=== PATIENT | female | born 1945 | race Asian ===

== ENCOUNTER 2016-02-19 12:40 | Inpatient (IN) | payer MEDICARE, MEDICAID ==
--- NOTE | 2016-02-19 13:10 | ED Physician Chart ---
Chief Complaint/HPI - Patient Information Date Seen:: 02/19/16 Time Seen:: 12:50 Chief Complaint:: 5150 status; threatening History of Present Illness:: per military police officer threatened to kill with whom she lives in a motel. Also told military police officer she was hearing voices which she denied to me. Allergies:: Allergies Allergy/AdvReac Type Severity Reaction Status Date / Time No Known Allergies Allergy Verified 12/29/15 00:26 Historian:: Patient, Other (military police officer) Review:: Nurse's Note Reviewed Review of Systems - Review of Systems General/Constitutional: No fever, No chills Skin: Skin lesions Head: No headache Eyes: No loss of vision ENT: No earache Neck: No neck pain Cardio Vascular: No chest pain Pulmonary: No SOB GI: No nausea, No vomiting G/U: No dysuria, No hematuria Musculoskeletal: No bone or joint pain (`) Psychiatric: Homicidal ideation Hematopoietic: No bruising Allergic/Immuno: No urticaria Neurological: No syncope Past Medical History - Past Medical History Past Medical History: HTN, DM Family History: Other (brother: cardiomegaly) Social History: Non Smoker, , Other Surgical History: Appendectomy Psychiatricy History: Other (uncertain) Medication: None Family Medical History - Family Member Mother History Unknown: Yes Physical Exam - Physical Examination General/Constitutional: Well-developed, well-nourished, Alert, No distress Head: Atraumatic Eyes: Lids, conjuctiva normal, PERRL Other Skin comments:: nodules and redness left lower leg; redness lower abdominal wall ENMT: External ears, nose nl Other ENMT comments:: 4/4 poor dental hygiene Neck: No nuchal rigidity Respiratory: Nl effort/Exclusion Cardio Vascular: RRR, No murmur, gallop, rubs Other GI comments:: lower abdominal tenderness; protuberant; umbilical hernia : No CVA tenderness Other Extremities comments:: 2.5/4 pre-tibial pitting edema Neuro/Psych: Alert/oriented, No focal deficits Labs/Radiology/EKG Results - Lab Results Results: Laboratory Results - last 24 hr 02/19/16 02/19/16 02/19/16 13:20 13:20 13:20 WBC 5.8 RBC 4.34 Hgb 12.2 Hct 35.7 MCV 82.4 MCH 28.1 MCHC Differential 34.1 RDW 16.3 Plt Count 127 L MPV 9.1 Neutrophils % 68.4 Lymphocytes % 18.0 L Monocytes % 8.9 Eosinophils % 3.4 Basophils % 1.3 Sodium 130 L Potassium 4.0 Chloride 97 L Carbon Dioxide 26.1 Anion Gap 10.9 BUN 13 Creatinine 0.9 Est GFR ( Amer) > 60.0 Est GFR (Non-Af Amer) > 60.0 BUN/Creatinine Ratio 14.4 Glucose 324 H Calcium 9.5 Total Bilirubin 4.5 H AST 42 H ALT 22 Alkaline Phosphatase 130 H B-Natriuretic Peptide 61.1 Total Protein 7.5 Albumin 3.3 L Globulin 4.2 Albumin/Globulin Ratio 0.8 L - Radiology Results Results: CXR negative - EKG Interpretations Rhythm: NSR [place]: normal Rate: 70 ED Septic Shock - . Is Septic Shock (SBP<90, OR Lactate>4 mmol\L) present?: No Reassessment (Disposition) - Reassessment Reassessment Condition:: Unchanged - Diagnosis Diagnosis:: cellulitis left lower leg and lower abdominal wall; homicidal threat; 5150 status - Patient Disposition Admitted to:: [facility] Spoke to:: Luisito Pires Admitting Medical Physician:: Luisito Pires Admitting Psych Physician:: Marii Mina Condition at Disposition:: Stable, Unchanged
[2016-02-19 13:34] LABS: % BASOPHILS 1.3 % (0.0-2.0); % EOSINOPHILS 3.4 % (0.0-5.0); % MONOCYTES 8.9 % (2.0-10.0); % NEUTROPHILS 68.4 % (40.0-80.0); HEMATOCRIT 35.7 % (35.0-45.0); HEMOGLOBIN 12.2 gm/dL (11.7-16.1); MEAN CELL VOLUME 82.4 fl (81-100); MEAN CORPUSCULAR HEMOGLOBIN 28.1 pg (27.0-31.0); MEAN CORPUSCULAR HGB CONC 34.1 pg (28.0-36.0); MEAN PLATELET VOLUME 9.1 fl; PLATELET COUNT 127 Th/cmm (150-400); RED BLOOD COUNT 4.34 Mil/cmm (3.80-5.20); RED CELL DISTRIBUTION WIDTH 16.3 % (11.5-20.0); WHITE BLOOD COUNT 5.8 Th/cmm (4.8-10.8)
[2016-02-19 13:46] LABS: ALB/GLOB RATIO 0.8 (1.0-1.8); ALKALINE PHOSPHATASE 130 U/L (34-104); ANION GAP 10.9 (7.0-16.0); BILIRUBIN,TOTAL 4.5 mg/dL (0.3-1.0); BUN - UREA NITROGEN 13 mg/dL (7-25); BUN/CREATININE RATIO 14.4; CALCIUM SERUM 9.5 mg/dL (8.6-10.3); CARBON DIOXIDE 26.1 mEq/L (21.0-31.0); CHLORIDE 97 mEq/L (98-107); CREATININE - SERUM 0.9 mg/dL (0.6-1.2); GLUCOSE 324 mg/dL (70-105); SGOT 42 U/L (13-39); SGPT/ALT 22 U/L (7-52); SODIUM SERUM 130 mEq/L (136-145)
[2016-02-19 15:05] LABS: URINE BILIRUBIN NEGATIVE (NEGATIVE); URINE BLOOD NEGATIVE (NEGATIVE); URINE COLOR YELLOW; URINE GLUCOSE (UA) 500 mg/dL (NEGATIVE); URINE KETONE NEGATIVE (NEGATIVE); URINE PROTEIN 30 mg/dL (NEGATIVE)
[2016-02-19 15:07] LABS: URINE BACTERIA NONE SEEN /hpf (NONE SEEN); URINE EPITHELIAL CELLS NONE SEEN /lpf (FEW); URINE RBC NONE SEEN /hpf (0-5); URINE WBC NONE SEEN /hpf (0-5)
--- NOTE | 2016-02-19 15:38 | Diagnostic Imaging Report ---
Portable chest x-ray HISTORY: Shortness of breath, smoking inhalation The heart appears somewhat enlarged. Atherosclerotic calcination seen in the aorta. No acute focal pulmonary processes. No other hilar or mediastinal abnormalities. IMPRESSION: 1. Cardiomegaly with atherosclerotic vascular changes 2. No acute focal pulmonary processes
[2016-02-19 18:01] VITALS: BP 139/67
[2016-02-19] MEDS ORDERED: Magnesium Hydroxide (MOM) 30 mL UDC PO PRN (18:05)
[2016-02-19] MEDS ORDERED: Maalox 30 mL Cup PO PRN (18:05)
[2016-02-19] MEDS ORDERED: Gentamicin 0.3% Ophth Soln 5mL Bottle EACH EYE PRN (19:42)
[2016-02-19] MEDS: INSULIN ASPART SLIDING SCALE 100 UNITS/ML UNIT SUBQ SCH (20:49)
[2016-02-19] MEDS ORDERED: INSULIN LISPRO 5 UNIT SUBQ SCH (21:00)
[2016-02-20] MEDS: INSULIN ASPART SLIDING SCALE 100 UNITS/ML UNIT SUBQ SCH ×3 (06:34→20:25)
[2016-02-20] MEDS ORDERED: Haloperidol Lactate 5 mg/mL 1mL Vial ONE (07:11)
[2016-02-20] MEDS ORDERED: Haloperidol Lactate 5 mg/mL 1mL Vial IM ONE (07:12)
[2016-02-20] MEDS ORDERED: MULTIVITAMIN PO SCH (09:00)
[2016-02-20] MEDS ORDERED: CALCIUM CARBONATE 750 MG PO SCH (09:00)
[2016-02-20] MEDS: Aspirin 81mg Chewable Tab PO SCH (10:25)
[2016-02-20] MEDS: Vitamin D3 2,000 IU SGL PO SCH (10:25)
[2016-02-20] MEDS: Insulin Detemir 100 units/mL 10mL Vial SUBQ SCH (10:25)
[2016-02-20] MEDS: Multivitamin Tab PO SCH (10:30)
[2016-02-20] MEDS: Pantoprazole 40 mg EC Tab PO SCH (10:30)
--- NOTE | 2016-02-20 13:02 | History & Physical ---
PATIENT IDENTIFICATION: A 70-year-old female. CHIEF COMPLAINT: "I am fine." HISTORY OF PRESENT ILLNESS: A 70-year-old female admitted by Dr. Mina at [facility] Unit on hold after the patient's stated that she was crying and upset because of her political issues and the patient's was also afraid that she would hurt him because of her psychiatric illness. The patient was evaluated at [facility] Emergency Room and from there, the patient has been admitted. PAST MEDICAL HISTORY: Remarkable for: 1. Diabetes mellitus. 2. Obesity. 3. Hypertension. 4. DJD. 5. Hyperlipidemia. 6. Urinary incontinence. 7. Gastritis. 8. Coronary artery disease. 9. History of abdominal wall cellulitis. MEDICATIONS AT HOME: The patient is taking multiple medications, which include Lantus and sliding scale regular insulin, aspirin, calcium with vitamin D, Lasix, gentamicin eyedrops, lisinopril, magnesium oxide, multivitamin, oxybutynin, pantoprazole, potassium, propranolol, vitamin D, and Benadryl. ALLERGIES: The patient is not allergic to any medications. SOCIAL HISTORY: She currently resides in a local motel. The patient has no history of any smoking cigarette, alcohol or drug use. FAMILY MEDICAL HISTORY: Remarkable for diabetes and hypertension. REVIEW OF SYSTEMS: The patient currently denies any headache, blurred vision, double vision, dysphagia, odynophagia, runny nose, stuffy nose, fever, chills, cough, chest pain, shortness of breath, palpitation, dizziness, nausea, vomiting, diarrhea, dysuria, hematuria, hematochezia, melena. No history of any seizure or syncopal episode. PHYSICAL EXAMINATION: GENERAL: A 70-year-old morbidly obese, lying in the bed without any acute distress. VITAL SIGNS: Temperature 97.9, pulse is 84, respiratory rate is 20, blood pressure 140/67. SKIN: Warm to touch. HEENT: Normocephalic, atraumatic. Extraocular muscles are intact. Tongue was pink and coated. Poor dentition noted. No oral lesion/ No exudate. No sinus tenderness. External auditory canals and tympanic membranes are well visualized. NECK: Supple, no JVD, no hepatojugular reflux. No lymphadenopathy, thyromegaly or carotid bruit. HEART: Both heart sounds are regular. No S3, no S4, no murmur. CHEST: Lung equal in expansion, no wheezing, no crackles. ABDOMEN: Soft. There was significant erythema ____ anterior abdominal wall noted. No palpable mass. No guarding. No rigidity. EXTREMITIES: No edema, no cyanosis, no clubbing. Peripheral pulses +1. No calf tenderness noted. NEUROLOGIC: Alert, awake, follows commands. Decreased power throughout the upper and lower extremities noted. AVAILABLE DIAGNOSTIC DATA: Performed remarkable for urinalysis, significant amount of protein and glucose noted. Glycohemoglobin A1c of 7.2 with total bilirubin of 4.5 with AST and ALT of 42 and 22, alkaline phosphatase of 130. Albumin of 3.3, glucose of 324, sodium 130, potassium 4, chloride 97. Platelet of 127, white count of ____, hemoglobin 12.2. EKG has no ST-T changes significant for acute ischemia. CLINICAL IMPRESSION: 1. Abdominal wall cellulitis. 2. Diabetes mellitus, poorly controlled. 3. Hypertension. 4. Hyperlipidemia. 5. Coronary artery disease. 6. Degenerative joint disease. 7. Obesity. 8. Psychotic disorder. 9. Urinary incontinence 10. Gastritis. 11. Hyperbilirubinemia. PLAN: The patient is currently on Keflex, which will be continued at this time. Appropriate home medicine will be reconciliated. I will get the abdominal ultrasound and hepatitis panel to be checked as well. The patient is to have fall precautions along with monitoring the blood sugar with sliding scale insulin and covering the blood sugar with regular insulin. The patient will be also placed on ____ inhibitor for diabetes control as well. The patient will be followed by us during the stay at the [facility]. Psychiatric evaluation and management deferred to psychiatrist. Care plan has been reviewed and discussed. JOB# [id number]
[2016-02-20] MEDS: Sodium Phos / Potassium Phos 1.25 GM PACK PO SCH (16:58)
--- NOTE | 2016-02-20 22:53 | Psychosocial Evaluation ---
IDENTIFYING DATA: The patient is a 70-year-old living with her in a motel. Information obtained by directly interviewing the patient as well as reviewing the admission paper. JUSTIFICATION FOR HOSPITALIZATION: The patient is admitted here on a 5150 for being a danger to others. CHIEF COMPLAINT: "I do not know why they have to bring me in here. They are not listening to me." HISTORY OF PRESENT ILLNESS: This is a first psychiatric hospitalization to [facility] for this patient who is reported to have been agitated and her has called the police stating that he is fearing for his life because the patient might kill him. On that basis, the patient has been placed on 5150 and admitted over here for stabilization. PAST PSYCHIATRIC HISTORY: The patient denies any prior psychiatric hospitalization. MEDICAL HISTORY: Physical examination is requested to be done by Dr. Pires. SUBSTANCE ABUSE HISTORY: None. PHYSICAL OR SEXUAL ABUSE HISTORY: None. LEGAL PROBLEMS: None at this time. SOCIAL HISTORY: The patient is living with her in a motel. MENTAL STATUS EXAMINATION: The patient is a 70-year-old woman, moderately obese, superficially cooperative, screaming and yelling. The patient has to be given a dose of Haldol and Ativan to calm her down. The patient is stating that she cannot walk. She needs to be in followups, and the patient could not out why they have to bring her here. The patient is stating that she was in a motel. She was on the way to see her children. The patient's has mentioned that the patient has been getting agitated, crying, and upset because of the political issues. The patient is denying any of the paranoid delusions and denies any auditory hallucinations, but she is getting easily irritable, yelling, and screaming. Coping skills at this time are noted to be poor. The patient is alert and oriented. The patient knows that she is in the hospital. Attention span and concentration, however, are noted to be poor. The patient's long-term memory seems to be fair. Short-term memory seems to be having problems. The patient, however, has been getting easily upset when I am asking these questions. I cannot get a full mental status examination, particularly with the cognitive testing at this time. DIAGNOSES AT THE TIME OF THE EVALUATION: AXIS I: 1A: Mood disorder, not otherwise specified. 1B: Psychotic disorder, not otherwise specified. AXIS II: None. AXIS III: As per Dr. Pires. IMMEDIATE TREATMENT PLAN: The patient is going to be observed on inpatient unit, provided with supportive psychotherapy. The patient is continued to be placed on Haldol on a p.r.n. basis. ESTIMATED LENGTH OF STAY: 3-5 days. DISCHARGE CRITERIA: When she is no longer a threat to self or others and be able to cope up with the stress. [facility]# [id number]
[2016-02-21] MEDS: INSULIN ASPART SLIDING SCALE 100 UNITS/ML UNIT SUBQ SCH ×4 (06:57→21:21)
[2016-02-21 07:27] LABS: ALB/GLOB RATIO 0.8 (1.0-1.8); ALKALINE PHOSPHATASE 105 U/L (34-104); BILIRUBIN,TOTAL 3.7 mg/dL (0.3-1.0); BUN - UREA NITROGEN 21 mg/dL (7-25); BUN/CREATININE RATIO 23.3; CALCIUM SERUM 9.5 mg/dL (8.6-10.3); CARBON DIOXIDE 26.2 mEq/L (21.0-31.0); CHLORIDE 101 mEq/L (98-107); CREATININE - SERUM 0.9 mg/dL (0.6-1.2); GLUCOSE 179 mg/dL (70-105); POTASSIUM SERUM 4.2 mEq/L (3.5-5.1); SGOT 47 U/L (13-39); SGPT/ALT 19 U/L (7-52); SODIUM SERUM 133 mEq/L (136-145)
--- NOTE | 2016-02-21 10:32 | Diagnostic Imaging Report ---
Abdominal ultrasound HISTORY: Abnormal liver function test The liver exhibits an increase in parenchymal echogenicity. The findings may be associated with fatty infiltration and should be correlated with liver function tests. Overall normal hepatic size. No focal lesions. The exam the gallbladder demonstrates multiple intraluminal echogenic densities with acoustic shadowing. Findings consistent with cholelithiasis. No biliary dilatation. The pancreas cannot be well seen due to bowel gas. The kidneys appear normal bilaterally. The spleen is enlarged. No other retroperitoneal or intra-abdominal abnormalities. IMPRESSION: 1. Findings consistent with cholelithiasis 2. Increased hepatic parenchymal echogenicity. The findings may be associated with fatty infiltration and should be correlated with liver function tests. 3. Splenomegaly
[2016-02-21] MEDS: Insulin Detemir 100 units/mL 10mL Vial SUBQ SCH (10:53)
[2016-02-21] MEDS: Vitamin D3 2,000 IU SGL PO SCH (11:02)
[2016-02-21] MEDS: Pantoprazole 40 mg EC Tab PO SCH (11:03)
[2016-02-21] MEDS: Multivitamin Tab PO SCH (11:03)
[2016-02-21] MEDS: Aspirin 81mg Chewable Tab PO SCH (11:03)
[2016-02-21] MEDS: Sodium Phos / Potassium Phos 1.25 GM PACK PO SCH ×2 (11:05→17:43)
[2016-02-21 15:16] LABS: HEP B CORE IGM Negative (Negative); HEP C ANTIBODY 0.1 s/co ratio (0.0-0.9)
--- NOTE | 2016-02-22 01:06 | Progress Notes ---
PSYCHIATRIC PROGRESS NOTE TIME PATIENT SEEN: 7:30 a.m. SUBJECTIVE: Staff was spoken to. The patient is interviewed. Mood is noted to be less irritable. Affect is appropriate. The patient is drowsy after the Haldol was given yesterday. No side effects to the medications are noted. The patient's screaming and yelling have subsided. Coping skills are noted to be improving. No side effects to the medications are noted. ASSESSMENT: The patient is stabilizing. PLAN: To continue the patient with the supportive therapy and closely monitor the patient for any aggressive behavior. JOB# [id number]
[2016-02-22] MEDS: INSULIN ASPART SLIDING SCALE 100 UNITS/ML UNIT SUBQ SCH (06:46)
[2016-02-22 09:51] LABS: % BASOPHILS 0.7 % (0.0-2.0); % EOSINOPHILS 1.1 % (0.0-5.0); % LYMPHOCYTES 12.8 % (20.0-50.0); % NEUTROPHILS 78.4 % (40.0-80.0); HEMATOCRIT 38.9 % (35.0-45.0); HEMOGLOBIN 13.1 gm/dL (11.7-16.1); MEAN CELL VOLUME 81.1 fl (81-100); MEAN CORPUSCULAR HEMOGLOBIN 27.4 pg (27.0-31.0); MEAN CORPUSCULAR HGB CONC 33.7 pg (28.0-36.0); MEAN PLATELET VOLUME 9.6 fl; NEUTROPHILE ABSOLUTE 5.7 Th/cmm (1.8-8.0); PLATELET COUNT 135 Th/cmm (150-400); RED BLOOD COUNT 4.79 Mil/cmm (3.80-5.20); RED CELL DISTRIBUTION WIDTH 16.5 % (11.5-20.0)
[2016-02-22 09:52] LABS: WHITE BLOOD COUNT 7.3 Th/cmm (4.8-10.8)
[2016-02-22 10:14] LABS: ALB/GLOB RATIO 0.7 (1.0-1.8); ALKALINE PHOSPHATASE 133 U/L (34-104); ANION GAP 14.2 (7.0-16.0); BILIRUBIN,TOTAL 4.2 mg/dL (0.3-1.0); BUN - UREA NITROGEN 21 mg/dL (7-25); CALCIUM SERUM 10.4 mg/dL (8.6-10.3); CARBON DIOXIDE 21.9 mEq/L (21.0-31.0); CHLORIDE 98 mEq/L (98-107); GLUCOSE 273 mg/dL (70-105); POTASSIUM SERUM 4.1 mEq/L (3.5-5.1); SGOT 60 U/L (13-39); SGPT/ALT 25 U/L (7-52); SODIUM SERUM 130 mEq/L (136-145)
[2016-02-22 11:49] LABS: URINE BILIRUBIN NEGATIVE (NEGATIVE); URINE BLOOD MODERATE (NEGATIVE); URINE COLOR YELLOW; URINE GLUCOSE (UA) 100 mg/dL (NEGATIVE); URINE KETONE TRACE mg/dL (NEGATIVE); URINE PROTEIN 30 mg/dL (NEGATIVE)
[2016-02-22 11:50] LABS: URINE BACTERIA NONE SEEN /hpf (NONE SEEN); URINE EPITHELIAL CELLS RARE /lpf (FEW)
[2016-02-22] MEDS ORDERED: Haloperidol Lactate 5 mg/mL 1mL Vial ONE (14:02)
--- NOTE | 2016-02-23 11:42 | Diagnostic Imaging Report ---
Portable chest x-ray HISTORY: Shortness of breath The heart is enlarged. Atherosclerotic calcification seen in the aorta. No focal pulmonary processes. Suggestion of a small right pleural effusion. IMPRESSION: 1. Cardiomegaly with atherosclerotic vascular changes and evidence for small right pleural effusion. The findings suggest changes of a degree of congestive heart failure. Clinical correlation is needed.
--- NOTE | 2016-03-06 20:39 | Discharge Summary ---
IDENTIFYING DATA: The patient is a 70-year-old woman living with her in a motel. JUSTIFICATION OF HOSPITALIZATION: The patient is brought in [id number] as being danger to others. CHIEF COMPLAINT: I do not know why they have to bring me in here. They are not listening to me. DIAGNOSES AT THE TIME OF ADMISSION: AXIS I: 1a. Mood disorder, not otherwise specified. 1b. Psychotic disorder, not otherwise specified. AXIS II: None. AXIS III: As per Dr. Pires. HISTORY OF PRESENT ILLNESS: Please refer to the 02/20/2016, dictation done by me. Physical examination was done by Dr. Pires and is noted to be significant for diabetes mellitus, obesity, hypertension, DJD, hyperlipidemia, gastritis and coronary artery disease. HOSPITAL COURSE AND RESPONSE TO TREATMENT: The patient has been closely monitored on the inpatient unit, provided with supportive psychotherapy. The patient happened to have altered level of consciousness and the patient has to be transferred to the medical unit on 02/22/2016, to be followed up and cleared. MENTAL STATUS EXAMINATION: At the time of discharge, the patient's mood is noted to be anxious and irritable. Affect is constricted. Insight and judgment at this time are noted to be impaired. Impulse control seems to be poor, but the patient has altered level of consciousness and the patient has to be transferred to the medical unit for further care. PROGNOSIS: At the time of discharge noted to be guarded. DIAGNOSES AT THE TIME OF DISCHARGE: AXIS I: 1a. Mood disorder, not otherwise specified. 1b. Psychotic disorder, not otherwise specified. AXIS II: None. AXIS III: Diabetes mellitus, obesity, hypertension, hyperlipidemia and coronary artery disease. AFTER CARE PLAN: The patient is discharged to the medical floor for further followup. JOB# [id number]
== END 2016-02-22 09:15 | disposition short-term general hospital (02) | DRG 885 ==
LOC: ER 12:40 → UNDOADMIN 14:38 → GERO 14:38 → ICU 02-22 09:23 → GERO 02-22 09:23
PROVIDERS: ADMIT Psychiatry & Neurology Psychiatry; ATTEND Psychiatry & Neurology Psychiatry
DX: F29 Unspecified psychosis not due to a substance or known physiological condition (principal); L03.116 Cellulitis of left lower limb; E11.9 Type 2 diabetes mellitus without complications; Z68.42 Body mass index [BMI] 45.0-49.9, adult; F39 Unspecified mood [affective] disorder; L03.311 Cellulitis of abdominal wall; I10 Essential (primary) hypertension; E66.9 Obesity, unspecified; M19.90 Unspecified osteoarthritis, unspecified site; E78.5 Hyperlipidemia, unspecified; I25.10 Atherosclerotic heart disease of native coronary artery without angina pectoris; R32 Unspecified urinary incontinence; E80.6 Other disorders of bilirubin metabolism; K29.70 Gastritis, unspecified, without bleeding; Z90.49 Acquired absence of other specified parts of digestive tract; Z79.4 Long term (current) use of insulin; Z79.82 Long term (current) use of aspirin; Z79.899 Other long term (current) drug therapy; Z82.49 Family history of ischemic heart disease and other diseases of the circulatory system; Z83.3 Family history of diabetes mellitus
CPT/HCPCS: 36415-UA; 71010-TC; 76700-TC; 80053-TC; 80074-90; 81001-TC; 82140-TC; 82948-90; 83036-90; 83880-TC; 84443-TC; 85025-TC; 86592-TC; 90899; 93005; G0410; J1200; J1630; J1815; J2060; Z7610

== ENCOUNTER 2016-02-22 12:02 | Inpatient (IN) | payer MEDICARE, MEDICAID ==
[2016-02-22] MEDS ORDERED: Haloperidol Lactate 5 mg/mL 1mL Vial IVP ONE (13:53)
[2016-02-22] MEDS ORDERED: Haloperidol Lactate 5 mg/mL 1mL Vial IM ONE (15:10)
[2016-02-22] MEDS ORDERED: Lactulose 10 Gm/15 mL 30mL UDC ONE (15:28)
[2016-02-22] MEDS: Lactulose 10 Gm/15 mL 30mL UDC PO SCH ×2 (15:50→21:45)
--- NOTE | 2016-02-22 17:41 | Internal Medicine Prog Note ---
Internal Medicine Subjective - Subjective Service Date: 02/22/16 ([id number] [facility] DICTATED') Internal Medicine Objective - Physical Exam Vitals and I&O: Vital Signs Temp 97.2 F 02/22/16 16:00 Pulse 107 02/22/16 16:00 Resp 19 02/22/16 16:00 BP 144/77 02/22/16 16:00 Pulse Ox 95 02/22/16 16:00 Active Medications: Current Medications Albuterol Sulfate (Albuterol 2.5mg/3ml Neb Ud) 2.5 mg IH QID PONCHO Stop: 04/22/16 20:59 Aspirin (Aspirin Chewable) 81 mg PO DAILY PONCHO Stop: 04/23/16 08:59 Diphenhydramine HCl (Benadryl) 25 mg PO TID PONCHO Stop: 04/22/16 20:59 Gentamicin Sulfate ([place]entak 0.3% Oph Soln) 1 drop EACH EYE QID PRN PRN Reason: MUCUS IN EYES Stop: 04/22/16 17:24 Ipratropium [place] (Atrovent Neb 0.5mg/2.5ml) 0.5 mg IH QID PONCHO Stop: 04/22/16 20:59 Lactulose (Cephulac) 30 gm PO TID PONCHO Stop: 04/22/16 15:14 Last Admin: 02/22/16 15:50 Dose: 30 gm Lisinopril (Zestril) 5 mg PO DAILY PONCHO Stop: 04/23/16 08:59 Magnesium Oxide (Mag-Oxide) 400 mg PO BID PONCHO Stop: 04/23/16 08:59 Miscellaneous (Calcium Carbonate [Calcium Carbonate]) 750 mg PO DAILY PONCHO Stop: 04/23/16 08:59 Miscellaneous (Insulin Glargine, Recombinan [Lantus]) 40 units SUBQ DAILY PONCHO Stop: 04/23/16 08:59 Miscellaneous (Insulin Lispro [Humalog]) 5 unit SUBQ TID PONCHO Stop: 04/22/16 20:59 Miscellaneous (Multivitamin [Multivitamins]) 1 each PO DAILY PONCHO Stop: 04/23/16 08:59 Miscellaneous (Naphazo Hcl/Hpm/Ps 80/Zn Sulf [Clear Eyes Complete Eye Drops]) 15 ml OP QID PONCHO Stop: 04/22/16 20:59 Oxybutynin Chloride (Ditropan) 5 mg PO BID [facility] Stop: 04/23/16 08:59 Potassium Phosphate (K Phos) 250 mg PO BID [facility] Stop: 04/23/16 08:59 Propranolol HCl (Inderal) 20 mg PO DAILY [facility] Stop: 04/23/16 08:59 Vitamin D (Vitamin D) iu PO DAILY [facility] Stop: 04/23/16 08:59 - Procedures Procedures: Procedures Procedure Code Date INJECT/INFUSE NEC 99.29 01/12/10 Internal Medicine Assmt/Plan - Assessment Assessment: ALOC ELEVATED AMMONIA COPD MORBID OBESITY HTN MANN GERD ANXIETY
[2016-02-22] MEDS ORDERED: D5-0.9%NS 1,000 ML IV SCH (17:45)
[2016-02-22 18:56] LABS: ABG SOURCE art; BE(B) 3.3 mmol/L (-3.0-3.0); HCO3 26.8 mmol/L (20.0-26.0); pH 7.48 (7.35-7.45)
[2016-02-22 18:57] LABS: ALLEN TEST P; FIO2 28
[2016-02-22] MEDS ORDERED: Insulin Detemir 100 units/mL 10mL Vial SUBQ SCH (21:00)
[2016-02-22] MEDS ORDERED: INSULIN LISPRO 5 UNIT SUBQ SCH (21:00)
--- NOTE | 2016-02-22 21:16 | History & Physical ---
CHIEF COMPLAINT: ALOC. HISTORY OF PRESENT ILLNESS: This is a 70-year-old [place] female who was transferred from [facility] Unit. According to nursing staff, in the [facility], the patient was found to be in ALOC. The patient's ammonia level was at 135. For this reason, the patient is now here at that the telemetry unit. Upon exam, the patient is noted to be lethargic. The patient was given lactulose this morning for the elevated ammonia level. PAST MEDICAL HISTORY: COPD, hypertension, psychosis, GERD and anxiety. ALLERGIES: No drug allergies. FAMILY HISTORY: Noncontributory. REVIEW OF SYSTEMS: Unable to obtain. The patient is lethargic. PHYSICAL EXAMINATION: GENERAL: The patient is lethargic, appears chronically ill. VITAL SIGNS: Temperature 97.2, heart rate 107, blood pressure 144/77, respirations 19, O2 95%. HEENT: Head; normocephalic, atraumatic. NECK: Supple. No mass. LUNGS: Rhonchi bilaterally upon auscultation. CARDIOVASCULAR: Regular rate and rhythm. No murmurs or gallops. ABDOMEN: Nondistended. Nontender. LABORATORY DATA: WBC 7.3, H and H 13.1 and 38.9 and platelet 135. Sodium 130, potassium 4.1. Ammonia level of 135. ASSESSMENT: 1.Altered level of consciousness. 2.Elevated ammonia level, chronic obstructive pulmonary disease, hypertension, psychosis, gastroesophageal reflux disease and anxiety. PLAN: The patient will have a consultation with farm general manager and also Dr. Mina for Psych. The patient to have a stat chest x-ray and ABG. We will do repeat ammonia level. CBC, BMP for tomorrow morning. We will monitor the patient's glucose level. We will continue to monitor the patient. JOB# [id number]
[2016-02-22] MEDS: Levofloxacin 500mg/100mL 500 MG/100 ML BAG IV SCH (22:50)
--- NOTE | 2016-02-23 00:11 | Progress Notes ---
TIME PATIENT SEEN: 8:00 a.m. SUBJECTIVE: Staff was spoken to. The patient is interviewed. The patient is reported to have been displaying altered level of mental status. The patient is ready to have been urinating on herself. The patient's blood sugar is noted to be 290. The patient is not making much sense and has been moaning and groaning and hence it is decided to transfer to the medical unit for further workup and plan. Dr. Meyers has been informed and then the patient has been transferred to the Emergency Room. ASSESSMENT: For possible transfer to the ICU. The patient has not been given any psychotropic medications at this time. JOB# [id number]
[2016-02-23] MEDS: Ipratropium Neb 0.5 mg/2.5 mL UD HHN SCH ×5 (03:07→19:25)
[2016-02-23] MEDS: Albuterol Nebulizer 2.5mg/3mL HHN SCH ×5 (03:07→19:25)
[2016-02-23 07:29] LABS: ALB/GLOB RATIO 0.8 (1.0-1.8); ALKALINE PHOSPHATASE 98 U/L (34-104); ANION GAP 8.7 (7.0-16.0); BILIRUBIN,TOTAL 4.3 mg/dL (0.3-1.0); BUN - UREA NITROGEN 20 mg/dL (7-25); BUN/CREATININE RATIO 18.2; CALCIUM SERUM 9.5 mg/dL (8.6-10.3); CHLORIDE 103 mEq/L (98-107); CREATININE - SERUM 1.1 mg/dL (0.6-1.2); GLUCOSE 304 mg/dL (70-105); POTASSIUM SERUM 3.7 mEq/L (3.5-5.1); SGOT 63 U/L (13-39); SGPT/ALT 21 U/L (7-52); SODIUM SERUM 132 mEq/L (136-145)
[2016-02-23 07:31] LABS: % BASOPHILS 0.8 % (0.0-2.0); % EOSINOPHILS 2.1 % (0.0-5.0); % LYMPHOCYTES 17.2 % (20.0-50.0); % MONOCYTES 9.4 % (2.0-10.0); % NEUTROPHILS 70.5 % (40.0-80.0); HEMOGLOBIN 11.6 gm/dL (11.7-16.1); MEAN CELL VOLUME 82.2 fl (81-100); MEAN CORPUSCULAR HEMOGLOBIN 27.8 pg (27.0-31.0); MEAN CORPUSCULAR HGB CONC 33.8 pg (28.0-36.0); NEUTROPHILE ABSOLUTE 4.9 Th/cmm (1.8-8.0); PLATELET COUNT 119 Th/cmm (150-400); RED BLOOD COUNT 4.18 Mil/cmm (3.80-5.20); RED CELL DISTRIBUTION WIDTH 16.8 % (11.5-20.0); WHITE BLOOD COUNT 6.9 Th/cmm (4.8-10.8)
[2016-02-23 07:42] LABS: HEMATOCRIT 34.3 % (35.0-45.0)
--- NOTE | 2016-02-23 08:48 | Consultation ---
Thank you very much, Dr. Meyers, for this consultation. HISTORY OF PRESENT ILLNESS: This is a 70-year-old female who was transferred from [facility] Unit. Apparently, the patient was admitted there for homicidal ideation and depressed and severely agitated to see if some sedatives and-anxiety medications apparently was altered. The patient was altered and transferred here for further evaluation. Her ammonia level; on present day, she was at 135, the patient was started on lactulose and the patient is unable to give any history, responsive, but obtunded. PAST MEDICAL HISTORY: As above. SOCIAL HISTORY: Not available except the patient is living with her in a motel. REVIEW OF SYSTEMS: Unable to obtain because of the patient's condition. PAST MEDICAL HISTORY: Hypertension, diabetes, obesity, hyperglobulinemia, the patient has liver disease in the past and liver cirrhosis. PHYSICAL EXAMINATION: VITAL SIGNS: Temperature is 97.2, pulse 107, respirations 19, blood pressure 144/77, saturating 95-99%. HEENT: Atraumatic, normocephalic. Pupils react to light and accommodation. Ears, nose and throat normal. NECK: Supple. CHEST: There are a few rhonchi in bases, fair air entry, no wheezing. HEART: Regular rate and rhythm. ABDOMEN: Soft. EXTREMITIES: No edema. LABORATORY DATA: Ammonia 135 on admission. Other labs, ultrasound shows cholelithiasis. Hepatitis profile was negative. Sodium 130, potassium 4.2, BUN 21, creatinine 0.9. IMPRESSION: This is a 70-year-old female with the: 1. Altered level of consciousness, possibly combination of medications and hyperammonemia, possibly underlying liver disease as well. 2. Obesity. 3. Possible obstructive sleep apnea syndrome. 4. Rule out CO2 retention. PLAN: 1. ABGs. 2. Oxygen supplementation. 3. Close observation. 4. Follow up chest x-ray and I will follow the patient with you. JOB# [id number] SHANAE
[2016-02-23] MEDS: Lactulose 10 Gm/15 mL 30mL UDC PO SCH ×3 (09:16→20:21)
[2016-02-23] MEDS: Aspirin 81mg Chewable Tab PO SCH (09:18)
[2016-02-23] MEDS: Multivitamin Tab PO SCH (09:19)
[2016-02-23] MEDS: Vitamin D3 2,000 IU SGL PO SCH (09:25)
[2016-02-23] MEDS: Polyvinyl Alcohol Ophth Soln 15 mL Bottle EACH EYE SCH ×4 (10:14→20:20)
[2016-02-23] MEDS: Gentamicin 0.3% Ophth Soln 5mL Bottle EACH EYE PRN ×3 (10:15→16:57)
--- NOTE | 2016-02-23 11:49 | Diagnostic Imaging Report ---
Portable chest x-ray HISTORY: Shortness of breath Compared with prior exam of 02/22/2016, the heart remains enlarged. Decrease in a small right pleural effusion. IMPRESSION: 1. Decreased small right pleural effusion with persistent cardiomegaly.
--- NOTE | 2016-02-23 11:57 | Diagnostic Imaging Report ---
Radionuclide biliary scan (HIDA scan) HISTORY: Pain 5.5 mCi technetium labeled biliary age and was used in the exam. The exam demonstrates normal hepatic uptake and clearance. There is excretion into the gallbladder at 1 hour. Slight delay in excretion of nuclide into the small bowel. This finding is of questionable significance. In the absence of sonographically demonstrated biliary dilatation, the finding is of questionable significance. Partial common bile duct obstruction cannot be excluded. Clinical correlation is needed. IMPRESSION: 1. Normal visualization of the gallbladder with slight delay in excretion of nuclide into the small bowel. As no biliary dilatation was identified sonographically, the finding is of questionable significance. Clinical correlation and correlation with laboratory data is needed.
--- NOTE | 2016-02-23 12:27 | Internal Medicine Prog Note ---
Internal Medicine Subjective - Subjective Service Date: 02/23/16 (patient is more awake, alert, no apparent distress) Patient seen and examined:: with staff Internal Medicine Objective - Results Result Diagrams: 02/23/16 06:15 02/23/16 06:15 Recent Labs: Laboratory Last Values WBC 6.9 Th/cmm (4.8-10.8) 02/23/16 06:15 RBC 4.18 Mil/cmm (3.80-5.20) 02/23/16 06:15 Hgb 11.6 gm/dL (11.7-16.1) L 02/23/16 06:15 Hct 34.3 % (35.0-45.0) L D 02/23/16 06:15 MCV 82.2 fl (81-100) 02/23/16 06:15 MCH 27.8 pg (27.0-31.0) 02/23/16 06:15 MCHC Differential 33.8 pg (28.0-36.0) 02/23/16 06:15 RDW 16.8 % (11.5-20.0) 02/23/16 06:15 Plt Count 119 Th/cmm (150-400) L 02/23/16 06:15 MPV 10.0 fl 02/23/16 06:15 Neutrophils % 70.5 % (40.0-80.0) 02/23/16 06:15 Lymphocytes % 17.2 % (20.0-50.0) L 02/23/16 06:15 Monocytes % 9.4 % (2.0-10.0) 02/23/16 06:15 Eosinophils % 2.1 % (0.0-5.0) 02/23/16 06:15 Basophils % 0.8 % (0.0-2.0) 02/23/16 06:15 Specimen Source art 02/22/16 17:33 Sample Site R-R 02/22/16 17:33 pH 7.48 (7.35-7.45) H 02/22/16 17:33 pCO2 36.0 mmHg (35.0-45.0) 02/22/16 17:33 pO2 130.0 mmHg (80.0-100.0) H 02/22/16 17:33 HCO3 26.8 mmol/L (20.0-26.0) H 02/22/16 17:33 Base Excess 3.3 mmol/L (-3.0-3.0) H 02/22/16 17:33 O2 Saturation 99.0 % (92.0-100.0) 02/22/16 17:33 Jean Claude Test P 02/22/16 17:33 Vent Rate NA 02/22/16 17:33 Inspired O2 28 02/22/16 17:33 Tidal Volume NA 02/22/16 17:33 PEEP NA 02/22/16 17:33 Pressure (ins/psv/peep) NA 02/22/16 17:33 Critical Value RPINEIRA 02/22/16 17:33 Sodium 132 mEq/L (136-145) L 02/23/16 06:15 Potassium 3.7 mEq/L (3.5-5.1) 02/23/16 06:15 Chloride 103 mEq/L (98-107) 02/23/16 06:15 Carbon Dioxide 24.0 mEq/L (21.0-31.0) 02/23/16 06:15 Anion Gap 8.7 (7.0-16.0) 02/23/16 06:15 BUN 20 mg/dL (7-25) 02/23/16 06:15 Creatinine 1.1 mg/dL (0.6-1.2) 02/23/16 06:15 Est GFR ( Amer) > 60.0 ml/min 02/23/16 06:15 Est GFR (Non-Af Amer) 52.2 ml/min 02/23/16 06:15 BUN/Creatinine Ratio 18.2 02/23/16 06:15 Glucose 304 mg/dL (70-105) H 02/23/16 06:15 POC Glucose 277 MG/DL (70 - 105) H 02/22/16 20:31 Calcium 9.5 mg/dL (8.6-10.3) 02/23/16 06:15 Total Bilirubin 4.3 mg/dL (0.3-1.0) H 02/23/16 06:15 AST 63 U/L (13-39) H 02/23/16 06:15 ALT 21 U/L (7-52) 02/23/16 06:15 Alkaline Phosphatase 98 U/L (34-104) 02/23/16 06:15 Ammonia 52 umol/L (16-53) 02/23/16 06:15 Total Protein 7.2 gm/dL (6.0-8.3) 02/23/16 06:15 Albumin 3.1 gm/dL (3.7-5.3) L 02/23/16 06:15 Globulin 4.1 gm/dL 02/23/16 06:15 Albumin/Globulin Ratio 0.8 (1.0-1.8) L 02/23/16 06:15 - Physical Exam Vitals and I&O: Vital Signs Temp 97.2 F 02/23/16 00:00 Pulse 96 02/23/16 11:41 Resp 20 02/23/16 11:41 BP 133/67 02/23/16 09:21 Pulse Ox 98 02/23/16 11:41 Intake & Output 02/22/16 02/23/16 02/23/16 18:59 06:59 18:59 Intake Total 160 0 Output Total 0 Balance 160 0 Intake: Intake, IV Amount 100 Levofloxacin 500mg/100mL 100 500 mg In 100 ml @ 100 mls/hr IV Q24HR [facility] Rx#: [id number] Oral 60 0 Output: Urine 0 Other: # Voids 3 # Bowel Movements 2 Stool Characteristics Soft Soft Liquid Liquid Brown Brown Active Medications: Current Medications Acetaminophen (Tylenol) 650 mg PO Q4HR PRN PRN Reason: Pain or Fever >101 Stop: 04/22/16 17:42 Albuterol Sulfate (Albuterol 2.5mg/3ml Neb Ud) 2.5 mg HHN QIDRT [facility] Stop: 04/22/16 20:59 Last Admin: 02/23/16 11:40 Dose: 2.5 mg Artificial Tears (Artificial Tears Ophth Soln) 1 drop EACH EYE QID [facility] Stop: 04/23/16 08:59 Last Admin: 02/23/16 10:14 Dose: 1 drop Aspirin (Aspirin Chewable) 81 mg PO DAILY [facility] Stop: 04/23/16 08:59 Last Admin: 02/23/16 09:18 Dose: 81 mg Calcium Carbonate (Os-Noah) 750 mg PO DAILY [facility] Stop: 04/23/16 08:59 Last Admin: 02/23/16 09:18 Dose: 750 mg Furosemide (Lasix) 20 mg IVP DAILY [facility] Stop: 04/23/16 08:59 Last Admin: 02/23/16 09:21 Dose: 20 mg Gentamicin Sulfate (Gentak 0.3% Ophth Soln) 1 drop EACH EYE QID PRN PRN Reason: MUCUS IN EYES Stop: 04/23/16 08:59 Last Admin: 02/23/16 10:15 Dose: 1 drop Dextrose/Sodium Chloride (D5-0.9%Ns) 1,000 mls @ 50 mls/hr IV .Q20H [facility] Stop: 04/22/16 17:44 Last Admin: 02/22/16 18:00 Dose: 50 mls/hr Levofloxacin (Levaquin Pb) 500 mg in 100 mls @ 100 mls/hr IV Q24HR [facility] Stop: 04/22/16 17:44 Last Infusion: 02/22/16 23:50 Dose: Infused Ipratropium [place] (Atrovent Neb 0.5mg/2.5ml) 0.5 mg HHN QIDRT [facility] Stop: 04/22/16 20:59 Last Admin: 02/23/16 11:40 Dose: 0.5 mg Lactulose (Cephulac) 30 gm PO TID [facility] Stop: 04/22/16 15:14 Last Admin: 02/23/16 09:16 Dose: 30 gm Lisinopril (Zestril) 5 mg PO DAILY [facility] Stop: 04/23/16 08:59 Last Admin: 02/23/16 09:19 Dose: 5 mg Magnesium Oxide (Mag-Oxide) 400 mg PO BID [facility] Stop: 04/23/16 08:59 Last Admin: 02/23/16 09:19 Dose: 400 mg Multivitamins/Vitamin C (Theragran) 1 tab PO DAILY [facility] Stop: 04/23/16 08:59 Last Admin: 02/23/16 09:19 Dose: 1 tab Ondansetron HCl (Zofran) 4 mg IV Q8H PRN PRN Reason: Nausea / Vomiting Stop: 04/22/16 17:42 Oxybutynin Chloride (Ditropan) 5 mg PO BID [facility] Stop: 04/23/16 08:59 Last Admin: 02/23/16 09:25 Dose: 5 mg Pantoprazole Sodium (Protonix) 40 mg IVP DAILY [facility] Stop: 04/23/16 08:59 Last Admin: 02/23/16 09:17 Dose: 40 mg Propranolol HCl (Inderal) 20 mg PO BID [facility] Stop: 04/23/16 08:59 Vitamin D (Vitamin D3) 2,000 iu PO DAILY [facility] Stop: 04/23/16 08:59 Last Admin: 02/23/16 09:25 Dose: 2,000 iu General: alert HEENT: NC/AT, PERRLA Neck: Supple Lungs: ronchi Cardiovascular: RRR, Normal S1, Normal S2, without murmur Abdomen: soft non-tender, non-distended, positive bowel sound - Procedures Procedures: Procedures Procedure Code Date INJECT/INFUSE NEC 99.29 01/12/10 Internal Medicine Assmt/Plan - Assessment Assessment: ALOC ELEVATED AMMONIA COPD MORBID OBESITY HTN MANN GERD ANXIETY - Plan Plan: supplemental o2 bipap prn bronchodilators ivabx cbc/bmp/mag in am ammonia in am
[2016-02-23] MEDS ORDERED: D5-0.9%NS 1,000 ML IV SCH (14:23)
[2016-02-23] MEDS: Levofloxacin 500mg/100mL 500 MG/100 ML BAG IV SCH (17:00)
[2016-02-23] MEDS ORDERED: VTE Chemical Prophylaxis Screen/Admission MC PRN (17:05)
[2016-02-23] MEDS ORDERED: Insulin Detemir 100 units/mL 10mL Vial SUBQ SCH (21:00)
--- NOTE | 2016-02-23 23:30 | Admit Criteria Form ---
Admit Criteria Forms - Admit Criteria Diagnosis: ACUTE LOSS OF CONSCIOUSNESS- ALOC Clinical Indications for Inpatient Care (Place 'X' for any and all applicable criteria): Ongoing inpatient care may be needed for ANY ONE of the following(1)(2)(3)(5)(6) : [ ]I. Suspected serious etiology (eg, medical disorder, [employer] event) of mental status change [ ]II. Danger to self or others not manageable at lower level of care [ ]III. Grave disability (eg, inability to perform self care necessary at lower level of care) [ ]IV. Agitation or inappropriate behavior interfering with care for primary condition (eg, attempting to discontinue lines or drains prematurely, unable to cooperate with respiratory care) [ ]V. Delirium [A] [D][E] as described by ANY ONE of the following(26): [ ]a) Delirium due to alcohol or sedative [F] withdrawal [ ]b) Delirium of uncertain etiology that has not responded to appropriate empiric treatment [ ]c) Delirium that prevents performance of a life-sustaining function (eg, feeding or hydrating oneself) [x ]. General contraindications and/or Inappropriate clinical situations for Observational Care in patients with Acute Loss of Consciousness, when ANY ONE of the following is required: [ x]a) Prediction of prolongation of LOS based on ANY ONE of the following may be considered as a contraindication for observational care 2, 3, 4, 5, 6, 7, 8 , 9, 10, 11 [ x]i) Age > 65 yrs. [ ]ii) Patient arriving by ambulance [ ]iii) Patient with high acuity [ ]iv) Patient requiring vital sign monitoring [ ]v) Patient on IV medication [ ]b) Systolic blood pressures 180mmHg 3,12 [ ]c) Patient with altered mental status including delirium and other alteration of consciousness, (3) [ ]d) Patient whose discharge disposition will be to a assisted home or rehabilitation home should not be managed in Emergency Department Observation Unit. CMS rule requires 3 days hospital stay before such placement.3,13 [ ]e) Patient with failure to thrive due to broad array of etiologies 3,16,17 [ ]f) Inability to ambulate 3,14 Extended stay beyond goal length of stay for the primary condition may be needed until ALL of the following are present(3)(5): [ ]a) Underlying medical etiology of mental status change is absent, or has been established and adequately treated [ ]b) Danger to self or others is absent or manageable at lower level of care. [ ]c) Behavior crisis management, including physical or chemical restraints, is not required or available at lower level of car [ ]d) Substance or alcohol withdrawal is absent or manageable at lower level of care. [ ]e) Behavioral symptoms (eg, agitation, somnolence, inappropriate behavior) are absent, or are manageable at lower level of care. The original [facility] content created by [facility] has been revised. The portions of the content which have been revised are identified through the use of italic text or in bold, and [facility] has neither reviewed nor approved the modified material. All other unmodified content is copyright [facility]. Please see references footnoted in the original [facility] edition 2016 Admit Criteria Met?: Yes
[2016-02-24] MEDS: Ipratropium Neb 0.5 mg/2.5 mL UD HHN SCH ×4 (06:48→20:02)
[2016-02-24] MEDS: Albuterol Nebulizer 2.5mg/3mL HHN SCH ×4 (06:48→20:02)
[2016-02-24 07:30] LABS: % BASOPHILS 0.7 % (0.0-2.0); % EOSINOPHILS 3.6 % (0.0-5.0); % LYMPHOCYTES 19.4 % (20.0-50.0); % MONOCYTES 10.3 % (2.0-10.0); HEMATOCRIT 33.8 % (35.0-45.0); HEMOGLOBIN 11.7 gm/dL (11.7-16.1); MEAN CORPUSCULAR HEMOGLOBIN 28.3 pg (27.0-31.0); MEAN CORPUSCULAR HGB CONC 34.5 pg (28.0-36.0); MEAN PLATELET VOLUME 9.8 fl; NEUTROPHILE ABSOLUTE 4.3 Th/cmm (1.8-8.0); PLATELET COUNT 113 Th/cmm (150-400); RED BLOOD COUNT 4.13 Mil/cmm (3.80-5.20); RED CELL DISTRIBUTION WIDTH 16.6 % (11.5-20.0); WHITE BLOOD COUNT 6.5 Th/cmm (4.8-10.8)
[2016-02-24] MEDS: Vitamin D3 2,000 IU SGL PO SCH (09:14)
[2016-02-24] MEDS: Lactulose 10 Gm/15 mL 30mL UDC PO SCH ×3 (09:14→20:08)
[2016-02-24] MEDS: Aspirin 81mg Chewable Tab PO SCH (09:14)
[2016-02-24] MEDS: Multivitamin Tab PO SCH (09:15)
[2016-02-24] MEDS: Polyvinyl Alcohol Ophth Soln 15 mL Bottle EACH EYE SCH ×4 (09:15→20:08)
[2016-02-24 09:22] LABS: ANION GAP 11.1 (7.0-16.0); BUN - UREA NITROGEN 14 mg/dL (7-25); CALCIUM SERUM 9.6 mg/dL (8.6-10.3); CARBON DIOXIDE 25.1 mEq/L (21.0-31.0); CHLORIDE 104 mEq/L (98-107); CREATININE - SERUM 0.7 mg/dL (0.6-1.2); GLUCOSE 321 mg/dL (70-105); POTASSIUM SERUM 4.2 mEq/L (3.5-5.1); SODIUM SERUM 136 mEq/L (136-145)
[2016-02-24] MEDS ORDERED: Influenza Vaccine 0.5 mL Syr IM ONE (10:16)
--- NOTE | 2016-02-24 16:50 | Internal Medicine Prog Note ---
Internal Medicine Subjective - Subjective Patient seen and examined:: with staff, chart reviewed Patient is:: verbal, interactive Patient Complaints of:: congestion Per staff patient is:: no adverse event, confused Internal Medicine Objective - Results Result Diagrams: 02/24/16 06:25 02/24/16 06:25 Recent Labs: Laboratory Last Values WBC 6.5 Th/cmm (4.8-10.8) 02/24/16 06:25 RBC 4.13 Mil/cmm (3.80-5.20) 02/24/16 06:25 Hgb 11.7 gm/dL (11.7-16.1) 02/24/16 06:25 Hct 33.8 % (35.0-45.0) L 02/24/16 06:25 MCV 82.0 fl (81-100) 02/24/16 06:25 MCH 28.3 pg (27.0-31.0) 02/24/16 06:25 MCHC Differential 34.5 pg (28.0-36.0) 02/24/16 06:25 RDW 16.6 % (11.5-20.0) 02/24/16 06:25 Plt Count 113 Th/cmm (150-400) L 02/24/16 06:25 MPV 9.8 fl 02/24/16 06:25 Neutrophils % 66.0 % (40.0-80.0) 02/24/16 06:25 Lymphocytes % 19.4 % (20.0-50.0) L 02/24/16 06:25 Monocytes % 10.3 % (2.0-10.0) H 02/24/16 06:25 Eosinophils % 3.6 % (0.0-5.0) 02/24/16 06:25 Basophils % 0.7 % (0.0-2.0) 02/24/16 06:25 Specimen Source art 02/22/16 17:33 Sample Site R-R 02/22/16 17:33 pH 7.48 (7.35-7.45) H 02/22/16 17:33 pCO2 36.0 mmHg (35.0-45.0) 02/22/16 17:33 pO2 130.0 mmHg (80.0-100.0) H 02/22/16 17:33 HCO3 26.8 mmol/L (20.0-26.0) H 02/22/16 17:33 Base Excess 3.3 mmol/L (-3.0-3.0) H 02/22/16 17:33 O2 Saturation 99.0 % (92.0-100.0) 02/22/16 17:33 Jean Claude Test P 02/22/16 17:33 Vent Rate NA 02/22/16 17:33 Inspired O2 28 02/22/16 17:33 Tidal Volume NA 02/22/16 17:33 PEEP NA 02/22/16 17:33 Pressure (ins/psv/peep) NA 02/22/16 17:33 Critical Value RPINEIRA 02/22/16 17:33 Sodium 136 mEq/L (136-145) 02/24/16 06:25 Potassium 4.2 mEq/L (3.5-5.1) 02/24/16 06:25 Chloride 104 mEq/L (98-107) 02/24/16 06:25 Carbon Dioxide 25.1 mEq/L (21.0-31.0) 02/24/16 06:25 Anion Gap 11.1 (7.0-16.0) 02/24/16 06:25 BUN 14 mg/dL (7-25) 02/24/16 06:25 Creatinine 0.7 mg/dL (0.6-1.2) 02/24/16 06:25 Est GFR ( Amer) > 60.0 ml/min 02/24/16 06:25 Est GFR (Non-Af Amer) > 60.0 ml/min 02/24/16 06:25 BUN/Creatinine Ratio 20.0 02/24/16 06:25 Glucose 321 mg/dL (70-105) H 02/24/16 06:25 POC Glucose 330 MG/DL (70 - 105) H 02/24/16 12:02 Calcium 9.6 mg/dL (8.6-10.3) 02/24/16 06:25 Magnesium 1.7 mg/dL (1.9-2.7) L 02/24/16 06:25 Total Bilirubin 4.3 mg/dL (0.3-1.0) H 02/23/16 06:15 AST 63 U/L (13-39) H 02/23/16 06:15 ALT 21 U/L (7-52) 02/23/16 06:15 Alkaline Phosphatase 98 U/L (34-104) 02/23/16 06:15 Ammonia 52 umol/L (16-53) 02/23/16 06:15 B-Natriuretic Peptide 223.0 pg/mL (5.0-100.0) H 02/24/16 06:25 Total Protein 7.2 gm/dL (6.0-8.3) 02/23/16 06:15 Albumin 3.1 gm/dL (3.7-5.3) L 02/23/16 06:15 Globulin 4.1 gm/dL 02/23/16 06:15 Albumin/Globulin Ratio 0.8 (1.0-1.8) L 02/23/16 06:15 - Physical Exam Vitals and I&O: Vital Signs Temp 97.3 F 02/24/16 12:30 Pulse 92 02/24/16 15:17 Resp 19 02/24/16 15:17 BP 144/71 02/24/16 12:30 Pulse Ox 94 02/24/16 15:17 Intake & Output 02/23/16 02/24/16 02/24/16 18:59 06:59 18:59 Intake Total 300 300 Output Total 0 Balance 300 300 Intake: Oral 300 300 Output: Urine 0 Other: # Voids 3 3 # Bowel Movements 1 Stool Characteristics Soft Soft Liquid Liquid Brown Brown Active Medications: Current Medications Acetaminophen (Tylenol) 650 mg PO Q4HR PRN PRN Reason: Pain or Fever >101 Stop: 04/22/16 17:42 Albuterol Sulfate (Albuterol 2.5mg/3ml Neb Ud) 2.5 mg HHN QIDRT [facility] Stop: 04/22/16 20:59 Last Admin: 02/24/16 15:15 Dose: 2.5 mg Artificial Tears (Artificial Tears Ophth Soln) 1 drop EACH EYE QID [facility] Stop: 04/23/16 08:59 Last Admin: 02/24/16 09:15 Dose: Not Given Aspirin (Aspirin Chewable) 81 mg PO DAILY [facility] Stop: 04/23/16 08:59 Last Admin: 02/24/16 09:14 Dose: Not Given Calcium Carbonate (Os-Noah) 750 mg PO DAILY [facility] Stop: 04/23/16 08:59 Last Admin: 02/24/16 09:14 Dose: Not Given Furosemide (Lasix) 20 mg IVP DAILY [facility] Stop: 04/23/16 08:59 Last Admin: 02/24/16 09:10 Dose: 20 mg Gentamicin Sulfate (Gentak 0.3% Ophth Soln) 1 drop EACH EYE QID PRN PRN Reason: MUCUS IN EYES Stop: 04/23/16 08:59 Last Admin: 02/23/16 16:57 Dose: 1 drop Levofloxacin (Levaquin Pb) 500 mg in 100 mls @ 100 mls/hr IV Q24HR [facility] Stop: 04/22/16 17:44 Last Admin: 02/23/16 17:00 Dose: 100 mls/hr Insulin Detemir (Levemir Insulin) 40 units SUBQ HS [facility] PRN Reason: Protocol Stop: 04/24/16 16:46 Ipratropium [place] (Atrovent Neb 0.5mg/2.5ml) 0.5 mg HHN QIDRT [facility] Stop: 04/22/16 20:59 Last Admin: 02/24/16 15:15 Dose: 0.5 mg Lactulose (Cephulac) 30 gm PO TID [facility] Stop: 04/22/16 15:14 Last Admin: 02/24/16 09:14 Dose: Not Given Lisinopril (Zestril) 5 mg PO DAILY [facility] Stop: 04/23/16 08:59 Last Admin: 02/24/16 09:15 Dose: Not Given Magnesium Oxide (Mag-Oxide) 400 mg PO BID [facility] Stop: 04/23/16 08:59 Last Admin: 02/24/16 09:15 Dose: Not Given Miscellaneous (Vte Chemical Prophylaxis Screen/ Admission) 1 ea [facility] PRN PRN PRN Reason: PROTOCOL Stop: 04/23/16 17:04 Multivitamins/Vitamin C (Theragran) 1 tab PO DAILY [facility] Stop: 04/23/16 08:59 Last Admin: 02/24/16 09:15 Dose: Not Given Ondansetron HCl (Zofran) 4 mg IV Q8H PRN PRN Reason: Nausea / Vomiting Stop: 04/22/16 17:42 Oxybutynin Chloride (Ditropan) 5 mg PO BID [facility] Stop: 04/23/16 08:59 Last Admin: 02/24/16 09:15 Dose: Not Given Pantoprazole Sodium (Protonix) 40 mg IVP DAILY [facility] Stop: 04/23/16 08:59 Last Admin: 02/24/16 09:10 Dose: 40 mg Propranolol HCl (Inderal) 20 mg PO BID [facility] Stop: 04/23/16 08:59 Last Admin: 02/24/16 09:15 Dose: Not Given Vitamin D (Vitamin D3) 2,000 iu PO DAILY [facility] Stop: 04/23/16 08:59 Last Admin: 02/24/16 09:14 Dose: Not Given General: demented HEENT: NC/AT, PERRLA Neck: Supple, No JVD Lungs: CTAB Cardiovascular: RRR, Normal S1, Normal S2 Abdomen: soft non-tender, globular, positive bowel sound Extremities: excoriation Neurological: no change - Procedures Procedures: Procedures Procedure Code Date INJECT/INFUSE NEC 99.29 01/12/10 Internal Medicine Assmt/Plan - Assessment Assessment: ALOC ELEVATED AMMONIA COPD MORBID OBESITY HTN MANN GERD ANXIETY - Plan Plan: will adjust insulin head ct pt refused adjust psych med dw rn
[2016-02-24] MEDS: Levofloxacin 500mg/100mL 500 MG/100 ML BAG IV SCH (17:41)
[2016-02-24] MEDS: Insulin Detemir 100 units/mL 10mL Vial SUBQ SCH (20:09)
[2016-02-25] MEDS: Ipratropium Neb 0.5 mg/2.5 mL UD HHN SCH ×4 (08:11→19:13)
[2016-02-25] MEDS: Albuterol Nebulizer 2.5mg/3mL HHN SCH ×4 (08:11→19:13)
[2016-02-25] MEDS: Aspirin 81mg Chewable Tab PO SCH (09:49)
[2016-02-25] MEDS: Vitamin D3 2,000 IU SGL PO SCH (09:49)
[2016-02-25] MEDS: Multivitamin Tab PO SCH (09:52)
[2016-02-25] MEDS: Polyvinyl Alcohol Ophth Soln 15 mL Bottle EACH EYE SCH ×4 (09:52→21:15)
[2016-02-25] MEDS: Lactulose 10 Gm/15 mL 30mL UDC PO SCH ×3 (09:53→21:15)
--- NOTE | 2016-02-25 09:55 | Diagnostic Imaging Report ---
CHEST X-RAY: AP view INDICATION: Shortness of breath COMPARISON: Chest x-ray 02/23/2016 FINDINGS: Congestive changes are noted. No pleural effusions. Cardiomegaly is noted with atherosclerosis. IMPRESSION: Developing congestive changes. Pneumonia of the right perihilar region cannot be excluded. Cardiomegaly and atherosclerotic vascular disease.
--- NOTE | 2016-02-25 13:51 | Internal Medicine Prog Note ---
Internal Medicine Subjective - Subjective Service Date: 02/25/16 Patient seen and examined:: with staff Patient is:: awake, other (confused) Per staff patient is:: no adverse event Internal Medicine Objective - Results Result Diagrams: 02/24/16 06:25 02/24/16 06:25 Recent Labs: Laboratory Last Values WBC 6.5 Th/cmm (4.8-10.8) 02/24/16 06:25 RBC 4.13 Mil/cmm (3.80-5.20) 02/24/16 06:25 Hgb 11.7 gm/dL (11.7-16.1) 02/24/16 06:25 Hct 33.8 % (35.0-45.0) L 02/24/16 06:25 MCV 82.0 fl (81-100) 02/24/16 06:25 MCH 28.3 pg (27.0-31.0) 02/24/16 06:25 MCHC Differential 34.5 pg (28.0-36.0) 02/24/16 06:25 RDW 16.6 % (11.5-20.0) 02/24/16 06:25 Plt Count 113 Th/cmm (150-400) L 02/24/16 06:25 MPV 9.8 fl 02/24/16 06:25 Neutrophils % 66.0 % (40.0-80.0) 02/24/16 06:25 Lymphocytes % 19.4 % (20.0-50.0) L 02/24/16 06:25 Monocytes % 10.3 % (2.0-10.0) H 02/24/16 06:25 Eosinophils % 3.6 % (0.0-5.0) 02/24/16 06:25 Basophils % 0.7 % (0.0-2.0) 02/24/16 06:25 Specimen Source art 02/22/16 17:33 Sample Site R-R 02/22/16 17:33 pH 7.48 (7.35-7.45) H 02/22/16 17:33 pCO2 36.0 mmHg (35.0-45.0) 02/22/16 17:33 pO2 130.0 mmHg (80.0-100.0) H 02/22/16 17:33 HCO3 26.8 mmol/L (20.0-26.0) H 02/22/16 17:33 Base Excess 3.3 mmol/L (-3.0-3.0) H 02/22/16 17:33 O2 Saturation 99.0 % (92.0-100.0) 02/22/16 17:33 Jean Claude Test P 02/22/16 17:33 Vent Rate NA 02/22/16 17:33 Inspired O2 28 02/22/16 17:33 Tidal Volume NA 02/22/16 17:33 PEEP NA 02/22/16 17:33 Pressure (ins/psv/peep) NA 02/22/16 17:33 Critical Value RPINEIRA 02/22/16 17:33 Sodium 136 mEq/L (136-145) 02/24/16 06:25 Potassium 4.2 mEq/L (3.5-5.1) 02/24/16 06:25 Chloride 104 mEq/L (98-107) 02/24/16 06:25 Carbon Dioxide 25.1 mEq/L (21.0-31.0) 02/24/16 06:25 Anion Gap 11.1 (7.0-16.0) 02/24/16 06:25 BUN 14 mg/dL (7-25) 02/24/16 06:25 Creatinine 0.7 mg/dL (0.6-1.2) 02/24/16 06:25 Est GFR ( Amer) > 60.0 ml/min 02/24/16 06:25 Est GFR (Non-Af Amer) > 60.0 ml/min 02/24/16 06:25 BUN/Creatinine Ratio 20.0 02/24/16 06:25 Glucose 321 mg/dL (70-105) H 02/24/16 06:25 POC Glucose 438 MG/DL (70 - 105) H 02/24/16 19:44 Calcium 9.6 mg/dL (8.6-10.3) 02/24/16 06:25 Magnesium 1.7 mg/dL (1.9-2.7) L 02/24/16 06:25 Total Bilirubin 4.3 mg/dL (0.3-1.0) H 02/23/16 06:15 AST 63 U/L (13-39) H 02/23/16 06:15 ALT 21 U/L (7-52) 02/23/16 06:15 Alkaline Phosphatase 98 U/L (34-104) 02/23/16 06:15 Ammonia 52 umol/L (16-53) 02/23/16 06:15 B-Natriuretic Peptide 223.0 pg/mL (5.0-100.0) H 02/24/16 06:25 Total Protein 7.2 gm/dL (6.0-8.3) 02/23/16 06:15 Albumin 3.1 gm/dL (3.7-5.3) L 02/23/16 06:15 Globulin 4.1 gm/dL 02/23/16 06:15 Albumin/Globulin Ratio 0.8 (1.0-1.8) L 02/23/16 06:15 - Physical Exam Vitals and I&O: Vital Signs Temp 98.8 F 02/25/16 12:17 Pulse 72 02/25/16 12:17 Resp 21 02/25/16 12:17 BP 165/70 02/25/16 12:17 Pulse Ox 98 02/25/16 12:17 Intake & Output 02/24/16 02/25/16 02/25/16 18:59 06:59 18:59 Intake Total 100 1250 100 Balance 100 1250 100 Intake: Intake, IV Amount 100 Levofloxacin 500mg/100mL 100 500 mg In 100 ml @ 100 mls/hr IV Q24HR [facility] Rx#: [id number] Oral 1250 100 Other: # Voids 3 1 # Bowel Movements 3 Active Medications: Current Medications Acetaminophen (Tylenol) 650 mg PO Q4HR PRN PRN Reason: Pain or Fever >101 Stop: 04/22/16 17:42 Albuterol Sulfate (Albuterol 2.5mg/3ml Neb Ud) 2.5 mg HHN QIDRT [facility] Stop: 04/22/16 20:59 Last Admin: 02/25/16 12:05 Dose: 2.5 mg Artificial Tears (Artificial Tears Ophth Soln) 1 drop EACH EYE QID [facility] Stop: 04/23/16 08:59 Last Admin: 02/25/16 09:52 Dose: 1 drop Aspirin (Aspirin Chewable) 81 mg PO DAILY [facility] Stop: 04/23/16 08:59 Last Admin: 02/25/16 09:49 Dose: 81 mg Calcium Carbonate (Os-Noah) 750 mg PO DAILY [facility] Stop: 04/23/16 08:59 Last Admin: 02/25/16 09:51 Dose: 750 mg Furosemide (Lasix) 20 mg IVP BID [facility] Stop: 04/25/16 16:59 Gentamicin Sulfate (Gentak 0.3% Ophth Soln) 1 drop EACH EYE QID PRN PRN Reason: MUCUS IN EYES Stop: 04/23/16 08:59 Last Admin: 02/23/16 16:57 Dose: 1 drop Levofloxacin (Levaquin Pb) 500 mg in 100 mls @ 100 mls/hr IV Q24HR [facility] Stop: 04/22/16 17:44 Last Infusion: 02/24/16 18:41 Dose: Infused Insulin Detemir (Levemir Insulin) 40 units SUBQ HS [facility] PRN Reason: Protocol Stop: 04/24/16 16:46 Last Admin: 02/24/16 20:09 Dose: 40 units Ipratropium [place] (Atrovent Neb 0.5mg/2.5ml) 0.5 mg HHN QIDRT [facility] Stop: 04/22/16 20:59 Last Admin: 02/25/16 12:05 Dose: 0.5 mg Lactulose (Cephulac) 30 gm PO TID [facility] Stop: 04/22/16 15:14 Last Admin: 02/25/16 09:53 Dose: 30 gm Lisinopril (Zestril) 5 mg PO DAILY [facility] Stop: 04/23/16 08:59 Last Admin: 02/25/16 09:51 Dose: 5 mg Magnesium Oxide (Mag-Oxide) 400 mg PO BID [facility] Stop: 04/23/16 08:59 Last Admin: 02/25/16 09:53 Dose: 400 mg Miscellaneous (Vte Chemical Prophylaxis Screen/ Admission) 1 ea [facility] PRN PRN PRN Reason: PROTOCOL Stop: 04/23/16 17:04 Multivitamins/Vitamin C (Theragran) 1 tab PO DAILY [facility] Stop: 04/23/16 08:59 Last Admin: 02/25/16 09:52 Dose: 1 tab Ondansetron HCl (Zofran) 4 mg IV Q8H PRN PRN Reason: Nausea / Vomiting Stop: 04/22/16 17:42 Oxybutynin Chloride (Ditropan) 5 mg PO BID [facility] Stop: 04/23/16 08:59 Last Admin: 02/25/16 09:52 Dose: 5 mg Pantoprazole Sodium (Protonix) 40 mg IVP DAILY [facility] Stop: 04/23/16 08:59 Last Admin: 02/25/16 09:49 Dose: 40 mg Propranolol HCl (Inderal) 20 mg PO BID [facility] Stop: 04/23/16 08:59 Last Admin: 02/25/16 09:52 Dose: 20 mg Vitamin D (Vitamin D3) 2,000 iu PO DAILY [facility] Stop: 04/23/16 08:59 Last Admin: 02/25/16 09:49 Dose: 2,000 iu General: alert HEENT: NC/AT Neck: Supple Lungs: CTAB Cardiovascular: RRR, Normal S1, Normal S2, without murmur Abdomen: soft non-tender, non-distended, positive bowel sound Neurological: no change - Procedures Procedures: Procedures Procedure Code Date INJECT/INFUSE NEC 99.29 01/12/10 Internal Medicine Assmt/Plan - Assessment Assessment: ALOC ELEVATED AMMONIA COPD MORBID OBESITY HTN MANN GERD ANXIETY - Plan Plan: supplemental o2 bronchodilators ivabx
[2016-02-25 16:47] LABS: % BASOPHILS 0.1 % (0.0-2.0); % EOSINOPHILS 3.7 % (0.0-5.0); % LYMPHOCYTES 19.9 % (20.0-50.0); % MONOCYTES 9.7 % (2.0-10.0); % NEUTROPHILS 66.6 % (40.0-80.0); HEMATOCRIT 36.2 % (35.0-45.0); HEMOGLOBIN 12.4 gm/dL (11.7-16.1); MEAN CELL VOLUME 82.7 fl (81-100); MEAN CORPUSCULAR HEMOGLOBIN 28.3 pg (27.0-31.0); MEAN CORPUSCULAR HGB CONC 34.2 pg (28.0-36.0); NEUTROPHILE ABSOLUTE 4.5 Th/cmm (1.8-8.0); PLATELET COUNT 118 Th/cmm (150-400); RED BLOOD COUNT 4.38 Mil/cmm (3.80-5.20); RED CELL DISTRIBUTION WIDTH 16.4 % (11.5-20.0); WHITE BLOOD COUNT 6.6 Th/cmm (4.8-10.8)
[2016-02-25 16:59] LABS: ANION GAP 4.8 (7.0-16.0); BUN - UREA NITROGEN 11 mg/dL (7-25); BUN/CREATININE RATIO 13.8; CALCIUM SERUM 9.6 mg/dL (8.6-10.3); CARBON DIOXIDE 30.1 mEq/L (21.0-31.0); CHLORIDE 98 mEq/L (98-107); CREATININE - SERUM 0.8 mg/dL (0.6-1.2); GLUCOSE 309 mg/dL (70-105); POTASSIUM SERUM 3.9 mEq/L (3.5-5.1); SODIUM SERUM 129 mEq/L (136-145)
[2016-02-25 17:00] LABS: ALB/GLOB RATIO 0.7 (1.0-1.8); ALKALINE PHOSPHATASE 89 U/L (34-104); BILIRUBIN,TOTAL 4.3 mg/dL (0.3-1.0); MAGNESIUM 1.5 mg/dL (1.9-2.7); SGOT 105 U/L (13-39); SGPT/ALT 33 U/L (7-52)
[2016-02-25] MEDS: Levofloxacin 500mg/100mL 500 MG/100 ML BAG IV SCH (18:00)
[2016-02-25] MEDS: Insulin Detemir 100 units/mL 10mL Vial SUBQ SCH (21:26)
[2016-02-26] MEDS: Vitamin D3 2,000 IU SGL PO SCH (08:26)
[2016-02-26] MEDS: Multivitamin Tab PO SCH (08:27)
[2016-02-26] MEDS: Aspirin 81mg Chewable Tab PO SCH (08:27)
[2016-02-26] MEDS: Lactulose 10 Gm/15 mL 30mL UDC PO SCH ×2 (08:28→13:19)
[2016-02-26] MEDS: Albuterol Nebulizer 2.5mg/3mL HHN SCH ×3 (08:42→16:20)
[2016-02-26] MEDS: Ipratropium Neb 0.5 mg/2.5 mL UD HHN SCH ×3 (08:42→16:20)
[2016-02-26] MEDS: Polyvinyl Alcohol Ophth Soln 15 mL Bottle EACH EYE SCH ×2 (09:13→13:24)
[2016-02-26 13:27] LABS: % BASOPHILS 0.1 % (0.0-2.0); % EOSINOPHILS 3.6 % (0.0-5.0); % LYMPHOCYTES 18.2 % (20.0-50.0); % MONOCYTES 10.6 % (2.0-10.0); % NEUTROPHILS 67.5 % (40.0-80.0); HEMATOCRIT 38.8 % (35.0-45.0); HEMOGLOBIN 13.1 gm/dL (11.7-16.1); MEAN CELL VOLUME 81.5 fl (81-100); MEAN CORPUSCULAR HEMOGLOBIN 27.5 pg (27.0-31.0); MEAN CORPUSCULAR HGB CONC 33.8 pg (28.0-36.0); MEAN PLATELET VOLUME 9.3 fl; NEUTROPHILE ABSOLUTE 5.7 Th/cmm (1.8-8.0); RED BLOOD COUNT 4.76 Mil/cmm (3.80-5.20); RED CELL DISTRIBUTION WIDTH 16.9 % (11.5-20.0)
[2016-02-26 13:29] LABS: PLATELET COUNT 146 Th/cmm (150-400); WHITE BLOOD COUNT 8.4 Th/cmm (4.8-10.8)
[2016-02-26 13:48] LABS: ANION GAP 7.5 (7.0-16.0); BUN - UREA NITROGEN 15 mg/dL (7-25); BUN/CREATININE RATIO 16.7; CALCIUM SERUM 9.7 mg/dL (8.6-10.3); CARBON DIOXIDE 27.5 mEq/L (21.0-31.0); CHLORIDE 97 mEq/L (98-107); CREATININE - SERUM 0.9 mg/dL (0.6-1.2); GLUCOSE 265 mg/dL (70-105); SODIUM SERUM 128 mEq/L (136-145)
--- NOTE | 2016-03-24 03:04 | Discharge Summary ---
Dictated for Dr. Hira Meyers. FINAL DIAGNOSES: Altered level of consciousness, elevated ammonia level, chronic obstructive pulmonary disease, hypertension, psychosis, gastroesophageal disease, and anxiety. HISTORY OF PRESENT ILLNESS: This is a 70-year-old [place] female who was transferred from [facility]. According to nursing staff at [facility], the patient was found to be ALOC. The patient's ammonia level was at 135. For this reason, the patient was in the telemetry unit. PHYSICAL EXAMINATION: GENERAL: The patient is well developed, well nourished, no acute distress. VITAL SIGNS: Stable. HEENT: Head is normocephalic and atraumatic. NECK: Supple. No mass. LUNGS: Clear. CARDIOVASCULAR: Regular rate and rhythm. ABDOMEN: Soft, nontender, and nondistended. HOSPITAL COURSE: During the hospital stay, the patient was admitted to the telemetry unit. The patient had a consultation with Dr. Munoz. Also, the patient had a chest x-ray and ABG done. The patient had a standby BiPAP machine. Also, a chest x-ray was done and the impression is decreased small pleural effusion with persistent cardiomegaly. The patient's ammonia level was corrected, and the patient regained consciousness. The patient had a HIDA scan done and the impression is normal visualization of the gallbladder with slight delay and ____ of nodule into small bowel. The patient later then stabilized and was stable for discharge. CONDITION UPON DISCHARGE: Fair. DISPOSITION: The patient is going home. JOB# [id number]
== END 2016-02-26 16:30 | disposition home or self-care (01) | DRG 441 ==
LOC: ICU 12:02 → TELE 16:13 → MSI 02-26 00:28
PROVIDERS: ADMIT Internal Medicine; ATTEND Internal Medicine
DX: K72.00 Acute and subacute hepatic failure without coma (principal); I50.43 Acute on chronic combined systolic (congestive) and diastolic (congestive) heart failure; E44.0 Moderate protein-calorie malnutrition; J44.9 Chronic obstructive pulmonary disease, unspecified; Z68.42 Body mass index [BMI] 45.0-49.9, adult; F29 Unspecified psychosis not due to a substance or known physiological condition; K21.9 Gastro-esophageal reflux disease without esophagitis; F41.9 Anxiety disorder, unspecified; G47.33 Obstructive sleep apnea (adult) (pediatric); E66.01 Morbid (severe) obesity due to excess calories; I11.0 Hypertensive heart disease with heart failure; E11.9 Type 2 diabetes mellitus without complications
CPT/HCPCS: 36415-UA; 36600-90; 71010-TC; 78226-TC; 80048-TC; 80053-TC; 82140-TC; 82803-TC; 82948-90; 83735-TC; 83880-TC; 85025-TC; 90779; 94760; A9537; C9113; J1815; J1940; J1956; J2060; J7042; J7613; X3401; Z7610

== ENCOUNTER 2016-06-30 20:55 | Emergency (ER) | payer MEDICARE, MEDICAID ==
--- NOTE | 2016-06-30 21:54 | ED Physician Chart ---
Chief Complaint/HPI - Patient Information Date Seen:: 06/30/16 Time Seen:: 21:52 Chief Complaint:: alt loc History of Present Illness:: pt living on toilet in hotel rm by . he gave her her meds earlier. found her a short time time ago w alt loc. ems noted low glucose (fsbs 88) and gave 50g glucola. is concerned says he gave her usual meds and she ate dinner after then was confused after....unclear why her bs was low after. pt is not a very good historian herself...may be why does her meds. is better historian but still has some to be desired...he says in past she has had alt ms from high ammonia but denies etoh hx or knowledge of cirrhosis. she is ? not compliant w ?lactulose. no fever or obv infection. no recent trauma. pt says has hx of cad and was advised to get hrt stent but refused in past. at ems arrival bs was 80. pt given 50g glucose and "improved"..still seems confused but unclear how much is chronic. Allergies:: Allergies Allergy/AdvReac Type Severity Reaction Status Date / Time No Known Allergies Allergy Verified 12/29/15 00:26 Vitals:: Vital Signs - 8 hr 06/30/16 21:00 Temp 98.2 F O2 Sat % 97 Historian:: Patient, Family Member Review of Systems - Review of Systems General/Constitutional: No fever, No chills, No weight loss, No weakness, No diaphoresis, No edema, No loss of appetite Skin: No skin lesions, No rash, No bruising Head: No headache, No light-headedness Eyes: No loss of vision, No pain, No diplopia ENT: No earache, No nasal drainage, No sore throat, No tinnitus Neck: No neck pain, No swelling, No thyromegaly, No stiffness, No mass noted Cardio Vascular: No chest pain, No palpitations, No PND, No orthopnea, No edema Pulmonary: No SOB, No cough, No sputum, No wheezing GI: No nausea, No vomiting, No diarrhea, No pain, No melena, No hematochezia, No constipation, No hematemesis G/U: No dysuria, No frequency, No hematuria Musculoskeletal: No bone or joint pain, No back pain, No muscle pain Endocrine: No polyuria, No polydipsia Psychiatric: No prior psych history, No depression, No anxiety, No suicidal ideation Hematopoietic: No bruising, No lymphadenopathy Allergic/Immuno: No urticaria, No angioedema Neurological: No syncope, No focal symptoms, Weakness (global/nonfocal), No paresthesia, No headache, No seizure, No dizziness, Confusion (chronic ? worse tonight), No vertigo Past Medical History - Past Medical History Past Medical History: DM, Other (liver chirhosis/encephalopathy) Social History: (lives in hotel w spouse) Medication: Reviewed Family Medical History - Family Member Mother History Unknown: Yes Physical Exam - Physical Examination General/Constitutional: Awake, Well-developed, well-nourished, Alert, No distress Other Gen/Cons comments:: drowsy obese woman arrives on stretcher. has trouble staying awake through exam. hubsband gives most useful hx. sev deg teeth globally. Head: Atraumatic Eyes: Lids, conjuctiva normal, PERRL, EOMI Skin: Nl inspection, No rash, No skin lesions, No ecchymosis, Well hydrated, No lymphadenopathy ENMT: External ears, nose nl, Nasal exam nl, Lips, teeth, gums nl Other ENMT comments:: severe global tooth decay w sev teeth ground down to root at gumline and remaining teeth open w carries and exposed pulp/deg root.. Neck: Nontender, Full ROM w/o pain, No JVD, No nuchal rigidity, No bruit, No mass, No stridor Respiratory: Nl effort/Exclusion, Clear to Auscultation, No Wheeze/Rhonchi/Rales Cardio Vascular: RRR, No murmur, gallop, rubs, NL S1 S2 GI: No tenderness/rebounding/guarding, No organomegaly, No hernia, Normal BS's, Nondistended, No mass/bruits, No McBurney tenderness : No CVA tenderness Extremities: No tenderness or effusion, Full ROM, normal strength in all extremities, No edema, Normal digits & nails Neuro/Psych: Alert/oriented, DTR's symmetric, Normal sensory exam, Normal motor strength, Judgement/insight normal, Mood normal, Normal gait, No focal deficits Misc: normal gait, Normal back, No paraspinal tenderness Labs/Radiology/EKG Results - Lab Results Results: Laboratory Tests 06/30/16 06/30/16 06/30/16 23:02 23:02 23:02 WBC 7.8 RBC 4.66 Hgb 13.2 Hct 39.1 MCV 83.8 MCH 28.4 MCHC Differential 33.9 RDW 16.0 Plt Count 118 L MPV 9.8 Neutrophils % 79.8 Lymphocytes % 10.4 L Monocytes % 8.0 Eosinophils % 1.5 Basophils % 0.3 Sodium 129 L Potassium 3.5 Chloride 96 L Carbon Dioxide 26.0 Anion Gap 10.5 BUN 14 Creatinine 0.9 Est GFR ( Amer) > 60.0 Est GFR (Non-Af Amer) > 60.0 BUN/Creatinine Ratio 15.6 Glucose 338 H Hemoglobin A1c % Calcium 9.4 Total Bilirubin 3.6 H AST 58 H ALT 29 Alkaline Phosphatase 112 H Ammonia Troponin I 0.02 Total Protein 7.5 Albumin 3.3 L Globulin 4.2 Albumin/Globulin Ratio 0.8 L 06/30/16 06/30/16 23:02 23:02 WBC RBC Hgb Hct MCV MCH MCHC Differential RDW Plt Count MPV Neutrophils % Lymphocytes % Monocytes % Eosinophils % Basophils % Sodium Potassium Chloride Carbon Dioxide Anion Gap BUN Creatinine Est GFR ( Amer) Est GFR (Non-Af Amer) BUN/Creatinine Ratio Glucose Hemoglobin A1c % 7.5 H Calcium Total Bilirubin AST ALT Alkaline Phosphatase Ammonia 190 H Troponin I Total Protein Albumin Globulin Albumin/Globulin Ratio - Radiology Results Results: cxr- no inf, no ptx, no effusion. ( no sig change from 02/23 except for chest rotation on film and increase in exposure.) ct head no hemorrhage, atrophy, ascvd w heavy l vertebral ca++ - EKG Interpretations EKG Time:: 22:10 Rate & Rhythm: nsr 65 [place]: 14 Intervals: [id number] Comments:: overall ok ED Septic Shock - . Is Septic Shock (SBP<90, OR Lactate>4 mmol\\L) present?: No - <6hrs of presentation: Vital Signs: Vital Signs - 8 hr 06/30/16 21:00 Temp 98.2 F O2 Sat % 97 Reassessment (Disposition) - Reassessment Reassessment:: dw pt and about results and ammonia 190. advise admit for tx. pt wants to go home. I have dw her that I do not consider her a valid decision maker in her present state. she is somewhat conherent but speech slurred and hard to understand and slow mentation notable and some confusion evident. SHe does seem overall would be stable in a hotel rm w care...however she has not been compliant w lactulose for long time and it is of concern she may not in future. Have explained to I will follow their joint wishes but I consider his input into decision to be more valid given her condition. 1;03a has decided to sign her out ama. will give short 4 day rx for lactulose. strongly encouraged to see pmd david. ret if worse. Reassessment Condition:: Unchanged - Diagnosis Diagnosis:: 1 altered mental status 2 ammonia 190 3 hepatic encephalopathy - Aftercare/Follow up Instructions Aftercare/Follow-Up Instructions:: Counseled pt & family regarding lab results/ diagnosis & need follow up - Patient Disposition Discharge/Transfer:: Home Condition at Disposition:: Unchanged
[2016-06-30 23:23] LABS: % BASOPHILS 0.3 % (0.0-2.0); % EOSINOPHILS 1.5 % (0.0-5.0); % LYMPHOCYTES 10.4 % (20.0-50.0); % NEUTROPHILS 79.8 % (40.0-80.0); HEMATOCRIT 39.1 % (35.0-45.0); HEMOGLOBIN 13.2 gm/dL (11.7-16.1); MEAN CELL VOLUME 83.8 fl (81-100); MEAN CORPUSCULAR HEMOGLOBIN 28.4 pg (27.0-31.0); MEAN CORPUSCULAR HGB CONC 33.9 pg (28.0-36.0); MEAN PLATELET VOLUME 9.8 fl; NEUTROPHILE ABSOLUTE 6.3 Th/cmm (1.8-8.0); RED BLOOD COUNT 4.66 Mil/cmm (3.80-5.20); WHITE BLOOD COUNT 7.8 Th/cmm (4.8-10.8)
[2016-06-30 23:28] LABS: PLATELET COUNT 118 Th/cmm (150-400)
[2016-06-30 23:37] LABS: ALB/GLOB RATIO 0.8 (1.0-1.8); ALKALINE PHOSPHATASE 112 U/L (34-104); ANION GAP 10.5 (7.0-16.0); BILIRUBIN,TOTAL 3.6 mg/dL (0.3-1.0); BUN - UREA NITROGEN 14 mg/dL (7-25); BUN/CREATININE RATIO 15.6; CALCIUM SERUM 9.4 mg/dL (8.6-10.3); CHLORIDE 96 mEq/L (98-107); CREATININE - SERUM 0.9 mg/dL (0.6-1.2); GLUCOSE 338 mg/dL (70-105); POTASSIUM SERUM 3.5 mEq/L (3.5-5.1); SGOT 58 U/L (13-39); SGPT/ALT 29 U/L (7-52); SODIUM SERUM 129 mEq/L (136-145)
[2016-07-01] MEDS: Lactulose 10 Gm/15 mL 30mL UDC PO STA (01:00)
--- NOTE | 2016-07-01 11:16 | Diagnostic Imaging Report ---
CT scan of the brain without intravenous contrast HISTORY: Stroke, CVA Total DLP equals 660 CTDI equals 33.5 Axial sections were obtained from the base of the skull to the vertex. There is prominence/enlargement of the ventricular system size. Associated enlargement of cerebral sulci and subarachnoid cisterns. Findings are consistent with changes of generalized cerebral atrophy. No acute parenchymal abnormalities. No acute cerebral hemorrhage. Hypodensity is seen within the supratentorial white matter regions without mass effect. The findings may be associated with chronic small vessel ischemic disease. No extra-axial masses or abnormal fluid collections. IMPRESSION: 1. No acute abnormalities 2. Cerebral atrophy 3. Supratentorial white matter changes that may reflect chronic small vessel ischemic disease
--- NOTE | 2016-07-01 11:43 | Diagnostic Imaging Report ---
Portable chest x-ray HISTORY: Shortness of breath The heart is enlarged. Atherosclerotic calcification seen in the aorta. No acute focal pulmonary processes. IMPRESSION: 1. Cardiomegaly with atherosclerotic vascular changes. A degree of congestive heart failure cannot be excluded. 2. No focal pulmonary processes
== END 2016-07-01 01:35 | disposition left against medical advice (07) ==
LOC: ER 20:55
DX: R41.82 Altered mental status, unspecified (principal); K72.90 Hepatic failure, unspecified without coma; E11.9 Type 2 diabetes mellitus without complications
CPT/HCPCS: 36415-UA; 70450-TC; 71010-TC; 80053-TC; 82140-TC; 83036-90; 84484-TC; 85025-TC; 93005

== ENCOUNTER 2016-10-05 12:25 | Inpatient (IN) | payer MEDICARE, MEDICAID ==
--- NOTE | 2016-10-05 13:17 | ED Physician Chart ---
Chief Complaint/HPI - Patient Information Date Seen:: 10/05/16 Time Seen:: 13:11 Chief Complaint:: gen weakness History of Present Illness:: pt arrives from private home w complaint of general weakness. apparently her called ems...this is assumed as pt is incapable of giving me a hx or explaining why she is here. she is capable of general conversation and is giving me lots of partial and tangential information..but unable to produce a coherent complete informative sentence. her speech is very slow and frequently tangential or wandering. pt seems sleepy. (? if medicated) she denies acute pain. I have asked her 5x to please say what brings her to ED and/or explain what her desires are from us and have still gotten no cohesive answer. she says she is able to walk but appears to be in bed most of her life...asked how many steps she takes in a day she says 3-4 total. hx of DM, htn and cirrhosis...she has been noncompliant w lactulose at past visit. unclear if still is noncompliant. 1;40pm ARRIVES and gives further hx. he called ems today because pt was too weak to walk back from toilet to her easy chair and had slumped against the wall..she was drowsey as usual. confirms that pt is minimally ambulatory just from bed to chair a few x per day but none otherwise. also she is still noncompliant w taking the lactulose ...she can give me no explanation as to why she doesnt take it. Allergies:: Allergies Allergy/AdvReac Type Severity Reaction Status Date / Time No Known Allergies Allergy Verified 12/29/15 00:26 Vitals:: Vital Signs - 8 hr 10/05/16 12:36 Temp 99.4 F HR 92 RR 20 BP 183/66 O2 Sat % 97 Historian:: Patient Review of Systems - Review of Systems General/Constitutional: No fever, No chills, No weight loss, Weakness, No diaphoresis, No edema, No loss of appetite Skin: No skin lesions, No rash, No bruising Head: No headache, No light-headedness Eyes: No loss of vision, No pain, No diplopia ENT: No earache, No nasal drainage, No sore throat, No tinnitus Neck: No neck pain, No swelling, No thyromegaly, No stiffness, No mass noted Cardio Vascular: No chest pain, No palpitations, No PND, No orthopnea, No edema Pulmonary: No SOB, No cough, No sputum, No wheezing GI: No nausea, No vomiting, No diarrhea, No pain, No melena, No hematochezia, No constipation, No hematemesis G/U: No dysuria, No frequency, No hematuria Musculoskeletal: No bone or joint pain, No back pain, No muscle pain Endocrine: No polyuria, No polydipsia Psychiatric: No prior psych history, No depression, No anxiety, No suicidal ideation Hematopoietic: No bruising, No lymphadenopathy Allergic/Immuno: No urticaria, No angioedema Neurological: No syncope, No focal symptoms, Weakness (nonfocal), No paresthesia , No headache, No seizure, No dizziness, No confusion, No vertigo Past Medical History - Past Medical History Past Medical History: HTN, DM, CAD, Other (cirrhosis liver(noncompliant w lactulose in past) ; hx of cad and was advised to get hrt stent but refused in past.) Social History: Medication: Reviewed Family Medical History - Family Member Mother History Unknown: Yes Physical Exam - Physical Examination General/Constitutional: Awake, Well-developed, well-nourished, Alert, No distress, Non-toxic appearing Other Gen/Cons comments:: obese female. seems tired. difficult to get Med Info from pt but she is awake and talking frequently. no edema. no focal neuro defecit. (we are told is coming later) Head: Atraumatic Eyes: Lids, conjuctiva normal, PERRL, EOMI Skin: Nl inspection, No rash, No skin lesions, No ecchymosis, Well hydrated, No lymphadenopathy ENMT: External ears, nose nl, Nasal exam nl, Lips, teeth, gums nl Neck: Nontender, Full ROM w/o pain, No JVD, No nuchal rigidity, No bruit, No mass, No stridor Respiratory: Nl effort/Exclusion, Clear to Auscultation, No Wheeze/Rhonchi/Rales Cardio Vascular: RRR, No murmur, gallop, rubs, NL S1 S2 GI: No tenderness/rebounding/guarding, No organomegaly, No hernia, Normal BS's, Nondistended, No mass/bruits, No McBurney tenderness : No CVA tenderness Extremities: No tenderness or effusion, Full ROM, normal strength in all extremities, No edema, Normal digits & nails Neuro/Psych: Alert/oriented, DTR's symmetric, Normal sensory exam, Normal motor strength, Mood normal, No focal deficits Other Neuro/Psych comments:: confused. trouble completing sentences because gets sleepy Misc: normal gait, Normal back, No paraspinal tenderness Labs/Radiology/EKG Results - Lab Results Results: Laboratory Tests 10/05/16 10/05/16 10/05/16 13:20 13:20 13:20 WBC 17.6 H D RBC 4.66 Hgb 13.7 Hct 40.6 MCV 87.1 MCH 29.5 MCHC Differential 33.9 RDW 14.7 Plt Count 108 L MPV 9.4 Sodium 129 L Potassium 4.5 Chloride 101 Carbon Dioxide 22.0 Anion Gap 10.5 BUN 15 Creatinine 0.9 Est GFR ( Amer) TNP Est GFR (Non-Af Amer) TNP BUN/Creatinine Ratio 16.7 Glucose 265 H POC Glucose Whole Bld Lactic Acid 1.94 Calcium 9.6 Total Bilirubin 4.5 H AST 52 H ALT 24 Alkaline Phosphatase 120 H Ammonia Total Protein 7.2 Albumin 3.3 L Globulin 3.9 Albumin/Globulin Ratio 0.9 L Ethyl Alcohol 10/05/16 10/05/16 10/05/16 13:20 13:20 13:22 WBC RBC Hgb Hct MCV MCH MCHC Differential RDW Plt Count MPV Sodium Potassium Chloride Carbon Dioxide Anion Gap BUN Creatinine Est GFR ( Amer) Est GFR (Non-Af Amer) BUN/Creatinine Ratio Glucose POC Glucose 240 H Whole Bld Lactic Acid Calcium Total Bilirubin AST ALT Alkaline Phosphatase Ammonia 182 H Total Protein Albumin Globulin Albumin/Globulin Ratio Ethyl Alcohol < 10 - Radiology Results Results: cxr chronic changes, no def acute process - EKG Interpretations EKG Time:: 13:25 Rate & Rhythm: nsr 93 [place]: 14 Intervals: st ok nonelevated Comments:: q in v1/2 ED Septic Shock - . Is Septic Shock (SBP<90, OR Lactate>4 mmol\L) present?: No - <6hrs of presentation: Vital Signs: Vital Signs - 8 hr 10/05/16 12:36 Temp 99.4 F HR 92 RR 20 BP 183/66 O2 Sat % 97 Reassessment (Disposition) - Reassessment Reassessment:: case dw Dr Bob..is admitting. 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 Reassessment Condition:: Unchanged - Diagnosis Diagnosis:: 1 hepatic encephalopathy - noncompliant pt 2 DM 3 Morbid Obese w extremely poor mobility 4 severe htn - Patient Disposition Condition at Disposition:: Unchanged
[2016-10-05 13:33] LABS: HEMATOCRIT 40.6 % (35.0-45.0); HEMOGLOBIN 13.7 gm/dL (11.7-16.1); MEAN CELL VOLUME 87.1 fl (81-100); MEAN CORPUSCULAR HEMOGLOBIN 29.5 pg (27.0-31.0); MEAN CORPUSCULAR HGB CONC 33.9 pg (28.0-36.0); MEAN PLATELET VOLUME 9.4 fl; PLATELET COUNT 108 Th/cmm (150-400); RED BLOOD COUNT 4.66 Mil/cmm (3.80-5.20); RED CELL DISTRIBUTION WIDTH 14.7 % (11.5-20.0)
--- NOTE | 2016-10-05 13:34 | Diagnostic Imaging Report ---
CHEST X-RAY: AP view INDICATION: Weakness, altered COMPARISON: Chest x-ray 06/30/2016 FINDINGS: Exam is limited due to body habitus. Increased interstitial lung markings are seen with no focal consolidation or effusions. Cardiomegaly is noted with atherosclerosis. Degenerative changes of the spine are. IMPRESSION: Increased interstitial lung markings probably chronic in etiology, however, a marginal degree of congestion cannot be excluded. Cardiomegaly and atherosclerotic vascular disease.
[2016-10-05 13:39] LABS: WHITE BLOOD COUNT 17.6 Th/cmm (4.8-10.8)
[2016-10-05 13:49] LABS: ALB/GLOB RATIO 0.9 (1.0-1.8); ALKALINE PHOSPHATASE 120 U/L (34-104); ANION GAP 10.5 (7.0-16.0); BILIRUBIN,TOTAL 4.5 mg/dL (0.3-1.0); BUN - UREA NITROGEN 15 mg/dL (7-25); BUN/CREATININE RATIO 16.7; CALCIUM SERUM 9.6 mg/dL (8.6-10.3); CHLORIDE 101 mEq/L (98-107); CREATININE - SERUM 0.9 mg/dL (0.6-1.2); GLUCOSE 265 mg/dL (70-105); POTASSIUM SERUM 4.5 mEq/L (3.5-5.1); SGOT 52 U/L (13-39); SGPT/ALT 24 U/L (7-52); SODIUM SERUM 129 mEq/L (136-145)
[2016-10-05 14:03] LABS: URINE BILIRUBIN NEGATIVE (NEGATIVE); URINE BLOOD MODERATE (NEGATIVE); URINE GLUCOSE (UA) 100 mg/dL (NEGATIVE); URINE KETONE NEGATIVE (NEGATIVE); URINE PROTEIN >=300 mg/dL (NEGATIVE)
[2016-10-05 14:08] LABS: URINE BACTERIA FEW /hpf (NONE SEEN); URINE COLOR YELLOW; URINE EPITHELIAL CELLS FEW /lpf (FEW)
[2016-10-05 14:10] LABS: BAND NEUTROPHILE 8 % (0-10); NEUTROPHILS 87 % (40-80); PLATELET ESTIMATE DECREASED PLATELETS (NORMAL); PLATELET MORPHOLOGY NORMAL (NORMAL); TOTAL CELLS COUNTED 100
[2016-10-05] MEDS ORDERED: Lactulose 10 Gm/15 mL 30mL UDC PO STA (17:10)
[2016-10-05] MEDS ORDERED: Lactulose 10 Gm/15 mL 30mL UDC ONE (17:19)
[2016-10-05 19:27] LABS: AMPHETAMINE URINE NEGATIVE (NEGATIVE); BARBITURATES URINE NEGATIVE (NEGATIVE); METHADONE URINE NEGATIVE (NEGATIVE)
[2016-10-05] MEDS: Insulin Detemir 100 units/mL 10mL Vial SUBQ SCH (20:05)
[2016-10-05] MEDS: Lactulose 10 Gm/15 mL 30mL UDC PO SCH (21:42)
[2016-10-05] MEDS: INSULIN ASPART SLIDING SCALE 100 UNITS/ML UNIT SUBQ SCH (21:46)
[2016-10-06 05:38] LABS: % BASOPHILS 0.4 % (0.0-2.0); % EOSINOPHILS 0.5 % (0.0-5.0); % LYMPHOCYTES 8.6 % (20.0-50.0); % MONOCYTES 7.1 % (2.0-10.0); % NEUTROPHILS 83.4 % (40.0-80.0); HEMOGLOBIN 12.1 gm/dL (11.7-16.1); MEAN CELL VOLUME 87.1 fl (81-100); MEAN CORPUSCULAR HEMOGLOBIN 29.9 pg (27.0-31.0); MEAN CORPUSCULAR HGB CONC 34.3 pg (28.0-36.0); MEAN PLATELET VOLUME 9.8 fl; NEUTROPHILE ABSOLUTE 9.2 Th/cmm (1.8-8.0); PLATELET COUNT 90 Th/cmm (150-400); RED BLOOD COUNT 4.06 Mil/cmm (3.80-5.20); RED CELL DISTRIBUTION WIDTH 14.7 % (11.5-20.0)
[2016-10-06 05:46] LABS: WHITE BLOOD COUNT 11.1 Th/cmm (4.8-10.8)
[2016-10-06 05:47] LABS: HEMATOCRIT 35.4 % (35.0-45.0)
[2016-10-06] MEDS: Multivitamin Tab PO SCH ×2 (05:51→09:01)
[2016-10-06 05:55] LABS: ALB/GLOB RATIO 0.8 (1.0-1.8); ALKALINE PHOSPHATASE 85 U/L (34-104); ANION GAP 8.3 (7.0-16.0); BILIRUBIN,TOTAL 6.5 mg/dL (0.3-1.0); BUN - UREA NITROGEN 17 mg/dL (7-25); BUN/CREATININE RATIO 18.9; CARBON DIOXIDE 24.4 mEq/L (21.0-31.0); CHLORIDE 102 mEq/L (98-107); CREATININE - SERUM 0.9 mg/dL (0.6-1.2); GLUCOSE 250 mg/dL (70-105); POTASSIUM SERUM 3.7 mEq/L (3.5-5.1); SGOT 43 U/L (13-39); SGPT/ALT 22 U/L (7-52); SODIUM SERUM 131 mEq/L (136-145)
[2016-10-06 05:59] LABS: INR 1.11 (0.5-1.4); PROTHROMBIN TIME (TEST) 11.6 SECONDS (9.5-11.5)
[2016-10-06] MEDS: INSULIN ASPART SLIDING SCALE 100 UNITS/ML UNIT SUBQ SCH ×4 (06:57→20:23)
[2016-10-06] MEDS: Lactulose 10 Gm/15 mL 30mL UDC PO SCH ×4 (08:59→20:14)
[2016-10-06] MEDS: Aspirin 81mg Chewable Tab PO SCH (09:02)
[2016-10-06] MEDS: Pantoprazole 40 mg EC Tab PO SCH (09:03)
[2016-10-06] MEDS: Insulin Detemir 100 units/mL 10mL Vial SUBQ SCH (09:04)
[2016-10-06] MEDS ORDERED: Sodium Chloride 0.45% 1,000 ML IV SCH (09:30)
[2016-10-06 09:51] LABS: TROP I 0.3 ng/mL (0.01-0.05)
--- NOTE | 2016-10-06 10:53 | History & Physical ---
ADMIT DATE: 10/06/2016 CHIEF COMPLAINT: Generalized weakness, altered mental status. HISTORY OF PRESENT ILLNESS: This is a 71-year-old [place]yan[place] female with history of hypertension, diabetes, CAD, morbid obesity, liver cirrhosis, who has been admitted to this facility in the past for similar episodes of generalized weakness, altered mental status and hepatic encephalopathy. Apparently, the patient's called the ER saying that his was en route to the facility and he also mentioned he thought there might be some noncompliance with medications. The patient states that she does take the lactulose twice a day, but tries to avoid it at times given loose BMs and diarrhea. As noted above, she is morbidly obese and sometimes she just lays out in bed, and has difficulty going to the bathroom or toilet. PERTINENT FINDINGS ON ADMISSION: Include a white count of 17.6, platelet count of 108, with 87% neutrophils. Sodium of 129. Ammonia level of 182. Slight elevation of troponins at 0.07. She has been admitted to the telemetry red for further management and care. PAST MEDICAL HISTORY: As noted above, hypertension, diabetes, CAD, liver cirrhosis, unknown etiology, but denies any ETOH. Does not think she has had hepatitis C and has not had any full workup per patient's account. The patient also has a history of CAD, and was advised to get cardiac stent in the past. She has refused. PAST SURGERIES: She denies any surgeries. FAMILY HISTORY: Positive for diabetes. SOCIAL HISTORY: As noted above, no tobacco, ETOH, or illicit drug usage. Lives with her . She has 5 grown children. MEDICATIONS: Lactulose 45 mL t.i.d., insulin sliding scale, K-Phos 500 mg b.i.d., aspirin 81 daily, calcium carbonate 750 daily, Benadryl 25 t.i.d., Lasix 20 daily. REVIEW OF SYSTEMS: CONSTITUTIONAL: Denies any fever, chills, and no recent weight loss. CARDIAC: No chest pain, no palpitations. PULMONARY: No cough or sputum production. GASTROINTESTINAL: No bowel habit changes, but does report occasional diarrhea secondary to the lactulose. GENITOURINARY: No dysuria, hematuria or pelvic pain. PHYSICAL EXAMINATION: VITAL SIGNS: Temperature 98.6, pulse 86, respirations 19, blood pressure 155/69, satting 95% on room air. GENERAL: Well-developed, obese female, currently asleep, but arousable. She is awake, alert and oriented x 2. She is able to answer some questions appropriately, although she is still somewhat confused. HEAD AND NECK: Normocephalic, atraumatic. Pupils reactive to light. Extraocular movements are intact. Oropharynx moist and clear. CARDIOVASCULAR: Regular rate and rhythm without any murmurs. LUNGS: Clear to auscultation bilaterally, decreased at the bases. ABDOMEN: Obese, distended, nontender. Normoactive bowel sounds. EXTREMITIES: There is no edema in the lower extremities. NEUROLOGIC: Neuro exam is difficult to assess given the patient's current condition, but her cranial nerves 2-12 are within normal limits. She appears to be nonfocal. LABORATORY DATA: White count 17.6, H and H 13/40, platelet count of 108 with 87% neutrophils. INR is 1.11. Sodium 129, potassium 4.5, chloride 101, CO2 of 22. BUN 15, creatinine 0.9, glucose 265. Hemoglobin A1c is 7.7. Lactic acid 1.94. Total bili 4.5. AST is 52, ALT 24, alkaline phosphatase 120, ammonia level on admission was 182, now it is 79, troponins 0.07. UA shows positive for glucose, moderate blood, 6-10 wbc's, negative for nitrites and negative for leukocyte esterase. Urine toxicology was negative. DIAGNOSTICS: Chest x-ray shows increased interstitial lung markings probably chronic in etiology, cardiomegaly and atherosclerotic vascular disease. EKG, sinus rhythm at [address] elevations or depressions, no Q-waves. IMPRESSION AND PLAN: 1. Altered mental status likely secondary to hepatic encephalopathy. 2. History of chronic encephalopathy due to chronic liver disease and medical noncompliance. 3. Liver cirrhosis of unknown etiology. Differential could include idiopathic liver disease versus hepatitis C versus secondary to fatty infiltration of the liver. 4. History of coronary artery disease with slight elevation of troponins. 5. History of insulin-dependent diabetes. 6. History of essential hypertension. 7. History of gastroesophageal reflux disease. 8. Morbid obesity. PLAN: The patient has been admitted to telemetry for management and care. The patient has been placed on lactulose 30 mg q.i.d., neomycin at 500 mg b.i.d., and rifaximin 500 mg b.i.d. We will continue to monitor ammonia levels on a daily basis. She will be kept on her other medications as scheduled including aspirin and BP meds. Given her cardiac history, I will ask for a lipid panel and we will start her on statin. Cardiology has been consulted. PT tiny will also be asked for. JOB# [id number]
[2016-10-06] MEDS: Sodium Chloride 0.9% 1,000 ML IV SCH (11:26)
[2016-10-06] MEDS: Atorvastatin Calcium 10 MG TAB PO SCH (11:30)
--- NOTE | 2016-10-06 23:50 | Consultation ---
DATE OF CONSULTATION: 10/05/2016 HISTORY AND PHYSICAL: This is a 71-year-old morbidly obese female patient, who was brought to the hospital complaining of weakness, tiredness. No history of PND or orthopnea. No complaint of chest pain or palpitations. The patient does complain of abdominal distention. PAST MEDICAL HISTORY: Cirrhosis of liver, ascites, diabetes mellitus type 2, insulin dependent diabetes mellitus, hypertension, coronary artery disease, morbid obesity, hepatic encephalopathy, GERD. FAMILY HISTORY: Unremarkable. SOCIAL HISTORY: No history of smoking or alcohol abuse at the present time. ALLERGIES: No known allergies. PHYSICAL EXAMINATION: VITAL SIGNS: Blood pressure 130/80, pulse 70, respirations 20. HEAD: Normocephalic. No lumps or bumps. EYES: Pupils equal, reactive to light. Fundi show AV nicking, sclerae white, conjunctivae pink. NECK: Carotid 2+. Normal upstrokes. JVD flat. Thyroid not palpable. Lymph nodes not palpable. CHEST: Shows increased AP diameter. No kyphosis, scoliosis. LUNGS: Bilateral bronchovesicular breath sounds. Occasional wheeze. No rales. HEART: PMI fifth intercostal space lateral to midclavicular line. S1, S2. Soft S3, S4. Systolic murmur grade 2/6 lower left sternal border without radiation. ABDOMEN: Distended with free fluid in abdomen. NEUROLOGICAL: The patient has hepatic encephalopathy. No focal neurological deficit. EXTREMITIES: Peripheral pulses 1+, pedal edema. CLINICAL IMPRESSION: Hepatic encephalopathy, cirrhosis of liver, ascites, diabetes mellitus type 2, insulin dependent diabetes mellitus, hypertension, coronary artery disease, morbid obesity, gastroesophageal reflux disease. PLAN: At the present time, we will get echocardiogram, continue present management. Continue lactulose. JOB# [id number]
[2016-10-07 05:55] LABS: % EOSINOPHILS 3.3 % (0.0-5.0); % MONOCYTES 11.6 % (2.0-10.0); % NEUTROPHILS 68.1 % (40.0-80.0); HEMATOCRIT 36.7 % (35.0-45.0); HEMOGLOBIN 12.5 gm/dL (11.7-16.1); MEAN CELL VOLUME 87.4 fl (81-100); MEAN CORPUSCULAR HEMOGLOBIN 29.8 pg (27.0-31.0); MEAN CORPUSCULAR HGB CONC 34.1 pg (28.0-36.0); MEAN PLATELET VOLUME 9.4 fl; NEUTROPHILE ABSOLUTE 4.4 Th/cmm (1.8-8.0); PLATELET COUNT 83 Th/cmm (150-400); RED CELL DISTRIBUTION WIDTH 14.8 % (11.5-20.0)
[2016-10-07 05:56] LABS: WHITE BLOOD COUNT 6.4 Th/cmm (4.8-10.8)
[2016-10-07 06:10] LABS: ALB/GLOB RATIO 0.8 (1.0-1.8); ALKALINE PHOSPHATASE 87 U/L (34-104); ANION GAP 9.1 (7.0-16.0); BILIRUBIN,TOTAL 3.9 mg/dL (0.3-1.0); BUN - UREA NITROGEN 15 mg/dL (7-25); BUN/CREATININE RATIO 16.7; CALCIUM SERUM 9.2 mg/dL (8.6-10.3); CARBON DIOXIDE 24.8 mEq/L (21.0-31.0); CHLORIDE 102 mEq/L (98-107); CHOLESTEROL 193 mg/dL (<200); CREATININE - SERUM 0.9 mg/dL (0.6-1.2); GLUCOSE 267 mg/dL (70-105); MAGNESIUM 1.4 mg/dL (1.9-2.7); POTASSIUM SERUM 3.9 mEq/L (3.5-5.1); SGOT 45 U/L (13-39); SGPT/ALT 21 U/L (7-52); SODIUM SERUM 132 mEq/L (136-145); TRIGLYCERIDES 107 mg/dL (<150)
[2016-10-07] MEDS: INSULIN ASPART SLIDING SCALE 100 UNITS/ML UNIT SUBQ SCH ×4 (06:51→21:04)
[2016-10-07 07:09] LABS: HEP B CORE IGM Negative (Negative); HEP C ANTIBODY <0.1 s/co ratio (0.0-0.9)
[2016-10-07] MEDS: Pantoprazole 40 mg EC Tab PO SCH (10:30)
[2016-10-07] MEDS: Aspirin 81mg Chewable Tab PO SCH (10:35)
[2016-10-07] MEDS: Atorvastatin Calcium 10 MG TAB PO SCH (10:35)
[2016-10-07] MEDS: Lactulose 10 Gm/15 mL 30mL UDC PO SCH ×4 (10:39→20:58)
[2016-10-07] MEDS: Multivitamin Tab PO SCH (10:39)
[2016-10-07] MEDS: Insulin Detemir 100 units/mL 10mL Vial SUBQ SCH (11:34)
--- NOTE | 2016-10-07 12:48 | Consultation ---
DATE OF CONSULTATION: 10/07/2016 REQUESTING PHYSICIAN: Dr. Bob. REASON FOR CONSULTATION: Depressed more and agitated behavior. HISTORY OF PRESENT ILLNESS: This patient is a 71-year-old woman known to me from the previous treatment at [facility]. The patient has been interviewed and the chart is reviewed. The patient is stating that she has been having a difficult time to cope with the stress on multiple medical problems and the patient is reported to have been getting easily agitated and upset and patient review during the previous hospitalization has mentioned that she is very much worried about his safety and worried about the patient getting easily agitated and hurting him. The patient has at that time been diagnosed to have a mood disorder and psychosis, not otherwise specified and has been placed on Haldol on a p.r.n. basis. The patient at this time has been brought over here for the generalized weakness and altered mental status and the chart is reviewed and the staff was spoken to. The patient at this time is being treated for stabilization of her hypertension and diabetes mellitus and cirrhosis of the liver. The patient is easily irritable and angry and I am not able to get much of information from the patient. The patient is also reported to have been reluctant to comply with the treatment and the patient has been stating that she does not need to take the lactulose at this time and patient is being closely monitored and being treated for possibly sepsis. The white cell count is noted to be high. PAST PSYCHIATRIC HISTORY: Please refer to the above. MEDICAL HISTORY: Significant for hypertension, diabetes mellitus, cirrhosis of the liver and history of alcohol dependence in the past. SOCIAL HISTORY: The patient is living with her . Currently, the patient is not on any psychotropic medications. MENTAL EXAMINATION: The patient is a 71-year-old, looking her stated age, superficially cooperative. Eye contact is poor. Mood is noted to be irritable. Affect is constricted. Insight and judgment at this time are noted to be impaired. Impulse control seems to be limited. The patient tends to scream and yell and demands that she should be discharged back to her . The patient's is scared of this patient. The patient is getting easily frustrated at this time. Paranoid delusions are noted, but denies any command hallucinations in view of the patient's agitation. The patient is going to be placed on haloperidol on a p.r.n. basis and the patient is going to be followed up with supportive therapy. Thank you Dr. Bob for allowing me to participate in the care of this patient. JOB# [id number]
[2016-10-07] MEDS: Sodium Chloride 0.9% 1,000 ML IV SCH (14:08)
--- NOTE | 2016-10-07 15:29 | Cardiology ---
10/05/[address] Bob. M-MODE ECHOCARDIOGRAM: Mitral valve, anterior leaflet of mitral valve shows normal excursion, EF velocity. Posterior leaflet of mitral valve shows normal excursion. Left ventricular posterior wall shows increased thickness, normal excursion. Interventricular septum shows increased thickness, normal excursion, hypertrophy of the left ventricle, ejection fraction 60%. Left atrium normal. Aortic root shows normal dimension, normal excursion of aortic leaflets. CONCLUSION: Hypertrophy of the left ventricle, ejection fraction 60%. 2D ECHO: Long axis view showed normal sized left ventricle with hypertrophy of the left ventricle. Left atrium normal. Aortic root shows normal dimension, normal excursion of aortic leaflets. Short axis view of mitral valve normal. Short axis view of aortic valve normal. Apical four chamber view showed normal sized left ventricle with hypertrophy of the left ventricle. Left atrium normal. Right ventricular cavity, right atrium normal, no pericardial effusion. CONCLUSION: Hypertrophy of the left ventricle, ejection fraction 60%. Doppler study shows prominent A wave consistent with poor compliance of left ventricle, trace mitral regurgitation, trace tricuspid regurgitation. [facility]# [id number]
[2016-10-08] MEDS: Sodium Chloride 0.9% 1,000 ML IV SCH (02:40)
[2016-10-08 05:59] LABS: % BASOPHILS 0.1 % (0.0-2.0); % LYMPHOCYTES 19.3 % (20.0-50.0); % MONOCYTES 10.2 % (2.0-10.0); % NEUTROPHILS 66.4 % (40.0-80.0); HEMATOCRIT 36.1 % (35.0-45.0); HEMOGLOBIN 12.4 gm/dL (11.7-16.1); MEAN CELL VOLUME 86.8 fl (81-100); MEAN CORPUSCULAR HEMOGLOBIN 29.8 pg (27.0-31.0); MEAN CORPUSCULAR HGB CONC 34.3 pg (28.0-36.0); MEAN PLATELET VOLUME 9.3 fl; NEUTROPHILE ABSOLUTE 3.8 Th/cmm (1.8-8.0); PLATELET COUNT 92 Th/cmm (150-400); RED BLOOD COUNT 4.15 Mil/cmm (3.80-5.20); RED CELL DISTRIBUTION WIDTH 14.8 % (11.5-20.0); WHITE BLOOD COUNT 5.7 Th/cmm (4.8-10.8)
[2016-10-08 06:41] LABS: ALB/GLOB RATIO 0.8 (1.0-1.8); ALKALINE PHOSPHATASE 81 U/L (34-104); BILIRUBIN,TOTAL 2.8 mg/dL (0.3-1.0); BUN - UREA NITROGEN 15 mg/dL (7-25); BUN/CREATININE RATIO 18.8; CALCIUM SERUM 8.8 mg/dL (8.6-10.3); CHLORIDE 107 mEq/L (98-107); CREATININE - SERUM 0.8 mg/dL (0.6-1.2); GLUCOSE 229 mg/dL (70-105); MAGNESIUM 1.4 mg/dL (1.9-2.7); SGOT 45 U/L (13-39); SGPT/ALT 20 U/L (7-52); SODIUM SERUM 134 mEq/L (136-145)
[2016-10-08] MEDS: INSULIN ASPART SLIDING SCALE 100 UNITS/ML UNIT SUBQ SCH ×3 (06:41→18:02)
[2016-10-08] MEDS: Aspirin 81mg Chewable Tab PO SCH (08:38)
[2016-10-08] MEDS: Atorvastatin Calcium 10 MG TAB PO SCH (08:39)
[2016-10-08] MEDS: Multivitamin Tab PO SCH (08:40)
[2016-10-08] MEDS: Pantoprazole 40 mg EC Tab PO SCH (08:40)
[2016-10-08] MEDS: Lactulose 10 Gm/15 mL 30mL UDC PO SCH ×3 (08:41→17:48)
[2016-10-08] MEDS: Insulin Detemir 100 units/mL 10mL Vial SUBQ SCH (08:46)
--- NOTE | 2016-10-08 09:59 | Discharge Summary ---
DATE OF DISCHARGE: 10/08/2016 ADMITTING DIAGNOSES: Generalized weakness/altered mental status, acute on chronic hepatic encephalopathy, liver cirrhosis of unknown etiology, elevated troponin levels, leukocytosis, hyponatremia, diabetes out of control. SECONDARY DIAGNOSES: Include history of coronary artery disease, history of insulin-dependent diabetes, essential hypertension, acid reflux disease and morbid obesity. DISCHARGE DIAGNOSES: 1. Altered mental status, generalized weakness, improved. 2. [id number] hepatic encephalopathy. 3. Elevated ammonia level improved. 4. Elevated troponin levels improved. 5. Leukocytosis, resolved. 6. Hyponatremia, improved. CONSULTANTS: Dr. Frantz Johnson for Cardiology and Dr. Mina for Psychiatry. MAJOR PROCEDURES: There was a 2D echo done on 10/05/2016 showing hypertrophy of the left ventricle with an EF of 60%. BRIEF HOSPITAL COURSE: A 71-year-old Stateless [place] female with history of essential hypertension, diabetes, CAD, who in the past has refused cardiac catheterization, morbid obesity, liver cirrhosis of unknown origin, given that the patient is not able to tell me why she has it, and in medical records there is no mention of any alcohol or hepatitis, who presented to the ER with generalized weakness, confusion, and some lethargy. Pertinent findings on admission included a white count of 17.6, sodium of 129, and glucose of 265. Lactic acid 1.94 and an ammonia level of 182. Her troponin levels were noted to be elevated at 0.07. The patient was admitted to the telemetry and was placed on lactulose 30 g q.i.d., and also was started on neomycin and rifaximin, as well as IV fluids. The patient's troponins were monitored, given her initial elevated troponin level, and it did go up to a level 0.30, but eventually went down to 0.23. Her ammonia level also was noted to be 94 by hospital day #2 and the latest value is 79. Clinically, the patient was a little sluggish and lethargic on admission and now appears to be more alert and coherent. She was also evaluated by Cardiology and underwent the above-mentioned echocardiogram. She did not complain of any chest pain, palpitations, or shortness of breath, but was seen by Psychiatry given previous history of psychosis and noncompliance. Of note, the patient also has a history of medical noncompliance, but at this time is agreeable to follow up with treatment. She does have a primary care doctor who also in the past has tried to refer her for her Cardiology testing, which she has refused. Vital sign-fox, she has remained stable, although her sugar levels are still somewhat elevated. I discussed the possibility of going to a [facility] facility for rehab and further management of her diabetes, which she is agreeable. I have discussed the case with case operator and at this time, she will be either discharged to a [facility] facility or home with home health depending on her insurance clauses. DISCHARGE MEDICATIONS: Aspirin 81 daily, atorvastatin 20 daily, calcium carbonate 600 daily, Benadryl 25 t.i.d., Lasix 20 daily, Haldol 1 mg twice a day p.r.n. for agitation, sliding scale per protocol, detemir units daily, lactulose 30 g q.i.d., lisinopril 10 2 times daily, multivitamins daily, neomycin 500 b.i.d. x 7 days, Protonix 40 mg daily, propranolol 20 daily, rifaximin 500 b.i.d. x 7 days, and vitamin D 400 international units daily. DISPOSITION: As mentioned above. 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 JOB# [id number] SHANAE
[2016-10-08] MEDS ORDERED: Albuterol/Ipratropium Neb 3 ML AERS HHN PRN (10:09)
[2016-10-08] MEDS ORDERED: Acetaminophen 500 MG TAB PO PRN (10:11)
--- NOTE | 2016-10-11 23:52 | Admit Criteria Form ---
Admit Criteria Forms - Admit Criteria Diagnosis: LIVER DISEASE COMPLICATIONS Clinical Indications for Admission to Inpatient Care (quinault/check or initial the applicable condition/criteria) Admission is indicated for patient with 1 or more of the following(1)(2)(3)(4)(5 )(6)(7)(8)(9)(10)(11): I. Inpatient admission required rather than observation care because of 1 or more of the following: a) Hemodynamic instability that is severe or persistent b) Tachypnea persistent after emergency department and observation care treatment c) Hypoxemia d) Severe pain requiring acute inpatient management e) Acute renal failure f) Metabolic abnormalities (eg, hypoglycemia, acidosis) that are severe or persistent g) Vomiting that is severe or persistent h) Dehydration that is severe or persistent or hypervolemia that is severe or persistent i) Coagulation abnormality that is severe (eg, at risk for severe bleeding) j) Signs of intestinal obstruction or peritonitis[B] k) Continuous intravenous infusion of vasoactive or antiarrhythmic medication l) Percutaneous or open drainage (e.g., abscess, biliary tract) procedures m) Parenteral nutrition regimen that must be implemented on inpatient basis n) Other condition treatment or monitoring requiring inpatient admission II. Infected hepatic hydrothorax (eg, empyema) III. Hepatorenal syndrome (eg, elevated. creatinine with adequate volume status and negative evaluation for other cause)(14) IV. Spontaneous bacterial peritonitis V. Suspected infected ascites as indicated by 1 or more of the following: a) Temp >100 degrees F (37.8 C ) b) High WBC count c) Abdominal pain or tenderness not relieved by paracentesis [X]. New-onset or worsening hepatic encephalopathy(13) VII. Suspected fulminant hepatic failure (e.g., acute coagulopathy with hepatic encephalopathy or acute elevation of hepatic transaminases to more than 15 times baseline)(5) VIII. Acute hepatitis (e.g., ALT and AST at least 3 times baseline) with coagulopathy or severe jaundice as indicated by 1 or more of the following(15)(16): a) Bilirubin >20 mg/dL (342 moles/L)(17) b) Acute elevation of PT to >50% above normal or INR >1.5 IX. Treatment of injury from hepatotoxin (e.g., acetaminophen) that requires inpatient monitoring X. Acute fatty liver of Extended stay beyond goal length of stay may be needed for(4)(7)(8)(9)(10)(11)( 25): a) Hepatorenal syndrome(14) b) Renal failure due to other causes associated with cirrhosis (e.g., hypovolemia)(14) c) Severe or persistent hepatic encephalopathy(13) d) Refractory ascites, volume, or electrolyte abnormality(4)(26)(27) e) Severe infectious or hepatotoxin-induced hepatitis (eg, acetaminophen) f) Severe or persistent gastroesophageal bleeding (29)(30)(31)(32)(33) g) Severe or persistent coagulation abnormalities(34) h) Hemodynamic instability that is severe or persistent The original [facility] content created by [facility] has been revised. The portions of the content which have been revised are identified through the use of italic text or in bold, and [facility] has neither reviewed nor approved the modified material. All other unmodified content is copyright [facility]. Please see references footnoted in the original [facility] [employer] edition 2017 Admit Criteria Met?: Yes
== END 2016-10-08 18:56 | DRG 442 ==
LOC: ER 12:25 → MSI 18:00
PROVIDERS: ADMIT Internal Medicine; ATTEND Internal Medicine
DX: K72.00 Acute and subacute hepatic failure without coma (principal); R18.8 Other ascites; E11.65 Type 2 diabetes mellitus with hyperglycemia; Z68.42 Body mass index [BMI] 45.0-49.9, adult; E87.1 Hypo-osmolality and hyponatremia; K74.60 Unspecified cirrhosis of liver; E66.01 Morbid (severe) obesity due to excess calories; F29 Unspecified psychosis not due to a substance or known physiological condition; I10 Essential (primary) hypertension; I25.10 Atherosclerotic heart disease of native coronary artery without angina pectoris; F39 Unspecified mood [affective] disorder; K21.9 Gastro-esophageal reflux disease without esophagitis; Z91.14 Patient's other noncompliance with medication regimen; Z83.3 Family history of diabetes mellitus
CPT/HCPCS: 36415-UA; 71010-TC; 80053-TC; 80061-TC; 80074-90; 80307; 80320-TC; 81001-TC; 82140-TC; 82948-90; 83036-90; 83605; 83735-TC; 83880-TC; 84484-TC; 85007-TC; 85025-TC; 85027-TC; 85610-TC; 93005; 94640; 94760; 97530; J1815; J7030; X3904; Z7610

== ENCOUNTER 2017-11-28 05:41 | Inpatient (IN) | payer MEDICARE, MEDICAID ==
--- NOTE | 2017-11-28 06:57 | ED Physician Chart ---
ED Chief Complaint/HPI - Patient Information Date Seen:: 11/28/17 Time Seen:: 06:52 Chief Complaint:: leg swelling and diabetic leg ulcers History of Present Illness:: 72 yr old female comes here for same not very amulatory with lower leg ulcers bilaterally and dependent edema diabetes htn bedridden does not ambulate or elevate her legs here for leg ulcers Allergies:: Allergies Allergy/AdvReac Type Severity Reaction Status Date / Time No Known Allergies Allergy Verified 11/28/17 06:20 Vitals:: Vital Signs - 8 hr 11/28/17 05:45 Temp 97.9 F HR 93 RR 20 BP 158/65 O2 Sat % 97 ED Review of Systems - Review of Systems General/Constitutional: No fever Skin: Skin lesions Head: No headache Eyes: No loss of vision ENT: No earache Neck: No neck pain Cardio Vascular: No chest pain Pulmonary: No SOB GI: No nausea G/U: No dysuria Records Management Analyst: No vaginal discharge Musculoskeletal: Back pain Endocrine: No polyuria Psychiatric: No depression Hematopoietic: No bruising Allergic/Immuno: Urticaria Neurological: No syncope ED Past Medical History - Past Medical History Past Medical History: HTN, DM, CAD, CHF Family History: Heart disease Family Medical History - Family Member Mother History Unknown: Yes ED Physical Exam - Physical Examination General/Constitutional: Well-developed, well-nourished, Alert Head: Atraumatic Eyes: Lids, conjuctiva normal Skin: Nl inspection ENMT: External ears, nose nl Respiratory: Nl effort/Exclusion Cardio Vascular: RRR GI: No tenderness/rebounding/guarding Other Extremities comments:: edema and superficial ulcers lower extremities bilaterally Neuro/Psych: Alert/oriented ED Assessment - Assessment General Assessment: lower leg ulcers diabetes non ambulatory ED Septic Shock - . Is Septic Shock (SBP<90, OR Lactate>4 mmol\L) present?: No - <6hrs of presentation: Vital Signs: Vital Signs - 8 hr 11/28/17 05:45 Temp 97.9 F HR 93 RR 20 BP 158/65 O2 Sat % 97 ED Reassessment (Disposition) - Reassessment Reassessment:: diabetic lower leg ulcers - Patient Disposition Discharge/Transfer:: Acute Care w/in this hosp Admitted to:: Med/Surg Condition at Disposition:: Stable
[2017-11-28 07:14] LABS: % BASOPHILS 0.7 % (0.0-2.0); % LYMPHOCYTES 10.4 % (20.0-50.0); % MONOCYTES 9.6 % (2.0-10.0); % NEUTROPHILS 75.3 % (40.0-80.0); EOSINOPHILE ABSOLUTE 0.2 Th/cmm (0.1-0.4); HEMATOCRIT 31.6 % (41.0-60); HEMOGLOBIN 10.7 gm/dL (12-16); LYMPHOCYTE ABSOLUTE 0.6 Th/cmm (1.5-3.0); MEAN CELL VOLUME 84.9 fl (81-100); MEAN CORPUSCULAR HEMOGLOBIN 28.7 pg (27.0-31.0); MEAN CORPUSCULAR HGB CONC 33.8 pg (28.0-36.0); MEAN PLATELET VOLUME 9.2 fl; MONOCYTE ABSOLUTE 0.6 Th/cmm (0.3-1.0); NEUTROPHILE ABSOLUTE 4.7 Th/cmm (1.8-8.0); PLATELET COUNT 109 Th/cmm (150-400); RED BLOOD COUNT 3.73 Mil/cmm (3.80-5.20); WHITE BLOOD COUNT 6.1 Th/cmm (4.8-10.8)
[2017-11-28 07:21] LABS: ALB/GLOB RATIO 0.7 (1.0-1.8); ALBUMIN 2.7 gm/dL (3.7-5.3); ALKALINE PHOSPHATASE 118 U/L (34-104); ANION GAP 12.8 (7.0-16.0); BILIRUBIN,TOTAL 5.3 mg/dL (0.3-1.0); BUN - UREA NITROGEN 17 mg/dL (7-25); CALCIUM SERUM 8.8 mg/dL (8.6-10.3); CARBON DIOXIDE 23.6 mEq/L (21.0-31.0); CHLORIDE 98 mEq/L (98-107); GLUCOSE 308 mg/dL (70-105); POTASSIUM SERUM 4.4 mEq/L (3.5-5.1); SGOT 31 U/L (13-39); SGPT/ALT 17 U/L (7-52); SODIUM SERUM 130 mEq/L (136-145); TOTAL PROTEIN,SERUM 6.4 gm/dL (6.0-8.3)
[2017-11-28] MEDS ORDERED: Piperacillin Sodium/Tazobact 3.375 gm Vial IV ONE (07:21)
[2017-11-28 07:34] LABS: MAGNESIUM 1.2 mg/dL (1.9-2.7); PHOSPHOROUS 2.7 mg/dL (2.5-5.0)
[2017-11-28] MEDS ORDERED: IOHEXOL 350mgI/mL 150mL IV ONE (08:12)
[2017-11-28 08:24] LABS: URINE BILIRUBIN NEGATIVE (NEGATIVE); URINE BLOOD SMALL (NEGATIVE); URINE GLUCOSE (UA) 250 mg/dL (NEGATIVE); URINE KETONE NEGATIVE (NEGATIVE); URINE LEUKOCYTE ESTERASE TRACE (NEGATIVE); URINE MICROSCOPIC INDICATED? YES; URINE NITRATE POSITIVE (NEGATIVE); URINE PH 6.5 (4.6 - 8.0); URINE PROTEIN 100 mg/dL (NEGATIVE); URINE SOURCE CATH
[2017-11-28 08:26] LABS: URINE CLARITY HAZY (CLEAR); URINE COLOR YELLOW
--- NOTE | 2017-11-28 08:37 | Diagnostic Imaging Report ---
Portable chest x-ray HISTORY: Shortness of breath The heart is enlarged. Atherosclerotic calcification seen in the aorta. A mild degree of congestive heart failure cannot be excluded. No ayaan pulmonary edema. IMPRESSION: 1. Cardiomegaly with atherosclerotic vascular changes. A marginal degree of congestive heart failure cannot be excluded. No ayaan pulmonary edema.
[2017-11-28 08:39] LABS: URINE BACTERIA 4+ /hpf (NONE SEEN); URINE EPITHELIAL CELLS MODERATE /lpf (FEW)
[2017-11-28] MEDS ORDERED: INSULIN ASPART, RECOMBINANT 100 UNITS/ML SUBQ ONE (08:40)
[2017-11-28 09:20] LABS: INR 1.12 (0.5-1.4); PROTHROMBIN TIME (TEST) 11.5 SECONDS (9.5-11.5)
--- NOTE | 2017-11-28 10:46 | Diagnostic Imaging Report ---
Portable chest x-ray HISTORY: Shortness of breath, vascular catheter placement Compared with prior exam performed earlier in the day (0743 hours), right-sided vaster catheter is been inserted. The tip is in the region of the superior vena cava. The heart remains enlarged. No other change in the pulmonary status. IMPRESSION: 1. New vascular catheter placement as noted above 2. No change in cardiopulmonary status
--- NOTE | 2017-11-28 11:32 | Diagnostic Imaging Report ---
Right lower extremity Doppler venous ultrasound exam HISTORY: Pain/swelling Sonographic sector images were obtained through the deep venous systems of the right leg. Associated Doppler data was obtained. The exam demonstrates patency of the common femoral, superficial femoral, popliteal, and posterior tibial veins. Specifically, no thrombus is seen. There are normal compressibility and augmentation responses. IMPRESSION: Negative exam for deep vein thrombophlebitis.
--- NOTE | 2017-11-28 12:15 | Diagnostic Imaging Report ---
CT pulmonary angiogram with intravenous contrast History: Pulmonary embolism Total DLP equals 582 CTDI equals 13.7 Following administration of intravenous contrast, axial sections were obtained from a level above the clavicles down to a level below the diaphragm. The exam demonstrates normal opacification of the main right and left pulmonary arteries. No intraluminal lesions are seen. Specifically, no evidence of pulmonary embolism. There is preservation of normal fat planes throughout the mediastinum. No lymphadenopathy is seen. Old fractures of left rib cage appreciated. No abnormal focal pulmonary parenchymal masses or nodules are seen. No pleural effusions. There is evidence of cholelithiasis. Impression: Negative examination. No evidence of pulmonary emboli.
[2017-11-28] MEDS ORDERED: Magnesium Sulfate 1 gm/2 mL 2mL Vial IV ONE (12:28)
[2017-11-28 15:56] LABS: AMPHETAMINE URINE NEGATIVE (NEGATIVE); BARBITURATES URINE NEGATIVE (NEGATIVE); BENZODIAZEPINES QUAL URINE NEGATIVE (NEGATIVE); CANNABINOID THC NEGATIVE (NEGATIVE); COCAINE METABOLITE QUAL URINE NEGATIVE (NEGATIVE); METHADONE URINE NEGATIVE (NEGATIVE); METHAMPHETAMINES QUAL URINE NEGATIVE (NEGATIVE); OPIATES (MORPHINE) QUAL. URINE NEGATIVE (NEGATIVE); PHENCYCLIDINE (PCP) URINE NEGATIVE (NEGATIVE); TRICYCLICS (TCA) QUAL. URINE NEGATIVE (NEGATIVE)
[2017-11-28] MEDS: INSULIN ASPART SLIDING SCALE 100 UNITS/ML UNIT SUBQ SCH (18:09)
[2017-11-28] MEDS: Hydrocodone/APAP 5mg/325mg Tab PO PRN (18:10)
[2017-11-28] MEDS ORDERED: Acetaminophen 500 MG TAB PO PRN (19:35)
[2017-11-29] MEDS: INSULIN ASPART SLIDING SCALE 100 UNITS/ML UNIT SUBQ SCH ×5 (01:35→23:51)
[2017-11-29 07:00] LABS: ALB/GLOB RATIO 0.7 (1.0-1.8); ALBUMIN 2.4 gm/dL (3.7-5.3); ALKALINE PHOSPHATASE 78 U/L (34-104); ANION GAP 12.6 (7.0-16.0); BILIRUBIN,TOTAL 5.6 mg/dL (0.3-1.0); BUN - UREA NITROGEN 21 mg/dL (7-25); CALCIUM SERUM 8.3 mg/dL (8.6-10.3); CARBON DIOXIDE 26.2 mEq/L (21.0-31.0); CHLORIDE 97 mEq/L (98-107); CREATININE - SERUM 1.2 mg/dL (0.6-1.2); GLUCOSE 289 mg/dL (70-105); POTASSIUM SERUM 3.8 mEq/L (3.5-5.1); SGOT 36 U/L (13-39); SGPT/ALT 14 U/L (7-52); SODIUM SERUM 132 mEq/L (136-145); TOTAL PROTEIN,SERUM 5.8 gm/dL (6.0-8.3)
[2017-11-29 07:08] LABS: % BASOPHILS 0.5 % (0.0-2.0); % EOSINOPHILS 1.8 % (0.0-5.0); % LYMPHOCYTES 11.2 % (20.0-50.0); % NEUTROPHILS 72.5 % (40.0-80.0); EOSINOPHILE ABSOLUTE 0.1 Th/cmm (0.1-0.4); HEMATOCRIT 28.6 % (41.0-60); HEMOGLOBIN 9.9 gm/dL (12-16); LYMPHOCYTE ABSOLUTE 0.9 Th/cmm (1.5-3.0); MEAN CELL VOLUME 83.9 fl (81-100); MEAN CORPUSCULAR HEMOGLOBIN 29.1 pg (27.0-31.0); MEAN CORPUSCULAR HGB CONC 34.7 pg (28.0-36.0); MEAN PLATELET VOLUME 8.9 fl; MONOCYTE ABSOLUTE 1.1 Th/cmm (0.3-1.0); NEUTROPHILE ABSOLUTE 5.8 Th/cmm (1.8-8.0); PLATELET COUNT 97 Th/cmm (150-400); RED BLOOD COUNT 3.41 Mil/cmm (3.80-5.20); RED CELL DISTRIBUTION WIDTH 15.3 % (11.5-20.0)
[2017-11-29 07:11] LABS: WHITE BLOOD COUNT 7.9 Th/cmm (4.8-10.8)
--- NOTE | 2017-11-29 08:47 | History and Physical ---
History of Present Illness - HPI Chief Complaint: Bilateral leg swelling with diabetic lower extremity ulcers. HPI: 72 y/o female who presents to [facility] for bilateral leg swelling along with presence of ulcers. Patient has a previous medical history of hypertension, diabetes mellitus, CAD, and CHF. Patient had a d-dimer which was elevated @ 2990. CTA was negative for PE. Bilateral lower ext US was negative for DVT. BNP was 111. Patient was subsequently admitted for further evaluation and treatment. Vital Signs: Last Vital Signs Temp 98.4 F 11/29/17 04:00 Pulse 93 11/29/17 07:40 Resp 16 11/29/17 07:40 BP 152/62 11/29/17 04:00 Pulse Ox 95 11/29/17 07:40 Past Medical History Cardiovascular: Report: CAD, CHF, HTN Pulmonary: Report: No Pertinent Hx CHEM[employer]CH[employer]IAN: Report: No Pertinent Hx GI: Report: No Pertinent Hx Psych: Report: No Pertinent Hx Musculoskeletal: Report: No Pertinent Hx Rheumatologic: Report: No pertinent Hx Infectious Disease: Report: No Pertinent Hx Renal/: Report: No Pertinent Hx Endocrine: Report: Diabetes Dermatology: Report: Cellulitis (lower extremity ulcers) - Past Surgical History Past Surgical History: No pertinent Hx Family Medical History - Family Member Mother History Unknown: Yes Social History Smoke: No Alcohol: None Drugs: None Lives: With Family - Medications Home Medications: Home Medication Medication Instructions Recorded Type Magnesium Oxide [Mag-Oxide] 400 mg PO BID 08/11/14 History Propranolol HCl [Inderal*] 20 mg PO DAILY 08/11/14 History Pantoprazole [Protonix] 40 mg PO DAILY 08/16/14 History Furosemide 20 mg PO DAILY 02/03/16 History Insulin Aspart, Recombinant 20 unit SQ TID 10/05/16 History [NovoLOG] Acetaminophen [Tylenol Extra 500 mg PO Q4H PRN tab 10/08/16 Rx Strength] Insulin Aspart Sliding Scale See Protocol SUBQ ACHS 11/28/17 History [NovoLOG INSULIN SLIDING SCALE] Insulin Glargine,Hum.rec.anlog 40 unit SQ DAILY 11/28/17 History [Basaglar Kwikpen U-100] Lisinopril [Zestril*] 20 mg PO BID 11/28/17 History Rifaximin [Xifaxan] 550 mg PO BID 11/28/17 History Sitagliptin [Januvia] 50 mg PO DAILY 11/28/17 History Spironolactone 25 mg PO QPM 11/28/17 History metFORMIN [Glucophage] 250 mg PO BID 11/28/17 History - Allergies Allergies/Adverse Reactions: Allergies Allergy/AdvReac Type Severity Reaction Status Date / Time No Known Allergies Allergy Verified 11/28/17 06:20 Review of Systems - Review of Systems Constitutional: Report: No Significant Eyes: Report: No Significant ENT: Report: No Significant Respiratory: Report: No Significant Cardiovascular: Report: No Significant Gastrointestinal: Report: No Significant Genitourinary: Report: No Significant Musculoskeletal: Report: No Significant Skin: Report: Rash (lower ext cellulitis and leg ulcers. ) Neurological: Report: No Significant Physical Exam - Physical Exam HEENT: Report: Ears Nose Throat within normal limits, Pharnyx within normal limits Neck: Report: Within normal limits, Thyromegaly Cardiovascular Systems: Report: +s1/s2 noted, Regular, Rate and Rhythm Respiratory: Report: Breath Sounds are within normal limits Abdomen: Report: Non-tender to palpation Back: Report: Inspection of back is within normal limits. Extremities: Report: Pedal edema was noted on inspection Skin: Report: Other (presence of cellulitis to lower extremities with leg ulcers. ) Neuro/Psych: Report: Mood affect is within normal limits - Lab Results All Lab Results last 24 hours: Laboratory Results - last 24 hr 11/28/17 11/28/17 11/28/17 06:50 06:50 07:54 WBC RBC Hgb Hct MCV MCH MCHC Differential RDW Plt Count MPV Neutrophils % Lymphocytes % Monocytes % Eosinophils % Basophils % PT 11.5 INR 1.12 PTT (Actin FS) 30.4 Sodium Potassium Chloride Carbon Dioxide Anion Gap BUN Creatinine Est GFR ( Amer) Est GFR (Non-Af Amer) BUN/Creatinine Ratio Glucose POC Glucose Calcium Total Bilirubin AST ALT Alkaline Phosphatase Ammonia Troponin I 0.03 Total Protein Albumin Globulin Albumin/Globulin Ratio Urine Opiates Screen NEGATIVE Urine Methadone Screen NEGATIVE Ur Barbiturates Screen NEGATIVE Ur Tricyclics Screen NEGATIVE Ur Phencyclidine Scrn NEGATIVE Amphetamines Screen NEGATIVE U Methamphetamines Scrn NEGATIVE U Benzodiazepines Scrn NEGATIVE U Cocaine Metab Screen NEGATIVE U Cannabinoids Screen NEGATIVE 11/28/17 11/28/17 11/28/17 09:55 10:40 15:41 WBC RBC Hgb Hct MCV MCH MCHC Differential RDW Plt Count MPV Neutrophils % Lymphocytes % Monocytes % Eosinophils % Basophils % PT INR PTT (Actin FS) Sodium Potassium Chloride Carbon Dioxide Anion Gap BUN Creatinine Est GFR ( Amer) Est GFR (Non-Af Amer) BUN/Creatinine Ratio Glucose POC Glucose 327 H 250 H Calcium Total Bilirubin AST ALT Alkaline Phosphatase Ammonia 104 H Troponin I Total Protein Albumin Globulin Albumin/Globulin Ratio Urine Opiates Screen Urine Methadone Screen Ur Barbiturates Screen Ur Tricyclics Screen Ur Phencyclidine Scrn Amphetamines Screen U Methamphetamines Scrn U Benzodiazepines Scrn U Cocaine Metab Screen U Cannabinoids Screen 11/28/17 11/29/17 11/29/17 18:00 00:55 05:16 WBC RBC Hgb Hct MCV MCH MCHC Differential RDW Plt Count MPV Neutrophils % Lymphocytes % Monocytes % Eosinophils % Basophils % PT INR PTT (Actin FS) Sodium Potassium Chloride Carbon Dioxide Anion Gap BUN Creatinine Est GFR ( Amer) Est GFR (Non-Af Amer) BUN/Creatinine Ratio Glucose POC Glucose 261 H 279 H 272 H Calcium Total Bilirubin AST ALT Alkaline Phosphatase Ammonia Troponin I Total Protein Albumin Globulin Albumin/Globulin Ratio Urine Opiates Screen Urine Methadone Screen Ur Barbiturates Screen Ur Tricyclics Screen Ur Phencyclidine Scrn Amphetamines Screen U Methamphetamines Scrn U Benzodiazepines Scrn U Cocaine Metab Screen U Cannabinoids Screen 11/29/17 11/29/17 06:13 06:13 WBC 7.9 D RBC 3.41 L Hgb 9.9 L Hct 28.6 L MCV 83.9 MCH 29.1 MCHC Differential 34.7 RDW 15.3 Plt Count 97 L MPV 8.9 Neutrophils % 72.5 Lymphocytes % 11.2 L Monocytes % 14.0 H Eosinophils % 1.8 Basophils % 0.5 PT INR PTT (Actin FS) Sodium 132 L Potassium 3.8 Chloride 97 L Carbon Dioxide 26.2 Anion Gap 12.6 BUN 21 Creatinine 1.2 Est GFR ( Amer) TNP Est GFR (Non-Af Amer) TNP BUN/Creatinine Ratio 17.5 Glucose 289 H POC Glucose Calcium 8.3 L Total Bilirubin 5.6 H AST 36 ALT 14 Alkaline Phosphatase 78 Ammonia Troponin I Total Protein 5.8 L Albumin 2.4 L Globulin 3.4 Albumin/Globulin Ratio 0.7 L Urine Opiates Screen Urine Methadone Screen Ur Barbiturates Screen Ur Tricyclics Screen Ur Phencyclidine Scrn Amphetamines Screen U Methamphetamines Scrn U Benzodiazepines Scrn U Cocaine Metab Screen U Cannabinoids Screen Microbiology 11/28/17 07:10 - Preliminary Blood NO GROWTH AFTER 24 HOURS 11/28/17 06:50 - Preliminary Blood NO GROWTH AFTER 24 HOURS - Assessment Assessment: LE edema cellilitis HTN DM CAD CHF left side pleural effusion hyponatremia - Plan Plan: Will order ID consult Pulmonary consult Cadiology consult repeat labwork tomorrow continue IV antibiotics.
[2017-11-29] MEDS: Lactulose 10 Gm/15 mL 30mL UDC PO SCH (08:53)
[2017-11-29] MEDS: Pantoprazole 40 mg EC Tab PO SCH (08:54)
[2017-11-29] MEDS ORDERED: Influenza Vaccine (65 yr & older) 0.5 ml Syr IM ONE (09:00)
[2017-11-29] MEDS ORDERED: Pneumococcal Vaccine 0.5 mL Vial IM ONE (09:00)
[2017-11-29] MEDS: Venelex 60gm Tube TP SCH (09:32)
--- NOTE | 2017-11-29 10:34 | Consultation ---
DATE OF CONSULTATION: 11/29/2017 GASTROENTEROLOGY CONSULTATION REQUESTING PHYSICIAN: Didier Stanley M.D. REASON FOR CONSULTATION: Possible cirrhosis. HISTORY OF PRESENT ILLNESS: A 72-year-old female with history of diabetes mellitus, hypertension, possible CHF and cirrhosis. She also has chronic lower extremity cellulitis. We were asked to see her for followup of her possible cirrhosis and abnormal liver enzymes. She is a poor historian. She is on lactulose and rifaximin. She may have encephalopathy. She denies abdominal pain, nausea, vomiting, diarrhea or constipation. She had a CT angiogram of the chest to rule out PE. No abdominal ultrasound was done, but exam is limited by large body habitus. PAST MEDICAL HISTORY: As above. MEDICATIONS: Here are Tylenol p.r.n., [place] p.r.n., Ventralex, Lasix 20 mg daily, insulin sliding scale, lactulose 30 grams daily, lisinopril, mag oxide, Zosyn, Inderal 20 mg daily, Januvia, Aldactone 25 mg daily and vancomycin IV. SOCIAL HISTORY: No recent tobacco, alcohol or drugs. FAMILY HISTORY: Noncontributory. REVIEW OF SYSTEMS: Negative. ALLERGIES: No known drug allergies. PHYSICAL EXAMINATION: VITAL SIGNS: Temperature of 98.4, blood pressure is 152/62, pulse of 94, respirations 19, O2 sat is 99% on room air. GENERAL: The patient is well-developed, obese female who is in no acute distress. She is lying comfortably in bed. HEENT: Sclerae are nonicteric. Oropharynx is clear. CARDIOVASCULAR: Regular rate and rhythm. LUNGS: Clear to auscultation bilaterally. ABDOMEN: Soft, mild to moderate obesity. There is a reducible umbilical hernia. No obvious ecchymoses are noted due to a large body habitus. Cannot rule out a fluid wave. EXTREMITIES: Bandaged in the ankle area bilaterally. RECTAL: Deferred. LABORATORY/IMAGING: WBC 7.9, hemoglobin 9.9, platelet count is 97. Sodium is 132, creatinine 1.2, bilirubin 5.6, AST 36, ALT 14, alkaline phosphatase 78. Ammonia 104. Albumin 2.4. CT angiogram of the chest shows no PE, evidence of cholelithiasis. IMPRESSION: 1. Probable cirrhosis, perhaps from nonalcoholic steatohepatitis. 2. Hyperbilirubinemia, likely from nonalcoholic steatohepatitis and/or cirrhosis. 3. Anemia, likely chronic. 4. Thrombocytopenia likely from chronic liver disease and portal hypertension. 5. Diabetes mellitus. 6. Chest pain and possible congestive heart failure. 7. Lower extremity edema and cellulitis. 8. Hepatic encephalopathy. RECOMMENDATIONS: 1. Check abdominal ultrasound results. 2. Check CT of the abdomen and pelvis. 3. Continue lactulose and add rifaximin. 4. Clear liquid diet and advance as tolerated. 5. Check liver labs including hepatitis profile. 6. Further liver workup and followup likely as an outpatient GI or Hepatology Clinic. 7. Await hepatotoxic agents. 8. Check coagulation profile. Thank you, Dr. Didier Stanley for involving us in the care of your patient. If you have any further questions, please call us. [facility]# [id number] [id number]
--- NOTE | 2017-11-29 10:45 | Diagnostic Imaging Report ---
Abdominal ultrasound HISTORY: Cirrhosis, pain The exam is extremely limited due to patient's size, body habitus, and bowel gas. Limited views of the liver provided. No obvious focal abnormalities. The gallbladder could not be clearly seen. If the gallbladder has not been removed and the patient is fasting, nonvisualization suggests underlying gallbladder disease. If indicated, a radionuclide biliary scan (HIDA scan) would provide for further assessment of gallbladder function. Common bile duct cannot be seen. Limited visualization of the right kidney with no obvious focal lesions or hydronephrosis. The left kidney cannot be clearly seen. The spleen appears somewhat increased in size. No other obvious retroperitoneal or intra-abdominal abnormalities. IMPRESSION: 1. Extremely limited exam due to patient's size, body habitus, bowel gas (see above) 2. Nonvisualization the gallbladder. If the gallbladder has not been removed and the patient is fasting, nonvisualization suggests underlying gallbladder disease. If needed, a radionuclide biliary scan (HIDA scan) would provide for further assessment of gallbladder function.
--- NOTE | 2017-11-29 13:41 | Consultation ---
Consult Note - Consult Note Service Date: 11/29/17 Referring Physician: Didier Stanley Consult Note: PHYSICIAN Consultation Note: Date of Admission: 11/28/17 Purpose of Consultation: Chief Complaint: Patient GURINDER ROBISON was admitted to [facility] Telemetry with CHF, CIRRHOSIS, CELLULITIS. History of Present Illness: 72-year-old female with a past medical history of diabetes mellitus type 2, cirrhosis, obesity, brought to the ER for swelling redness and ulceration on both legs. On initial evaluation, patient's temperature was 97.9F and WBC count was 6100. She was diagnosed with cellulitis. Vancomycin and Zosyn were started. ID consult was called for further antibiotic management. Past Medical History: Diabetes mellitus type II, hypertension, liver cirrhosis, , coronary artery disease, CHF. Allergies Allergy/AdvReac Type Severity Reaction Status Date / Time No Known Allergies Allergy Verified 11/28/17 06:20 Vital Signs Temp 98.3 F 11/29/17 11:29 Pulse 79 11/29/17 11:29 Resp 18 11/29/17 11:29 BP 136/82 11/29/17 11:29 Pulse Ox 98 11/29/17 11:29 Intake & Output 11/28/17 11/29/17 11/29/17 18:59 06:59 18:59 Intake Total 100 220 Output Total 1300 Balance 100 -1080 Weight (lbs) 108.862 kg Intake: Intake, IV Amount 100 100 Piperacillin Sodium/ 100 100 Tazobact 3.375 gm In Sodium Chloride 0.9% 50 ml @ 100 mls/hr IV Q6HR [facility] Rx#:[id number] Oral 120 Output: Urine 1300 Other: # Bowel Movements 0 Weight Source Bedscale Laboratory Results - last 24 hr 11/28/17 11/28/17 11/28/17 07:54 15:41 18:00 WBC RBC Hgb Hct MCV MCH MCHC Differential RDW Plt Count MPV Neutrophils % Lymphocytes % Monocytes % Eosinophils % Basophils % Sodium Potassium Chloride Carbon Dioxide Anion Gap BUN Creatinine Est GFR ( Amer) Est GFR (Non-Af Amer) BUN/Creatinine Ratio Glucose POC Glucose 250 H 261 H Calcium Total Bilirubin AST ALT Alkaline Phosphatase Total Protein Albumin Globulin Albumin/Globulin Ratio Urine Opiates Screen NEGATIVE Urine Methadone Screen NEGATIVE Ur Barbiturates Screen NEGATIVE Ur Tricyclics Screen NEGATIVE Ur Phencyclidine Scrn NEGATIVE Amphetamines Screen NEGATIVE U Methamphetamines Scrn NEGATIVE U Benzodiazepines Scrn NEGATIVE U Cocaine Metab Screen NEGATIVE U Cannabinoids Screen NEGATIVE 11/29/17 11/29/17 11/29/17 00:55 05:16 06:13 WBC 7.9 D RBC 3.41 L Hgb 9.9 L Hct 28.6 L MCV 83.9 MCH 29.1 MCHC Differential 34.7 RDW 15.3 Plt Count 97 L MPV 8.9 Neutrophils % 72.5 Lymphocytes % 11.2 L Monocytes % 14.0 H Eosinophils % 1.8 Basophils % 0.5 Sodium Potassium Chloride Carbon Dioxide Anion Gap BUN Creatinine Est GFR ( Amer) Est GFR (Non-Af Amer) BUN/Creatinine Ratio Glucose POC Glucose 279 H 272 H Calcium Total Bilirubin AST ALT Alkaline Phosphatase Total Protein Albumin Globulin Albumin/Globulin Ratio Urine Opiates Screen Urine Methadone Screen Ur Barbiturates Screen Ur Tricyclics Screen Ur Phencyclidine Scrn Amphetamines Screen U Methamphetamines Scrn U Benzodiazepines Scrn U Cocaine Metab Screen U Cannabinoids Screen 11/29/17 11/29/17 06:13 11:29 WBC RBC Hgb Hct MCV MCH MCHC Differential RDW Plt Count MPV Neutrophils % Lymphocytes % Monocytes % Eosinophils % Basophils % Sodium 132 L Potassium 3.8 Chloride 97 L Carbon Dioxide 26.2 Anion Gap 12.6 BUN 21 Creatinine 1.2 Est GFR ( Amer) TNP Est GFR (Non-Af Amer) TNP BUN/Creatinine Ratio 17.5 Glucose 289 H POC Glucose 288 H Calcium 8.3 L Total Bilirubin 5.6 H AST 36 ALT 14 Alkaline Phosphatase 78 Total Protein 5.8 L Albumin 2.4 L Globulin 3.4 Albumin/Globulin Ratio 0.7 L Urine Opiates Screen Urine Methadone Screen Ur Barbiturates Screen Ur Tricyclics Screen Ur Phencyclidine Scrn Amphetamines Screen U Methamphetamines Scrn U Benzodiazepines Scrn U Cocaine Metab Screen U Cannabinoids Screen Home Medication Medication Instructions Recorded Type Magnesium Oxide [Mag-Oxide] 400 mg PO BID 08/11/14 History Propranolol HCl [Inderal*] 20 mg PO DAILY 08/11/14 History Pantoprazole [Protonix] 40 mg PO DAILY 08/16/14 History Furosemide 20 mg PO DAILY 02/03/16 History Insulin Aspart, Recombinant 20 unit SQ TID 10/05/16 History [NovoLOG] Acetaminophen [Tylenol Extra 500 mg PO Q4H PRN tab 10/08/16 Rx Strength] Insulin Aspart Sliding Scale See Protocol SUBQ ACHS 11/28/17 History [NovoLOG INSULIN SLIDING SCALE] Insulin Glargine,Hum.rec.anlog 40 unit SQ DAILY 11/28/17 History [Basaglar Kwikpen U-100] Lisinopril [Zestril*] 20 mg PO BID 11/28/17 History Rifaximin [Xifaxan] 550 mg PO BID 11/28/17 History Sitagliptin [Januvia] 50 mg PO DAILY 11/28/17 History Spironolactone 25 mg PO QPM 11/28/17 History metFORMIN [Glucophage] 250 mg PO BID 11/28/17 History Current Medications Generic Name Dose Route Start Last Admin Trade Name Freq PRN Reason Stop Dose Admin Acetaminophen 650 mg 11/28/17 17:08 Tylenol PO 01/27/18 17:07 Q4H PRN Moderate Pain or Fever >101 Acetaminophen 500 mg 11/28/17 19:35 Tylenol Extra Strength PO 01/27/18 19:34 Q4H PRN Mild pain Acetaminophen/Hydrocodone Bitart 1 tab 11/28/17 17:10 11/28/17 18:10 [place] 5mg/325mg PO 01/27/18 17:09 1 tab Q8H PRN Administration Pain (Severe) [place] Oil/[place] Balsam/Trypsin 1 appl 11/29/17 09:00 11/29/17 09:32 Venelex TP 01/28/18 08:59 1 appl DAILY [facility] Administration Furosemide 20 mg 11/29/17 09:00 11/29/17 08:53 Lasix PO 01/28/18 08:59 Not Given DAILY [facility] Piperacillin Sod/Tazobactam 50 mls @ 100 mls/hr 11/28/17 13:45 11/29/17 11:13 Sod 3.375 gm/ Sodium Chloride IV 01/27/18 13:44 100 mls/hr Q6HR [facility] Administration Vancomycin HCl 1.25 gm/ Sodium 250 mls @ 165 mls/hr 11/29/17 09:00 11/29/17 09:31 Chloride IV 01/28/18 08:59 165 mls/hr Q24H [facility] Administration Insulin Aspart 0 units 11/28/17 18:00 11/29/17 11:42 Novolog Insulin Sliding Scale SUBQ 01/27/18 17:59 6 units Q6HR [facility] Administration Protocol Lactulose 30 gm 11/29/17 09:00 11/29/17 08:53 Cephulac PO 01/28/18 08:59 Not Given DAILY [facility] Lisinopril 20 mg 11/29/17 09:00 11/29/17 08:53 Zestril PO 01/28/18 08:59 Not Given BID [facility] Magnesium Oxide 400 mg 11/29/17 09:00 11/29/17 08:53 Mag-Oxide PO 01/28/18 08:59 Not Given BID [facility] Miscellaneous 1 ea 11/28/17 13:37 Zosyn Iv Per Pharmacy 01/27/18 13:36 PRN PRN PROTOCOL Miscellaneous 1 ea 11/28/17 14:21 Vancomycin Iv Per Pharmacy 01/27/18 14:20 PRN PRN PROTOCOL Pantoprazole Sodium 40 mg 11/29/17 09:00 11/29/17 08:54 Protonix PO 01/28/18 08:59 Not Given DAILY [facility] Propranolol HCl 20 mg 11/29/17 09:00 11/29/17 08:54 Inderal PO 01/28/18 08:59 Not Given DAILY [facility] Rifaximin 600 mg 11/29/17 09:45 11/29/17 10:56 Xifaxan PO 01/28/18 09:44 600 mg BID [facility] Administration Sitagliptin Phosphate 50 mg 11/29/17 09:00 11/29/17 08:54 Januvia PO 01/28/18 08:59 Not Given DAILY [facility] Spironolactone 25 mg 11/29/17 17:00 Aldactone PO 01/28/18 16:59 QPM [facility] Review of Systems: A 12 point ROS was reviewed with the pertinent positive and negatives noted in the HPI. Social History Smoking Status Unknown if ever smoked Drug Use No Alcohol Use No Physical Exam: General: Comfortable, not in acute distress. Lethargic. Obese female HEENT: Head: Normocephalic atraumatic oral cavity: Moist, pink tongue. Eyes: No pallor. No icterus. Neck: Supple, no JVD. No use of accessory neck muscles. Cardio: S1 and S2 within normal limits regular rhythm no murmur or gallop Respiratory: Vesicular breath sound. Abdominal: Soft, nontender nondistended bowel symptoms present Genital/Urinary: Deferred. Extremities: No cyanosis, no clubbing, mild edema. Superficial ulceration both legs. There is some serous drainage from the left leg ulcers. There is some erythema of the legs. Neurological: Arousable. Assessment: 1. Bilateral leg cellulitis. With the leg ulcerations. 2. Diabetes mellitus type 2. 3. Hyperlipidemia. 4. Hypertension. 2. Liver cirrhosis. 6. Coronary artery disease. 7. CHF Plan: Would culture. Continue Vancomycin and Zosyn. Thank you Dr. Stanley, for involving me in the patient. Signed, Perry Johnson M.D. [id number]
[2017-11-30 06:16] LABS: % EOSINOPHILS 3.5 % (0.0-5.0); % LYMPHOCYTES 10.5 % (20.0-50.0); % MONOCYTES 14.1 % (2.0-10.0); % NEUTROPHILS 71.9 % (40.0-80.0); EOSINOPHILE ABSOLUTE 0.3 Th/cmm (0.1-0.4); HEMATOCRIT 29.4 % (41.0-60); HEMOGLOBIN 9.8 gm/dL (12-16); LYMPHOCYTE ABSOLUTE 0.9 Th/cmm (1.5-3.0); MEAN CELL VOLUME 85.3 fl (81-100); MEAN CORPUSCULAR HEMOGLOBIN 28.5 pg (27.0-31.0); MEAN CORPUSCULAR HGB CONC 33.4 pg (28.0-36.0); MEAN PLATELET VOLUME 9.3 fl; MONOCYTE ABSOLUTE 1.2 Th/cmm (0.3-1.0); NEUTROPHILE ABSOLUTE 6.2 Th/cmm (1.8-8.0); PLATELET COUNT 101 Th/cmm (150-400); RED BLOOD COUNT 3.45 Mil/cmm (3.80-5.20); WHITE BLOOD COUNT 8.6 Th/cmm (4.8-10.8)
[2017-11-30 06:28] LABS: ALB/GLOB RATIO 0.7 (1.0-1.8); ALBUMIN 2.4 gm/dL (3.7-5.3); ALKALINE PHOSPHATASE 70 U/L (34-104); ANION GAP 13.2 (7.0-16.0); BILIRUBIN,TOTAL 4.5 mg/dL (0.3-1.0); BUN - UREA NITROGEN 22 mg/dL (7-25); CALCIUM SERUM 8.1 mg/dL (8.6-10.3); CARBON DIOXIDE 26.6 mEq/L (21.0-31.0); CHLORIDE 97 mEq/L (98-107); CREATININE - SERUM 1.1 mg/dL (0.6-1.2); GLUCOSE 264 mg/dL (70-105); LIPASE 29 U/L (11-82); POTASSIUM SERUM 3.8 mEq/L (3.5-5.1); SGOT 31 U/L (13-39); SGPT/ALT 13 U/L (7-52); SODIUM SERUM 133 mEq/L (136-145); TOTAL PROTEIN,SERUM 5.7 gm/dL (6.0-8.3)
[2017-11-30] MEDS: INSULIN ASPART SLIDING SCALE 100 UNITS/ML UNIT SUBQ SCH ×3 (07:04→19:19)
--- NOTE | 2017-11-30 08:23 | General Progress Note ---
Subjective - Review of Systems Service Date: 11/30/17 Subjective: Patient was seen and evaluated. Awake, alert, no acute distress. wants to eat this AM. Objective - Results Result Diagrams: 11/30/17 05:30 11/30/17 05:30 Recent Labs: Laboratory Last Values WBC 8.6 Th/cmm (4.8-10.8) 11/30/17 05:30 RBC 3.45 Mil/cmm (3.80-5.20) L 11/30/17 05:30 Hgb 9.8 gm/dL (12-16) L 11/30/17 05:30 Hct 29.4 % (41.0-60) L 11/30/17 05:30 MCV 85.3 fl (81-100) 11/30/17 05:30 MCH 28.5 pg (27.0-31.0) 11/30/17 05:30 MCHC Differential 33.4 pg (28.0-36.0) 11/30/17 05:30 RDW 15.0 % (11.5-20.0) 11/30/17 05:30 Plt Count 101 Th/cmm (150-400) L 11/30/17 05:30 MPV 9.3 fl 11/30/17 05:30 Neutrophils % 71.9 % (40.0-80.0) 11/30/17 05:30 Lymphocytes % 10.5 % (20.0-50.0) L 11/30/17 05:30 Monocytes % 14.1 % (2.0-10.0) H 11/30/17 05:30 Eosinophils % 3.5 % (0.0-5.0) 11/30/17 05:30 Basophils % 0.0 % (0.0-2.0) 11/30/17 05:30 PT 11.5 SECONDS (9.5-11.5) 11/28/17 06:50 INR 1.12 (0.5-1.4) 11/28/17 06:50 PTT (Actin FS) 30.4 SECONDS (26.0-38.0) 11/28/17 06:50 D-Dimer 2990 ng/mL (100-400) H 11/28/17 06:50 Sodium 133 mEq/L (136-145) L 11/30/17 05:30 Potassium 3.8 mEq/L (3.5-5.1) 11/30/17 05:30 Chloride 97 mEq/L (98-107) L 11/30/17 05:30 Carbon Dioxide 26.6 mEq/L (21.0-31.0) 11/30/17 05:30 Anion Gap 13.2 (7.0-16.0) 11/30/17 05:30 BUN 22 mg/dL (7-25) 11/30/17 05:30 Creatinine 1.1 mg/dL (0.6-1.2) 11/30/17 05:30 Est GFR ( Amer) TNP 11/30/17 05:30 Est GFR (Non-Af Amer) TNP 11/30/17 05:30 BUN/Creatinine Ratio 20.0 11/30/17 05:30 Glucose 264 mg/dL (70-105) H 11/30/17 05:30 POC Glucose 259 MG/DL (70 - 105) H 11/30/17 05:40 Calcium 8.1 mg/dL (8.6-10.3) L 11/30/17 05:30 Phosphorus 2.7 mg/dL (2.5-5.0) 11/28/17 06:50 Magnesium 1.2 mg/dL (1.9-2.7) L 11/28/17 06:50 Total Bilirubin 4.5 mg/dL (0.3-1.0) H 11/30/17 05:30 AST 31 U/L (13-39) 11/30/17 05:30 ALT 13 U/L (7-52) 11/30/17 05:30 Alkaline Phosphatase 70 U/L (34-104) 11/30/17 05:30 Ammonia 104 umol/L (16-53) H 11/28/17 10:40 Troponin I 0.03 ng/mL (0.01-0.05) 11/28/17 06:50 B-Natriuretic Peptide 111.0 pg/mL (5.0-100.0) H 11/28/17 06:50 Total Protein 5.7 gm/dL (6.0-8.3) L 11/30/17 05:30 Albumin 2.4 gm/dL (3.7-5.3) L 11/30/17 05:30 Globulin 3.3 gm/dL 11/30/17 05:30 Albumin/Globulin Ratio 0.7 (1.0-1.8) L 11/30/17 05:30 Lipase 29 U/L (11-82) 11/30/17 05:30 Urine Source CATH 11/28/17 07:54 Urine Color YELLOW 11/28/17 07:54 Urine Clarity HAZY (CLEAR) 11/28/17 07:54 Urine pH 6.5 (4.6 - 8.0) 11/28/17 07:54 Ur Specific [place] 1.020 (1.005-1.030) 11/28/17 07:54 Urine Protein 100 mg/dL (NEGATIVE) H 11/28/17 07:54 Urine Glucose (UA) 250 mg/dL (NEGATIVE) H 11/28/17 07:54 Urine Ketones NEGATIVE mg/dL (NEGATIVE) 11/28/17 07:54 Urine Blood SMALL (NEGATIVE) H 11/28/17 07:54 Urine Nitrate POSITIVE (NEGATIVE) H 11/28/17 07:54 Urine Bilirubin NEGATIVE (NEGATIVE) 11/28/17 07:54 Urine Urobilinogen 2.0 E.U./dL (0.2 - 1.0) 11/28/17 07:54 Ur Leukocyte Esterase TRACE (NEGATIVE) H 11/28/17 07:54 Urine RBC 5-10 /hpf (0-5) H 11/28/17 07:54 Urine WBC 2-5 /hpf (0-5) 11/28/17 07:54 Ur Epithelial Cells MODERATE /lpf (FEW) 11/28/17 07:54 Urine Bacteria 4+ /hpf (NONE SEEN) H 11/28/17 07:54 Urine Opiates Screen NEGATIVE (NEGATIVE) 11/28/17 07:54 Urine Methadone Screen NEGATIVE (NEGATIVE) 11/28/17 07:54 Ur Barbiturates Screen NEGATIVE (NEGATIVE) 11/28/17 07:54 Ur Tricyclics Screen NEGATIVE (NEGATIVE) 11/28/17 07:54 Ur Phencyclidine Scrn NEGATIVE (NEGATIVE) 11/28/17 07:54 Amphetamines Screen NEGATIVE (NEGATIVE) 11/28/17 07:54 U Methamphetamines Scrn NEGATIVE (NEGATIVE) 11/28/17 07:54 U Benzodiazepines Scrn NEGATIVE (NEGATIVE) 11/28/17 07:54 U Cocaine Metab Screen NEGATIVE (NEGATIVE) 11/28/17 07:54 U Cannabinoids Screen NEGATIVE (NEGATIVE) 11/28/17 07:54 - Physical Exam Vitals and I&O: Vital Signs Temp 97.4 F 11/30/17 07:40 Pulse 94 11/30/17 07:40 Resp 18 11/30/17 07:40 BP 127/63 11/30/17 07:40 Pulse Ox 96 11/30/17 07:40 Intake & Output 11/29/17 11/30/17 11/30/17 18:59 06:59 18:59 Intake Total 400 150 Output Total 475 300 Balance -75 -150 Weight (lbs) 108.862 kg 108.919 kg Intake: Intake, IV Amount 100 50 Piperacillin Sodium/ 100 50 Tazobact 3.375 gm In Sodium Chloride 0.9% 50 ml @ 100 mls/hr IV Q6HR [facility] Rx#:[id number] Oral 300 100 Output: Urine 475 300 Other: # Bowel Movements 0 0 Weight Source Bedscale Bedscale Active Medications: Current Medications Acetaminophen (Tylenol) 650 mg PO Q4H PRN PRN Reason: Moderate Pain or Fever >101 Stop: 01/27/18 17:07 Acetaminophen (Tylenol Extra Strength) 500 mg PO Q4H PRN PRN Reason: Mild pain Stop: 01/27/18 19:34 Acetaminophen/Hydrocodone Bitart ([place] 5mg/325mg) 1 tab PO Q8H PRN PRN Reason: Pain (Severe) Stop: 01/27/18 17:09 Last Admin: 11/28/17 18:10 Dose: 1 tab [place] Oil/[place] Balsam/Trypsin (Venelex) 1 appl TP DAILY [facility] Stop: 01/28/18 08:59 Last Admin: 11/29/17 09:32 Dose: 1 appl Furosemide (Lasix) 20 mg PO DAILY [facility] Stop: 01/28/18 08:59 Last Admin: 11/29/17 08:53 Dose: Not Given Piperacillin Sod/Tazobactam (Sod 3.375 gm/ Sodium Chloride) 50 mls @ 100 mls/ hr IV Q6HR [facility] Stop: 01/27/18 13:44 Last Admin: 11/30/17 05:46 Dose: 100 mls/hr Vancomycin HCl 1.25 gm/ Sodium (Chloride) 250 mls @ 165 mls/hr IV Q24H [facility] Stop: 01/28/18 08:59 Last Admin: 11/29/17 09:31 Dose: 165 mls/hr Insulin Aspart (Novolog Insulin Sliding Scale) 0 units SUBQ Q6HR [facility]; Protocol Stop: 01/27/18 17:59 Last Admin: 11/30/17 07:04 Dose: 6 units Lactulose (Cephulac) 30 gm PO DAILY [facility] Stop: 01/28/18 08:59 Last Admin: 11/29/17 08:53 Dose: Not Given Lisinopril (Zestril) 20 mg PO BID [facility] Stop: 01/28/18 08:59 Last Admin: 11/29/17 16:59 Dose: 20 mg Magnesium Oxide (Mag-Oxide) 400 mg PO BID [facility] Stop: 01/28/18 08:59 Last Admin: 11/29/17 16:58 Dose: 400 mg Miscellaneous (Zosyn Iv Per Pharmacy) 1 [facility] PRN PRN PRN Reason: PROTOCOL Stop: 01/27/18 13:36 Miscellaneous (Vancomycin Iv Per Pharmacy) 1 [facility] PRN PRN PRN Reason: PROTOCOL Stop: 01/27/18 14:20 Mupirocin (Bactroban Oint) 1 appl NS BID [facility] Stop: 12/04/17 09:01 Last Admin: 11/29/17 17:19 Dose: Not Given Pantoprazole Sodium (Protonix) 40 mg PO DAILY [facility] Stop: 01/28/18 08:59 Last Admin: 11/29/17 08:54 Dose: Not Given Propranolol HCl (Inderal) 20 mg PO DAILY [facility] Stop: 01/28/18 08:59 Last Admin: 11/29/17 08:54 Dose: Not Given Rifaximin (Xifaxan) 600 mg PO BID [facility] Stop: 01/28/18 09:44 Last Admin: 11/29/17 16:57 Dose: 600 mg Sitagliptin Phosphate (Januvia) 50 mg PO DAILY [facility] Stop: 01/28/18 08:59 Last Admin: 11/29/17 08:54 Dose: Not Given Spironolactone (Aldactone) 25 mg PO QPM [facility] Stop: 01/28/18 16:59 Last Admin: 11/29/17 16:58 Dose: 25 mg General: Alert, No acute distress HEENT: Atraumatic, PERRLA Neck: Supple Cardiovascular: Regular rate, Normal S1 Lungs: Clear to auscultation Abdomen: Bowel sounds, Soft Extremities: no Clubbing, no Cyanosis, no Edema - Procedures Procedures: Procedures Procedure Code Date INJECT/INFUSE NEC 99.29 01/12/10 Assessment/Plan - Assessment Assessment: LE edema and cellilitis HTN DM CAD CHF left side pleural effusion hyponatremia cholelithiasis possible cirrhosis hyperbilirubinemia anemia thrombocytopenia hepatic encephalopathy - Plan Plan: Will order ID consult Pulmonary consult Cadiology consult repeat labwork tomorrow continue IV antibiotics. Nutritional Asmnt/Malnutr-PDOC - Dietary Evaluation Malnutrition Findings (Please click <Entered> for more info): Nutritional Asmnt/Malnutrition Start: 11/29/17 13: 30 Text: Status: Complete Freq: Protocol: Document 11/29/17 13:31 DAHIANA (Rec: 11/29/17 13:40 [email or web address] [email or web address]) Nutritional Asmnt/Malnutrition Patient General Information Nutritional Screening High Risk Consult Diagnosis CHF, cirrhosis, cellulitis Pertinent Medical Hx/Surgical Hx HTN, DM, CAD, CHF Subjective Information Received diet consult d/t type II DM and wounds. Pt resting in bed w/ at bedside at time of visit. Pt's states pt likes sandwiches, rice, and vegetables. also states pt is requesting a hamburger; RD explained purpose of clear liquid diet and pt's verbalized understanding. Per nurse note, pt was NPO this morning for abdominal ultrasound. Current Diet Order/ Nutrition Support clear liquid Pertinent Medications lasix, novolog, Mag-oxide, zosyn, vancomycin, protonix, piperacillin, januvia, aldactone Pertinent Labs 11/29: glucose 289, Na 132, Alb 2.4, POC 272-279, Ca 8.3 11/28: glucose 308, Na 130, Alb 2.7, POC 250-327, Mg 1.2 Nutritional Hx/Data Height 1.52 m Height (Calculated Centimeters) 152.4 Current Weight (lbs) 108.862 kg Weight (Calculated Kilograms) 108.9 Weight (Calculated Grams) 247036.2 [place] Body Weight 100 lb Body Mass Index (BMI) 46.8 Weight Status Morbidly Obese GI Symptoms Last BM none noted Difficult in: None Food Allergies No Skin Integrity/Comment: Per wound care assessment: cellulitis wounds to rt posterior leg, rt lower leg, and left posterior leg ( superficial), cellulitis wounds to left lower leg anterior and left lower leg ( partial thickness) non-pitting edema to BLE Estimated Nutritional Goals BEE in Kcals: Adj wt of IBW Calories/Kcals/Kg 30-35 (based on adj wt 61.4 kg ) Kcals Calculated 1637-4000 Protein: Adj wt of IBW Protein g/k.2 (based on adj wt 61.4 kg) Protein Calculated 74 g Fluid: ml 5631-5884 (1 ml/kcal) Nutritional Problem 2. Problem Problem Inadequate oral intake Etiology increased kcal and protein needs Signs/Symptoms: cellulitis wounds/ulcers to BLE, pt on clear liquid diet 1. Problem Problem Altered nutrition related lab values Etiology hx of DM Signs/Symptoms: glucose 289, POC 272-279 Malnutrition Alert Is there a minimum of two criteria No selected? Query Text:Check all the applicable criteria. A minimum of two criteria are recommended for diagnosis of either severe or non-severe malnutrition. Malnutrition Related to Morbid Obesity Malnutrition related to morbid obesity No Intervention/Recommendation Comments 1. Once diet is advanced, recommend to start CCHO 60 g, low sodium 2g diet d/t elevated bs and dx of CHF and cirrhosis 2. Consider supplementing Ensure Enlive if protein and kcal needs not met w/ PO intake alone 3. Monitor PO intake, wt, labs and skin integrity 4. F/U as high risk in 2-3 days, 12/01-12/02 Expected Outcomes/Goals Expected Outcomes/Goals 1. PO intake to meet at least 75% of nutritional needs 2. Wt stability, wounds to heal, and nutrition related labs to approach normal limits Reviewed by Pamela Williamson RD
--- NOTE | 2017-11-30 09:12 | Diagnostic Imaging Report ---
CT abdomen and pelvis with intravenous contrast Indication: Elevated liver function tests, possible cirrhosis Comparison: Ultrasound abdomen on 11/29/2017, Technique: Axial images were obtained from the lung bases to the bilateral proximal femurs with IV contrast. Coronal reconstructions were made. total DLP: 909, CTDI18.6 FINDINGS: Hypoventilatory and atelectatic changes of the lung bases are seen. Old left rib fractures are seen with left basal pleural thickening. Exam is limited due to motion. There is slight irregularity of hepatic borders suggestive of cirrhotic changes. There is a 1 cm granuloma which appears to be along the dome of the liver along the right diaphragmatic border. Multiple gallstones are noted. Mild haziness of the regional fat planes are also seen in these region and adjacent to the duodenum. There is splenomegaly. No focal lesions. Assessment of pancreas is limited. Mild haziness of the peripancreatic fat planes are also noted. No focal adrenal lesions. No hydronephrosis or focal renal lesions. There is a narrow base large ventral hernia containing a large recanalized umbilical vein and diffuse fluid. No free air. Diffuse atherosclerosis is noted. Degenerative changes of the spine are noted. IMPRESSION: Large narrow based midline ventral hernia containing fluid and recanalized serpiginous umbilical vein within this hernia. This is likely sequela of patient's hepatocellular disease. No bowel herniation identified. Multiple gallstones. Mild haziness inflammatory changes seen along the right upper quadrant including surrounding the liver, gallbladder, duodenum and pancreas. Etiology is uncertain, however, gallbladder inflammation or mild pancreatitis or duodenitis may be considered. Please correlate with clinical findings Splenomegaly. Atherosclerotic vascular disease.
[2017-11-30 09:19] LABS: INR 1.12 (0.5-1.4); PROTHROMBIN TIME (TEST) 11.5 SECONDS (9.5-11.5)
[2017-11-30] MEDS: Pantoprazole 40 mg EC Tab PO SCH (09:55)
[2017-11-30] MEDS: Lactulose 10 Gm/15 mL 30mL UDC PO SCH ×2 (09:58→10:16)
[2017-11-30] MEDS: Hydrocodone/APAP 5mg/325mg Tab PO PRN (17:20)
--- NOTE | 2017-11-30 17:34 | Consultation ---
DATE OF CONSULTATION: 11/29/2017 HISTORY OF PRESENT ILLNESS: This is a 72-year-old female patient who was brought to the hospital complaining of swelling of both lower extremities. 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 FAMILY HISTORY: Diabetes. SOCIAL HISTORY: No history of smoking, alcohol abuse. ALLERGIES: No known allergies. PHYSICAL EXAMINATION: VITAL SIGNS: Blood pressure 130/69 and pulse 87. LUNGS: Clear. HEART: Regular rhythm, S1, S2, soft S3, S4. ABDOMEN: Soft. EXTREMITIES: No pedal edema. The patient has redness in both the legs, more on the left than the right, with cellulitis. DIAGNOSES: Diabetic ulcers in the left leg with cellulitis on both legs, diabetes mellitus type 2, hypertension, stable angina, coronary artery disease, congestive heart failure, diastolic dysfunction, cirrhosis of liver, hyponatremia, left pleural effusion, large ventral hernia, multiple gallstones. PLAN: We will start the patient on diuretics. We will get echocardiogram for left ventricular function. IV antibiotics. The patient has elevated liver enzymes, most likely secondary to cirrhosis of liver. JOB# [id number]
--- NOTE | 2017-11-30 18:01 | GI Progress Note ---
Subjective - Review of Systems Service Date: 11/30/17 Subjective: EVENTS NOTED. NO ABD PAIN. Objective - Results Result Diagrams: 11/30/17 05:30 11/30/17 05:30 Recent Labs: Laboratory Last Values WBC 8.6 Th/cmm (4.8-10.8) 11/30/17 05:30 RBC 3.45 Mil/cmm (3.80-5.20) L 11/30/17 05:30 Hgb 9.8 gm/dL (12-16) L 11/30/17 05:30 Hct 29.4 % (41.0-60) L 11/30/17 05:30 MCV 85.3 fl (81-100) 11/30/17 05:30 MCH 28.5 pg (27.0-31.0) 11/30/17 05:30 MCHC Differential 33.4 pg (28.0-36.0) 11/30/17 05:30 RDW 15.0 % (11.5-20.0) 11/30/17 05:30 Plt Count 101 Th/cmm (150-400) L 11/30/17 05:30 MPV 9.3 fl 11/30/17 05:30 Neutrophils % 71.9 % (40.0-80.0) 11/30/17 05:30 Lymphocytes % 10.5 % (20.0-50.0) L 11/30/17 05:30 Monocytes % 14.1 % (2.0-10.0) H 11/30/17 05:30 Eosinophils % 3.5 % (0.0-5.0) 11/30/17 05:30 Basophils % 0.0 % (0.0-2.0) 11/30/17 05:30 PT 11.5 SECONDS (9.5-11.5) 11/30/17 09:00 INR 1.12 (0.5-1.4) 11/30/17 09:00 PTT (Actin FS) 30.8 SECONDS (26.0-38.0) 11/30/17 09:00 D-Dimer 2990 ng/mL (100-400) H 11/28/17 06:50 Sodium 133 mEq/L (136-145) L 11/30/17 05:30 Potassium 3.8 mEq/L (3.5-5.1) 11/30/17 05:30 Chloride 97 mEq/L (98-107) L 11/30/17 05:30 Carbon Dioxide 26.6 mEq/L (21.0-31.0) 11/30/17 05:30 Anion Gap 13.2 (7.0-16.0) 11/30/17 05:30 BUN 22 mg/dL (7-25) 11/30/17 05:30 Creatinine 1.1 mg/dL (0.6-1.2) 11/30/17 05:30 Est GFR ( Amer) TNP 11/30/17 05:30 Est GFR (Non-Af Amer) TNP 11/30/17 05:30 BUN/Creatinine Ratio 20.0 11/30/17 05:30 Glucose 264 mg/dL (70-105) H 11/30/17 05:30 POC Glucose 282 MG/DL (70 - 105) H 11/30/17 17:06 Calcium 8.1 mg/dL (8.6-10.3) L 11/30/17 05:30 Phosphorus 2.7 mg/dL (2.5-5.0) 11/28/17 06:50 Magnesium 1.2 mg/dL (1.9-2.7) L 11/28/17 06:50 Total Bilirubin 4.5 mg/dL (0.3-1.0) H 11/30/17 05:30 AST 31 U/L (13-39) 11/30/17 05:30 ALT 13 U/L (7-52) 11/30/17 05:30 Alkaline Phosphatase 70 U/L (34-104) 11/30/17 05:30 Ammonia 104 umol/L (16-53) H 11/28/17 10:40 Troponin I 0.03 ng/mL (0.01-0.05) 11/28/17 06:50 B-Natriuretic Peptide 111.0 pg/mL (5.0-100.0) H 11/28/17 06:50 Total Protein 5.7 gm/dL (6.0-8.3) L 11/30/17 05:30 Albumin 2.4 gm/dL (3.7-5.3) L 11/30/17 05:30 Globulin 3.3 gm/dL 11/30/17 05:30 Albumin/Globulin Ratio 0.7 (1.0-1.8) L 11/30/17 05:30 Lipase 29 U/L (11-82) 11/30/17 05:30 Urine Source CATH 11/28/17 07:54 Urine Color YELLOW 11/28/17 07:54 Urine Clarity HAZY (CLEAR) 11/28/17 07:54 Urine pH 6.5 (4.6 - 8.0) 11/28/17 07:54 Ur Specific [place] 1.020 (1.005-1.030) 11/28/17 07:54 Urine Protein 100 mg/dL (NEGATIVE) H 11/28/17 07:54 Urine Glucose (UA) 250 mg/dL (NEGATIVE) H 11/28/17 07:54 Urine Ketones NEGATIVE mg/dL (NEGATIVE) 11/28/17 07:54 Urine Blood SMALL (NEGATIVE) H 11/28/17 07:54 Urine Nitrate POSITIVE (NEGATIVE) H 11/28/17 07:54 Urine Bilirubin NEGATIVE (NEGATIVE) 11/28/17 07:54 Urine Urobilinogen 2.0 E.U./dL (0.2 - 1.0) 11/28/17 07:54 Ur Leukocyte Esterase TRACE (NEGATIVE) H 11/28/17 07:54 Urine RBC 5-10 /hpf (0-5) H 11/28/17 07:54 Urine WBC 2-5 /hpf (0-5) 11/28/17 07:54 Ur Epithelial Cells MODERATE /lpf (FEW) 11/28/17 07:54 Urine Bacteria 4+ /hpf (NONE SEEN) H 11/28/17 07:54 Urine Opiates Screen NEGATIVE (NEGATIVE) 11/28/17 07:54 Urine Methadone Screen NEGATIVE (NEGATIVE) 11/28/17 07:54 Ur Barbiturates Screen NEGATIVE (NEGATIVE) 11/28/17 07:54 Ur Tricyclics Screen NEGATIVE (NEGATIVE) 11/28/17 07:54 Ur Phencyclidine Scrn NEGATIVE (NEGATIVE) 11/28/17 07:54 Amphetamines Screen NEGATIVE (NEGATIVE) 11/28/17 07:54 U Methamphetamines Scrn NEGATIVE (NEGATIVE) 11/28/17 07:54 U Benzodiazepines Scrn NEGATIVE (NEGATIVE) 11/28/17 07:54 U Cocaine Metab Screen NEGATIVE (NEGATIVE) 11/28/17 07:54 U Cannabinoids Screen NEGATIVE (NEGATIVE) 11/28/17 07:54 - Physical Exam Vitals and I&O: Vital Signs Temp 97.9 F 11/30/17 14:29 Pulse 89 11/30/17 14:29 Resp 19 11/30/17 16:00 BP 125/68 11/30/17 14:29 Pulse Ox 95 11/30/17 14:29 Intake & Output 11/29/17 11/30/17 11/30/17 18:59 06:59 18:59 Intake Total 650 200 Output Total 475 300 Balance 175 -100 Weight (lbs) 108.862 kg 108.919 kg Intake: Intake, IV Amount 350 100 Piperacillin Sodium/ 100 100 Tazobact 3.375 gm In Sodium Chloride 0.9% 50 ml @ 100 mls/hr IV Q6HR [facility] Rx#:[id number] Vancomycin HCl 1.25 gm In 250 Sodium Chloride 0.9% 250 ml @ 165 mls/hr IV Q24H [facility] Rx#:[id number] Oral 300 100 Output: Urine 475 300 Other: # Bowel Movements 0 0 Weight Source Bedscale Bedscale Active Medications: Current Medications Acetaminophen (Tylenol) 650 mg PO Q4H PRN PRN Reason: Moderate Pain or Fever >101 Stop: 01/27/18 17:07 Acetaminophen (Tylenol Extra Strength) 500 mg PO Q4H PRN PRN Reason: Mild pain Stop: 01/27/18 19:34 Acetaminophen/Hydrocodone Bitart ([place] 5mg/325mg) 1 tab PO Q8H PRN PRN Reason: Pain (Severe) Stop: 01/27/18 17:09 Last Admin: 11/30/17 17:20 Dose: 1 tab [place] Oil/[place] Balsam/Trypsin (Venelex) 1 appl TP DAILY [facility] Stop: 01/28/18 08:59 Last Admin: 11/29/17 09:32 Dose: 1 appl Furosemide (Lasix) 20 mg PO DAILY [facility] Stop: 01/28/18 08:59 Last Admin: 11/30/17 09:55 Dose: 20 mg Piperacillin Sod/Tazobactam (Sod 3.375 gm/ Sodium Chloride) 50 mls @ 100 mls/ hr IV Q6HR [facility] Stop: 01/27/18 13:44 Last Admin: 11/30/17 13:30 Dose: 100 mls/hr Vancomycin HCl 1.25 gm/ Sodium (Chloride) 250 mls @ 165 mls/hr IV Q24H [facility] Stop: 01/28/18 08:59 Last Admin: 11/30/17 09:47 Dose: 165 mls/hr Insulin Aspart (Novolog Insulin Sliding Scale) 0 units SUBQ Q6HR [facility]; Protocol Stop: 01/27/18 17:59 Last Admin: 11/30/17 13:00 Dose: 6 units Lactulose (Cephulac) 30 gm PO DAILY [facility] Stop: 01/28/18 08:59 Last Admin: 11/30/17 10:16 Dose: Not Given Lisinopril (Zestril) 20 mg PO BID [facility] Stop: 01/28/18 08:59 Magnesium Oxide (Mag-Oxide) 400 mg PO BID [facility] Stop: 01/28/18 08:59 Last Admin: 11/30/17 09:58 Dose: 400 mg Miscellaneous (Zosyn Iv Per Pharmacy) 1 [facility] PRN PRN PRN Reason: PROTOCOL Stop: 01/27/18 13:36 Miscellaneous (Vancomycin Iv Per Pharmacy) 1 [facility] PRN PRN PRN Reason: PROTOCOL Stop: 01/27/18 14:20 Mupirocin (Bactroban Oint) 1 appl NS BID [facility] Stop: 12/04/17 09:01 Last Admin: 11/30/17 13:19 Dose: 1 appl Pantoprazole Sodium (Protonix) 40 mg PO DAILY [facility] Stop: 01/28/18 08:59 Last Admin: 11/30/17 09:55 Dose: 40 mg Propranolol HCl (Inderal) 20 mg PO DAILY [facility] Stop: 01/28/18 08:59 Last Admin: 11/30/17 09:59 Dose: 20 mg Rifaximin (Xifaxan) 600 mg PO BID [facility] Stop: 01/28/18 09:44 Last Admin: 11/30/17 09:57 Dose: 600 mg Sitagliptin Phosphate (Januvia) 50 mg PO DAILY [facility] Stop: 01/28/18 08:59 Last Admin: 11/30/17 09:58 Dose: 50 mg Spironolactone (Aldactone) 25 mg PO QPM [facility] Stop: 01/28/18 16:59 Last Admin: 10/23/18 16:58 Dose: 25 mg General: Alert, No acute distress HEENT: Atraumatic Neck: Supple Cardiovascular: Regular rate, Normal S1 Lungs: Clear to auscultation Abdomen: Bowel sounds, Soft, no Tender Extremities: Clubbing, Cyanosis, no Edema Neurological: Normal speech - Procedures Procedures: Procedures Procedure Code Date INJECT/INFUSE NEC 99.29 01/12/10 Assessment/Plan - Assessment Assessment: IMPRESSION: 1. PROBABLE CIRRHOSIS, R/O [place] VS. OTHER ETIOLOGY. ABD CT SHOWED PROBABLE CIRRHOSIS, CHOLELITHIASIS. 2. HEP ENCEPHALOPATHY. 3. MILD ANEMIA. 4. THROMBOCYTOPENIA. 5. OBESITY 6. DM2. 7. ANASARCA/PERIPH EDEMA WITH LEG ULCERS. RECS: 1. F/U LIVER LABS. 2. ORAL DIET TOLERATED. 3. MONITOR HEPATIC SYNTHETIC FUNCTION. 4. AVOID HEPATOTOXIC AGENTS. 5. LACTULOSE - TITRATE TO EFFECT. 6. RIFAXIMIN. 7. WOUND CARE PER HOSPITALIST. 8. OUTPATIENT HEPATOLOGY CLINIC F/U.
[2017-12-01] MEDS: INSULIN ASPART SLIDING SCALE 100 UNITS/ML UNIT SUBQ SCH ×5 (00:15→21:41)
[2017-12-01 06:28] LABS: ALB/GLOB RATIO 0.7 (1.0-1.8); ALBUMIN 2.4 gm/dL (3.7-5.3); ALKALINE PHOSPHATASE 66 U/L (34-104); ANION GAP 10.7 (7.0-16.0); BILIRUBIN,TOTAL 4.7 mg/dL (0.3-1.0); BUN - UREA NITROGEN 25 mg/dL (7-25); CALCIUM SERUM 8.1 mg/dL (8.6-10.3); CARBON DIOXIDE 28.2 mEq/L (21.0-31.0); CHLORIDE 97 mEq/L (98-107); CREATININE - SERUM 1.2 mg/dL (0.6-1.2); GLUCOSE 284 mg/dL (70-105); POTASSIUM SERUM 3.9 mEq/L (3.5-5.1); SGOT 24 U/L (13-39); SGPT/ALT 11 U/L (7-52); SODIUM SERUM 132 mEq/L (136-145); TOTAL PROTEIN,SERUM 5.9 gm/dL (6.0-8.3)
--- NOTE | 2017-12-01 08:54 | General Progress Note ---
Subjective - Review of Systems Service Date: 12/01/17 Subjective: Patient was seen and evaluated. Awake, alert, no acute distress. wants to eat this AM. Less pain to the lower legs. feeling better. Objective - Results Result Diagrams: 11/30/17 05:30 12/01/17 05:55 Recent Labs: Laboratory Last Values WBC 8.6 Th/cmm (4.8-10.8) 11/30/17 05:30 RBC 3.45 Mil/cmm (3.80-5.20) L 11/30/17 05:30 Hgb 9.8 gm/dL (12-16) L 11/30/17 05:30 Hct 29.4 % (41.0-60) L 11/30/17 05:30 MCV 85.3 fl (81-100) 11/30/17 05:30 MCH 28.5 pg (27.0-31.0) 11/30/17 05:30 MCHC Differential 33.4 pg (28.0-36.0) 11/30/17 05:30 RDW 15.0 % (11.5-20.0) 11/30/17 05:30 Plt Count 101 Th/cmm (150-400) L 11/30/17 05:30 MPV 9.3 fl 11/30/17 05:30 Neutrophils % 71.9 % (40.0-80.0) 11/30/17 05:30 Lymphocytes % 10.5 % (20.0-50.0) L 11/30/17 05:30 Monocytes % 14.1 % (2.0-10.0) H 11/30/17 05:30 Eosinophils % 3.5 % (0.0-5.0) 11/30/17 05:30 Basophils % 0.0 % (0.0-2.0) 11/30/17 05:30 PT 11.5 SECONDS (9.5-11.5) 11/30/17 09:00 INR 1.12 (0.5-1.4) 11/30/17 09:00 PTT (Actin FS) 30.8 SECONDS (26.0-38.0) 11/30/17 09:00 D-Dimer 2990 ng/mL (100-400) H 11/28/17 06:50 Sodium 132 mEq/L (136-145) L 12/01/17 05:55 Potassium 3.9 mEq/L (3.5-5.1) 12/01/17 05:55 Chloride 97 mEq/L (98-107) L 12/01/17 05:55 Carbon Dioxide 28.2 mEq/L (21.0-31.0) 12/01/17 05:55 Anion Gap 10.7 (7.0-16.0) 12/01/17 05:55 BUN 25 mg/dL (7-25) 12/01/17 05:55 Creatinine 1.2 mg/dL (0.6-1.2) 12/01/17 05:55 Est GFR ( Amer) TNP 12/01/17 05:55 Est GFR (Non-Af Amer) TNP 12/01/17 05:55 BUN/Creatinine Ratio 20.8 12/01/17 05:55 Glucose 284 mg/dL (70-105) H 12/01/17 05:55 POC Glucose 281 MG/DL (70 - 105) H 12/01/17 05:55 Calcium 8.1 mg/dL (8.6-10.3) L 12/01/17 05:55 Phosphorus 2.7 mg/dL (2.5-5.0) 11/28/17 06:50 Magnesium 1.2 mg/dL (1.9-2.7) L 11/28/17 06:50 Total Bilirubin 4.7 mg/dL (0.3-1.0) H 12/01/17 05:55 AST 24 U/L (13-39) 12/01/17 05:55 ALT 11 U/L (7-52) 12/01/17 05:55 Alkaline Phosphatase 66 U/L (34-104) 12/01/17 05:55 Ammonia 104 umol/L (16-53) H 11/28/17 10:40 Troponin I 0.03 ng/mL (0.01-0.05) 11/28/17 06:50 B-Natriuretic Peptide 428.0 pg/mL (5.0-100.0) H 12/01/17 05:55 Total Protein 5.9 gm/dL (6.0-8.3) L 12/01/17 05:55 Albumin 2.4 gm/dL (3.7-5.3) L 12/01/17 05:55 Globulin 3.5 gm/dL 12/01/17 05:55 Albumin/Globulin Ratio 0.7 (1.0-1.8) L 12/01/17 05:55 Lipase 29 U/L (11-82) 11/30/17 05:30 Urine Source CATH 11/28/17 07:54 Urine Color YELLOW 11/28/17 07:54 Urine Clarity HAZY (CLEAR) 11/28/17 07:54 Urine pH 6.5 (4.6 - 8.0) 11/28/17 07:54 Ur Specific [place] 1.020 (1.005-1.030) 11/28/17 07:54 Urine Protein 100 mg/dL (NEGATIVE) H 11/28/17 07:54 Urine Glucose (UA) 250 mg/dL (NEGATIVE) H 11/28/17 07:54 Urine Ketones NEGATIVE mg/dL (NEGATIVE) 11/28/17 07:54 Urine Blood SMALL (NEGATIVE) H 11/28/17 07:54 Urine Nitrate POSITIVE (NEGATIVE) H 11/28/17 07:54 Urine Bilirubin NEGATIVE (NEGATIVE) 11/28/17 07:54 Urine Urobilinogen 2.0 E.U./dL (0.2 - 1.0) 11/28/17 07:54 Ur Leukocyte Esterase TRACE (NEGATIVE) H 11/28/17 07:54 Urine RBC 5-10 /hpf (0-5) H 11/28/17 07:54 Urine WBC 2-5 /hpf (0-5) 11/28/17 07:54 Ur Epithelial Cells MODERATE /lpf (FEW) 11/28/17 07:54 Urine Bacteria 4+ /hpf (NONE SEEN) H 11/28/17 07:54 Vancomycin Trough 8.6 ug/mL (5-10) 12/01/17 08:00 Urine Opiates Screen NEGATIVE (NEGATIVE) 11/28/17 07:54 Urine Methadone Screen NEGATIVE (NEGATIVE) 11/28/17 07:54 Ur Barbiturates Screen NEGATIVE (NEGATIVE) 11/28/17 07:54 Ur Tricyclics Screen NEGATIVE (NEGATIVE) 11/28/17 07:54 Ur Phencyclidine Scrn NEGATIVE (NEGATIVE) 11/28/17 07:54 Amphetamines Screen NEGATIVE (NEGATIVE) 11/28/17 07:54 U Methamphetamines Scrn NEGATIVE (NEGATIVE) 11/28/17 07:54 U Benzodiazepines Scrn NEGATIVE (NEGATIVE) 11/28/17 07:54 U Cocaine Metab Screen NEGATIVE (NEGATIVE) 11/28/17 07:54 U Cannabinoids Screen NEGATIVE (NEGATIVE) 11/28/17 07:54 - Physical Exam Vitals and I&O: Vital Signs Temp 98.2 F 12/01/17 07:59 Pulse 77 12/01/17 07:59 Resp 17 12/01/17 07:59 BP 132/54 12/01/17 07:59 Pulse Ox 94 12/01/17 07:59 Intake & Output 11/30/17 12/01/17 12/01/17 18:59 06:59 18:59 Intake Total 50 100 Balance 50 100 Weight (lbs) 108.862 kg Intake: Intake, IV Amount 50 100 Piperacillin Sodium/ 50 100 Tazobact 3.375 gm In Sodium Chloride 0.9% 50 ml @ 100 mls/hr IV Q6HR [facility] Rx#:[id number] Other: Weight Source Bedscale Active Medications: Current Medications Acetaminophen (Tylenol) 650 mg PO Q4H PRN PRN Reason: Moderate Pain or Fever >101 Stop: 01/27/18 17:07 Acetaminophen (Tylenol Extra Strength) 500 mg PO Q4H PRN PRN Reason: Mild pain Stop: 01/27/18 19:34 Acetaminophen/Hydrocodone Bitart ([place] 5mg/325mg) 1 tab PO Q8H PRN PRN Reason: Pain (Severe) Stop: 01/27/18 17:09 Last Admin: 11/30/17 17:20 Dose: 1 tab [place] Oil/[place] Balsam/Trypsin (Venelex) 1 appl TP DAILY [facility] Stop: 01/28/18 08:59 Last Admin: 11/29/17 09:32 Dose: 1 appl Furosemide (Lasix) 20 mg PO DAILY [facility] Stop: 01/28/18 08:59 Last Admin: 11/30/17 09:55 Dose: 20 mg Piperacillin Sod/Tazobactam (Sod 3.375 gm/ Sodium Chloride) 50 mls @ 100 mls/ hr IV Q6HR [facility] Stop: 01/27/18 13:44 Last Admin: 12/01/17 05:59 Dose: 100 mls/hr Vancomycin HCl 1.25 gm/ Sodium (Chloride) 250 mls @ 165 mls/hr IV Q24H [facility] Stop: 01/28/18 08:59 Last Admin: 11/30/17 09:47 Dose: 165 mls/hr Insulin Aspart (Novolog Insulin Sliding Scale) 0 units SUBQ Q6HR [facility]; Protocol Stop: 01/27/18 17:59 Last Admin: 12/01/17 06:01 Dose: 6 units Lactulose (Cephulac) 30 gm PO DAILY [facility] Stop: 01/28/18 08:59 Last Admin: 11/30/17 10:16 Dose: Not Given Lisinopril (Zestril) 20 mg PO BID [facility] Stop: 01/28/18 08:59 Magnesium Oxide (Mag-Oxide) 400 mg PO BID [facility] Stop: 01/28/18 08:59 Last Admin: 11/30/17 18:39 Dose: 400 mg Miscellaneous (Zosyn Iv Per Pharmacy) 1 [facility] PRN PRN PRN Reason: PROTOCOL Stop: 01/27/18 13:36 Miscellaneous (Vancomycin Iv Per Pharmacy) 1 [facility] PRN PRN PRN Reason: PROTOCOL Stop: 01/27/18 14:20 Mupirocin (Bactroban Oint) 1 appl NS BID [facility] Stop: 12/04/17 09:01 Last Admin: 11/30/17 18:40 Dose: 1 appl Pantoprazole Sodium (Protonix) 40 mg PO DAILY [facility] Stop: 01/28/18 08:59 Last Admin: 11/30/17 09:55 Dose: 40 mg Propranolol HCl (Inderal) 20 mg PO DAILY [facility] Stop: 01/28/18 08:59 Last Admin: 11/30/17 09:59 Dose: 20 mg Rifaximin (Xifaxan) 600 mg PO BID [facility] Stop: 01/28/18 09:44 Last Admin: 11/30/17 18:40 Dose: 600 mg Sitagliptin Phosphate (Januvia) 50 mg PO DAILY [facility] Stop: 01/28/18 08:59 Last Admin: 11/30/17 09:58 Dose: 50 mg Spironolactone (Aldactone) 25 mg PO QPM [facility] Stop: 01/28/18 16:59 Last Admin: 11/29/17 16:58 Dose: 25 mg General: Alert, No acute distress HEENT: Atraumatic Neck: Supple Cardiovascular: Regular rate, Normal S1 Lungs: Clear to auscultation Abdomen: Bowel sounds, Soft, no Tender Extremities: Clubbing, Cyanosis, no Edema Neurological: Normal speech Skin: Significant lesion (presence of lower ext ulcers) - Procedures Procedures: Procedures Procedure Code Date INJECT/INFUSE NEC 99.29 01/12/10 Assessment/Plan - Assessment Assessment: LE edema and cellilitis lower leg ulcers + Klebsiella UTI ... +Klebsiella HTN DM CAD CHF left side pleural effusion hyponatremia cholelithiasis possible cirrhosis hyperbilirubinemia anemia thrombocytopenia hepatic encephalopathy - Plan Plan: Will order ID consult Pulmonary consult Cadiology consult repeat labwork tomorrow continue IV antibiotics. Nutritional Asmnt/Malnutr-PDOC - Dietary Evaluation Malnutrition Findings (Please click <Entered> for more info): Nutritional Asmnt/Malnutrition Start: 11/29/17 13: 30 Text: Status: Complete Freq: Protocol: Document 11/29/17 13:31 DAHIANA (Rec: 11/29/17 13:40 DAHIANA [id number]) Nutritional Asmnt/Malnutrition Patient General Information Nutritional Screening High Risk Consult Diagnosis CHF, cirrhosis, cellulitis Pertinent Medical Hx/Surgical Hx HTN, DM, CAD, CHF Subjective Information Received diet consult d/t type II DM and wounds. Pt resting in bed w/ at bedside at time of visit. Pt's states pt likes sandwiches, rice, and vegetables. also states pt is requesting a hamburger; RD explained purpose of clear liquid diet and pt's verbalized understanding. Per nurse note, pt was NPO this morning for abdominal ultrasound. Current Diet Order/ Nutrition Support clear liquid Pertinent Medications lasix, novolog, Mag-oxide, zosyn, vancomycin, protonix, piperacillin, januvia, aldactone Pertinent Labs 11/29: glucose 289, Na 132, Alb 2.4, POC 272-279, Ca 8.3 11/28: glucose 308, Na 130, Alb 2.7, POC 250-327, Mg 1.2 Nutritional Hx/Data Height 1.52 m Height (Calculated Centimeters) 152.4 Current Weight (lbs) 108.862 kg Weight (Calculated Kilograms) 108.9 Weight (Calculated Grams) 003393.2 [place] Body Weight 100 lb Body Mass Index (BMI) 46.8 Weight Status Morbidly Obese GI Symptoms Last BM none noted Difficult in: None Food Allergies No Skin Integrity/Comment: Per wound care assessment: cellulitis wounds to rt posterior leg, rt lower leg, and left posterior leg ( superficial), cellulitis wounds to left lower leg anterior and left lower leg ( partial thickness) non-pitting edema to BLE Estimated Nutritional Goals BEE in Kcals: Adj wt of IBW Calories/Kcals/Kg 30-35 (based on adj wt 61.4 kg ) Kcals Calculated [id number] Protein: Adj wt of IBW Protein g/k.2 (based on adj wt 61.4 kg) Protein Calculated 74 g Fluid: ml [id number] (1 ml/kcal) Nutritional Problem 2. Problem Problem Inadequate oral intake Etiology increased kcal and protein needs Signs/Symptoms: cellulitis wounds/ulcers to BLE, pt on clear liquid diet 1. Problem Problem Altered nutrition related lab values Etiology hx of DM Signs/Symptoms: glucose 289, POC 272-279 Malnutrition Alert Is there a minimum of two criteria No selected? Query Text:Check all the applicable criteria. A minimum of two criteria are recommended for diagnosis of either severe or non-severe malnutrition. Malnutrition Related to Morbid Obesity Malnutrition related to morbid obesity No Intervention/Recommendation Comments 1. Once diet is advanced, recommend to start CCHO 60 g, low sodium 2g diet d/t elevated bs and dx of CHF and cirrhosis 2. Consider supplementing Ensure Enlive if protein and kcal needs not met w/ PO intake alone 3. Monitor PO intake, wt, labs and skin integrity 4. F/U as high risk in 2-3 days, 12/01-12/02 Expected Outcomes/Goals Expected Outcomes/Goals 1. PO intake to meet at least 75% of nutritional needs 2. Wt stability, wounds to heal, and nutrition related labs to approach normal limits Reviewed by Pamela Williamson RD
[2017-12-01] MEDS: Lactulose 10 Gm/15 mL 30mL UDC PO SCH (08:58)
[2017-12-01] MEDS: Pantoprazole 40 mg EC Tab PO SCH (08:59)
[2017-12-01] MEDS ORDERED: INSULIN GLARGINE HUM REC ANLOG 40 UNIT SQ SCH (09:00)
[2017-12-01] MEDS ORDERED: [UNRECOGNIZED DRUG - OTHER] SQ SCH (09:00)
[2017-12-01] MEDS ORDERED: INSULIN ASPART, RECOMBINANT 100 UNITS/ML SUBQ SCH ×2 (09:00→14:00)
--- NOTE | 2017-12-01 09:13 | GI Progress Note ---
Subjective - Review of Systems Service Date: 12/01/17 Subjective: EVENTS NOTED. NO ABD PAIN. AWAKE. [place] ORAL DIET. Objective - Results Result Diagrams: 11/30/17 05:30 12/01/17 05:55 Recent Labs: Laboratory Last Values WBC 8.6 Th/cmm (4.8-10.8) 11/30/17 05:30 RBC 3.45 Mil/cmm (3.80-5.20) L 11/30/17 05:30 Hgb 9.8 gm/dL (12-16) L 11/30/17 05:30 Hct 29.4 % (41.0-60) L 11/30/17 05:30 MCV 85.3 fl (81-100) 11/30/17 05:30 MCH 28.5 pg (27.0-31.0) 11/30/17 05:30 MCHC Differential 33.4 pg (28.0-36.0) 11/30/17 05:30 RDW 15.0 % (11.5-20.0) 11/30/17 05:30 Plt Count 101 Th/cmm (150-400) L 11/30/17 05:30 MPV 9.3 fl 11/30/17 05:30 Neutrophils % 71.9 % (40.0-80.0) 11/30/17 05:30 Lymphocytes % 10.5 % (20.0-50.0) L 11/30/17 05:30 Monocytes % 14.1 % (2.0-10.0) H 11/30/17 05:30 Eosinophils % 3.5 % (0.0-5.0) 11/30/17 05:30 Basophils % 0.0 % (0.0-2.0) 11/30/17 05:30 PT 11.5 SECONDS (9.5-11.5) 11/30/17 09:00 INR 1.12 (0.5-1.4) 11/30/17 09:00 PTT (Actin FS) 30.8 SECONDS (26.0-38.0) 11/30/17 09:00 D-Dimer 2990 ng/mL (100-400) H 11/28/17 06:50 Sodium 132 mEq/L (136-145) L 12/01/17 05:55 Potassium 3.9 mEq/L (3.5-5.1) 12/01/17 05:55 Chloride 97 mEq/L (98-107) L 12/01/17 05:55 Carbon Dioxide 28.2 mEq/L (21.0-31.0) 12/01/17 05:55 Anion Gap 10.7 (7.0-16.0) 12/01/17 05:55 BUN 25 mg/dL (7-25) 12/01/17 05:55 Creatinine 1.2 mg/dL (0.6-1.2) 12/01/17 05:55 Est GFR ( Amer) TNP 12/01/17 05:55 Est GFR (Non-Af Amer) TNP 12/01/17 05:55 BUN/Creatinine Ratio 20.8 12/01/17 05:55 Glucose 284 mg/dL (70-105) H 12/01/17 05:55 POC Glucose 281 MG/DL (70 - 105) H 12/01/17 05:55 Calcium 8.1 mg/dL (8.6-10.3) L 12/01/17 05:55 Phosphorus 2.7 mg/dL (2.5-5.0) 11/28/17 06:50 Magnesium 1.2 mg/dL (1.9-2.7) L 11/28/17 06:50 Total Bilirubin 4.7 mg/dL (0.3-1.0) H 12/01/17 05:55 AST 24 U/L (13-39) 12/01/17 05:55 ALT 11 U/L (7-52) 12/01/17 05:55 Alkaline Phosphatase 66 U/L (34-104) 12/01/17 05:55 Ammonia 104 umol/L (16-53) H 11/28/17 10:40 Troponin I 0.03 ng/mL (0.01-0.05) 11/28/17 06:50 B-Natriuretic Peptide 428.0 pg/mL (5.0-100.0) H 12/01/17 05:55 Total Protein 5.9 gm/dL (6.0-8.3) L 12/01/17 05:55 Albumin 2.4 gm/dL (3.7-5.3) L 12/01/17 05:55 Globulin 3.5 gm/dL 12/01/17 05:55 Albumin/Globulin Ratio 0.7 (1.0-1.8) L 12/01/17 05:55 Lipase 29 U/L (11-82) 11/30/17 05:30 Urine Source CATH 11/28/17 07:54 Urine Color YELLOW 11/28/17 07:54 Urine Clarity HAZY (CLEAR) 11/28/17 07:54 Urine pH 6.5 (4.6 - 8.0) 11/28/17 07:54 Ur Specific [place] 1.020 (1.005-1.030) 11/28/17 07:54 Urine Protein 100 mg/dL (NEGATIVE) H 11/28/17 07:54 Urine Glucose (UA) 250 mg/dL (NEGATIVE) H 11/28/17 07:54 Urine Ketones NEGATIVE mg/dL (NEGATIVE) 11/28/17 07:54 Urine Blood SMALL (NEGATIVE) H 11/28/17 07:54 Urine Nitrate POSITIVE (NEGATIVE) H 11/28/17 07:54 Urine Bilirubin NEGATIVE (NEGATIVE) 11/28/17 07:54 Urine Urobilinogen 2.0 E.U./dL (0.2 - 1.0) 11/28/17 07:54 Ur Leukocyte Esterase TRACE (NEGATIVE) H 11/28/17 07:54 Urine RBC 5-10 /hpf (0-5) H 11/28/17 07:54 Urine WBC 2-5 /hpf (0-5) 11/28/17 07:54 Ur Epithelial Cells MODERATE /lpf (FEW) 11/28/17 07:54 Urine Bacteria 4+ /hpf (NONE SEEN) H 11/28/17 07:54 Vancomycin Trough 8.6 ug/mL (5-10) 12/01/17 08:00 Urine Opiates Screen NEGATIVE (NEGATIVE) 11/28/17 07:54 Urine Methadone Screen NEGATIVE (NEGATIVE) 11/28/17 07:54 Ur Barbiturates Screen NEGATIVE (NEGATIVE) 11/28/17 07:54 Ur Tricyclics Screen NEGATIVE (NEGATIVE) 11/28/17 07:54 Ur Phencyclidine Scrn NEGATIVE (NEGATIVE) 11/28/17 07:54 Amphetamines Screen NEGATIVE (NEGATIVE) 11/28/17 07:54 U Methamphetamines Scrn NEGATIVE (NEGATIVE) 11/28/17 07:54 U Benzodiazepines Scrn NEGATIVE (NEGATIVE) 11/28/17 07:54 U Cocaine Metab Screen NEGATIVE (NEGATIVE) 11/28/17 07:54 U Cannabinoids Screen NEGATIVE (NEGATIVE) 11/28/17 07:54 - Physical Exam Vitals and I&O: Vital Signs Temp 98.2 F 12/01/17 07:59 Pulse 77 12/01/17 08:58 Resp 17 12/01/17 07:59 BP 132/54 12/01/17 08:58 Pulse Ox 94 12/01/17 07:59 Intake & Output 11/30/17 12/01/17 12/01/17 18:59 06:59 18:59 Intake Total 50 100 Balance 50 100 Weight (lbs) 108.862 kg Intake: Intake, IV Amount 50 100 Piperacillin Sodium/ 50 100 Tazobact 3.375 gm In Sodium Chloride 0.9% 50 ml @ 100 mls/hr IV Q6HR [facility] Rx#:[id number] Other: Weight Source Bedscale Active Medications: Current Medications Acetaminophen (Tylenol) 650 mg PO Q4H PRN PRN Reason: Moderate Pain or Fever >101 Stop: 01/27/18 17:07 Acetaminophen (Tylenol Extra Strength) 500 mg PO Q4H PRN PRN Reason: Mild pain Stop: 01/27/18 19:34 Acetaminophen/Hydrocodone Bitart ([place] 5mg/325mg) 1 tab PO Q8H PRN PRN Reason: Pain (Severe) Stop: 01/27/18 17:09 Last Admin: 11/30/17 17:20 Dose: 1 tab [place] Oil/[place] Balsam/Trypsin (Venelex) 1 appl TP DAILY [facility] Stop: 01/28/18 08:59 Last Admin: 11/29/17 09:32 Dose: 1 appl Furosemide (Lasix) 20 mg PO DAILY [facility] Stop: 01/28/18 08:59 Last Admin: 12/01/17 08:57 Dose: 20 mg Piperacillin Sod/Tazobactam (Sod 3.375 gm/ Sodium Chloride) 50 mls @ 100 mls/ hr IV Q6HR [facility] Stop: 01/27/18 13:44 Last Admin: 12/01/17 05:59 Dose: 100 mls/hr Vancomycin HCl 1.25 gm/ Sodium (Chloride) 250 mls @ 165 mls/hr IV Q24H [facility] Stop: 01/28/18 08:59 Last Admin: 11/30/17 09:47 Dose: 165 mls/hr Insulin Aspart (Novolog Insulin Sliding Scale) 0 units SUBQ Q6HR [facility]; Protocol Stop: 01/27/18 17:59 Last Admin: 12/01/17 06:01 Dose: 6 units Insulin Aspart (Novolog) 5 units SUBQ TID [facility]; Protocol Stop: 01/30/18 13:59 Insulin Detemir (Levemir Insulin) 10 units SUBQ HS [facility]; Protocol Stop: 01/30/18 20:59 Lactulose (Cephulac) 30 gm PO DAILY [facility] Stop: 01/28/18 08:59 Last Admin: 12/01/17 08:58 Dose: 30 gm Lisinopril (Zestril) 20 mg PO BID [facility] Stop: 01/28/18 08:59 Last Admin: 12/01/17 08:58 Dose: 20 mg Magnesium Oxide (Mag-Oxide) 400 mg PO BID [facility] Stop: 01/28/18 08:59 Last Admin: 12/01/17 08:57 Dose: 400 mg Miscellaneous (Zosyn Iv Per Pharmacy) 1 [facility] PRN PRN PRN Reason: PROTOCOL Stop: 01/27/18 13:36 Miscellaneous (Vancomycin Iv Per Pharmacy) 1 [facility] PRN PRN PRN Reason: PROTOCOL Stop: 01/27/18 14:20 Mupirocin (Bactroban Oint) 1 appl NS BID [facility] Stop: 12/04/17 09:01 Last Admin: 12/01/17 09:02 Dose: 1 appl Pantoprazole Sodium (Protonix) 40 mg PO DAILY [facility] Stop: 01/28/18 08:59 Last Admin: 12/01/17 08:59 Dose: 40 mg Propranolol HCl (Inderal) 20 mg PO DAILY [facility] Stop: 01/28/18 08:59 Last Admin: 12/01/17 08:57 Dose: 20 mg Rifaximin (Xifaxan) 600 mg PO BID [facility] Stop: 01/28/18 09:44 Last Admin: 12/01/17 08:57 Dose: 600 mg Sitagliptin Phosphate (Januvia) 50 mg PO DAILY [facility] Stop: 01/28/18 08:59 Last Admin: 12/01/17 08:57 Dose: 50 mg Spironolactone (Aldactone) 25 mg PO QPM [facility] Stop: 01/28/18 16:59 Last Admin: 11/29/17 16:58 Dose: 25 mg General: Alert, No acute distress HEENT: Atraumatic Neck: Supple Cardiovascular: Regular rate, Normal S1 Lungs: Clear to auscultation Abdomen: Bowel sounds, Soft, no Tender Extremities: Clubbing, Cyanosis, no Edema Neurological: Normal speech Skin: Significant lesion (presence of lower ext ulcers) - Procedures Procedures: Procedures Procedure Code Date INJECT/INFUSE NEC 99.29 01/12/10 Assessment/Plan - Assessment Assessment: IMPRESSION: 1. PROBABLE CIRRHOSIS, R/O [place] VS. OTHER ETIOLOGY. ABD CT SHOWED PROBABLE CIRRHOSIS, CHOLELITHIASIS. 2. HEP ENCEPHALOPATHY. 3. MILD ANEMIA. 4. THROMBOCYTOPENIA. 5. OBESITY 6. DM2. 7. ANASARCA/PERIPH EDEMA WITH LEG ULCERS. RECS: 1. F/U LIVER LABS. 2. ORAL DIET TOLERATED. 3. MONITOR HEPATIC SYNTHETIC FUNCTION. 4. AVOID HEPATOTOXIC AGENTS. 5. LACTULOSE - TITRATE TO EFFECT. 6. RIFAXIMIN. 7. WOUND CARE PER HOSPITALIST. 8. OUTPATIENT HEPATOLOGY CLINIC F/U. 9. PT/REHAB. 10. NON-OPERATIVE MANAGEMENT OF CHOLELITHIASIS FOR NOW.
[2017-12-01] MEDS: Venelex 60gm Tube TP SCH ×2 (11:49→12:27)
--- NOTE | 2017-12-01 15:07 | Infectious Disease Prog Note ---
Infectious Disease Subjective - Review of Systems Service Date: 12/01/17 Subjective: There is no new change, no Fever. Infectious Disease Objective - Results Result Diagrams: 11/30/17 05:30 12/01/17 05:55 Recent Labs: Laboratory Last Values WBC 8.6 Th/cmm (4.8-10.8) 11/30/17 05:30 RBC 3.45 Mil/cmm (3.80-5.20) L 11/30/17 05:30 Hgb 9.8 gm/dL (12-16) L 11/30/17 05:30 Hct 29.4 % (41.0-60) L 11/30/17 05:30 MCV 85.3 fl (81-100) 11/30/17 05:30 MCH 28.5 pg (27.0-31.0) 11/30/17 05:30 MCHC Differential 33.4 pg (28.0-36.0) 11/30/17 05:30 RDW 15.0 % (11.5-20.0) 11/30/17 05:30 Plt Count 101 Th/cmm (150-400) L 11/30/17 05:30 MPV 9.3 fl 11/30/17 05:30 Neutrophils % 71.9 % (40.0-80.0) 11/30/17 05:30 Lymphocytes % 10.5 % (20.0-50.0) L 11/30/17 05:30 Monocytes % 14.1 % (2.0-10.0) H 11/30/17 05:30 Eosinophils % 3.5 % (0.0-5.0) 11/30/17 05:30 Basophils % 0.0 % (0.0-2.0) 11/30/17 05:30 PT 11.5 SECONDS (9.5-11.5) 11/30/17 09:00 INR 1.12 (0.5-1.4) 11/30/17 09:00 PTT (Actin FS) 30.8 SECONDS (26.0-38.0) 11/30/17 09:00 D-Dimer 2990 ng/mL (100-400) H 11/28/17 06:50 Sodium 132 mEq/L (136-145) L 12/01/17 05:55 Potassium 3.9 mEq/L (3.5-5.1) 12/01/17 05:55 Chloride 97 mEq/L (98-107) L 12/01/17 05:55 Carbon Dioxide 28.2 mEq/L (21.0-31.0) 12/01/17 05:55 Anion Gap 10.7 (7.0-16.0) 12/01/17 05:55 BUN 25 mg/dL (7-25) 12/01/17 05:55 Creatinine 1.2 mg/dL (0.6-1.2) 12/01/17 05:55 Est GFR ( Amer) TNP 12/01/17 05:55 Est GFR (Non-Af Amer) TNP 12/01/17 05:55 BUN/Creatinine Ratio 20.8 12/01/17 05:55 Glucose 284 mg/dL (70-105) H 12/01/17 05:55 POC Glucose 347 MG/DL (70 - 105) H 12/01/17 12:25 Calcium 8.1 mg/dL (8.6-10.3) L 12/01/17 05:55 Phosphorus 2.7 mg/dL (2.5-5.0) 11/28/17 06:50 Magnesium 1.2 mg/dL (1.9-2.7) L 11/28/17 06:50 Total Bilirubin 4.7 mg/dL (0.3-1.0) H 12/01/17 05:55 AST 24 U/L (13-39) 12/01/17 05:55 ALT 11 U/L (7-52) 12/01/17 05:55 Alkaline Phosphatase 66 U/L (34-104) 12/01/17 05:55 Ammonia 104 umol/L (16-53) H 11/28/17 10:40 Troponin I 0.03 ng/mL (0.01-0.05) 11/28/17 06:50 B-Natriuretic Peptide 428.0 pg/mL (5.0-100.0) H 12/01/17 05:55 Total Protein 5.9 gm/dL (6.0-8.3) L 12/01/17 05:55 Albumin 2.4 gm/dL (3.7-5.3) L 12/01/17 05:55 Globulin 3.5 gm/dL 12/01/17 05:55 Albumin/Globulin Ratio 0.7 (1.0-1.8) L 12/01/17 05:55 Lipase 29 U/L (11-82) 11/30/17 05:30 Urine Source CATH 11/28/17 07:54 Urine Color YELLOW 11/28/17 07:54 Urine Clarity HAZY (CLEAR) 11/28/17 07:54 Urine pH 6.5 (4.6 - 8.0) 11/28/17 07:54 Ur Specific [place] 1.020 (1.005-1.030) 11/28/17 07:54 Urine Protein 100 mg/dL (NEGATIVE) H 11/28/17 07:54 Urine Glucose (UA) 250 mg/dL (NEGATIVE) H 11/28/17 07:54 Urine Ketones NEGATIVE mg/dL (NEGATIVE) 11/28/17 07:54 Urine Blood SMALL (NEGATIVE) H 11/28/17 07:54 Urine Nitrate POSITIVE (NEGATIVE) H 11/28/17 07:54 Urine Bilirubin NEGATIVE (NEGATIVE) 11/28/17 07:54 Urine Urobilinogen 2.0 E.U./dL (0.2 - 1.0) 11/28/17 07:54 Ur Leukocyte Esterase TRACE (NEGATIVE) H 11/28/17 07:54 Urine RBC 5-10 /hpf (0-5) H 11/28/17 07:54 Urine WBC 2-5 /hpf (0-5) 11/28/17 07:54 Ur Epithelial Cells MODERATE /lpf (FEW) 11/28/17 07:54 Urine Bacteria 4+ /hpf (NONE SEEN) H 11/28/17 07:54 Vancomycin Trough 8.6 ug/mL (5-10) 12/01/17 08:00 Urine Opiates Screen NEGATIVE (NEGATIVE) 11/28/17 07:54 Urine Methadone Screen NEGATIVE (NEGATIVE) 11/28/17 07:54 Ur Barbiturates Screen NEGATIVE (NEGATIVE) 11/28/17 07:54 Ur Tricyclics Screen NEGATIVE (NEGATIVE) 11/28/17 07:54 Ur Phencyclidine Scrn NEGATIVE (NEGATIVE) 11/28/17 07:54 Amphetamines Screen NEGATIVE (NEGATIVE) 11/28/17 07:54 U Methamphetamines Scrn NEGATIVE (NEGATIVE) 11/28/17 07:54 U Benzodiazepines Scrn NEGATIVE (NEGATIVE) 11/28/17 07:54 U Cocaine Metab Screen NEGATIVE (NEGATIVE) 11/28/17 07:54 U Cannabinoids Screen NEGATIVE (NEGATIVE) 11/28/17 07:54 - Physical Exam Vitals and I&O: Vital Signs Temp 98.4 F 12/01/17 11:44 Pulse 70 12/01/17 11:44 Resp 19 12/01/17 12:00 BP 140/61 12/01/17 11:44 Pulse Ox 95 12/01/17 11:44 Intake & Output 11/30/17 12/01/17 12/01/17 18:59 06:59 18:59 Intake Total 50 150 300 Balance 50 150 300 Weight (lbs) 108.862 kg 108.919 kg Intake: Intake, IV Amount 50 150 Piperacillin Sodium/ 50 150 Tazobact 3.375 gm In Sodium Chloride 0.9% 50 ml @ 100 mls/hr IV Q6HR [facility] Rx#:[id number] Oral 300 Other: Weight Source Bedscale Bedscale Active Medications: Current Medications Acetaminophen (Tylenol) 650 mg PO Q4H PRN PRN Reason: Moderate Pain or Fever >101 Stop: 01/27/18 17:07 Acetaminophen (Tylenol Extra Strength) 500 mg PO Q4H PRN PRN Reason: Mild pain Stop: 01/27/18 19:34 Acetaminophen/Hydrocodone Bitart ([place] 5mg/325mg) 1 tab PO Q8H PRN PRN Reason: Pain (Severe) Stop: 01/27/18 17:09 Last Admin: 11/30/17 17:20 Dose: 1 tab [place] Oil/[place]in[place] Balsam/Trypsin (Venelex) 1 appl TP DAILY [facility] Stop: 01/28/18 08:59 Last Admin: 12/01/17 12:27 Dose: 1 appl Furosemide (Lasix) 20 mg PO DAILY [facility] Stop: 01/28/18 08:59 Last Admin: 12/01/17 08:57 Dose: 20 mg Piperacillin Sod/Tazobactam (Sod 3.375 gm/ Sodium Chloride) 50 mls @ 100 mls/ hr IV Q6HR [facility] Stop: 01/27/18 13:44 Last Admin: 12/01/17 12:28 Dose: 100 mls/hr Vancomycin HCl 1.75 gm/ Sodium (Chloride) 250 mls @ 165 mls/hr IV Q24H [facility] Stop: 01/31/18 08:59 Insulin Aspart (Novolog Insulin Sliding Scale) 0 units SUBQ Q6HR [facility]; Protocol Stop: 01/27/18 17:59 Last Admin: 12/01/17 12:29 Dose: 8 units Insulin Aspart (Novolog) 5 units SUBQ TID [facility]; Protocol Stop: 01/30/18 13:59 Last Admin: 12/01/17 14:49 Dose: Not Given Insulin Detemir (Levemir Insulin) 10 units SUBQ HS [facility]; Protocol Stop: 01/30/18 20:59 Lactulose (Cephulac) 30 gm PO DAILY [facility] Stop: 01/28/18 08:59 Last Admin: 12/01/17 08:58 Dose: 30 gm Lisinopril (Zestril) 20 mg PO BID [facility] Stop: 01/28/18 08:59 Last Admin: 12/01/17 08:58 Dose: 20 mg Magnesium Oxide (Mag-Oxide) 400 mg PO BID [facility] Stop: 01/28/18 08:59 Last Admin: 12/01/17 08:57 Dose: 400 mg Miscellaneous (Zosyn Iv Per Pharmacy) 1 ea PRN PRN PRN Reason: PROTOCOL Stop: 01/27/18 13:36 Miscellaneous (Vancomycin Iv Per Pharmacy) 1 [facility] PRN PRN PRN Reason: PROTOCOL Stop: 01/27/18 14:20 Mupirocin (Bactroban Oint) 1 appl NS BID [facility] Stop: 12/04/17 09:01 Last Admin: 12/01/17 09:02 Dose: 1 appl Pantoprazole Sodium (Protonix) 40 mg PO DAILY [facility] Stop: 01/28/18 08:59 Last Admin: 12/01/17 08:59 Dose: 40 mg Propranolol HCl (Inderal) 20 mg PO DAILY [facility] Stop: 01/28/18 08:59 Last Admin: 12/01/17 08:57 Dose: 20 mg Rifaximin (Xifaxan) 600 mg PO BID [facility] Stop: 01/28/18 09:44 Last Admin: 12/01/17 08:57 Dose: 600 mg Sitagliptin Phosphate (Januvia) 50 mg PO DAILY [facility] Stop: 01/28/18 08:59 Last Admin: 12/01/17 08:57 Dose: 50 mg Spironolactone (Aldactone) 25 mg PO QPM [facility] Stop: 01/28/18 16:59 Last Admin: 11/29/17 16:58 Dose: 25 mg General: no acute distress, well developed, well nourished HEENT: atraumatic, normocephalic, PERRLA, EOMI Neck: supple, no thyromegaly, no lymphadenopathy Cardiovascular: S1S2, regular Lungs: clear to auscultation bilaterally, clear to percussion Abdomen: soft, no tender, no distended Extremities: edema, no cyanosis, no clubbing Neurological: awake, alert Skin: intact - Procedures Procedures: Procedures Procedure Code Date INJECT/INFUSE NEC 99.29 01/12/10 Infectious Disease Assmt/Plan - Assessment Assessment: 1. Bilateral leg cellulitis. With the leg ulcerations. 2. Diabetes mellitus type 2. 3. Hyperlipidemia. 4. Hypertension. 2. Liver cirrhosis. 6. Coronary artery disease. 7. CHF - Plan Plan: may change antibiotics to doxycycline po for 7 days from now. Nutritional Asmnt/Malnutr-PDOC - Dietary Evaluation Malnutrition Findings (Please click <Entered> for more info): Nutritional Asmnt/Malnutrition Start: 11/29/17 13: 30 Text: Status: Complete Freq: Protocol: Document 11/29/17 13:31 DAHIANA (Rec: 11/29/17 13:40 [email or web address]) Nutritional Asmnt/Malnutrition Patient General Information Nutritional Screening High Risk Consult Diagnosis CHF, cirrhosis, cellulitis Pertinent Medical Hx/Surgical Hx HTN, DM, CAD, CHF Subjective Information Received diet consult d/t type II DM and wounds. Pt resting in bed w/ at bedside at time of visit. Pt's states pt likes sandwiches, rice, and vegetables. also states pt is requesting a hamburger; RD explained purpose of clear liquid diet and pt's verbalized understanding. Per nurse note, pt was NPO this morning for abdominal ultrasound. Current Diet Order/ Nutrition Support clear liquid Pertinent Medications lasix, novolog, Mag-oxide, zosyn, vancomycin, protonix, piperacillin, januvia, aldactone Pertinent Labs 11/29: glucose 289, Na 132, Alb 2.4, POC 272-279, Ca 8.3 10/22: glucose 308, Na 130, Alb 2.7, POC 250-327, Mg 1.2 Nutritional Hx/Data Height 1.52 m Height (Calculated Centimeters) 152.4 Current Weight (lbs) 108.862 kg Weight (Calculated Kilograms) 108.9 Weight (Calculated Grams) 818308.2 [place] Body Weight 100 lb Body Mass Index (BMI) 46.8 Weight Status Morbidly Obese GI Symptoms Last BM none noted Difficult in: None Food Allergies No Skin Integrity/Comment: Per wound care assessment: cellulitis wounds to rt posterior leg, rt lower leg, and left posterior leg ( superficial), cellulitis wounds to left lower leg anterior and left lower leg ( partial thickness) non-pitting edema to BLE Estimated Nutritional Goals BEE in Kcals: Adj wt of IBW Calories/Kcals/Kg 30-35 (based on adj wt 61.4 kg ) Kcals Calculated 2283-1594 Protein: Adj wt of IBW Protein g/k.2 (based on adj wt 61.4 kg) Protein Calculated 74 g Fluid: ml 1609-3992 (1 ml/kcal) Nutritional Problem 2. Problem Problem Inadequate oral intake Etiology increased kcal and protein needs Signs/Symptoms: cellulitis wounds/ulcers to BLE, pt on clear liquid diet 1. Problem Problem Altered nutrition related lab values Etiology hx of DM Signs/Symptoms: glucose 289, POC 272-279 Malnutrition Alert Is there a minimum of two criteria No selected? Query Text:Check all the applicable criteria. A minimum of two criteria are recommended for diagnosis of either severe or non-severe malnutrition. Malnutrition Related to Morbid Obesity Malnutrition related to morbid obesity No Intervention/Recommendation Comments 1. Once diet is advanced, recommend to start CCHO 60 g, low sodium 2g diet d/t elevated bs and dx of CHF and cirrhosis 2. Consider supplementing Ensure Enlive if protein and kcal needs not met w/ PO intake alone 3. Monitor PO intake, wt, labs and skin integrity 4. F/U as high risk in 2-3 days, 12/01-12/02 Expected Outcomes/Goals Expected Outcomes/Goals 1. PO intake to meet at least 75% of nutritional needs 2. Wt stability, wounds to heal, and nutrition related labs to approach normal limits Reviewed by Pamela Williamson RD
[2017-12-01] MEDS ORDERED: Insulin Detemir 100 units/mL 10mL Vial SUBQ SCH (21:00)
[2017-12-02] MEDS: Hydrocodone/APAP 5mg/325mg Tab PO PRN (03:53)
[2017-12-02] MEDS: INSULIN ASPART SLIDING SCALE 100 UNITS/ML UNIT SUBQ SCH ×4 (07:59→20:45)
--- NOTE | 2017-12-02 08:28 | General Progress Note ---
Subjective - Review of Systems Service Date: 12/02/17 Subjective: Awake, alert but confused. no acute distress. Eating better. feeling better. In good spirits. Objective - Results Result Diagrams: 11/30/17 05:30 12/01/17 05:55 Recent Labs: Laboratory Last Values WBC 8.6 Th/cmm (4.8-10.8) 11/30/17 05:30 RBC 3.45 Mil/cmm (3.80-5.20) L 11/30/17 05:30 Hgb 9.8 gm/dL (12-16) L 11/30/17 05:30 Hct 29.4 % (41.0-60) L 11/30/17 05:30 MCV 85.3 fl (81-100) 11/30/17 05:30 MCH 28.5 pg (27.0-31.0) 11/30/17 05:30 MCHC Differential 33.4 pg (28.0-36.0) 11/30/17 05:30 RDW 15.0 % (11.5-20.0) 11/30/17 05:30 Plt Count 101 Th/cmm (150-400) L 11/30/17 05:30 MPV 9.3 fl 11/30/17 05:30 Neutrophils % 71.9 % (40.0-80.0) 11/30/17 05:30 Lymphocytes % 10.5 % (20.0-50.0) L 11/30/17 05:30 Monocytes % 14.1 % (2.0-10.0) H 11/30/17 05:30 Eosinophils % 3.5 % (0.0-5.0) 11/30/17 05:30 Basophils % 0.0 % (0.0-2.0) 11/30/17 05:30 PT 11.5 SECONDS (9.5-11.5) 11/30/17 09:00 INR 1.12 (0.5-1.4) 11/30/17 09:00 PTT (Actin FS) 30.8 SECONDS (26.0-38.0) 11/30/17 09:00 D-Dimer 2990 ng/mL (100-400) H 11/28/17 06:50 Sodium 132 mEq/L (136-145) L 12/01/17 05:55 Potassium 3.9 mEq/L (3.5-5.1) 12/01/17 05:55 Chloride 97 mEq/L (98-107) L 12/01/17 05:55 Carbon Dioxide 28.2 mEq/L (21.0-31.0) 12/01/17 05:55 Anion Gap 10.7 (7.0-16.0) 12/01/17 05:55 BUN 25 mg/dL (7-25) 12/01/17 05:55 Creatinine 1.2 mg/dL (0.6-1.2) 12/01/17 05:55 Est GFR ( Amer) TNP 12/01/17 05:55 Est GFR (Non-Af Amer) TNP 12/01/17 05:55 BUN/Creatinine Ratio 20.8 12/01/17 05:55 Glucose 284 mg/dL (70-105) H 12/01/17 05:55 POC Glucose 305 MG/DL (70 - 105) H 12/02/17 06:09 Calcium 8.1 mg/dL (8.6-10.3) L 12/01/17 05:55 Phosphorus 2.7 mg/dL (2.5-5.0) 11/28/17 06:50 Magnesium 1.2 mg/dL (1.9-2.7) L 11/28/17 06:50 Total Bilirubin 4.7 mg/dL (0.3-1.0) H 12/01/17 05:55 AST 24 U/L (13-39) 12/01/17 05:55 ALT 11 U/L (7-52) 12/01/17 05:55 Alkaline Phosphatase 66 U/L (34-104) 12/01/17 05:55 Ammonia 104 umol/L (16-53) H 11/28/17 10:40 Troponin I 0.03 ng/mL (0.01-0.05) 11/28/17 06:50 B-Natriuretic Peptide 428.0 pg/mL (5.0-100.0) H 12/01/17 05:55 Total Protein 5.9 gm/dL (6.0-8.3) L 12/01/17 05:55 Albumin 2.4 gm/dL (3.7-5.3) L 12/01/17 05:55 Globulin 3.5 gm/dL 12/01/17 05:55 Albumin/Globulin Ratio 0.7 (1.0-1.8) L 12/01/17 05:55 Lipase 29 U/L (11-82) 11/30/17 05:30 Urine Source CATH 11/28/17 07:54 Urine Color YELLOW 11/28/17 07:54 Urine Clarity HAZY (CLEAR) 11/28/17 07:54 Urine pH 6.5 (4.6 - 8.0) 11/28/17 07:54 Ur Specific [place] 1.020 (1.005-1.030) 11/28/17 07:54 Urine Protein 100 mg/dL (NEGATIVE) H 11/28/17 07:54 Urine Glucose (UA) 250 mg/dL (NEGATIVE) H 11/28/17 07:54 Urine Ketones NEGATIVE mg/dL (NEGATIVE) 11/28/17 07:54 Urine Blood SMALL (NEGATIVE) H 11/28/17 07:54 Urine Nitrate POSITIVE (NEGATIVE) H 11/28/17 07:54 Urine Bilirubin NEGATIVE (NEGATIVE) 11/28/17 07:54 Urine Urobilinogen 2.0 E.U./dL (0.2 - 1.0) 11/28/17 07:54 Ur Leukocyte Esterase TRACE (NEGATIVE) H 11/28/17 07:54 Urine RBC 5-10 /hpf (0-5) H 11/28/17 07:54 Urine WBC 2-5 /hpf (0-5) 11/28/17 07:54 Ur Epithelial Cells MODERATE /lpf (FEW) 11/28/17 07:54 Urine Bacteria 4+ /hpf (NONE SEEN) H 11/28/17 07:54 Vancomycin Trough 8.6 ug/mL (5-10) 12/01/17 08:00 Urine Opiates Screen NEGATIVE (NEGATIVE) 11/28/17 07:54 Urine Methadone Screen NEGATIVE (NEGATIVE) 11/28/17 07:54 Ur Barbiturates Screen NEGATIVE (NEGATIVE) 11/28/17 07:54 Ur Tricyclics Screen NEGATIVE (NEGATIVE) 11/28/17 07:54 Ur Phencyclidine Scrn NEGATIVE (NEGATIVE) 11/28/17 07:54 Amphetamines Screen NEGATIVE (NEGATIVE) 11/28/17 07:54 U Methamphetamines Scrn NEGATIVE (NEGATIVE) 11/28/17 07:54 U Benzodiazepines Scrn NEGATIVE (NEGATIVE) 11/28/17 07:54 U Cocaine Metab Screen NEGATIVE (NEGATIVE) 11/28/17 07:54 U Cannabinoids Screen NEGATIVE (NEGATIVE) 11/28/17 07:54 - Physical Exam Vitals and I&O: Vital Signs Temp 96.6 F 12/02/17 08:08 Pulse 72 12/02/17 08:08 Resp 17 12/02/17 08:08 BP 129/51 12/02/17 08:08 Pulse Ox 94 12/02/17 08:08 Intake & Output 12/01/17 12/02/17 12/02/17 18:59 06:59 18:59 Intake Total 600 340 Output Total 400 300 Balance 200 40 Weight (lbs) 108.862 kg 115.212 kg Intake: Oral 600 340 Output: Urine 400 300 Other: # Bowel Movements 2 0 Stool Characteristics Soft Brown Weight Source Bedscale Bedscale Active Medications: Current Medications Acetaminophen (Tylenol) 650 mg PO Q4H PRN PRN Reason: Moderate Pain or Fever >101 Stop: 01/27/18 17:07 Acetaminophen (Tylenol Extra Strength) 500 mg PO Q4H PRN PRN Reason: Mild pain Stop: 01/27/18 19:34 Last Admin: 12/01/17 21:40 Dose: 500 mg Acetaminophen/Hydrocodone Bitart ([place] 5mg/325mg) 1 tab PO Q8H PRN PRN Reason: Pain (Severe) Stop: 01/27/18 17:09 Last Admin: 12/02/17 03:53 Dose: 1 tab [place] Oil/[place] Balsam/Trypsin (Venelex) 1 appl TP DAILY [facility] Stop: 01/28/18 08:59 Last Admin: 12/01/17 12:27 Dose: 1 appl Doxycycline Hyclate (Vibramycin) 100 mg PO Q12HR [facility] Stop: 01/30/18 20:59 Last Admin: 12/01/17 21:40 Dose: 100 mg Furosemide (Lasix) 20 mg PO DAILY [facility] Stop: 01/28/18 08:59 Last Admin: 12/01/17 08:57 Dose: 20 mg Insulin Aspart (Novolog Insulin Sliding Scale) 0 units SUBQ ACHS [facility]; Protocol Stop: 01/30/18 20:59 Last Admin: 12/02/17 07:59 Dose: 8 units Insulin Detemir (Levemir Insulin) 10 units SUBQ HS [facility]; Protocol Stop: 01/30/18 20:59 Last Admin: 12/01/17 21:42 Dose: 10 ud Lactulose (Cephulac) 30 gm PO DAILY [facility] Stop: 01/28/18 08:59 Last Admin: 12/01/17 08:58 Dose: 30 gm Lisinopril (Zestril) 20 mg PO BID [facility] Stop: 01/28/18 08:59 Last Admin: 12/01/17 17:27 Dose: 20 mg Magnesium Oxide (Mag-Oxide) 400 mg PO BID [facility] Stop: 01/28/18 08:59 Last Admin: 12/01/17 17:26 Dose: 400 mg Mupirocin (Bactroban Oint) 1 appl NS BID [facility] Stop: 12/04/17 09:01 Last Admin: 12/01/17 17:26 Dose: 1 appl Pantoprazole Sodium (Protonix) 40 mg PO DAILY [facility] Stop: 01/28/18 08:59 Last Admin: 12/01/17 08:59 Dose: 40 mg Propranolol HCl (Inderal) 20 mg PO DAILY [facility] Stop: 01/28/18 08:59 Last Admin: 12/01/17 08:57 Dose: 20 mg Rifaximin (Xifaxan) 600 mg PO BID [facility] Stop: 01/28/18 09:44 Last Admin: 12/01/17 18:22 Dose: 600 mg Sitagliptin Phosphate (Januvia) 50 mg PO DAILY [facility] Stop: 01/28/18 08:59 Last Admin: 12/01/17 08:57 Dose: 50 mg Spironolactone (Aldactone) 25 mg PO QPM [facility] Stop: 01/28/18 16:59 Last Admin: 12/01/17 17:28 Dose: 25 mg General: Alert, No acute distress HEENT: Atraumatic Neck: Supple Cardiovascular: Regular rate, Normal S1 Lungs: Clear to auscultation Abdomen: Bowel sounds, Soft, no Tender Extremities: Clubbing, Cyanosis, no Edema Neurological: Normal speech Skin: Significant lesion (presence of lower ext ulcers) - Procedures Procedures: Procedures Procedure Code Date INJECT/INFUSE NEC 99.29 01/12/10 Assessment/Plan - Assessment Assessment: LE edema and cellilitis lower leg ulcers ... + Klebsiella UTI ... +Klebsiella HTN DM CAD CHF left side pleural effusion hyponatremia cholelithiasis possible cirrhosis hyperbilirubinemia anemia thrombocytopenia hepatic encephalopathy - Plan Plan: continue current treatment. for SNF placement Nutritional Asmnt/Malnutr-PDOC - Dietary Evaluation Malnutrition Findings (Please click <Entered> for more info): Nutritional Asmnt/Malnutrition Start: 11/29/17 13: 30 Text: Status: Complete Freq: Protocol: Document 11/29/17 13:31 DAHIANA (Rec: 11/29/17 13:40 [email or web address]) Nutritional Asmnt/Malnutrition Patient General Information Nutritional Screening High Risk Consult Diagnosis CHF, cirrhosis, cellulitis Pertinent Medical Hx/Surgical Hx HTN, DM, CAD, CHF Subjective Information Received diet consult d/t type II DM and wounds. Pt resting in bed w/ at bedside at time of visit. Pt's states pt likes sandwiches, rice, and vegetables. also states pt is requesting a hamburger; RD explained purpose of clear liquid diet and pt's verbalized understanding. Per nurse note, pt was NPO this morning for abdominal ultrasound. Current Diet Order/ Nutrition Support clear liquid Pertinent Medications lasix, novolog, Mag-oxide, zosyn, vancomycin, protonix, piperacillin, januvia, aldactone Pertinent Labs 11/29: glucose 289, Na 132, Alb 2.4, POC 272-279, Ca 8.3 11/28: glucose 308, Na 130, Alb 2.7, POC 250-327, Mg 1.2 Nutritional Hx/Data Height 1.52 m Height (Calculated Centimeters) 152.4 Current Weight (lbs) 108.862 kg Weight (Calculated Kilograms) 108.9 Weight (Calculated Grams) 851959.2 [place] Body Weight 100 lb Body Mass Index (BMI) 46.8 Weight Status Morbidly Obese GI Symptoms Last BM none noted Difficult in: None Food Allergies No Skin Integrity/Comment: Per wound care assessment: cellulitis wounds to rt posterior leg, rt lower leg, and left posterior leg ( superficial), cellulitis wounds to left lower leg anterior and left lower leg ( partial thickness) non-pitting edema to BLE Estimated Nutritional Goals BEE in Kcals: Adj wt of IBW Calories/Kcals/Kg 30-35 (based on adj wt 61.4 kg ) Kcals Calculated 3602-9527 Protein: Adj wt of IBW Protein g/k.2 (based on adj wt 61.4 kg) Protein Calculated 74 g Fluid: ml 7257-6628 (1 ml/kcal) Nutritional Problem 2. Problem Problem Inadequate oral intake Etiology increased kcal and protein needs Signs/Symptoms: cellulitis wounds/ulcers to BLE, pt on clear liquid diet 1. Problem Problem Altered nutrition related lab values Etiology hx of DM Signs/Symptoms: glucose 289, POC 272-279 Malnutrition Alert Is there a minimum of two criteria No selected? Query Text:Check all the applicable criteria. A minimum of two criteria are recommended for diagnosis of either severe or non-severe malnutrition. Malnutrition Related to Morbid Obesity Malnutrition related to morbid obesity No Intervention/Recommendation Comments 1. Once diet is advanced, recommend to start CCHO 60 g, low sodium 2g diet d/t elevated bs and dx of CHF and cirrhosis 2. Consider supplementing Ensure Enlive if protein and kcal needs not met w/ PO intake alone 3. Monitor PO intake, wt, labs and skin integrity 4. F/U as high risk in 2-3 days, 12/01-12/02 Expected Outcomes/Goals Expected Outcomes/Goals 1. PO intake to meet at least 75% of nutritional needs 2. Wt stability, wounds to heal, and nutrition related labs to approach normal limits Reviewed by Pamela Williamson RD
[2017-12-02] MEDS: Venelex 60gm Tube TP SCH (09:05)
[2017-12-02] MEDS: Lactulose 10 Gm/15 mL 30mL UDC PO SCH (09:05)
[2017-12-02] MEDS: Pantoprazole 40 mg EC Tab PO SCH (09:08)
--- NOTE | 2017-12-02 10:01 | Diagnostic Imaging Report ---
Portable chest x-ray HISTORY: Shortness of breath, vascular catheter placement Compared to prior exam of 11/28/2017, a left-sided vascular catheter is been inserted. The tip is in the superior vena cava. A previously placed right side catheter has been removed. The heart is enlarged. There does appear to be degree of pulmonary vascular redistribution. A mild degree of congestive heart failure without ayaan pulmonary edema cannot be excluded. Clinical correlation is needed. IMPRESSION: 1. Vascular catheter placement as noted above 2. Cardiomegaly along with changes that may reflect mild congestive heart failure without ayaan pulmonary edema. Clinical correlation is needed.
--- NOTE | 2017-12-02 11:23 | GI Progress Note ---
Subjective - Review of Systems Service Date: 12/02/17 Subjective: EVENTS NOTED. NO ABD PAIN. AWAKE. [place] ORAL DIET. Objective - Results Result Diagrams: 11/30/17 05:30 12/01/17 05:55 Recent Labs: Laboratory Last Values WBC 8.6 Th/cmm (4.8-10.8) 11/30/17 05:30 RBC 3.45 Mil/cmm (3.80-5.20) L 11/30/17 05:30 Hgb 9.8 gm/dL (12-16) L 11/30/17 05:30 Hct 29.4 % (41.0-60) L 11/30/17 05:30 MCV 85.3 fl (81-100) 11/30/17 05:30 MCH 28.5 pg (27.0-31.0) 11/30/17 05:30 MCHC Differential 33.4 pg (28.0-36.0) 11/30/17 05:30 RDW 15.0 % (11.5-20.0) 11/30/17 05:30 Plt Count 101 Th/cmm (150-400) L 11/30/17 05:30 MPV 9.3 fl 11/30/17 05:30 Neutrophils % 71.9 % (40.0-80.0) 11/30/17 05:30 Lymphocytes % 10.5 % (20.0-50.0) L 11/30/17 05:30 Monocytes % 14.1 % (2.0-10.0) H 11/30/17 05:30 Eosinophils % 3.5 % (0.0-5.0) 11/30/17 05:30 Basophils % 0.0 % (0.0-2.0) 11/30/17 05:30 PT 11.5 SECONDS (9.5-11.5) 11/30/17 09:00 INR 1.12 (0.5-1.4) 11/30/17 09:00 PTT (Actin FS) 30.8 SECONDS (26.0-38.0) 11/30/17 09:00 D-Dimer 2990 ng/mL (100-400) H 11/28/17 06:50 Sodium 132 mEq/L (136-145) L 12/01/17 05:55 Potassium 3.9 mEq/L (3.5-5.1) 12/01/17 05:55 Chloride 97 mEq/L (98-107) L 12/01/17 05:55 Carbon Dioxide 28.2 mEq/L (21.0-31.0) 12/01/17 05:55 Anion Gap 10.7 (7.0-16.0) 12/01/17 05:55 BUN 25 mg/dL (7-25) 12/01/17 05:55 Creatinine 1.2 mg/dL (0.6-1.2) 12/01/17 05:55 Est GFR ( Amer) TNP 12/01/17 05:55 Est GFR (Non-Af Amer) TNP 12/01/17 05:55 BUN/Creatinine Ratio 20.8 12/01/17 05:55 Glucose 284 mg/dL (70-105) H 12/01/17 05:55 POC Glucose 305 MG/DL (70 - 105) H 12/02/17 06:09 Calcium 8.1 mg/dL (8.6-10.3) L 12/01/17 05:55 Phosphorus 2.7 mg/dL (2.5-5.0) 11/28/17 06:50 Magnesium 1.2 mg/dL (1.9-2.7) L 11/28/17 06:50 Total Bilirubin 4.7 mg/dL (0.3-1.0) H 12/01/17 05:55 AST 24 U/L (13-39) 12/01/17 05:55 ALT 11 U/L (7-52) 12/01/17 05:55 Alkaline Phosphatase 66 U/L (34-104) 12/01/17 05:55 Ammonia 104 umol/L (16-53) H 11/28/17 10:40 Troponin I 0.03 ng/mL (0.01-0.05) 11/28/17 06:50 B-Natriuretic Peptide 428.0 pg/mL (5.0-100.0) H 12/01/17 05:55 Total Protein 5.9 gm/dL (6.0-8.3) L 12/01/17 05:55 Albumin 2.4 gm/dL (3.7-5.3) L 12/01/17 05:55 Globulin 3.5 gm/dL 12/01/17 05:55 Albumin/Globulin Ratio 0.7 (1.0-1.8) L 12/01/17 05:55 Lipase 29 U/L (11-82) 11/30/17 05:30 Urine Source CATH 11/28/17 07:54 Urine Color YELLOW 11/28/17 07:54 Urine Clarity HAZY (CLEAR) 11/28/17 07:54 Urine pH 6.5 (4.6 - 8.0) 11/28/17 07:54 Ur Specific [place] 1.020 (1.005-1.030) 11/28/17 07:54 Urine Protein 100 mg/dL (NEGATIVE) H 11/28/17 07:54 Urine Glucose (UA) 250 mg/dL (NEGATIVE) H 11/28/17 07:54 Urine Ketones NEGATIVE mg/dL (NEGATIVE) 11/28/17 07:54 Urine Blood SMALL (NEGATIVE) H 11/28/17 07:54 Urine Nitrate POSITIVE (NEGATIVE) H 11/28/17 07:54 Urine Bilirubin NEGATIVE (NEGATIVE) 11/28/17 07:54 Urine Urobilinogen 2.0 E.U./dL (0.2 - 1.0) 11/28/17 07:54 Ur Leukocyte Esterase TRACE (NEGATIVE) H 11/28/17 07:54 Urine RBC 5-10 /hpf (0-5) H 11/28/17 07:54 Urine WBC 2-5 /hpf (0-5) 11/28/17 07:54 Ur Epithelial Cells MODERATE /lpf (FEW) 11/28/17 07:54 Urine Bacteria 4+ /hpf (NONE SEEN) H 11/28/17 07:54 Vancomycin Trough 8.6 ug/mL (5-10) 12/01/17 08:00 Urine Opiates Screen NEGATIVE (NEGATIVE) 11/28/17 07:54 Urine Methadone Screen NEGATIVE (NEGATIVE) 11/28/17 07:54 Ur Barbiturates Screen NEGATIVE (NEGATIVE) 11/28/17 07:54 Ur Tricyclics Screen NEGATIVE (NEGATIVE) 11/28/17 07:54 Ur Phencyclidine Scrn NEGATIVE (NEGATIVE) 11/28/17 07:54 Amphetamines Screen NEGATIVE (NEGATIVE) 11/28/17 07:54 U Methamphetamines Scrn NEGATIVE (NEGATIVE) 11/28/17 07:54 U Benzodiazepines Scrn NEGATIVE (NEGATIVE) 11/28/17 07:54 U Cocaine Metab Screen NEGATIVE (NEGATIVE) 11/28/17 07:54 U Cannabinoids Screen NEGATIVE (NEGATIVE) 11/28/17 07:54 - Physical Exam Vitals and I&O: Vital Signs Temp 96.6 F 12/02/17 08:08 Pulse 72 12/02/17 09:07 Resp 17 12/02/17 08:08 BP 129/51 12/02/17 09:07 Pulse Ox 94 12/02/17 08:08 Intake & Output 12/01/17 12/02/17 12/02/17 18:59 06:59 18:59 Intake Total 600 340 Output Total 400 300 Balance 200 40 Weight (lbs) 108.862 kg 115.212 kg Intake: Oral 600 340 Output: Urine 400 300 Other: # Bowel Movements 2 0 Stool Characteristics Soft Brown Weight Source Bedscale Bedscale Active Medications: Current Medications Acetaminophen (Tylenol) 650 mg PO Q4H PRN PRN Reason: Moderate Pain or Fever >101 Stop: 01/27/18 17:07 Acetaminophen (Tylenol Extra Strength) 500 mg PO Q4H PRN PRN Reason: Mild pain Stop: 01/27/18 19:34 Last Admin: 12/01/17 21:40 Dose: 500 mg Acetaminophen/Hydrocodone Bitart ([place] 5mg/325mg) 1 tab PO Q8H PRN PRN Reason: Pain (Severe) Stop: 01/27/18 17:09 Last Admin: 12/02/17 03:53 Dose: 1 tab [place] Oil/[place] Balsam/Trypsin (Venelex) 1 appl TP DAILY [facility] Stop: 01/28/18 08:59 Last Admin: 12/02/17 09:05 Dose: 1 appl Doxycycline Hyclate (Vibramycin) 100 mg PO Q12HR [facility] Stop: 01/30/18 20:59 Last Admin: 12/02/17 09:07 Dose: 100 mg Furosemide (Lasix) 20 mg PO DAILY [facility] Stop: 01/28/18 08:59 Last Admin: 12/02/17 09:07 Dose: 20 mg Insulin Aspart (Novolog Insulin Sliding Scale) 0 units SUBQ ACHS [facility]; Protocol Stop: 01/30/18 20:59 Last Admin: 12/02/17 07:59 Dose: 8 units Insulin Detemir (Levemir Insulin) 10 units SUBQ HS [facility]; Protocol Stop: 01/30/18 20:59 Last Admin: 12/01/17 21:42 Dose: 10 ud Lactulose (Cephulac) 30 gm PO DAILY [facility] Stop: 01/28/18 08:59 Last Admin: 12/02/17 09:05 Dose: 30 gm Lisinopril (Zestril) 20 mg PO BID [facility] Stop: 01/28/18 08:59 Last Admin: 12/02/17 09:06 Dose: 20 mg Magnesium Oxide (Mag-Oxide) 400 mg PO BID [facility] Stop: 01/28/18 08:59 Last Admin: 12/02/17 09:08 Dose: 400 mg Mupirocin (Bactroban Oint) 1 appl NS BID [facility] Stop: 12/04/17 09:01 Last Admin: 12/02/17 09:05 Dose: 1 appl Pantoprazole Sodium (Protonix) 40 mg PO DAILY [facility] Stop: 01/28/18 08:59 Last Admin: 12/02/17 09:08 Dose: 40 mg Propranolol HCl (Inderal) 20 mg PO DAILY [facility] Stop: 01/28/18 08:59 Last Admin: 12/02/17 09:07 Dose: 20 mg Rifaximin (Xifaxan) 600 mg PO BID [facility] Stop: 01/28/18 09:44 Last Admin: 12/02/17 09:06 Dose: 600 mg Sitagliptin Phosphate (Januvia) 50 mg PO DAILY [facility] Stop: 01/28/18 08:59 Last Admin: 12/02/17 09:06 Dose: 50 mg Spironolactone (Aldactone) 25 mg PO QPM [facility] Stop: 01/28/18 16:59 Last Admin: 12/01/17 17:28 Dose: 25 mg General: Alert, No acute distress HEENT: Atraumatic Neck: Supple Cardiovascular: Regular rate, Normal S1 Lungs: Clear to auscultation Abdomen: Bowel sounds, Soft, no Tender Extremities: no Edema Neurological: Normal speech Skin: Significant lesion (presence of lower ext ulcers) - Procedures Procedures: Procedures Procedure Code Date INJECT/INFUSE NEC 99.29 01/12/10 Assessment/Plan - Assessment Assessment: IMPRESSION: 1. PROBABLE CIRRHOSIS, R/O [place] VS. OTHER ETIOLOGY. ABD CT SHOWED PROBABLE CIRRHOSIS, CHOLELITHIASIS. 2. HEP ENCEPHALOPATHY. 3. MILD ANEMIA. 4. THROMBOCYTOPENIA. 5. OBESITY 6. DM2. 7. ANASARCA/PERIPH EDEMA WITH LEG ULCERS. RECS: 1. F/U LIVER LABS - NEG TO DATE. 2. ORAL DIET TOLERATED. 3. MONITOR HEPATIC SYNTHETIC FUNCTION. 4. AVOID HEPATOTOXIC AGENTS. 5. LACTULOSE - TITRATE TO EFFECT. 6. RIFAXIMIN. 7. WOUND CARE PER HOSPITALIST. 8. OUTPATIENT HEPATOLOGY CLINIC F/U. 9. PT/REHAB. 10. NON-OPERATIVE MANAGEMENT OF CHOLELITHIASIS FOR NOW.
[2017-12-02] MEDS ORDERED: Diltiazem 30 mg Tab GT SCH (12:00)
--- NOTE | 2017-12-02 12:07 | Infectious Disease Prog Note ---
Infectious Disease Subjective - Review of Systems Service Date: 12/02/17 Subjective: There is no new change, no Fever. Infectious Disease Objective - Results Result Diagrams: 11/30/17 05:30 12/01/17 05:55 Recent Labs: Laboratory Last Values WBC 8.6 Th/cmm (4.8-10.8) 11/30/17 05:30 RBC 3.45 Mil/cmm (3.80-5.20) L 11/30/17 05:30 Hgb 9.8 gm/dL (12-16) L 11/30/17 05:30 Hct 29.4 % (41.0-60) L 11/30/17 05:30 MCV 85.3 fl (81-100) 11/30/17 05:30 MCH 28.5 pg (27.0-31.0) 11/30/17 05:30 MCHC Differential 33.4 pg (28.0-36.0) 11/30/17 05:30 RDW 15.0 % (11.5-20.0) 11/30/17 05:30 Plt Count 101 Th/cmm (150-400) L 11/30/17 05:30 MPV 9.3 fl 11/30/17 05:30 Neutrophils % 71.9 % (40.0-80.0) 11/30/17 05:30 Lymphocytes % 10.5 % (20.0-50.0) L 11/30/17 05:30 Monocytes % 14.1 % (2.0-10.0) H 11/30/17 05:30 Eosinophils % 3.5 % (0.0-5.0) 11/30/17 05:30 Basophils % 0.0 % (0.0-2.0) 11/30/17 05:30 PT 11.5 SECONDS (9.5-11.5) 11/30/17 09:00 INR 1.12 (0.5-1.4) 11/30/17 09:00 PTT (Actin FS) 30.8 SECONDS (26.0-38.0) 11/30/17 09:00 D-Dimer 2990 ng/mL (100-400) H 11/28/17 06:50 Sodium 132 mEq/L (136-145) L 12/01/17 05:55 Potassium 3.9 mEq/L (3.5-5.1) 12/01/17 05:55 Chloride 97 mEq/L (98-107) L 12/01/17 05:55 Carbon Dioxide 28.2 mEq/L (21.0-31.0) 12/01/17 05:55 Anion Gap 10.7 (7.0-16.0) 12/01/17 05:55 BUN 25 mg/dL (7-25) 12/01/17 05:55 Creatinine 1.2 mg/dL (0.6-1.2) 12/01/17 05:55 Est GFR ( Amer) TNP 12/01/17 05:55 Est GFR (Non-Af Amer) TNP 12/01/17 05:55 BUN/Creatinine Ratio 20.8 12/01/17 05:55 Glucose 284 mg/dL (70-105) H 12/01/17 05:55 POC Glucose 305 MG/DL (70 - 105) H 12/02/17 06:09 Calcium 8.1 mg/dL (8.6-10.3) L 12/01/17 05:55 Phosphorus 2.7 mg/dL (2.5-5.0) 11/28/17 06:50 Magnesium 1.2 mg/dL (1.9-2.7) L 11/28/17 06:50 Total Bilirubin 4.7 mg/dL (0.3-1.0) H 12/01/17 05:55 AST 24 U/L (13-39) 12/01/17 05:55 ALT 11 U/L (7-52) 12/01/17 05:55 Alkaline Phosphatase 66 U/L (34-104) 12/01/17 05:55 Ammonia 104 umol/L (16-53) H 11/28/17 10:40 Troponin I 0.03 ng/mL (0.01-0.05) 11/28/17 06:50 B-Natriuretic Peptide 428.0 pg/mL (5.0-100.0) H 12/01/17 05:55 Total Protein 5.9 gm/dL (6.0-8.3) L 12/01/17 05:55 Albumin 2.4 gm/dL (3.7-5.3) L 12/01/17 05:55 Globulin 3.5 gm/dL 12/01/17 05:55 Albumin/Globulin Ratio 0.7 (1.0-1.8) L 12/01/17 05:55 Lipase 29 U/L (11-82) 11/30/17 05:30 Urine Source CATH 11/28/17 07:54 Urine Color YELLOW 11/28/17 07:54 Urine Clarity HAZY (CLEAR) 11/28/17 07:54 Urine pH 6.5 (4.6 - 8.0) 11/28/17 07:54 Ur Specific [place] 1.020 (1.005-1.030) 11/28/17 07:54 Urine Protein 100 mg/dL (NEGATIVE) H 11/28/17 07:54 Urine Glucose (UA) 250 mg/dL (NEGATIVE) H 11/28/17 07:54 Urine Ketones NEGATIVE mg/dL (NEGATIVE) 11/28/17 07:54 Urine Blood SMALL (NEGATIVE) H 11/28/17 07:54 Urine Nitrate POSITIVE (NEGATIVE) H 11/28/17 07:54 Urine Bilirubin NEGATIVE (NEGATIVE) 11/28/17 07:54 Urine Urobilinogen 2.0 E.U./dL (0.2 - 1.0) 11/28/17 07:54 Ur Leukocyte Esterase TRACE (NEGATIVE) H 11/28/17 07:54 Urine RBC 5-10 /hpf (0-5) H 11/28/17 07:54 Urine WBC 2-5 /hpf (0-5) 11/28/17 07:54 Ur Epithelial Cells MODERATE /lpf (FEW) 11/28/17 07:54 Urine Bacteria 4+ /hpf (NONE SEEN) H 11/28/17 07:54 Vancomycin Trough 8.6 ug/mL (5-10) 12/01/17 08:00 Urine Opiates Screen NEGATIVE (NEGATIVE) 11/28/17 07:54 Urine Methadone Screen NEGATIVE (NEGATIVE) 11/28/17 07:54 Ur Barbiturates Screen NEGATIVE (NEGATIVE) 11/28/17 07:54 Ur Tricyclics Screen NEGATIVE (NEGATIVE) 11/28/17 07:54 Ur Phencyclidine Scrn NEGATIVE (NEGATIVE) 11/28/17 07:54 Amphetamines Screen NEGATIVE (NEGATIVE) 11/28/17 07:54 U Methamphetamines Scrn NEGATIVE (NEGATIVE) 11/28/17 07:54 U Benzodiazepines Scrn NEGATIVE (NEGATIVE) 11/28/17 07:54 U Cocaine Metab Screen NEGATIVE (NEGATIVE) 11/28/17 07:54 U Cannabinoids Screen NEGATIVE (NEGATIVE) 11/28/17 07:54 - Physical Exam Vitals and I&O: Vital Signs Temp 97.8 F 12/02/17 11:24 Pulse 70 12/02/17 11:24 Resp 17 12/02/17 11:24 BP 138/67 12/02/17 11:24 Pulse Ox 96 12/02/17 11:24 Intake & Output 12/01/17 12/02/17 12/02/17 18:59 06:59 18:59 Intake Total 600 340 Output Total 400 300 Balance 200 40 Weight (lbs) 108.862 kg 115.212 kg Intake: Oral 600 340 Output: Urine 400 300 Other: # Bowel Movements 2 0 Stool Characteristics Soft Brown Weight Source Bedscale Bedscale Active Medications: Current Medications Acetaminophen (Tylenol) 650 mg PO Q4H PRN PRN Reason: Moderate Pain or Fever >101 Stop: 01/27/18 17:07 Acetaminophen (Tylenol Extra Strength) 500 mg PO Q4H PRN PRN Reason: Mild pain Stop: 01/27/18 19:34 Last Admin: 12/01/17 21:40 Dose: 500 mg Acetaminophen/Hydrocodone Bitart ([place] 5mg/325mg) 1 tab PO Q8H PRN PRN Reason: Pain (Severe) Stop: 01/27/18 17:09 Last Admin: 12/02/17 03:53 Dose: 1 tab [place] Oil/[place] Balsam/Trypsin (Venelex) 1 appl TP DAILY [facility] Stop: 01/28/18 08:59 Last Admin: 12/02/17 09:05 Dose: 1 appl Doxycycline Hyclate (Vibramycin) 100 mg PO Q12HR [facility] Stop: 01/30/18 20:59 Last Admin: 12/02/17 09:07 Dose: 100 mg Furosemide (Lasix) 20 mg PO DAILY [facility] Stop: 01/28/18 08:59 Last Admin: 12/02/17 09:07 Dose: 20 mg Insulin Aspart (Novolog Insulin Sliding Scale) 0 units SUBQ ACHS [facility]; Protocol Stop: 01/30/18 20:59 Last Admin: 12/02/17 07:59 Dose: 8 units Insulin Detemir (Levemir Insulin) 10 units SUBQ HS [facility]; Protocol Stop: 01/30/18 20:59 Last Admin: 12/01/17 21:42 Dose: 10 ud Lactulose (Cephulac) 30 gm PO DAILY [facility] Stop: 01/28/18 08:59 Last Admin: 12/02/17 09:05 Dose: 30 gm Lisinopril (Zestril) 20 mg PO BID [facility] Stop: 01/28/18 08:59 Last Admin: 12/02/17 09:06 Dose: 20 mg Magnesium Oxide (Mag-Oxide) 400 mg PO BID [facility] Stop: 01/28/18 08:59 Last Admin: 12/02/17 09:08 Dose: 400 mg Mupirocin (Bactroban Oint) 1 appl NS BID [facility] Stop: 12/04/17 09:01 Last Admin: 12/02/17 09:05 Dose: 1 appl Pantoprazole Sodium (Protonix) 40 mg PO DAILY [facility] Stop: 01/28/18 08:59 Last Admin: 12/02/17 09:08 Dose: 40 mg Propranolol HCl (Inderal) 20 mg PO DAILY [facility] Stop: 01/28/18 08:59 Last Admin: 12/02/17 09:07 Dose: 20 mg Rifaximin (Xifaxan) 600 mg PO BID [facility] Stop: 01/28/18 09:44 Last Admin: 12/02/17 09:06 Dose: 600 mg Sitagliptin Phosphate (Januvia) 50 mg PO DAILY [facility] Stop: 01/28/18 08:59 Last Admin: 12/02/17 09:06 Dose: 50 mg Spironolactone (Aldactone) 25 mg PO QPM [facility] Stop: 01/28/18 16:59 Last Admin: 12/01/17 17:28 Dose: 25 mg General: no acute distress, well developed, well nourished, cachectic HEENT: atraumatic, normocephalic, PERRLA, EOMI Neck: supple, no thyromegaly Cardiovascular: S1S2, regular Lungs: clear to auscultation bilaterally, clear to percussion Abdomen: soft, no tender, no distended Extremities: edema, no cyanosis, no clubbing Neurological: awake, alert, oriented Skin: intact - Procedures Procedures: Procedures Procedure Code Date INJECT/INFUSE NEC 99.29 01/12/10 Infectious Disease Assmt/Plan - Assessment Assessment: 1. Bilateral leg cellulitis. With the leg ulcerations. 2. Diabetes mellitus type 2. 3. Hyperlipidemia. 4. Hypertension. 2. Liver cirrhosis. 6. Coronary artery disease. 7. CHF - Plan Plan: may change antibiotics to doxycycline IV for 10 days from now. Nutritional Asmnt/Malnutr-PDOC - Dietary Evaluation Malnutrition Findings (Please click <Entered> for more info): Nutritional Asmnt/Malnutrition Start: 11/29/17 13: 30 Text: Status: Complete Freq: Protocol: Document 11/29/17 13:31 DAHIANA (Rec: 11/29/17 13:40 [email or web address]) Nutritional Asmnt/Malnutrition Patient General Information Nutritional Screening High Risk Consult Diagnosis CHF, cirrhosis, cellulitis Pertinent Medical Hx/Surgical Hx HTN, DM, CAD, CHF Subjective Information Received diet consult d/t type II DM and wounds. Pt resting in bed w/ at bedside at time of visit. Pt's states pt likes sandwiches, rice, and vegetables. also states pt is requesting a hamburger; RD explained purpose of clear liquid diet and pt's verbalized understanding. Per nurse note, pt was NPO this morning for abdominal ultrasound. Current Diet Order/ Nutrition Support clear liquid Pertinent Medications lasix, novolog, Mag-oxide, zosyn, vancomycin, protonix, piperacillin, januvia, aldactone Pertinent Labs 11/29: glucose 289, Na 132, Alb 2.4, POC 272-279, Ca 8.3 11/28: glucose 308, Na 130, Alb 2.7, POC 250-327, Mg 1.2 Nutritional Hx/Data Height 1.52 m Height (Calculated Centimeters) 152.4 Current Weight (lbs) 108.862 kg Weight (Calculated Kilograms) 108.9 Weight (Calculated Grams) [id number] [place] Body Weight 100 lb Body Mass Index (BMI) 46.8 Weight Status Morbidly Obese GI Symptoms Last BM none noted Difficult in: None Food Allergies No Skin Integrity/Comment: Per wound care assessment: cellulitis wounds to rt posterior leg, rt lower leg, and left posterior leg ( superficial), cellulitis wounds to left lower leg anterior and left lower leg ( partial thickness) non-pitting edema to BLE Estimated Nutritional Goals BEE in Kcals: Adj wt of IBW Calories/Kcals/Kg 30-35 (based on adj wt 61.4 kg ) Kcals Calculated Protein: Adj wt of IBW Protein g/k.2 (based on adj wt 61.4 kg) Protein Calculated 74 g Fluid: ml [id number] (1 ml/kcal) Nutritional Problem 2. Problem Problem Inadequate oral intake Etiology increased kcal and protein needs Signs/Symptoms: cellulitis wounds/ulcers to BLE, pt on clear liquid diet 1. Problem Problem Altered nutrition related lab values Etiology hx of DM Signs/Symptoms: glucose 289, POC 272-279 Malnutrition Alert Is there a minimum of two criteria No selected? Query Text:Check all the applicable criteria. A minimum of two criteria are recommended for diagnosis of either severe or non-severe malnutrition. Malnutrition Related to Morbid Obesity Malnutrition related to morbid obesity No Intervention/Recommendation Comments 1. Once diet is advanced, recommend to start CCHO 60 g, low sodium 2g diet d/t elevated bs and dx of CHF and cirrhosis 2. Consider supplementing Ensure Enlive if protein and kcal needs not met w/ PO intake alone 3. Monitor PO intake, wt, labs and skin integrity 4. F/U as high risk in 2-3 days, 12/01-12/02 Expected Outcomes/Goals Expected Outcomes/Goals 1. PO intake to meet at least 75% of nutritional needs 2. Wt stability, wounds to heal, and nutrition related labs to approach normal limits Reviewed by Pamela Williamson RD
[2017-12-02 14:21] LABS: AFP TUMOR MARKER 3.1 ng/mL (0.0-8.3); CERULOPLASMIN 31.1 mg/dL (19.0-39.0); F1 ACTIN-SMOOTH MUSC IGG 20 Units (0-19); FERRITIN 168 ng/mL (15-150); GAMMA GLUTAMYL TRANSFERASE 73 IU/L (0-60); HEP A AB IGM Negative (Negative); HEP B CORE IGM Negative (Negative); HEP B SURFACE AG QL Negative (Negative); HEP C ANTIBODY <0.1 s/co ratio (0.0-0.9); IRON LC 24 ug/dL (27-139); MITOCHONDRIAL AB 4.6 Units (0.0-20.0); TIBC (LC) 228 ug/dL (250-450); UIBC 204 ug/dL (118-369)
[2017-12-02] MEDS ORDERED: Insulin Detemir 100 units/mL 10mL Vial SUBQ SCH (21:00)
--- NOTE | 2017-12-03 05:38 | General Progress Note ---
Subjective - Review of Systems Service Date: 12/03/17 Subjective: Awake, alert but confused. no acute distress. Eating better. feeling better. In good spirits. Objective - Results Result Diagrams: 11/30/17 05:30 12/01/17 05:55 Recent Labs: Laboratory Last Values WBC 8.6 Th/cmm (4.8-10.8) 11/30/17 05:30 RBC 3.45 Mil/cmm (3.80-5.20) L 11/30/17 05:30 Hgb 9.8 gm/dL (12-16) L 11/30/17 05:30 Hct 29.4 % (41.0-60) L 11/30/17 05:30 MCV 85.3 fl (81-100) 11/30/17 05:30 MCH 28.5 pg (27.0-31.0) 11/30/17 05:30 MCHC Differential 33.4 pg (28.0-36.0) 11/30/17 05:30 RDW 15.0 % (11.5-20.0) 11/30/17 05:30 Plt Count 101 Th/cmm (150-400) L 11/30/17 05:30 MPV 9.3 fl 11/30/17 05:30 Neutrophils % 71.9 % (40.0-80.0) 11/30/17 05:30 Lymphocytes % 10.5 % (20.0-50.0) L 11/30/17 05:30 Monocytes % 14.1 % (2.0-10.0) H 11/30/17 05:30 Eosinophils % 3.5 % (0.0-5.0) 11/30/17 05:30 Basophils % 0.0 % (0.0-2.0) 11/30/17 05:30 PT 11.5 SECONDS (9.5-11.5) 11/30/17 09:00 INR 1.12 (0.5-1.4) 11/30/17 09:00 PTT (Actin FS) 30.8 SECONDS (26.0-38.0) 11/30/17 09:00 D-Dimer 2990 ng/mL (100-400) H 11/28/17 06:50 Sodium 132 mEq/L (136-145) L 12/01/17 05:55 Potassium 3.9 mEq/L (3.5-5.1) 12/01/17 05:55 Chloride 97 mEq/L (98-107) L 12/01/17 05:55 Carbon Dioxide 28.2 mEq/L (21.0-31.0) 12/01/17 05:55 Anion Gap 10.7 (7.0-16.0) 12/01/17 05:55 BUN 25 mg/dL (7-25) 12/01/17 05:55 Creatinine 1.2 mg/dL (0.6-1.2) 12/01/17 05:55 Est GFR ( Amer) TNP 12/01/17 05:55 Est GFR (Non-Af Amer) TNP 12/01/17 05:55 BUN/Creatinine Ratio 20.8 12/01/17 05:55 Glucose 284 mg/dL (70-105) H 12/01/17 05:55 POC Glucose 350 MG/DL (70 - 105) H 12/02/17 20:11 Calcium 8.1 mg/dL (8.6-10.3) L 12/01/17 05:55 Phosphorus 2.7 mg/dL (2.5-5.0) 11/28/17 06:50 Magnesium 1.2 mg/dL (1.9-2.7) L 11/28/17 06:50 Iron 24 ug/dL (27-139) L 11/30/17 05:30 TIBC 228 ug/dL (250-450) L 11/30/17 05:30 Iron Saturation 11 % (15-55) L 11/30/17 05:30 Unsaturated IBC 204 ug/dL (118-369) 11/30/17 05:30 Ferritin 168 ng/mL (15-150) H 11/30/17 05:30 Total Bilirubin 4.7 mg/dL (0.3-1.0) H 12/01/17 05:55 GGTP 73 IU/L (0-60) H 11/30/17 05:30 AST 24 U/L (13-39) 12/01/17 05:55 ALT 11 U/L (7-52) 12/01/17 05:55 Alkaline Phosphatase 66 U/L (34-104) 12/01/17 05:55 Ammonia 104 umol/L (16-53) H 11/28/17 10:40 Troponin I 0.03 ng/mL (0.01-0.05) 11/28/17 06:50 B-Natriuretic Peptide 428.0 pg/mL (5.0-100.0) H 12/01/17 05:55 Total Protein 5.9 gm/dL (6.0-8.3) L 12/01/17 05:55 Albumin 2.4 gm/dL (3.7-5.3) L 12/01/17 05:55 Globulin 3.5 gm/dL 12/01/17 05:55 Albumin/Globulin Ratio 0.7 (1.0-1.8) L 12/01/17 05:55 Ceruloplasmin 31.1 mg/dL (19.0-39.0) 11/30/17 05:30 Lipase 29 U/L (11-82) 11/30/17 05:30 Tumor Marker AFP 3.1 ng/mL (0.0-8.3) 11/30/17 05:30 Urine Source CATH 11/28/17 07:54 Urine Color YELLOW 11/28/17 07:54 Urine Clarity HAZY (CLEAR) 11/28/17 07:54 Urine pH 6.5 (4.6 - 8.0) 11/28/17 07:54 Ur Specific [place] 1.020 (1.005-1.030) 11/28/17 07:54 Urine Protein 100 mg/dL (NEGATIVE) H 11/28/17 07:54 Urine Glucose (UA) 250 mg/dL (NEGATIVE) H 11/28/17 07:54 Urine Ketones NEGATIVE mg/dL (NEGATIVE) 11/28/17 07:54 Urine Blood SMALL (NEGATIVE) H 11/28/17 07:54 Urine Nitrate POSITIVE (NEGATIVE) H 11/28/17 07:54 Urine Bilirubin NEGATIVE (NEGATIVE) 11/28/17 07:54 Urine Urobilinogen 2.0 E.U./dL (0.2 - 1.0) 11/28/17 07:54 Ur Leukocyte Esterase TRACE (NEGATIVE) H 11/28/17 07:54 Urine RBC 5-10 /hpf (0-5) H 11/28/17 07:54 Urine WBC 2-5 /hpf (0-5) 11/28/17 07:54 Ur Epithelial Cells MODERATE /lpf (FEW) 11/28/17 07:54 Urine Bacteria 4+ /hpf (NONE SEEN) H 11/28/17 07:54 Vancomycin Trough 8.6 ug/mL (5-10) 12/01/17 08:00 Urine Opiates Screen NEGATIVE (NEGATIVE) 11/28/17 07:54 Urine Methadone Screen NEGATIVE (NEGATIVE) 11/28/17 07:54 Ur Barbiturates Screen NEGATIVE (NEGATIVE) 11/28/17 07:54 Ur Tricyclics Screen NEGATIVE (NEGATIVE) 11/28/17 07:54 Ur Phencyclidine Scrn NEGATIVE (NEGATIVE) 11/28/17 07:54 Amphetamines Screen NEGATIVE (NEGATIVE) 11/28/17 07:54 U Methamphetamines Scrn NEGATIVE (NEGATIVE) 11/28/17 07:54 U Benzodiazepines Scrn NEGATIVE (NEGATIVE) 11/28/17 07:54 U Cocaine Metab Screen NEGATIVE (NEGATIVE) 11/28/17 07:54 U Cannabinoids Screen NEGATIVE (NEGATIVE) 11/28/17 07:54 Anti-Mitochondrial Ab 4.6 Units (0.0-20.0) 11/30/17 05:30 Smooth Muscle IgG Ab 20 Units (0-19) H 11/30/17 05:30 Hepatitis A IgM Ab Negative (Negative) 11/30/17 05:30 Hep Bs Antigen Negative (Negative) 11/30/17 05:30 Hep B Core IgM Ab Negative (Negative) 11/30/17 05:30 Hepatitis C Antibody <0.1 s/co ratio (0.0-0.9) 11/30/17 05:30 - Physical Exam Vitals and I&O: Vital Signs Temp 97.6 F 12/03/17 04:00 Pulse 78 12/03/17 04:00 Resp 19 12/03/17 04:00 BP 130/49 12/02/17 20:00 Pulse Ox 97 12/03/17 04:00 Intake & Output 12/02/17 12/02/17 12/03/17 06:59 18:59 06:59 Intake Total 340 400 Output Total 300 400 Balance 40 0 Weight (lbs) 115.212 kg 108.862 kg 114.759 kg Intake: Oral 340 400 Output: Urine 300 400 Other: # Bowel Movements 0 1 Stool Characteristics Soft Soft Soft Brown Brown Brown Weight Source Bedscale Bedscale Bedscale Active Medications: Current Medications Acetaminophen (Tylenol) 650 mg PO Q4H PRN PRN Reason: Moderate Pain or Fever >101 Stop: 01/27/18 17:07 Acetaminophen (Tylenol Extra Strength) 500 mg PO Q4H PRN PRN Reason: Mild pain Stop: 01/27/18 19:34 Last Admin: 12/01/17 21:40 Dose: 500 mg Acetaminophen/Hydrocodone Bitart ([place] 5mg/325mg) 1 tab PO Q8H PRN PRN Reason: Pain (Severe) Stop: 01/27/18 17:09 Last Admin: 12/02/17 03:53 Dose: 1 tab [place] Oil/[place] Balsam/Trypsin (Venelex) 1 appl TP DAILY [facility] Stop: 01/28/18 08:59 Last Admin: 12/02/17 09:05 Dose: 1 appl Doxycycline Hyclate (Vibramycin) 100 mg PO Q12HR [facility] Stop: 01/30/18 20:59 Last Admin: 12/02/17 20:43 Dose: 100 mg Furosemide (Lasix) 20 mg PO DAILY [facility] Stop: 01/28/18 08:59 Last Admin: 12/02/17 09:07 Dose: 20 mg Insulin Aspart (Novolog Insulin Sliding Scale) 0 units SUBQ ACHS [facility]; Protocol Stop: 01/30/18 20:59 Last Admin: 12/02/17 20:45 Dose: 8 units Insulin Detemir (Levemir Insulin) 16 units SUBQ HS [facility]; Protocol Stop: 01/31/18 20:59 Last Admin: 12/02/17 20:47 Dose: 16 units Lactulose (Cephulac) 30 gm PO DAILY [facility] Stop: 01/28/18 08:59 Last Admin: 12/02/17 09:05 Dose: 30 gm Lisinopril (Zestril) 20 mg PO BID [facility] Stop: 01/28/18 08:59 Last Admin: 12/02/17 17:35 Dose: 20 mg Magnesium Oxide (Mag-Oxide) 400 mg PO BID [facility] Stop: 01/28/18 08:59 Last Admin: 12/02/17 17:34 Dose: 400 mg Mupirocin (Bactroban Oint) 1 appl NS BID [facility] Stop: 12/04/17 09:01 Last Admin: 12/02/17 17:40 Dose: 1 appl Pantoprazole Sodium (Protonix) 40 mg PO DAILY [facility] Stop: 01/28/18 08:59 Last Admin: 12/02/17 09:08 Dose: 40 mg Propranolol HCl (Inderal) 20 mg PO DAILY [facility] Stop: 01/28/18 08:59 Last Admin: 12/02/17 09:07 Dose: 20 mg Rifaximin (Xifaxan) 600 mg PO BID [facility] Stop: 01/28/18 09:44 Last Admin: 12/02/17 17:34 Dose: 600 mg Sitagliptin Phosphate (Januvia) 50 mg PO DAILY [facility] Stop: 01/28/18 08:59 Last Admin: 12/02/17 09:06 Dose: 50 mg Spironolactone (Aldactone) 25 mg PO QPM [facility] Stop: 01/28/18 16:59 Last Admin: 12/02/17 17:35 Dose: 25 mg General: Alert, No acute distress HEENT: Atraumatic Neck: Supple Cardiovascular: Regular rate, Normal S1 Lungs: Clear to auscultation Abdomen: Bowel sounds, Soft, no Tender Extremities: no Edema Neurological: Normal speech Skin: Significant lesion (presence of lower ext ulcers) - Procedures Procedures: Procedures Procedure Code Date INJECT/INFUSE NEC 99.29 01/12/10 Assessment/Plan - Assessment Assessment: Anasarca/Peripheral edema and cellulitis lower leg ulcers ... + Klebsiella +MRSA UTI ... +Klebsiella HTN DM CAD CHF left side pleural effusion hyponatremia cholelithiasis possible cirrhosis, r/o [place] vs other etiology hyperbilirubinemia mild anemia thrombocytopenia hepatic encephalopathy morbid obesity hyperlipidemia - Plan Plan: continue current treatment. for SNF placement Nutritional Asmnt/Malnutr-PDOC - Dietary Evaluation Malnutrition Findings (Please click <Entered> for more info): Nutritional Asmnt/Malnutrition Start: 11/29/17 13: 30 Text: Status: Complete Freq: Protocol: Document 11/29/17 13:31 DAHIANA (Rec: 11/29/17 13:40 DAHIANA [email or web address]) Nutritional Asmnt/Malnutrition Patient General Information Nutritional Screening High Risk Consult Diagnosis CHF, cirrhosis, cellulitis Pertinent Medical Hx/Surgical Hx HTN, DM, CAD, CHF Subjective Information Received diet consult d/t type II DM and wounds. Pt resting in bed w/ at bedside at time of visit. Pt's states pt likes sandwiches, rice, and vegetables. also states pt is requesting a hamburger; RD explained purpose of clear liquid diet and pt's verbalized understanding. Per nurse note, pt was NPO this morning for abdominal ultrasound. Current Diet Order/ Nutrition Support clear liquid Pertinent Medications lasix, novolog, Mag-oxide, zosyn, vancomycin, protonix, piperacillin, januvia, aldactone Pertinent Labs 11/29: glucose 289, Na 132, Alb 2.4, POC 272-279, Ca 8.3 11/28: glucose 308, Na 130, Alb 2.7, POC 250-327, Mg 1.2 Nutritional Hx/Data Height 1.52 m Height (Calculated Centimeters) 152.4 Current Weight (lbs) 108.862 kg Weight (Calculated Kilograms) 108.9 Weight (Calculated Grams) 417397.2 [place] Body Weight 100 lb Body Mass Index (BMI) 46.8 Weight Status Morbidly Obese GI Symptoms Last BM none noted Difficult in: None Food Allergies No Skin Integrity/Comment: Per wound care assessment: cellulitis wounds to rt posterior leg, rt lower leg, and left posterior leg ( superficial), cellulitis wounds to left lower leg anterior and left lower leg ( partial thickness) non-pitting edema to BLE Estimated Nutritional Goals BEE in Kcals: Adj wt of IBW Calories/Kcals/Kg 30-35 (based on adj wt 61.4 kg ) Kcals Calculated [id number] Protein: Adj wt of IBW Protein g/k.2 (based on adj wt 61.4 kg) Protein Calculated 74 g Fluid: ml [id number] (1 ml/kcal) Nutritional Problem 2. Problem Problem Inadequate oral intake Etiology increased kcal and protein needs Signs/Symptoms: cellulitis wounds/ulcers to BLE, pt on clear liquid diet 1. Problem Problem Altered nutrition related lab values Etiology hx of DM Signs/Symptoms: glucose 289, POC 272-279 Malnutrition Alert Is there a minimum of two criteria No selected? Query Text:Check all the applicable criteria. A minimum of two criteria are recommended for diagnosis of either severe or non-severe malnutrition. Malnutrition Related to Morbid Obesity Malnutrition related to morbid obesity No Intervention/Recommendation Comments 1. Once diet is advanced, recommend to start CCHO 60 g, low sodium 2g diet d/t elevated bs and dx of CHF and cirrhosis 2. Consider supplementing Ensure Enlive if protein and kcal needs not met w/ PO intake alone 3. Monitor PO intake, wt, labs and skin integrity 4. F/U as high risk in 2-3 days, 12/01-12/02 Expected Outcomes/Goals Expected Outcomes/Goals 1. PO intake to meet at least 75% of nutritional needs 2. Wt stability, wounds to heal, and nutrition related labs to approach normal limits Reviewed by Pamela Williamson RD
[2017-12-03] MEDS: INSULIN ASPART SLIDING SCALE 100 UNITS/ML UNIT SUBQ SCH ×4 (06:30→20:54)
--- NOTE | 2017-12-03 07:41 | GI Progress Note ---
Subjective - Review of Systems Service Date: 12/03/17 Subjective: A/Ox1 this morning. She thinks she is at post [place] and that it is 1978 Objective - Results Result Diagrams: 11/30/17 05:30 12/01/17 05:55 Recent Labs: Laboratory Last Values WBC 8.6 Th/cmm (4.8-10.8) 11/30/17 05:30 RBC 3.45 Mil/cmm (3.80-5.20) L 11/30/17 05:30 Hgb 9.8 gm/dL (12-16) L 11/30/17 05:30 Hct 29.4 % (41.0-60) L 11/30/17 05:30 MCV 85.3 fl (81-100) 11/30/17 05:30 MCH 28.5 pg (27.0-31.0) 11/30/17 05:30 MCHC Differential 33.4 pg (28.0-36.0) 11/30/17 05:30 RDW 15.0 % (11.5-20.0) 11/30/17 05:30 Plt Count 101 Th/cmm (150-400) L 11/30/17 05:30 MPV 9.3 fl 11/30/17 05:30 Neutrophils % 71.9 % (40.0-80.0) 11/30/17 05:30 Lymphocytes % 10.5 % (20.0-50.0) L 11/30/17 05:30 Monocytes % 14.1 % (2.0-10.0) H 11/30/17 05:30 Eosinophils % 3.5 % (0.0-5.0) 11/30/17 05:30 Basophils % 0.0 % (0.0-2.0) 11/30/17 05:30 PT 11.5 SECONDS (9.5-11.5) 11/30/17 09:00 INR 1.12 (0.5-1.4) 11/30/17 09:00 PTT (Actin FS) 30.8 SECONDS (26.0-38.0) 11/30/17 09:00 D-Dimer 2990 ng/mL (100-400) H 11/28/17 06:50 Sodium 132 mEq/L (136-145) L 12/01/17 05:55 Potassium 3.9 mEq/L (3.5-5.1) 12/01/17 05:55 Chloride 97 mEq/L (98-107) L 12/01/17 05:55 Carbon Dioxide 28.2 mEq/L (21.0-31.0) 12/01/17 05:55 Anion Gap 10.7 (7.0-16.0) 12/01/17 05:55 BUN 25 mg/dL (7-25) 12/01/17 05:55 Creatinine 1.2 mg/dL (0.6-1.2) 12/01/17 05:55 Est GFR ( Amer) TNP 12/01/17 05:55 Est GFR (Non-Af Amer) TNP 12/01/17 05:55 BUN/Creatinine Ratio 20.8 12/01/17 05:55 Glucose 284 mg/dL (70-105) H 12/01/17 05:55 POC Glucose 286 MG/DL (70 - 105) H 12/03/17 06:14 Calcium 8.1 mg/dL (8.6-10.3) L 12/01/17 05:55 Phosphorus 2.7 mg/dL (2.5-5.0) 11/28/17 06:50 Magnesium 1.2 mg/dL (1.9-2.7) L 11/28/17 06:50 Iron 24 ug/dL (27-139) L 11/30/17 05:30 TIBC 228 ug/dL (250-450) L 11/30/17 05:30 Iron Saturation 11 % (15-55) L 11/30/17 05:30 Unsaturated IBC 204 ug/dL (118-369) 11/30/17 05:30 Ferritin 168 ng/mL (15-150) H 11/30/17 05:30 Total Bilirubin 4.7 mg/dL (0.3-1.0) H 12/01/17 05:55 GGTP 73 IU/L (0-60) H 11/30/17 05:30 AST 24 U/L (13-39) 12/01/17 05:55 ALT 11 U/L (7-52) 12/01/17 05:55 Alkaline Phosphatase 66 U/L (34-104) 12/01/17 05:55 Ammonia 104 umol/L (16-53) H 11/28/17 10:40 Troponin I 0.03 ng/mL (0.01-0.05) 11/28/17 06:50 B-Natriuretic Peptide 428.0 pg/mL (5.0-100.0) H 12/01/17 05:55 Total Protein 5.9 gm/dL (6.0-8.3) L 12/01/17 05:55 Albumin 2.4 gm/dL (3.7-5.3) L 12/01/17 05:55 Globulin 3.5 gm/dL 12/01/17 05:55 Albumin/Globulin Ratio 0.7 (1.0-1.8) L 12/01/17 05:55 Ceruloplasmin 31.1 mg/dL (19.0-39.0) 11/30/17 05:30 Lipase 29 U/L (11-82) 11/30/17 05:30 Tumor Marker AFP 3.1 ng/mL (0.0-8.3) 11/30/17 05:30 Urine Source CATH 11/28/17 07:54 Urine Color YELLOW 11/28/17 07:54 Urine Clarity HAZY (CLEAR) 11/28/17 07:54 Urine pH 6.5 (4.6 - 8.0) 11/28/17 07:54 Ur Specific [place] 1.020 (1.005-1.030) 11/28/17 07:54 Urine Protein 100 mg/dL (NEGATIVE) H 11/28/17 07:54 Urine Glucose (UA) 250 mg/dL (NEGATIVE) H 11/28/17 07:54 Urine Ketones NEGATIVE mg/dL (NEGATIVE) 11/28/17 07:54 Urine Blood SMALL (NEGATIVE) H 11/28/17 07:54 Urine Nitrate POSITIVE (NEGATIVE) H 11/28/17 07:54 Urine Bilirubin NEGATIVE (NEGATIVE) 11/28/17 07:54 Urine Urobilinogen 2.0 E.U./dL (0.2 - 1.0) 11/28/17 07:54 Ur Leukocyte Esterase TRACE (NEGATIVE) H 11/28/17 07:54 Urine RBC 5-10 /hpf (0-5) H 11/28/17 07:54 Urine WBC 2-5 /hpf (0-5) 11/28/17 07:54 Ur Epithelial Cells MODERATE /lpf (FEW) 11/28/17 07:54 Urine Bacteria 4+ /hpf (NONE SEEN) H 11/28/17 07:54 Vancomycin Trough 8.6 ug/mL (5-10) 12/01/17 08:00 Urine Opiates Screen NEGATIVE (NEGATIVE) 11/28/17 07:54 Urine Methadone Screen NEGATIVE (NEGATIVE) 11/28/17 07:54 Ur Barbiturates Screen NEGATIVE (NEGATIVE) 11/28/17 07:54 Ur Tricyclics Screen NEGATIVE (NEGATIVE) 11/28/17 07:54 Ur Phencyclidine Scrn NEGATIVE (NEGATIVE) 11/28/17 07:54 Amphetamines Screen NEGATIVE (NEGATIVE) 11/28/17 07:54 U Methamphetamines Scrn NEGATIVE (NEGATIVE) 11/28/17 07:54 U Benzodiazepines Scrn NEGATIVE (NEGATIVE) 11/28/17 07:54 U Cocaine Metab Screen NEGATIVE (NEGATIVE) 11/28/17 07:54 U Cannabinoids Screen NEGATIVE (NEGATIVE) 11/28/17 07:54 Anti-Mitochondrial Ab 4.6 Units (0.0-20.0) 11/30/17 05:30 Smooth Muscle IgG Ab 20 Units (0-19) H 11/30/17 05:30 Hepatitis A IgM Ab Negative (Negative) 11/30/17 05:30 Hep Bs Antigen Negative (Negative) 11/30/17 05:30 Hep B Core IgM Ab Negative (Negative) 11/30/17 05:30 Hepatitis C Antibody <0.1 s/co ratio (0.0-0.9) 11/30/17 05:30 - Physical Exam Vitals and I&O: Vital Signs Temp 97.6 F 12/03/17 04:00 Pulse 71 12/03/17 07:07 Resp 14 12/03/17 07:07 BP 144/46 12/03/17 04:00 Pulse Ox 97 12/03/17 07:07 Intake & Output 12/02/17 12/03/17 12/03/17 18:59 06:59 18:59 Intake Total 400 Output Total 400 350 Balance 0 -350 Weight (lbs) 108.862 kg 114.759 kg 114.759 kg Intake: Oral 400 Output: Urine 400 350 Other: # Voids 2 # Bowel Movements 1 1 Stool Characteristics Soft Soft Brown Brown Weight Source Bedscale Bedscale Bedscale Active Medications: Current Medications Acetaminophen (Tylenol) 650 mg PO Q4H PRN PRN Reason: Moderate Pain or Fever >101 Stop: 01/27/18 17:07 Acetaminophen (Tylenol Extra Strength) 500 mg PO Q4H PRN PRN Reason: Mild pain Stop: 01/27/18 19:34 Last Admin: 12/01/17 21:40 Dose: 500 mg Acetaminophen/Hydrocodone Bitart ([place] 5mg/325mg) 1 tab PO Q8H PRN PRN Reason: Pain (Severe) Stop: 01/27/18 17:09 Last Admin: 12/02/17 03:53 Dose: 1 tab [place] Oil/[place] Balsam/Trypsin (Venelex) 1 appl TP DAILY [facility] Stop: 01/28/18 08:59 Last Admin: 12/02/17 09:05 Dose: 1 appl Doxycycline Hyclate (Vibramycin) 100 mg PO Q12HR [facility] Stop: 01/30/18 20:59 Last Admin: 12/02/17 20:43 Dose: 100 mg Furosemide (Lasix) 20 mg PO DAILY [facility] Stop: 01/28/18 08:59 Last Admin: 12/02/17 09:07 Dose: 20 mg Insulin Aspart (Novolog Insulin Sliding Scale) 0 units SUBQ ACHS [facility]; Protocol Stop: 01/30/18 20:59 Last Admin: 12/03/17 06:30 Dose: 6 units Insulin Detemir (Levemir Insulin) 20 units SUBQ HS [facility]; Protocol Stop: 02/01/18 20:59 Lactulose (Cephulac) 30 gm PO DAILY [facility] Stop: 01/28/18 08:59 Last Admin: 12/02/17 09:05 Dose: 30 gm Lisinopril (Zestril) 20 mg PO BID [facility] Stop: 01/28/18 08:59 Last Admin: 12/02/17 17:35 Dose: 20 mg Magnesium Oxide (Mag-Oxide) 400 mg PO BID [facility] Stop: 01/28/18 08:59 Last Admin: 12/02/17 17:34 Dose: 400 mg Mupirocin (Bactroban Oint) 1 appl NS BID [facility] Stop: 12/04/17 09:01 Last Admin: 12/02/17 17:40 Dose: 1 appl Pantoprazole Sodium (Protonix) 40 mg PO DAILY [facility] Stop: 01/28/18 08:59 Last Admin: 12/02/17 09:08 Dose: 40 mg Propranolol HCl (Inderal) 20 mg PO DAILY [facility] Stop: 01/28/18 08:59 Last Admin: 12/02/17 09:07 Dose: 20 mg Rifaximin (Xifaxan) 600 mg PO BID [facility] Stop: 01/28/18 09:44 Last Admin: 12/02/17 17:34 Dose: 600 mg Sitagliptin Phosphate (Januvia) 100 mg PO DAILY [facility] Stop: 02/01/18 08:59 Spironolactone (Aldactone) 25 mg PO QPM [facility] Stop: 01/28/18 16:59 Last Admin: 12/02/17 17:35 Dose: 25 mg General: Alert, No acute distress HEENT: Atraumatic Neck: Supple Cardiovascular: Regular rate, Normal S1 Lungs: Clear to auscultation Abdomen: Bowel sounds, Soft, Obese, no Tender, no Hepatomegaly Extremities: no Edema Neurological: Normal speech Skin: Significant lesion (presence of lower ext ulcers) - Procedures Procedures: Procedures Procedure Code Date INJECT/INFUSE NEC 99.29 01/12/10 Assessment/Plan - Assessment Assessment: IMPRESSION: 1. PROBABLE CIRRHOSIS, R/O [place] VS. OTHER ETIOLOGY. ABD CT SHOWED PROBABLE CIRRHOSIS, CHOLELITHIASIS. 2. HEP ENCEPHALOPATHY. 3. MILD ANEMIA. 4. THROMBOCYTOPENIA. 5. OBESITY 6. DM2. 7. ANASARCA/PERIPH EDEMA WITH LEG ULCERS. RECS: 1. F/U LIVER LABS - NEG TO DATE. 2. ORAL DIET TOLERATED. 3. MONITOR HEPATIC SYNTHETIC FUNCTION. 4. AVOID HEPATOTOXIC AGENTS. 5. LACTULOSE - TITRATE TO EFFECT. Aim for 3-4 BMs per day 6. RIFAXIMIN. 7. WOUND CARE PER HOSPITALIST. 8. OUTPATIENT HEPATOLOGY CLINIC F/U. 9. PT/REHAB. 10. NON-OPERATIVE MANAGEMENT OF CHOLELITHIASIS FOR NOW. 11. Will get ammonia level
[2017-12-03] MEDS: Venelex 60gm Tube TP SCH (08:51)
[2017-12-03] MEDS: Lactulose 10 Gm/15 mL 30mL UDC PO SCH (08:52)
[2017-12-03] MEDS: Pantoprazole 40 mg EC Tab PO SCH (08:53)
[2017-12-03] MEDS ORDERED: Insulin Detemir 100 units/mL 10mL Vial SUBQ SCH (21:00)
--- NOTE | 2017-12-04 07:16 | General Progress Note ---
Subjective - Review of Systems Service Date: 12/04/17 Subjective: Awake, alert but confused. no acute distress. Eating better. feeling better. In good spirits. Objective - Results Result Diagrams: 11/30/17 05:30 12/01/17 05:55 Recent Labs: Laboratory Last Values WBC 8.6 Th/cmm (4.8-10.8) 11/30/17 05:30 RBC 3.45 Mil/cmm (3.80-5.20) L 11/30/17 05:30 Hgb 9.8 gm/dL (12-16) L 11/30/17 05:30 Hct 29.4 % (41.0-60) L 11/30/17 05:30 MCV 85.3 fl (81-100) 11/30/17 05:30 MCH 28.5 pg (27.0-31.0) 11/30/17 05:30 MCHC Differential 33.4 pg (28.0-36.0) 11/30/17 05:30 RDW 15.0 % (11.5-20.0) 11/30/17 05:30 Plt Count 101 Th/cmm (150-400) L 11/30/17 05:30 MPV 9.3 fl 11/30/17 05:30 Neutrophils % 71.9 % (40.0-80.0) 11/30/17 05:30 Lymphocytes % 10.5 % (20.0-50.0) L 11/30/17 05:30 Monocytes % 14.1 % (2.0-10.0) H 11/30/17 05:30 Eosinophils % 3.5 % (0.0-5.0) 11/30/17 05:30 Basophils % 0.0 % (0.0-2.0) 11/30/17 05:30 PT 11.5 SECONDS (9.5-11.5) 11/30/17 09:00 INR 1.12 (0.5-1.4) 11/30/17 09:00 PTT (Actin FS) 30.8 SECONDS (26.0-38.0) 11/30/17 09:00 D-Dimer 2990 ng/mL (100-400) H 11/28/17 06:50 Sodium 132 mEq/L (136-145) L 12/01/17 05:55 Potassium 3.9 mEq/L (3.5-5.1) 12/01/17 05:55 Chloride 97 mEq/L (98-107) L 12/01/17 05:55 Carbon Dioxide 28.2 mEq/L (21.0-31.0) 12/01/17 05:55 Anion Gap 10.7 (7.0-16.0) 12/01/17 05:55 BUN 25 mg/dL (7-25) 12/01/17 05:55 Creatinine 1.2 mg/dL (0.6-1.2) 12/01/17 05:55 Est GFR ( Amer) TNP 12/01/17 05:55 Est GFR (Non-Af Amer) TNP 12/01/17 05:55 BUN/Creatinine Ratio 20.8 12/01/17 05:55 Glucose 284 mg/dL (70-105) H 12/01/17 05:55 POC Glucose 199 MG/DL (70 - 105) H 12/04/17 06:14 Calcium 8.1 mg/dL (8.6-10.3) L 12/01/17 05:55 Phosphorus 2.7 mg/dL (2.5-5.0) 11/28/17 06:50 Magnesium 1.2 mg/dL (1.9-2.7) L 11/28/17 06:50 Iron 24 ug/dL (27-139) L 11/30/17 05:30 TIBC 228 ug/dL (250-450) L 11/30/17 05:30 Iron Saturation 11 % (15-55) L 11/30/17 05:30 Unsaturated IBC 204 ug/dL (118-369) 11/30/17 05:30 Ferritin 168 ng/mL (15-150) H 11/30/17 05:30 Total Bilirubin 4.7 mg/dL (0.3-1.0) H 12/01/17 05:55 GGTP 73 IU/L (0-60) H 11/30/17 05:30 AST 24 U/L (13-39) 12/01/17 05:55 ALT 11 U/L (7-52) 12/01/17 05:55 Alkaline Phosphatase 66 U/L (34-104) 12/01/17 05:55 Ammonia 104 umol/L (16-53) H 11/28/17 10:40 Troponin I 0.03 ng/mL (0.01-0.05) 11/28/17 06:50 B-Natriuretic Peptide 428.0 pg/mL (5.0-100.0) H 12/01/17 05:55 Total Protein 5.9 gm/dL (6.0-8.3) L 12/01/17 05:55 Albumin 2.4 gm/dL (3.7-5.3) L 12/01/17 05:55 Globulin 3.5 gm/dL 12/01/17 05:55 Albumin/Globulin Ratio 0.7 (1.0-1.8) L 12/01/17 05:55 Ceruloplasmin 31.1 mg/dL (19.0-39.0) 11/30/17 05:30 Lipase 29 U/L (11-82) 11/30/17 05:30 Tumor Marker AFP 3.1 ng/mL (0.0-8.3) 11/30/17 05:30 Urine Source CATH 11/28/17 07:54 Urine Color YELLOW 11/28/17 07:54 Urine Clarity HAZY (CLEAR) 11/28/17 07:54 Urine pH 6.5 (4.6 - 8.0) 11/28/17 07:54 Ur Specific [place] 1.020 (1.005-1.030) 11/28/17 07:54 Urine Protein 100 mg/dL (NEGATIVE) H 11/28/17 07:54 Urine Glucose (UA) 250 mg/dL (NEGATIVE) H 11/28/17 07:54 Urine Ketones NEGATIVE mg/dL (NEGATIVE) 11/28/17 07:54 Urine Blood SMALL (NEGATIVE) H 11/28/17 07:54 Urine Nitrate POSITIVE (NEGATIVE) H 11/28/17 07:54 Urine Bilirubin NEGATIVE (NEGATIVE) 11/28/17 07:54 Urine Urobilinogen 2.0 E.U./dL (0.2 - 1.0) 11/28/17 07:54 Ur Leukocyte Esterase TRACE (NEGATIVE) H 11/28/17 07:54 Urine RBC 5-10 /hpf (0-5) H 11/28/17 07:54 Urine WBC 2-5 /hpf (0-5) 11/28/17 07:54 Ur Epithelial Cells MODERATE /lpf (FEW) 11/28/17 07:54 Urine Bacteria 4+ /hpf (NONE SEEN) H 11/28/17 07:54 Vancomycin Trough 8.6 ug/mL (5-10) 12/01/17 08:00 Urine Opiates Screen NEGATIVE (NEGATIVE) 11/28/17 07:54 Urine Methadone Screen NEGATIVE (NEGATIVE) 11/28/17 07:54 Ur Barbiturates Screen NEGATIVE (NEGATIVE) 11/28/17 07:54 Ur Tricyclics Screen NEGATIVE (NEGATIVE) 11/28/17 07:54 Ur Phencyclidine Scrn NEGATIVE (NEGATIVE) 11/28/17 07:54 Amphetamines Screen NEGATIVE (NEGATIVE) 11/28/17 07:54 U Methamphetamines Scrn NEGATIVE (NEGATIVE) 11/28/17 07:54 U Benzodiazepines Scrn NEGATIVE (NEGATIVE) 11/28/17 07:54 U Cocaine Metab Screen NEGATIVE (NEGATIVE) 11/28/17 07:54 U Cannabinoids Screen NEGATIVE (NEGATIVE) 11/28/17 07:54 Anti-Mitochondrial Ab 4.6 Units (0.0-20.0) 11/30/17 05:30 Smooth Muscle IgG Ab 20 Units (0-19) H 11/30/17 05:30 Hepatitis A IgM Ab Negative (Negative) 11/30/17 05:30 Hep Bs Antigen Negative (Negative) 11/30/17 05:30 Hep B Core IgM Ab Negative (Negative) 11/30/17 05:30 Hepatitis C Antibody <0.1 s/co ratio (0.0-0.9) 11/30/17 05:30 - Physical Exam Vitals and I&O: Vital Signs Temp 97.5 F 12/04/17 01:00 Pulse 69 12/04/17 07:11 Resp 16 12/04/17 07:11 BP 127/47 12/04/17 01:00 Pulse Ox 94 12/04/17 07:11 Intake & Output 12/03/17 12/04/17 12/04/17 18:59 06:59 18:59 Intake Total 500 100 Output Total 600 200 Balance -100 -100 Weight (lbs) 114.759 kg 114.759 kg 115.212 kg Intake: Oral 500 100 Output: Urine 600 200 Other: # Bowel Movements 1 1 Stool Characteristics Soft Soft Brown Brown Weight Source Bedscale Bedscale Bedscale Active Medications: Current Medications Acetaminophen (Tylenol) 650 mg PO Q4H PRN PRN Reason: Moderate Pain or Fever >101 Stop: 01/27/18 17:07 Acetaminophen (Tylenol Extra Strength) 500 mg PO Q4H PRN PRN Reason: Mild pain Stop: 01/27/18 19:34 Last Admin: 12/01/17 21:40 Dose: 500 mg Acetaminophen/Hydrocodone Bitart ([place] 5mg/325mg) 1 tab PO Q8H PRN PRN Reason: Pain (Severe) Stop: 01/27/18 17:09 Last Admin: 12/02/17 03:53 Dose: 1 tab [place] Oil/[place] Balsam/Trypsin (Venelex) 1 appl TP DAILY [facility] Stop: 01/28/18 08:59 Last Admin: 12/03/17 08:51 Dose: 1 appl Doxycycline Hyclate (Vibramycin) 100 mg PO Q12HR [facility] Stop: 01/30/18 20:59 Last Admin: 12/03/17 20:54 Dose: 100 mg Furosemide (Lasix) 20 mg PO DAILY [facility] Stop: 01/28/18 08:59 Last Admin: 12/03/17 08:53 Dose: 20 mg Insulin Aspart (Novolog Insulin Sliding Scale) 0 units SUBQ ACHS [facility]; Protocol Stop: 01/30/18 20:59 Last Admin: 12/03/17 20:54 Dose: 8 units Insulin Detemir (Levemir Insulin) 20 units SUBQ HS [facility]; Protocol Stop: 02/01/18 20:59 Last Admin: 12/03/17 20:56 Dose: 20 units Lactulose (Cephulac) 30 gm PO DAILY [facility] Stop: 01/28/18 08:59 Last Admin: 12/03/17 08:52 Dose: 30 gm Lisinopril (Zestril) 20 mg PO BID [facility] Stop: 01/28/18 08:59 Last Admin: 12/03/17 16:18 Dose: 20 mg Magnesium Oxide (Mag-Oxide) 400 mg PO BID [facility] Stop: 01/28/18 08:59 Last Admin: 12/03/17 16:19 Dose: 400 mg Metformin HCl (Glucophage) 500 mg PO DAILY [facility] Stop: 02/02/18 08:59 Mupirocin (Bactroban Oint) 1 appl NS BID [facility] Stop: 12/04/17 09:01 Last Admin: 12/03/17 16:35 Dose: 1 appl Pantoprazole Sodium (Protonix) 40 mg PO DAILY [facility] Stop: 01/28/18 08:59 Last Admin: 12/03/17 08:53 Dose: 40 mg Propranolol HCl (Inderal) 20 mg PO DAILY [facility] Stop: 01/28/18 08:59 Last Admin: 12/03/17 08:53 Dose: 20 mg Rifaximin (Xifaxan) 600 mg PO BID [facility] Stop: 01/28/18 09:44 Last Admin: 12/03/17 16:18 Dose: 600 mg Sitagliptin Phosphate (Januvia) 100 mg PO DAILY [facility] Stop: 02/01/18 08:59 Last Admin: 12/03/17 08:54 Dose: 100 mg Spironolactone (Aldactone) 25 mg PO QPM [facility] Stop: 01/28/18 16:59 Last Admin: 12/03/17 16:18 Dose: 25 mg General: Alert, No acute distress HEENT: Atraumatic Neck: Supple Cardiovascular: Regular rate, Normal S1 Lungs: Clear to auscultation Abdomen: Bowel sounds, Soft, Obese, no Tender, no Hepatomegaly Extremities: no Edema Neurological: Normal speech Skin: Significant lesion (presence of lower ext ulcers) - Procedures Procedures: Procedures Procedure Code Date INJECT/INFUSE NEC 99.29 01/12/10 Assessment/Plan - Assessment Assessment: Anasarca/Peripheral edema and cellulitis lower leg ulcers ... + Klebsiella +MRSA ... on doxycycline. off Van and Zosyn UTI ... +Klebsiella HTN DM ... will add Metformin 500mg PO noontime CAD CHF left side pleural effusion hyponatremia cholelithiasis possible cirrhosis, r/o [place] vs other etiology hyperbilirubinemia mild anemia thrombocytopenia hepatic encephalopathy morbid obesity hyperlipidemia - Plan Plan: continue current treatment. for SNF placement Nutritional Asmnt/Malnutr-PDOC - Dietary Evaluation Malnutrition Findings (Please click <Entered> for more info): Nutritional Asmnt/Malnutrition Start: 11/29/17 13: 30 Text: Status: Complete Freq: Protocol: Document 11/29/17 13:31 DAHIANA (Rec: 11/29/17 13:40 DAHIANA WAYENFN) Nutritional Asmnt/Malnutrition Patient General Information Nutritional Screening High Risk Consult Diagnosis CHF, cirrhosis, cellulitis Pertinent Medical Hx/Surgical Hx HTN, DM, CAD, CHF Subjective Information Received diet consult d/t type II DM and wounds. Pt resting in bed w/ at bedside at time of visit. Pt's states pt likes sandwiches, rice, and vegetables. also states pt is requesting a hamburger; RD explained purpose of clear liquid diet and pt's verbalized understanding. Per nurse note, pt was NPO this morning for abdominal ultrasound. Current Diet Order/ Nutrition Support clear liquid Pertinent Medications lasix, novolog, Mag-oxide, zosyn, vancomycin, protonix, piperacillin, januvia, aldactone Pertinent Labs 11/29: glucose 289, Na 132, Alb 2.4, POC 272-279, Ca 8.3 11/28: glucose 308, Na 130, Alb 2.7, POC 250-327, Mg 1.2 Nutritional Hx/Data Height 1.52 m Height (Calculated Centimeters) 152.4 Current Weight (lbs) 108.862 kg Weight (Calculated Kilograms) 108.9 Weight (Calculated Grams) 328626.2 [place] Body Weight 100 lb Body Mass Index (BMI) 46.8 Weight Status Morbidly Obese GI Symptoms Last BM none noted Difficult in: None Food Allergies No Skin Integrity/Comment: Per wound care assessment: cellulitis wounds to rt posterior leg, rt lower leg, and left posterior leg ( superficial), cellulitis wounds to left lower leg anterior and left lower leg ( partial thickness) non-pitting edema to BLE Estimated Nutritional Goals BEE in Kcals: Adj wt of IBW Calories/Kcals/Kg 30-35 (based on adj wt 61.4 kg ) Kcals Calculated 8217-9911 Protein: Adj wt of IBW Protein g/k.2 (based on adj wt 61.4 kg) Protein Calculated 74 g Fluid: ml [id number] (1 ml/kcal) Nutritional Problem 2. Problem Problem Inadequate oral intake Etiology increased kcal and protein needs Signs/Symptoms: cellulitis wounds/ulcers to BLE, pt on clear liquid diet 1. Problem Problem Altered nutrition related lab values Etiology hx of DM Signs/Symptoms: glucose 289, POC 272-279 Malnutrition Alert Is there a minimum of two criteria No selected? Query Text:Check all the applicable criteria. A minimum of two criteria are recommended for diagnosis of either severe or non-severe malnutrition. Malnutrition Related to Morbid Obesity Malnutrition related to morbid obesity No Intervention/Recommendation Comments 1. Once diet is advanced, recommend to start CCHO 60 g, low sodium 2g diet d/t elevated bs and dx of CHF and cirrhosis 2. Consider supplementing Ensure Enlive if protein and kcal needs not met w/ PO intake alone 3. Monitor PO intake, wt, labs and skin integrity 4. F/U as high risk in 2-3 days, 12/01-12/02 Expected Outcomes/Goals Expected Outcomes/Goals 1. PO intake to meet at least 75% of nutritional needs 2. Wt stability, wounds to heal, and nutrition related labs to approach normal limits Reviewed by Pamela Williamson RD
--- NOTE | 2017-12-04 08:06 | GI Progress Note ---
Subjective - Review of Systems Service Date: 12/04/17 Subjective: More alert this morning, A/Ox3 Objective - Results Result Diagrams: 11/30/17 05:30 12/01/17 05:55 Recent Labs: Laboratory Last Values WBC 8.6 Th/cmm (4.8-10.8) 11/30/17 05:30 RBC 3.45 Mil/cmm (3.80-5.20) L 11/30/17 05:30 Hgb 9.8 gm/dL (12-16) L 11/30/17 05:30 Hct 29.4 % (41.0-60) L 11/30/17 05:30 MCV 85.3 fl (81-100) 11/30/17 05:30 MCH 28.5 pg (27.0-31.0) 11/30/17 05:30 MCHC Differential 33.4 pg (28.0-36.0) 11/30/17 05:30 RDW 15.0 % (11.5-20.0) 11/30/17 05:30 Plt Count 101 Th/cmm (150-400) L 11/30/17 05:30 MPV 9.3 fl 11/30/17 05:30 Neutrophils % 71.9 % (40.0-80.0) 11/30/17 05:30 Lymphocytes % 10.5 % (20.0-50.0) L 11/30/17 05:30 Monocytes % 14.1 % (2.0-10.0) H 11/30/17 05:30 Eosinophils % 3.5 % (0.0-5.0) 11/30/17 05:30 Basophils % 0.0 % (0.0-2.0) 11/30/17 05:30 PT 11.5 SECONDS (9.5-11.5) 11/30/17 09:00 INR 1.12 (0.5-1.4) 11/30/17 09:00 PTT (Actin FS) 30.8 SECONDS (26.0-38.0) 11/30/17 09:00 D-Dimer 2990 ng/mL (100-400) H 11/28/17 06:50 Sodium 132 mEq/L (136-145) L 12/01/17 05:55 Potassium 3.9 mEq/L (3.5-5.1) 12/01/17 05:55 Chloride 97 mEq/L (98-107) L 12/01/17 05:55 Carbon Dioxide 28.2 mEq/L (21.0-31.0) 12/01/17 05:55 Anion Gap 10.7 (7.0-16.0) 12/01/17 05:55 BUN 25 mg/dL (7-25) 12/01/17 05:55 Creatinine 1.2 mg/dL (0.6-1.2) 12/01/17 05:55 Est GFR ( Amer) TNP 12/01/17 05:55 Est GFR (Non-Af Amer) TNP 12/01/17 05:55 BUN/Creatinine Ratio 20.8 12/01/17 05:55 Glucose 284 mg/dL (70-105) H 12/01/17 05:55 POC Glucose 199 MG/DL (70 - 105) H 12/04/17 06:14 Calcium 8.1 mg/dL (8.6-10.3) L 12/01/17 05:55 Phosphorus 2.7 mg/dL (2.5-5.0) 11/28/17 06:50 Magnesium 1.2 mg/dL (1.9-2.7) L 11/28/17 06:50 Iron 24 ug/dL (27-139) L 11/30/17 05:30 TIBC 228 ug/dL (250-450) L 11/30/17 05:30 Iron Saturation 11 % (15-55) L 11/30/17 05:30 Unsaturated IBC 204 ug/dL (118-369) 11/30/17 05:30 Ferritin 168 ng/mL (15-150) H 11/30/17 05:30 Total Bilirubin 4.7 mg/dL (0.3-1.0) H 12/01/17 05:55 GGTP 73 IU/L (0-60) H 11/30/17 05:30 AST 24 U/L (13-39) 12/01/17 05:55 ALT 11 U/L (7-52) 12/01/17 05:55 Alkaline Phosphatase 66 U/L (34-104) 12/01/17 05:55 Ammonia 104 umol/L (16-53) H 11/28/17 10:40 Troponin I 0.03 ng/mL (0.01-0.05) 11/28/17 06:50 B-Natriuretic Peptide 428.0 pg/mL (5.0-100.0) H 12/01/17 05:55 Total Protein 5.9 gm/dL (6.0-8.3) L 12/01/17 05:55 Albumin 2.4 gm/dL (3.7-5.3) L 12/01/17 05:55 Globulin 3.5 gm/dL 12/01/17 05:55 Albumin/Globulin Ratio 0.7 (1.0-1.8) L 12/01/17 05:55 Ceruloplasmin 31.1 mg/dL (19.0-39.0) 11/30/17 05:30 Lipase 29 U/L (11-82) 11/30/17 05:30 Tumor Marker AFP 3.1 ng/mL (0.0-8.3) 11/30/17 05:30 Urine Source CATH 11/28/17 07:54 Urine Color YELLOW 11/28/17 07:54 Urine Clarity HAZY (CLEAR) 11/28/17 07:54 Urine pH 6.5 (4.6 - 8.0) 11/28/17 07:54 Ur Specific [place] 1.020 (1.005-1.030) 11/28/17 07:54 Urine Protein 100 mg/dL (NEGATIVE) H 11/28/17 07:54 Urine Glucose (UA) 250 mg/dL (NEGATIVE) H 11/28/17 07:54 Urine Ketones NEGATIVE mg/dL (NEGATIVE) 11/28/17 07:54 Urine Blood SMALL (NEGATIVE) H 11/28/17 07:54 Urine Nitrate POSITIVE (NEGATIVE) H 11/28/17 07:54 Urine Bilirubin NEGATIVE (NEGATIVE) 11/28/17 07:54 Urine Urobilinogen 2.0 E.U./dL (0.2 - 1.0) 11/28/17 07:54 Ur Leukocyte Esterase TRACE (NEGATIVE) H 11/28/17 07:54 Urine RBC 5-10 /hpf (0-5) H 11/28/17 07:54 Urine WBC 2-5 /hpf (0-5) 11/28/17 07:54 Ur Epithelial Cells MODERATE /lpf (FEW) 11/28/17 07:54 Urine Bacteria 4+ /hpf (NONE SEEN) H 11/28/17 07:54 Vancomycin Trough 8.6 ug/mL (5-10) 12/01/17 08:00 Urine Opiates Screen NEGATIVE (NEGATIVE) 11/28/17 07:54 Urine Methadone Screen NEGATIVE (NEGATIVE) 11/28/17 07:54 Ur Barbiturates Screen NEGATIVE (NEGATIVE) 11/28/17 07:54 Ur Tricyclics Screen NEGATIVE (NEGATIVE) 11/28/17 07:54 Ur Phencyclidine Scrn NEGATIVE (NEGATIVE) 11/28/17 07:54 Amphetamines Screen NEGATIVE (NEGATIVE) 11/28/17 07:54 U Methamphetamines Scrn NEGATIVE (NEGATIVE) 11/28/17 07:54 U Benzodiazepines Scrn NEGATIVE (NEGATIVE) 11/28/17 07:54 U Cocaine Metab Screen NEGATIVE (NEGATIVE) 11/28/17 07:54 U Cannabinoids Screen NEGATIVE (NEGATIVE) 11/28/17 07:54 Anti-Mitochondrial Ab 4.6 Units (0.0-20.0) 11/30/17 05:30 Smooth Muscle IgG Ab 20 Units (0-19) H 11/30/17 05:30 Hepatitis A IgM Ab Negative (Negative) 11/30/17 05:30 Hep Bs Antigen Negative (Negative) 11/30/17 05:30 Hep B Core IgM Ab Negative (Negative) 11/30/17 05:30 Hepatitis C Antibody <0.1 s/co ratio (0.0-0.9) 11/30/17 05:30 - Physical Exam Vitals and I&O: Vital Signs Temp 97.5 F 12/04/17 01:00 Pulse 69 12/04/17 07:11 Resp 16 12/04/17 07:11 BP 127/47 12/04/17 01:00 Pulse Ox 94 12/04/17 07:11 Intake & Output 12/03/17 12/04/17 12/04/17 18:59 06:59 18:59 Intake Total 500 100 Output Total 600 200 Balance -100 -100 Weight (lbs) 114.759 kg 114.759 kg 115.212 kg Intake: Oral 500 100 Output: Urine 600 200 Other: # Bowel Movements 1 1 Stool Characteristics Soft Soft Brown Brown Weight Source Bedscale Bedscale Bedscale Active Medications: Current Medications Acetaminophen (Tylenol) 650 mg PO Q4H PRN PRN Reason: Moderate Pain or Fever >101 Stop: 01/27/18 17:07 Acetaminophen (Tylenol Extra Strength) 500 mg PO Q4H PRN PRN Reason: Mild pain Stop: 01/27/18 19:34 Last Admin: 12/01/17 21:40 Dose: 500 mg Acetaminophen/Hydrocodone Bitart ([place] 5mg/325mg) 1 tab PO Q8H PRN PRN Reason: Pain (Severe) Stop: 01/27/18 17:09 Last Admin: 12/02/17 03:53 Dose: 1 tab [place] Oil/[place] Balsam/Trypsin (Venelex) 1 appl TP DAILY [facility] Stop: 01/28/18 08:59 Last Admin: 12/03/17 08:51 Dose: 1 appl Doxycycline Hyclate (Vibramycin) 100 mg PO Q12HR [facility] Stop: 01/30/18 20:59 Last Admin: 12/03/17 20:54 Dose: 100 mg Furosemide (Lasix) 20 mg PO DAILY [facility] Stop: 01/28/18 08:59 Last Admin: 12/03/17 08:53 Dose: 20 mg Insulin Aspart (Novolog Insulin Sliding Scale) 0 units SUBQ ACHS [facility]; Protocol Stop: 01/30/18 20:59 Last Admin: 12/03/17 20:54 Dose: 8 units Insulin Detemir (Levemir Insulin) 20 units SUBQ HS [facility]; Protocol Stop: 02/01/18 20:59 Last Admin: 12/03/17 20:56 Dose: 20 units Lactulose (Cephulac) 30 gm PO DAILY [facility] Stop: 01/28/18 08:59 Last Admin: 12/03/17 08:52 Dose: 30 gm Lisinopril (Zestril) 20 mg PO BID [facility] Stop: 01/28/18 08:59 Last Admin: 12/03/17 16:18 Dose: 20 mg Magnesium Oxide (Mag-Oxide) 400 mg PO BID [facility] Stop: 01/28/18 08:59 Last Admin: 12/03/17 16:19 Dose: 400 mg Metformin HCl (Glucophage) 500 mg PO DAILY@1200 [facility] Stop: 02/02/18 11:59 Mupirocin (Bactroban Oint) 1 appl NS BID [facility] Stop: 12/04/17 09:01 Last Admin: 12/03/17 16:35 Dose: 1 appl Pantoprazole Sodium (Protonix) 40 mg PO DAILY [facility] Stop: 01/28/18 08:59 Last Admin: 12/03/17 08:53 Dose: 40 mg Propranolol HCl (Inderal) 20 mg PO DAILY [facility] Stop: 01/28/18 08:59 Last Admin: 12/03/17 08:53 Dose: 20 mg Rifaximin (Xifaxan) 600 mg PO BID [facility] Stop: 01/28/18 09:44 Last Admin: 12/03/17 16:18 Dose: 600 mg Sitagliptin Phosphate (Januvia) 100 mg PO DAILY [facility] Stop: 02/01/18 08:59 Last Admin: 12/03/17 08:54 Dose: 100 mg Spironolactone (Aldactone) 25 mg PO QPM [facility] Stop: 01/28/18 16:59 Last Admin: 12/03/17 16:18 Dose: 25 mg General: Alert, No acute distress HEENT: Atraumatic Neck: Supple Cardiovascular: Regular rate, Normal S1 Lungs: Clear to auscultation Abdomen: Bowel sounds, Soft, Obese, no Tender, no Hepatomegaly Extremities: no Edema Neurological: Normal speech Skin: Significant lesion (presence of lower ext ulcers) - Procedures Procedures: Procedures Procedure Code Date INJECT/INFUSE NEC 99.29 01/12/10 Assessment/Plan - Assessment Assessment: IMPRESSION: 1. PROBABLE CIRRHOSIS, R/O [place] VS. OTHER ETIOLOGY. ABD CT SHOWED PROBABLE CIRRHOSIS, CHOLELITHIASIS. 2. HEP ENCEPHALOPATHY. 3. MILD ANEMIA. 4. THROMBOCYTOPENIA. 5. OBESITY 6. DM2. 7. ANASARCA/PERIPH EDEMA WITH LEG ULCERS. RECS: 1. Viral panel is neg. SMA is weakly positive, but doubt this is etiology of cirrhosis. Will send IgG. 2. ORAL DIET TOLERATED. 3. MONITOR HEPATIC SYNTHETIC FUNCTION. 4. AVOID HEPATOTOXIC AGENTS. 5. LACTULOSE - TITRATE TO EFFECT. Aim for 3-4 BMs per day 6. RIFAXIMIN. 7. WOUND CARE PER HOSPITALIST. 8. OUTPATIENT HEPATOLOGY CLINIC F/U. 9. PT/REHAB. 10. NON-OPERATIVE MANAGEMENT OF CHOLELITHIASIS FOR NOW. 11. Will get ammonia level
[2017-12-04] MEDS: Venelex 60gm Tube TP SCH (09:38)
[2017-12-04] MEDS: Lactulose 10 Gm/15 mL 30mL UDC PO SCH (09:42)
[2017-12-04] MEDS: Pantoprazole 40 mg EC Tab PO SCH (09:42)
[2017-12-04] MEDS: INSULIN ASPART SLIDING SCALE 100 UNITS/ML UNIT SUBQ SCH ×3 (09:57→17:08)
[2017-12-04] MEDS: Hydrocodone/APAP 5mg/325mg Tab PO PRN (09:57)
[2017-12-04] MEDS ORDERED: Influenza Vaccine (65 yr & older) 0.5 ml Syr IM ONE ×2 (16:14→17:01)
--- NOTE | 2017-12-04 17:25 | Cardiology ---
12/02/[address] Didier Stanley. M-MODE ECHOCARDIOGRAM: Mitral valve, anterior leaflet of mitral valve shows normal excursion, EF velocity. Posterior leaflet of the mitral valve shows normal excursion. Left ventricular posterior wall shows increased thickness, normal excursion. Interventricular septum shows normal thickness, excursion. Ejection fraction 75%. Left atrium enlarged 4.7 cm. Aortic root shows normal dimension, normal excursion of aortic leaflets. CONCLUSION: Left atrial enlargement, hypertrophy of the left ventricle, ejection fraction 75%. 2D ECHO: Long axis view showed normal sized left ventricle with hypertrophy of the left ventricle. Left atrium enlarged. Aortic root shows normal dimension, normal excursion of aortic leaflets. Short axis view of mitral valve normal. Short axis view of aortic valve normal. Apical four-chamber view showed normal sized left ventricle with hypertrophy of the left ventricle. Left atrium enlarged. Right ventricular cavity, right atrium normal, no pericardial effusion. CONCLUSION: Hypertrophy of the left ventricle, ejection fraction 75% and left atrial enlargement. DOPPLER STUDY: Shows mild mitral regurgitation, mild tricuspid regurgitation. CONCLUSION: Hypertrophy of the left ventricle. Left atrial enlargement, ejection fraction 75%, mild mitral regurg and mild tricuspid regurgitation. [facility]# [id number]
--- NOTE | 2017-12-05 09:32 | Discharge Summary ---
DATE OF DISCHARGE: PRELIMINARY DIAGNOSES: 1. Lower extremity anemia. 2. Cellulitis. 3. Hypertension. 4. Diabetes mellitus type 2. 5. Coronary artery disease. 6. Congestive heart failure. 7. Left-sided pleural effusion. 8. Hyponatremia. DISCHARGE DIAGNOSES: 1. Cellulitis to the lower extremities, positive for Klebsiella and methicillin-resistant Staphylococcus aureus. 2. Urinary tract infection positive for Klebsiella. 3. Probable cirrhosis, rule out nonalcoholic steatohepatitis syndrome versus other etiology. 4. Cholelithiasis. 5. Hepatic encephalopathy. 6. Mild anemia. 7. Thrombocytopenia. 8. Obesity. 9. Anasarca, peripheral edema, leg ulcers. 10. Hyperlipidemia. 11. Hypertension. 12. Diabetes mellitus. 13. Coronary artery disease. 14. Hyponatremia, now resolved. BRIEF HISTORY OF PRESENT ILLNESS: This is a 72-year-old female who presents to [facility] with bilateral lower edema and presence of ulcers. The patient has a previous medical history of hypertension, diabetes mellitus, coronary artery disease and CHF. The patient had a D-dimer, which was found to be elevated at 2990, the CTA was, however, negative for PE. Ultrasound of the lower extremity was also ordered, which was negative for DVT. Her BNP was 111. The patient was admitted for further evaluation and treatment. HOSPITAL COURSE: The patient improved during her hospital stay. Her initial lab work revealed hyponatremia, elevated liver enzymes as well as elevated ammonia level. The patient was given initial antibiotic treatment, which include Zosyn as well as vancomycin. Cultures came back positive for Klebsiella, MRSA to the lower legs as well as Klebsiella in the urine. The patient's blood sugar was also noted to be very elevated and the patient was initially given sliding scale index, was started on Levemir 10 units subcutaneously, which was subsequently titrated to 20 units. The patient during her hospital course was also started on metformin and her Januvia was increased. Her blood sugar slowly improved during her hospital stay. The patient was seen and evaluated by GI, see dictated report. CT of the abdomen and pelvis revealed presence of gallstones. The patient was also seen and evaluated by ID for various infections. Please see dictated report. The patient also was seen by Cardiology for elevated BNP and swelling to the lower legs. The patient had an echocardiogram ordered. Please see dictated report, the patient was subsequently discharged in stable condition, was to continue oral antibiotics, doxycycline 100 mg twice a day. All hospital medications were to be continued at the halfway facility. [facility]# [id number]
== END 2017-12-04 17:31 | DRG 441 ==
LOC: ER 05:41 → TELE 12:53 → MSI 12-03 12:28
PROVIDERS: ADMIT Family Medicine; ATTEND Family Medicine
PROC: 0XH833Z Insertion of Infusion Device into Right Upper Arm, Percutaneous Approach (ICD-10-PCS; principal; 2017-11-28)
PROC: 02HV33Z Insertion of Infusion Device into Superior Vena Cava, Percutaneous Approach (ICD-10-PCS; 2017-12-01)
DX: K72.90 Hepatic failure, unspecified without coma (principal); I50.33 Acute on chronic diastolic (congestive) heart failure; L03.116 Cellulitis of left lower limb; E87.1 Hypo-osmolality and hyponatremia; N39.0 Urinary tract infection, site not specified; E44.1 Mild protein-calorie malnutrition; Z68.42 Body mass index [BMI] 45.0-49.9, adult; L97.929 Non-pressure chronic ulcer of unspecified part of left lower leg with unspecified severity; L03.115 Cellulitis of right lower limb; I11.0 Hypertensive heart disease with heart failure; K75.81 Nonalcoholic steatohepatitis (NASH); E11.622 Type 2 diabetes mellitus with other skin ulcer; E11.628 Type 2 diabetes mellitus with other skin complications; K74.69 Other cirrhosis of liver; E78.5 Hyperlipidemia, unspecified; D64.9 Anemia, unspecified; B96.1 Klebsiella pneumoniae [K. pneumoniae] as the cause of diseases classified elsewhere; D69.6 Thrombocytopenia, unspecified; I25.119 Atherosclerotic heart disease of native coronary artery with unspecified angina pectoris; K80.80 Other cholelithiasis without obstruction; K43.9 Ventral hernia without obstruction or gangrene; B95.62 Methicillin resistant Staphylococcus aureus infection as the cause of diseases classified elsewhere; E66.01 Morbid (severe) obesity due to excess calories; Z79.4 Long term (current) use of insulin; Z74.01 Bed confinement status
CPT/HCPCS: 36415-UA; 71045-TC; 71275-TC; 76700-TC; 80053-TC; 80074-90; 80202-TC; 80307; 81001-TC; 82105-90; 82140-TC; 82390-90; 82728-90; 82948-90; 82977-90; 83036-90; 83516-90; 83540-90; 83550-90; 83690-TC; 83735-TC; 83880-TC; 84100-TC; 84484-TC; 85025-TC; 85379-TC; 85610-TC; 85730-TC; 86255-90; 87070-90; 87086-90; 93005; 93971-TC-RT; 94760; 96375; 96376; 97530; J1815; J1940; J2060; J2543; J3370; J3475; J7030; J7040; X3904; X7704; Z7610

== ENCOUNTER 2018-03-05 19:00 | Inpatient (IN) | payer MEDICARE, MEDICAID ==
--- NOTE | 2018-03-05 19:40 | ED Physician Chart ---
ED Chief Complaint/HPI - Patient Information Date Seen:: 03/05/18 Time Seen:: 19:35 Chief Complaint:: anxiety History of Present Illness:: 72 yr old female taglo speaking with argument with sister frustrated and anxious Allergies:: Allergies Allergy/AdvReac Type Severity Reaction Status Date / Time No Known Allergies Allergy Verified 11/28/17 06:20 Vitals:: Vital Signs - 8 hr 03/05/18 19:11 Temp 99.5 F HR 89 RR 17 BP 164/44 O2 Sat % 97 ED Review of Systems - Review of Systems General/Constitutional: No fever, No chills, No weight loss, No weakness, No diaphoresis, No edema, No loss of appetite Skin: No skin lesions, No rash, No bruising Head: No headache, No light-headedness Eyes: No loss of vision, No pain, No diplopia ENT: No earache, No nasal drainage, No sore throat, No tinnitus Neck: No neck pain, No swelling, No thyromegaly, No stiffness, No mass noted Cardio Vascular: No chest pain, No palpitations, No PND, No orthopnea, No edema Pulmonary: No SOB, No cough, No sputum, No wheezing GI: No nausea, No vomiting, No diarrhea, No pain, No melena, No hematochezia, No constipation, No hematemesis G/U: No dysuria, No frequency, No hematuria Musculoskeletal: No bone or joint pain, No back pain, No muscle pain Endocrine: No polyuria, No polydipsia Psychiatric: No prior psych history, No depression, No anxiety, No suicidal ideation Hematopoietic: No bruising, No lymphadenopathy Allergic/Immuno: No urticaria, No angioedema Neurological: No syncope, No focal symptoms, No weakness, No paresthesia, No headache, No seizure, No dizziness, No confusion, No vertigo ED Past Medical History - Past Medical History Past Medical History: HTN, CAD Family Medical History - Family Member Mother History Unknown: Yes ED Physical Exam - Physical Examination General/Constitutional: Awake, Well-developed, well-nourished, Alert, No distress, GCS 15, Non-toxic appearing, Ambulatory Head: Atraumatic Eyes: Lids, conjuctiva normal, PERRL, EOMI Skin: Nl inspection, No rash, No skin lesions, No ecchymosis, Well hydrated, No lymphadenopathy ENMT: External ears, nose nl, Nasal exam nl, Lips, teeth, gums nl Neck: Nontender, Full ROM w/o pain, No JVD, No nuchal rigidity, No bruit, No mass, No stridor Respiratory: Nl effort/Exclusion, Clear to Auscultation, No Wheeze/Rhonchi/Rales Cardio Vascular: RRR, No murmur, gallop, rubs, NL S1 S2 GI: No tenderness/rebounding/guarding, No organomegaly, No hernia, Normal BS's, Nondistended, No mass/bruits, No McBurney tenderness : No CVA tenderness Extremities: No tenderness or effusion, Full ROM, normal strength in all extremities, No edema, Normal digits & nails Neuro/Psych: Alert/oriented, DTR's symmetric, Normal sensory exam, Normal motor strength, Judgement/insight normal, Mood normal, Normal gait, No focal deficits Misc: Normal back, No paraspinal tenderness ED Assessment - Assessment General Assessment: anxiety frustration ED Septic Shock - . Is Septic Shock (SBP<90, OR Lactate>4 mmol\L) present?: No - <6hrs of presentation: Vital Signs: Vital Signs - 8 hr 03/05/18 19:11 Temp 99.5 F HR 89 RR 17 BP 164/44 O2 Sat % 97 ED Reassessment (Disposition) - Reassessment Reassessment:: anxiety - Patient Disposition Discharge/Transfer:: Acute Care w/in this hosp Admitted to:: Med/Surg Condition at Disposition:: Stable
[2018-03-05 20:47] LABS: % BASOPHILS 1.2 % (0.0-2.0); % EOSINOPHILS 3.1 % (0.0-5.0); % LYMPHOCYTES 15.4 % (20.0-50.0); % MONOCYTES 9.9 % (2.0-10.0); % NEUTROPHILS 70.4 % (40.0-80.0); BASOPHILE ABSOLUTE 0.1 Th/cumm (0-0.2); EOSINOPHILE ABSOLUTE 0.2 Th/cmm (0.1-0.4); HEMATOCRIT 36.5 % (41.0-60); HEMOGLOBIN 12.3 gm/dL (12-16); LYMPHOCYTE ABSOLUTE 0.8 Th/cmm (1.5-3.0); MEAN CELL VOLUME 85.2 fl (81-100); MEAN CORPUSCULAR HEMOGLOBIN 28.8 pg (27.0-31.0); MEAN CORPUSCULAR HGB CONC 33.7 pg (28.0-36.0); MEAN PLATELET VOLUME 9.3 fl; MONOCYTE ABSOLUTE 0.5 Th/cmm (0.3-1.0); NEUTROPHILE ABSOLUTE 3.9 Th/cmm (1.8-8.0); PLATELET COUNT 140 Th/cmm (150-400); RED BLOOD COUNT 4.28 Mil/cmm (3.80-5.20); WHITE BLOOD COUNT 5.5 Th/cmm (4.8-10.8)
[2018-03-05 20:52] LABS: INR 1.17 (0.5-1.4); PROTHROMBIN TIME (TEST) 12.1 SECONDS (9.5-11.5)
[2018-03-05 20:59] LABS: ALB/GLOB RATIO 0.8 (1.0-1.8); ALBUMIN 2.8 gm/dL (3.7-5.3); ALKALINE PHOSPHATASE 81 U/L (34-104); ANION GAP 15.3 (7.0-16.0); BILIRUBIN,TOTAL 5.3 mg/dL (0.3-1.0); BUN - UREA NITROGEN 20 mg/dL (7-25); CALCIUM SERUM 9.1 mg/dL (8.6-10.3); CARBON DIOXIDE 22.7 mEq/L (21.0-31.0); CHLORIDE 96 mEq/L (98-107); CREATININE - SERUM 1.2 mg/dL (0.6-1.2); SGOT 28 U/L (13-39); SGPT/ALT 13 U/L (7-52); SODIUM SERUM 130 mEq/L (136-145); TOTAL PROTEIN,SERUM 6.5 gm/dL (6.0-8.3)
[2018-03-05 21:13] LABS: GLUCOSE 473 mg/dL (70-105)
[2018-03-05] MEDS ORDERED: Sodium Chloride 0.9% 1,000 ML IV ONE (21:16)
[2018-03-05] MEDS ORDERED: INSULIN HUMAN REGULAR 100 UNITS/ML UNIT IVP ONE (21:17)
[2018-03-05] MEDS ORDERED: INSULIN HUMAN REGULAR 100 UNITS/ML UNIT ONE (21:27)
[2018-03-05] MEDS ORDERED: Lactulose 10 Gm/15 mL 30mL UDC ONE (21:36)
[2018-03-05] MEDS ORDERED: Lactulose 10 Gm/15 mL 30mL UDC PO ONE (21:45)
[2018-03-05] MEDS ORDERED: Ipratropium Neb 0.5 mg/2.5 mL UD HHN PRN (21:51)
[2018-03-05] MEDS ORDERED: Albuterol Nebulizer 2.5mg/3mL HHN PRN (21:51)
[2018-03-05] MEDS ORDERED: Sodium Chloride 0.9% 1,000 ML IV SCH (22:00)
--- NOTE | 2018-03-05 22:34 | History & Physical ---
ADMIT DATE: 03/06/2018 CHIEF COMPLAINT: Change in mental status. HISTORY OF PRESENT ILLNESS: This is a 72-year-old [place] female with history of hypertension, CHF, liver problems, possible dementia, admitted from home, currently living in a hotel room close by her sister. The patient was noted to be confused. Her sister was anxious about her sister's condition and brought to the Emergency Room. The patient is not cooperative, noted to have an elevated ammonia. PAST MEDICAL HISTORY: As mentioned in the history of present illness. PAST SURGICAL HISTORY: Unable to obtain from the patient. MEDICATIONS: The patient is on lisinopril, Lasix, insulin, Propranolol. FAMILY HISTORY: Noncontributory. SOCIAL HISTORY: This is limited. The patient apparently is a nonsmoker, nondrinker. REVIEW OF SYSTEMS: This is limited due to the sister has already left. We will try to get more information from the patient's spouse and her sister. The patient's medical record was also reviewed from previous admission, last was back in 11/2017. An extensive workup was done at that time including CT abdomen and pelvis. Consultation with GI. PHYSICAL EXAMINATION: VITAL SIGNS: Blood pressure 150/49, respirations 15, pulse 89, and temperature 97.5. GENERAL: Elderly female, appears stated age, appears chronically ill. HEENT: Positive icteric sclerae. NECK: Supple. No mass. LUNGS: Equal breath sounds, few rhonchi. HEART: Regular rate and rhythm with systolic ejection murmur. ABDOMEN: Soft, globular, positive bowel sounds. EXTREMITIES: Trace edema. NEUROLOGIC: Limited. LABORATORY DATA: WBC 5, hemoglobin 12, platelets 140. INR 1.1. Sodium 138, potassium of 4.2, BUN 20, creatinine 1.2, blood sugar 473, total bilirubin 5.3, ammonia 164, albumin 2.3. ASSESSMENT AND PLAN: Elevated ammonia with encephalopathy, possible cirrhosis from steatohepatitis, history of gallstone, hyponatremia, diabetes out of control, elevated bilirubin, protein-calorie malnutrition, hypertension, coronary artery disease, congestive heart failure. We will continue the patient on gentle IV hydration. Discontinue diuretics for now. Continue lactulose. We will refer the patient to Psychiatry as well as GI. We will admit the patient for further management. JOB# [id number]
[2018-03-05 23:11] VITALS: BP 130/57
[2018-03-06] MEDS: INSULIN ASPART SLIDING SCALE 100 UNITS/ML UNIT SUBQ SCH ×4 (07:00→20:50)
[2018-03-06] MEDS: Pantoprazole 40 mg EC Tab PO SCH ×2 (07:00→17:07)
[2018-03-06] MEDS ORDERED: INSULIN ASPART, RECOMBINANT 100 UNITS/ML SUBQ SCH ×2 (07:30→09:00)
[2018-03-06] MEDS: Lactulose 10 Gm/15 mL 30mL UDC PO SCH ×3 (10:45→20:59)
[2018-03-06] MEDS: Insulin Detemir 100 units/mL 10mL Vial SUBQ SCH ×2 (10:47→16:51)
--- NOTE | 2018-03-06 10:53 | Diagnostic Imaging Report ---
CT Chest without IV contrast HISTORY: Shortness of breath, CHF COMPARISON: Chest x-ray 12/01/[address] of the chest on 11/28/2017. Technique: Axial images were obtained from the base of the neck to the upper abdomen without IV contrast. Reconstructions were made. Total DLP 372, CTD I 10.4 Findings: Evaluation of the mediastinum is limited due to lack of IV contrast. Heavy atherosclerosis is noted including heavy coronary artery calcifications. Mild cardiomegaly is noted. No evidence of an aneurysm. No pericardial effusion. Small hiatal hernia is noted. No mediastinal lymphadenopathy. Evaluation of the lung jefferson demonstrates no focal consolidation or effusions. Mild hypoventilatory atelectatic changes are seen with mild groundglass densities noted. Degenerative changes of the spine are noted. There are multiple chronic displaced left rib fractures extending from the left sixth rib to the left 10th rib. No evidence of pneumothorax. The upper abdomen demonstrates multiple gallstones. 5 mm calcified granuloma of the right lobe of liver is noted. There is mild splenomegaly. IMPRESSION: Mild hypoventilatory and atelectatic lung changes with a few mild groundglass opacities, nonspecific. A marginal degree of congestion cannot be completely excluded, please correlate clinically. No focal consolidation identified. Mild cardiomegaly with heavy atherosclerosis including heavy coronary artery calcifications Small hiatal hernia. Cholelithiasis Mild splenomegaly. Multiple displaced old left rib fractures no evidence of pneumothorax.
--- NOTE | 2018-03-06 12:06 | Consultation ---
DATE OF CONSULTATION: 03/06/2018 PHYSICIAN REQUESTING CONSULTATION: Dr. Meyers. REASON FOR CONSULTATION: Confusion and agitation. HISTORY OF PRESENT ILLNESS: This patient is admitted at this time to the unit for acute agitation and a psychiatric consultation is called to address the issue of the confusion and agitation. Staff was spoken to. The patient is interviewed. During the interview, the patient is not making much sense. She is going on a tangent. Insight and judgment are very much impaired. Impulse control is noted to be poor. Coping skills are also noted to be very poor. The patient is screaming and yelling at the staff nurses. PAST PSYCHIATRIC HISTORY: The patient was hospitalized under my care in 2017 and was diagnosed to have the depression and was treated for depression. At that time, the patient is stating that she has not been following up with any psychiatrist and because she does not have the money. The patient is getting easily upset at this time when I am asking the questions. MENTAL STATUS EXAMINATION: The patient's mood is noted to be irritable. Affect is constricted. The patient has paranoia, but denies any command hallucinations. Insight and judgment are also noted very much impaired. Impulse control is noted to be limited. Coping skills are noted to be limited. The patient is a disheveled and has been having difficult time to cope with the stress. In view of her psychosis, it is decided to start the patient on a low dose of the Seroquel and follow the patient up with supportive therapy. Diagnoses at the time of evaluation is psychotic disorder, not otherwise specified and dementia. [facility]# [id number]
--- NOTE | 2018-03-06 12:41 | Diagnostic Imaging Report ---
Head CT without intravenous contrast Indication: Altered level of consciousness Comparison: Head CT 06/30/2016 Technique: Axial images were obtained from the vertex to the skull base without IV contrast. Coronal reconstructions were made. Total DLP: 655, CTDI34 FINDINGS: Images of the brain obtained without contrast demonstrate no acute hemorrhage. No mass lesions identified. The ventricles and basal cisterns are patent. Mild white matter disease is noted. Mild Atrophy is noted. Heavy atherosclerosis is noted. No skull fractures or focal soft tissue swelling. There is mild mucosal thickening of paranasal sinuses. IMPRESSION: No evidence of acute intracranial hemorrhage. Mild atrophy. Mild supratentorial white matter disease which is nonspecific and may be due to chronic microvessel ischemia. Atherosclerotic vascular disease.
--- NOTE | 2018-03-06 12:51 | Internal Medicine Prog Note ---
Internal Medicine Subjective - Subjective Patient seen and examined:: with staff, chart reviewed Patient is:: awake, verbal, interactive, in bed, talking, denies any new complaints, agitated Patient Complaints of:: unable to sleep, weight gain Per staff patient has:: no adverse event, no episodes of fall, poor oral intake , agitated, noncompliant, refusing care Internal Medicine Objective - Results Result Diagrams: 03/05/18 19:50 03/05/18 19:50 Recent Labs: Laboratory Last Values WBC 5.5 Th/cmm (4.8-10.8) 03/05/18 19:50 RBC 4.28 Mil/cmm (3.80-5.20) 03/05/18 19:50 Hgb 12.3 gm/dL (12-16) 03/05/18 19:50 Hct 36.5 % (41.0-60) L 03/05/18 19:50 MCV 85.2 fl (81-100) 03/05/18 19:50 MCH 28.8 pg (27.0-31.0) 03/05/18 19:50 MCHC Differential 33.7 pg (28.0-36.0) 03/05/18 19:50 RDW 15.0 % (11.5-20.0) 03/05/18 19:50 Plt Count 140 Th/cmm (150-400) L 03/05/18 19:50 MPV 9.3 fl 03/05/18 19:50 Neutrophils % 70.4 % (40.0-80.0) 03/05/18 19:50 Lymphocytes % 15.4 % (20.0-50.0) L 03/05/18 19:50 Monocytes % 9.9 % (2.0-10.0) 03/05/18 19:50 Eosinophils % 3.1 % (0.0-5.0) 03/05/18 19:50 Basophils % 1.2 % (0.0-2.0) 03/05/18 19:50 PT 12.1 SECONDS (9.5-11.5) H 03/05/18 19:50 INR 1.17 (0.5-1.4) 03/05/18 19:50 PTT (Actin FS) 28.3 SECONDS (26.0-38.0) 03/05/18 19:50 Sodium 130 mEq/L (136-145) L 03/05/18 19:50 Potassium 4.0 mEq/L (3.5-5.1) 03/05/18 19:50 Chloride 96 mEq/L (98-107) L 03/05/18 19:50 Carbon Dioxide 22.7 mEq/L (21.0-31.0) 03/05/18 19:50 Anion Gap 15.3 (7.0-16.0) 03/05/18 19:50 BUN 20 mg/dL (7-25) 03/05/18 19:50 Creatinine 1.2 mg/dL (0.6-1.2) 03/05/18 19:50 Est GFR ( Amer) TNP 03/05/18 19:50 Est GFR (Non-Af Amer) TNP 03/05/18 19:50 BUN/Creatinine Ratio 16.7 03/05/18 19:50 Glucose 473 mg/dL (70-105) H* 03/05/18 19:50 POC Glucose 285 MG/DL (70 - 105) H 03/06/18 06:37 Calcium 9.1 mg/dL (8.6-10.3) 03/05/18 19:50 Total Bilirubin 5.3 mg/dL (0.3-1.0) H 03/05/18 19:50 AST 28 U/L (13-39) 03/05/18 19:50 ALT 13 U/L (7-52) 03/05/18 19:50 Alkaline Phosphatase 81 U/L (34-104) 03/05/18 19:50 Ammonia 164 umol/L (16-53) H 03/05/18 19:50 Troponin I 0.01 ng/mL (0.01-0.05) 03/05/18 19:50 B-Natriuretic Peptide 55.8 pg/mL (5.0-100.0) 03/05/18 19:50 Total Protein 6.5 gm/dL (6.0-8.3) 03/05/18 19:50 Albumin 2.8 gm/dL (3.7-5.3) L 03/05/18 19:50 Globulin 3.7 gm/dL 03/05/18 19:50 Albumin/Globulin Ratio 0.8 (1.0-1.8) L 03/05/18 19:50 - Physical Exam Vitals and I&O: Vital Signs Temp 97.2 F 03/06/18 08:00 Pulse 87 03/06/18 10:46 Resp 14 03/06/18 08:10 BP 151/57 03/06/18 10:46 Pulse Ox 97 03/06/18 08:10 Intake & Output 03/05/18 03/06/18 03/06/18 18:59 06:59 18:59 Weight (lbs) 102.557 kg Other: Weight Source Estimated Active Medications: Current Medications Acetaminophen (Tylenol) 650 mg PO Q4H PRN PRN Reason: Pain Or Fever above 101 Stop: 05/04/18 21:50 Albuterol Sulfate (Albuterol 2.5mg/3ml Neb Ud) 2.5 mg HHN Q2HRT PRN PRN Reason: Shortness of Breath or Wheeze Stop: 05/04/18 21:50 Sodium Chloride (Nacl 0.9%) 1,000 mls @ 50 mls/hr IV .Q20H [facility] Stop: 05/04/18 21:59 Last Admin: 03/06/18 07:00 Dose: 50 mls/hr Insulin Aspart (Novolog Insulin Sliding Scale) 0 units SUBQ ACHS [facility]; Protocol Stop: 05/05/18 07:29 Last Admin: 03/06/18 07:00 Dose: 6 units Insulin Detemir (Levemir Insulin) 14 units SUBQ BID [facility]; Protocol Stop: 05/05/18 08:59 Last Admin: 03/06/18 10:47 Dose: 14 unit Ipratropium [place] (Atrovent Neb 0.5mg/2.5ml) 0.5 mg HHN Q2HRT PRN PRN Reason: Shortness of Breath or Wheeze Stop: 05/04/18 21:50 Lactulose (Cephulac) 30 gm PO TID [facility] Stop: 05/05/18 08:59 Last Admin: 03/06/18 10:45 Dose: 30 gm Lisinopril (Zestril) 20 mg PO BID [facility] Stop: 05/05/18 08:59 Last Admin: 03/06/18 10:46 Dose: 20 mg Nitroglycerin (Nitrostat) 0.4 mg SL Q5MIN PRN PRN Reason: Chest Pain Stop: 05/04/18 21:50 Ondansetron HCl (Zofran) 4 mg IV Q8H PRN PRN Reason: Nausea / Vomiting Stop: 05/04/18 21:50 Pantoprazole Sodium (Protonix) 40 mg PO BIDAC [facility] Stop: 05/05/18 07:29 Last Admin: 03/06/18 07:00 Dose: 40 mg Propranolol HCl (Inderal) 20 mg PO BID [facility] Stop: 05/05/18 16:59 Quetiapine Fumarate (Seroquel) 12.5 mg PO HS [facility]; Protocol Stop: 05/05/18 20:59 General: weak, obese, appears younger HEENT: NC/AT, PERRLA, EOMI Neck: Supple, No JVD, No thyromegaly Lungs: congested, rales Cardiovascular: RRR, Normal S1, Normal S2, without murmur Abdomen: soft, globular, non-distended, positive bowel sound Extremities: excoriation Neurological: no change, disorganized - Procedures Procedures: Procedures Procedure Code Date INJECT/INFUSE NEC 99.29 01/12/10 INSERTION OF INFUSION DEV INTO SUP VENA CAVA, PERC APPROACH [id number] 11/28/17 INSERTION OF INFUSION DEVICE INTO R UP ARM, PERC APPROACH [id number] 11/28/17 Internal Medicine Assmt/Plan - Assessment Assessment: ASSESSMENT : Elevated ammonia with encephalopathy, possible cirrhosis from steatohepatitis, history of gallstone, hyponatremia, diabetes out of control, elevated bilirubin, protein-calorie malnutrition, hypertension, coronary artery disease, congestive heart failure. - Plan Plan: PLAN: We will continue the patient on gentle IV hydration. Discontinue diuretics for now. Continue lactulose. We will refer the patient to Psychiatry as well as GI. We will admit the patient for further management. ye harris
[2018-03-06] MEDS: Eucerin Cream 16 oz Jar TP SCH (18:19)
--- NOTE | 2018-03-07 05:05 | Consultation ---
DATE OF CONSULTATION: 03/06/2018 INPATIENT GASTROINTESTINAL CONSULT REFERRING PHYSICIAN: Dr. Meyers REASON FOR CONSULTATION: Hepatic encephalopathy. HISTORY OF PRESENT ILLNESS: This is a 72-year-old female who was brought to the hospital with confusion. The patient at this time denies having abdominal pain. Denies nausea, vomiting. Denies GI bleeding, but her history given is somewhat limited, I am not sure if it is reliable. PAST MEDICAL HISTORY: Hypertension, coronary artery disease. PAST SURGICAL HISTORY: None to add recently. FAMILY HISTORY: Noncontributory. SOCIAL HISTORY: Denies tobacco, alcohol or IV drug usage. ALLERGIES: None. CURRENT MEDICATIONS: Tylenol, albuterol, insulin Levemir, lactulose, Zestril, Nitrostat, Zofran, Protonix, propranolol, Seroquel. REVIEW OF SYSTEMS: Ten point review of system was performed and it was notable for the cirrhosis and the confusion. All the systems were otherwise negative. PHYSICAL EXAMINATION: VITAL SIGNS: Temperature 97.9, breathing 20, pulse 83, blood pressure 116/71, satting 99%. GENERAL: In no apparent distress. HEENT: Eyes: Anicteric. Normal conjunctivae. Normocephalic, atraumatic. Moist mucous membranes. NECK: Soft, supple. CHEST: Clear. No effort. CARDIOVASCULAR: Regular rate and rhythm. ABDOMEN: Soft, nontender, mildly distended. SKIN: Warm, dry. EXTREMITIES: Reveal no cyanosis. PSYCHOLOGICAL: Alert and oriented x 1. LABORATORY AND DIAGNOSTIC DATA: Labs show T-bili 5.3, AST 28, ALT 13, alk phos 81. INR 1.17. White count 5.5, hemoglobin 12.3, and platelets of 140. IMPRESSION: A 72-year-old female with hepatic encephalopathy, cause is related to cirrhosis, but not sure what the precipitating event is. The patient should have a UA and abdominal ultrasound, chest x-ray to look for any source of infection. If there is fluid, then she should have a paracentesis. At this time, there is no evidence of any gastrointestinal bleeding. PLAN: 1. Continue lactulose. 2. Add Xifaxan. 3. Get an abdominal ultrasound, chest x-ray and UA. Thank you for allowing me to participate. Please call me if any questions. JOB# [id number]
[2018-03-07] MEDS: INSULIN ASPART SLIDING SCALE 100 UNITS/ML UNIT SUBQ SCH ×4 (06:44→23:24)
[2018-03-07] MEDS: Pantoprazole 40 mg EC Tab PO SCH ×2 (06:44→17:06)
[2018-03-07 07:28] LABS: % BASOPHILS 0.7 % (0.0-2.0); % EOSINOPHILS 7.4 % (0.0-5.0); % LYMPHOCYTES 21.4 % (20.0-50.0); % NEUTROPHILS 60.5 % (40.0-80.0); EOSINOPHILE ABSOLUTE 0.3 Th/cmm (0.1-0.4); HEMATOCRIT 32.8 % (41.0-60); LYMPHOCYTE ABSOLUTE 0.9 Th/cmm (1.5-3.0); MEAN CELL VOLUME 87.1 fl (81-100); MEAN CORPUSCULAR HEMOGLOBIN 29.3 pg (27.0-31.0); MEAN CORPUSCULAR HGB CONC 33.6 pg (28.0-36.0); MEAN PLATELET VOLUME 8.8 fl; MONOCYTE ABSOLUTE 0.4 Th/cmm (0.3-1.0); NEUTROPHILE ABSOLUTE 2.5 Th/cmm (1.8-8.0); PLATELET COUNT 114 Th/cmm (150-400); RED BLOOD COUNT 3.77 Mil/cmm (3.80-5.20); RED CELL DISTRIBUTION WIDTH 14.6 % (11.5-20.0); WHITE BLOOD COUNT 4.1 Th/cmm (4.8-10.8)
[2018-03-07 08:02] LABS: ALB/GLOB RATIO 0.7 (1.0-1.8); ALBUMIN 2.4 gm/dL (3.7-5.3); ALKALINE PHOSPHATASE 83 U/L (34-104); ANION GAP 10.2 (7.0-16.0); BILIRUBIN,TOTAL 3.1 mg/dL (0.3-1.0); BUN - UREA NITROGEN 11 mg/dL (7-25); CALCIUM SERUM 8.8 mg/dL (8.6-10.3); CARBON DIOXIDE 22.6 mEq/L (21.0-31.0); CHLORIDE 102 mEq/L (98-107); CREATININE - SERUM 0.8 mg/dL (0.6-1.2); GLUCOSE 262 mg/dL (70-105); POTASSIUM SERUM 3.8 mEq/L (3.5-5.1); SGOT 31 U/L (13-39); SGPT/ALT 10 U/L (7-52); SODIUM SERUM 131 mEq/L (136-145); TOTAL PROTEIN,SERUM 5.9 gm/dL (6.0-8.3)
[2018-03-07] MEDS: Insulin Detemir 100 units/mL 10mL Vial SUBQ SCH ×2 (09:00→17:03)
[2018-03-07] MEDS: Lactulose 10 Gm/15 mL 30mL UDC PO SCH ×3 (09:18→23:23)
--- NOTE | 2018-03-07 10:22 | Diagnostic Imaging Report ---
Abdominal ultrasound HISTORY: Cirrhosis The liver exhibits a somewhat heterogeneous parenchyma. No focal lesions. The gallbladder is not seen consistent with patient's surgical history. The common bile duct measures 1.1 cm. This is somewhat increased status post cholecystectomy. Significance should be correlated clinically. Incomplete visualization of the pancreas due to bowel gas. The kidneys appear normal bilaterally. No other retroperitoneal or intra-abdominal abnormalities. The spleen is increased in size (15.0 cm length). No other definite retroperitoneal or intra-abdominal abnormalities. IMPRESSION: 1. Limited exam due to patient's size, body habitus, bowel gas 2. Nonvisualization of the gallbladder consistent with a prior cholecystectomy. 3. Common bile duct equals 1.1 cm in diameter. This is slightly generous status post cholecystectomy. The significance should be correlated clinically and with laboratory data. 4. Splenomegaly 5. Somewhat heterogeneous hepatic parenchyma. Again, the finding should be correlated with laboratory data.
[2018-03-07] MEDS: Eucerin Cream 16 oz Jar TP SCH ×2 (11:58→18:10)
--- NOTE | 2018-03-07 12:54 | Internal Medicine Prog Note ---
Internal Medicine Subjective - Subjective Patient seen and examined:: with staff, chart reviewed Patient is:: awake, verbal, interactive, in bed, talking, denies any new complaints, agitated, confused Patient Complaints of:: unable to sleep, weight gain Per staff patient has:: no adverse event, no episodes of fall, poor oral intake , agitated, noncompliant, refusing care Internal Medicine Objective - Results Result Diagrams: 03/07/18 07:20 03/07/18 07:20 Recent Labs: Laboratory Last Values WBC 4.1 Th/cmm (4.8-10.8) L 03/07/18 07:20 RBC 3.77 Mil/cmm (3.80-5.20) L 03/07/18 07:20 Hgb 11.0 gm/dL (12-16) L 03/07/18 07:20 Hct 32.8 % (41.0-60) L 03/07/18 07:20 MCV 87.1 fl (81-100) 03/07/18 07:20 MCH 29.3 pg (27.0-31.0) 03/07/18 07:20 MCHC Differential 33.6 pg (28.0-36.0) 03/07/18 07:20 RDW 14.6 % (11.5-20.0) 03/07/18 07:20 Plt Count 114 Th/cmm (150-400) L 03/07/18 07:20 MPV 8.8 fl 03/07/18 07:20 Neutrophils % 60.5 % (40.0-80.0) 03/07/18 07:20 Lymphocytes % 21.4 % (20.0-50.0) 03/07/18 07:20 Monocytes % 10.0 % (2.0-10.0) 03/07/18 07:20 Eosinophils % 7.4 % (0.0-5.0) H 03/07/18 07:20 Basophils % 0.7 % (0.0-2.0) 03/07/18 07:20 PT 12.1 SECONDS (9.5-11.5) H 03/05/18 19:50 INR 1.17 (0.5-1.4) 03/05/18 19:50 PTT (Actin FS) 28.3 SECONDS (26.0-38.0) 03/05/18 19:50 Sodium 131 mEq/L (136-145) L 03/07/18 07:20 Potassium 3.8 mEq/L (3.5-5.1) 03/07/18 07:20 Chloride 102 mEq/L (98-107) 03/07/18 07:20 Carbon Dioxide 22.6 mEq/L (21.0-31.0) 03/07/18 07:20 Anion Gap 10.2 (7.0-16.0) 03/07/18 07:20 BUN 11 mg/dL (7-25) 03/07/18 07:20 Creatinine 0.8 mg/dL (0.6-1.2) 03/07/18 07:20 Est GFR ( Amer) TNP 03/07/18 07:20 Est GFR (Non-Af Amer) TNP 03/07/18 07:20 BUN/Creatinine Ratio 13.8 03/07/18 07:20 Glucose 262 mg/dL (70-105) H 03/07/18 07:20 POC Glucose 247 MG/DL (70 - 105) H 03/07/18 11:23 Calcium 8.8 mg/dL (8.6-10.3) 03/07/18 07:20 Total Bilirubin 3.1 mg/dL (0.3-1.0) H 03/07/18 07:20 AST 31 U/L (13-39) 03/07/18 07:20 ALT 10 U/L (7-52) 03/07/18 07:20 Alkaline Phosphatase 83 U/L (34-104) 03/07/18 07:20 Ammonia 124 umol/L (16-53) H 03/07/18 07:20 Troponin I 0.01 ng/mL (0.01-0.05) 03/05/18 19:50 B-Natriuretic Peptide 125.0 pg/mL (5.0-100.0) H 03/07/18 07:20 Total Protein 5.9 gm/dL (6.0-8.3) L 03/07/18 07:20 Albumin 2.4 gm/dL (3.7-5.3) L 03/07/18 07:20 Globulin 3.5 gm/dL 03/07/18 07:20 Albumin/Globulin Ratio 0.7 (1.0-1.8) L 03/07/18 07:20 - Physical Exam Vitals and I&O: Vital Signs Temp 97.1 F 03/07/18 08:41 Pulse 71 03/07/18 11:52 Resp 19 03/07/18 08:41 BP 153/79 03/07/18 11:52 Pulse Ox 98 03/07/18 08:41 Active Medications: Current Medications Acetaminophen (Tylenol) 650 mg PO Q4H PRN PRN Reason: Pain Or Fever above 101 Stop: 05/04/18 21:50 Albuterol Sulfate (Albuterol 2.5mg/3ml Neb Ud) 2.5 mg HHN Q2HRT PRN PRN Reason: Shortness of Breath or Wheeze Stop: 05/04/18 21:50 Insulin Aspart (Novolog Insulin Sliding Scale) 0 units SUBQ ACHS COUNTS [facility]CLUDE 234 BEDS AT THE [facility]; Protocol Stop: 05/05/18 07:29 Last Admin: 03/07/18 11:51 Dose: 4 units Insulin Detemir (Levemir Insulin) 14 units SUBQ BID COUNTS INCLUDE 234 BEDS AT THE [facility]; Protocol Stop: 05/05/18 08:59 Last Admin: 03/07/18 09:00 Dose: Not Given Ipratropium [place] (Atrovent Neb 0.5mg/2.5ml) 0.5 mg HHN Q2HRT PRN PRN Reason: Shortness of Breath or Wheeze Stop: 05/04/18 21:50 Lactulose (Cephulac) 30 gm PO TID COUNTS INCLUDE 234 BEDS AT THE [facility] Stop: 05/05/18 08:59 Last Admin: 03/07/18 09:18 Dose: 30 gm Lisinopril (Zestril) 20 mg PO BID COUNTS INCLUDE 234 BEDS AT THE [facility] Stop: 05/05/18 08:59 Last Admin: 03/07/18 09:19 Dose: 20 mg Multi-Ingredient Cream (Euerin Cream) 1 appl TP BID COUNTS INCLUDE 234 BEDS AT THE [facility] Stop: 05/05/18 16:59 Last Admin: 03/07/18 11:58 Dose: Not Given Nitroglycerin (Nitrostat) 0.4 mg SL Q5MIN PRN PRN Reason: Chest Pain Stop: 05/04/18 21:50 Ondansetron HCl (Zofran) 4 mg IV Q8H PRN PRN Reason: Nausea / Vomiting Stop: 05/04/18 21:50 Pantoprazole Sodium (Protonix) 40 mg PO BIDAC COUNTS INCLUDE 234 BEDS AT THE [facility] Stop: 05/05/18 07:29 Last Admin: 03/07/18 06:44 Dose: 40 mg Propranolol HCl (Inderal) 20 mg PO BID COUNTS INCLUDE 234 BEDS AT THE [facility] Stop: 05/05/18 16:59 Last Admin: 03/07/18 11:52 Dose: 20 mg Quetiapine Fumarate (Seroquel) 12.5 mg PO HS COUNTS INCLUDE 234 BEDS AT THE [facility]; Protocol Stop: 05/05/18 20:59 Rifaximin (Xifaxan) 600 mg PO BID COUNTS INCLUDE 234 BEDS AT THE [facility] Stop: 05/05/18 16:59 Last Admin: 03/07/18 09:20 Dose: 600 mg General: weak, obese, appears younger HEENT: NC/AT, PERRLA, EOMI Neck: Supple, No JVD, No thyromegaly Lungs: congested, rales Cardiovascular: RRR, Normal S1, Normal S2, without murmur Abdomen: soft, globular, non-distended, positive bowel sound Extremities: excoriation Neurological: no change, disorganized - Procedures Procedures: Procedures Procedure Code Date INJECT/INFUSE NEC 99.29 01/12/10 INSERTION OF INFUSION DEV INTO SUP VENA CAVA, PERC APPROACH [id number] 11/28/17 INSERTION OF INFUSION DEVICE INTO R UP ARM, PERC APPROACH [id number] 11/28/17 Internal Medicine Assmt/Plan - Assessment Assessment: ASSESSMENT : Elevated ammonia with encephalopathy, possible cirrhosis from steatohepatitis, history of gallstone, hyponatremia, diabetes out of control, elevated bilirubin, protein-calorie malnutrition, hypertension, coronary artery disease, congestive heart failure. - Plan Plan: PLAN: We will continue the patient on gentle IV hydration. Discontinue diuretics for now. Continue lactulose. We will refer the patient to Psychiatry as well as GI. We will admit the patient for further management. dw rn will need snf placement Nutritional Asmnt/Malnutr-PDOC - Dietary Evaluation Malnutrition Findings (Please click <Entered> for more info): Nutritional Asmnt/Malnutrition Start: 03/06/18 13: 58 Text: Status: Complete Freq: Protocol: Document 03/06/18 13:58 [email or web address] (Rec: 03/06/18 14:06 [email or web address]) Nutritional Asmnt/Malnutrition Patient General Information Nutritional Screening High Risk Consult Diagnosis hepatic encephalopathy, confusion Pertinent Medical Hx/Surgical Hx HTN, CHF, liver problems, possible dementia Subjective Information Consult recieved for cody 12 . Elevated glucose level of 473 noted. Pt was asleep at time of visit. PO intake is 100% per RN. Current Diet Order/ Nutrition Support low sodium 2gm Pertinent Medications novolog, levemir, lactulose, zofran, protonix, seroquel, nacl 0.9% Pertinent Labs 03/05 glucose 473, Na 130, Cl 96, POC 285, alb 2.8 Nutritional Hx/Data Height 1.52 m Height (Calculated Centimeters) 152.4 Current Weight (lbs) 102.512 kg Weight (Calculated Kilograms) 102.5 Weight (Calculated Grams) 419249.9 [place] Body Weight 100 Body Mass Index (BMI) 44.1 Weight Status Morbidly Obese GI Symptoms GI Symptoms None Last BM not indicated Difficult in: None Food Allergies No Skin Integrity/Comment: scar to right and left legs cody Jamison Current %PO Good (75-100%) Estimated Nutritional Goals BEE in Kcals: Adj wt of IBW Calories/Kcals/Kg 25-30 Kcals Calculated 3554-1210 Protein: Adj wt of IBW Protein g/k Protein Calculated 59 Fluid: ml 5352-2217 (1ml/kcal) Nutritional Problem 1. Problem Problem altered nutrition related labs Etiology hyperglycemia and fluid/ electrolyte imbalance Signs/Symptoms: glucose 473, POC 285, Na 130, Cl 96 Malnutrition Alert Is there a minimum of two criteria No selected? Query Text:Check all the applicable criteria. A minimum of two criteria are recommended for diagnosis of either severe or non-severe malnutrition. Malnutrition Related to Morbid Obesity Malnutrition related to morbid obesity No Intervention/Recommendation Comments 1. Continue with low sodium 2gm diet as ordered, recommend adding CCHO 60gm diet due to elevated glucose levels. RN notified. 2. MD to adjust insulin regimen for optimal glycemic control 3. Monitor PO intake, wt, labs and skin integrity 4. F/U as high risk in 2-3 days Expected Outcomes/Goals Expected Outcomes/Goals 1. PO intake to meet at least 75% of nutritional needs. 2. Wt stability, skin to remain intact, labs to approach WNL. Reviewed by Pamela Williamson RD
--- NOTE | 2018-03-07 13:55 | GI Progress Note ---
Subjective - Review of Systems Subjective: EATING LUNCH Objective - Results Result Diagrams: 03/07/18 07:20 03/07/18 07:20 Recent Labs: Laboratory Last Values WBC 4.1 Th/cmm (4.8-10.8) L 03/07/18 07:20 RBC 3.77 Mil/cmm (3.80-5.20) L 03/07/18 07:20 Hgb 11.0 gm/dL (12-16) L 03/07/18 07:20 Hct 32.8 % (41.0-60) L 03/07/18 07:20 MCV 87.1 fl (81-100) 03/07/18 07:20 MCH 29.3 pg (27.0-31.0) 03/07/18 07:20 MCHC Differential 33.6 pg (28.0-36.0) 03/07/18 07:20 RDW 14.6 % (11.5-20.0) 03/07/18 07:20 Plt Count 114 Th/cmm (150-400) L 03/07/18 07:20 MPV 8.8 fl 03/07/18 07:20 Neutrophils % 60.5 % (40.0-80.0) 03/07/18 07:20 Lymphocytes % 21.4 % (20.0-50.0) 03/07/18 07:20 Monocytes % 10.0 % (2.0-10.0) 03/07/18 07:20 Eosinophils % 7.4 % (0.0-5.0) H 03/07/18 07:20 Basophils % 0.7 % (0.0-2.0) 03/07/18 07:20 PT 12.1 SECONDS (9.5-11.5) H 03/05/18 19:50 INR 1.17 (0.5-1.4) 03/05/18 19:50 PTT (Actin FS) 28.3 SECONDS (26.0-38.0) 03/05/18 19:50 Sodium 131 mEq/L (136-145) L 03/07/18 07:20 Potassium 3.8 mEq/L (3.5-5.1) 03/07/18 07:20 Chloride 102 mEq/L (98-107) 03/07/18 07:20 Carbon Dioxide 22.6 mEq/L (21.0-31.0) 03/07/18 07:20 Anion Gap 10.2 (7.0-16.0) 03/07/18 07:20 BUN 11 mg/dL (7-25) 03/07/18 07:20 Creatinine 0.8 mg/dL (0.6-1.2) 03/07/18 07:20 Est GFR ( Amer) TNP 03/07/18 07:20 Est GFR (Non-Af Amer) TNP 03/07/18 07:20 BUN/Creatinine Ratio 13.8 03/07/18 07:20 Glucose 262 mg/dL (70-105) H 03/07/18 07:20 POC Glucose 247 MG/DL (70 - 105) H 03/07/18 11:23 Calcium 8.8 mg/dL (8.6-10.3) 03/07/18 07:20 Total Bilirubin 3.1 mg/dL (0.3-1.0) H 03/07/18 07:20 AST 31 U/L (13-39) 03/07/18 07:20 ALT 10 U/L (7-52) 03/07/18 07:20 Alkaline Phosphatase 83 U/L (34-104) 03/07/18 07:20 Ammonia 124 umol/L (16-53) H 03/07/18 07:20 Troponin I 0.01 ng/mL (0.01-0.05) 03/05/18 19:50 B-Natriuretic Peptide 125.0 pg/mL (5.0-100.0) H 03/07/18 07:20 Total Protein 5.9 gm/dL (6.0-8.3) L 03/07/18 07:20 Albumin 2.4 gm/dL (3.7-5.3) L 03/07/18 07:20 Globulin 3.5 gm/dL 03/07/18 07:20 Albumin/Globulin Ratio 0.7 (1.0-1.8) L 03/07/18 07:20 - Physical Exam Vitals and I&O: Vital Signs Temp 97.6 F 03/07/18 13:11 Pulse 73 03/07/18 13:11 Resp 18 03/07/18 13:11 BP 137/57 03/07/18 13:11 Pulse Ox 71 03/07/18 13:11 Active Medications: Current Medications Acetaminophen (Tylenol) 650 mg PO Q4H PRN PRN Reason: Pain Or Fever above 101 Stop: 05/04/18 21:50 Albuterol Sulfate (Albuterol 2.5mg/3ml Neb Ud) 2.5 mg HHN Q2HRT PRN PRN Reason: Shortness of Breath or Wheeze Stop: 05/04/18 21:50 Insulin Aspart (Novolog Insulin Sliding Scale) 0 units SUBQ ACHS [facility]; Protocol Stop: 05/05/18 07:29 Last Admin: 03/07/18 11:51 Dose: 4 units Insulin Detemir (Levemir Insulin) 14 units SUBQ BID [facility]; Protocol Stop: 05/05/18 08:59 Last Admin: 03/07/18 09:00 Dose: Not Given Ipratropium [place] (Atrovent Neb 0.5mg/2.5ml) 0.5 mg HHN Q2HRT PRN PRN Reason: Shortness of Breath or Wheeze Stop: 05/04/18 21:50 Lactulose (Cephulac) 30 gm PO TID [facility] Stop: 05/05/18 08:59 Last Admin: 03/07/18 09:18 Dose: 30 gm Lisinopril (Zestril) 20 mg PO BID [facility] Stop: 05/05/18 08:59 Last Admin: 03/07/18 09:19 Dose: 20 mg Multi-Ingredient Cream (Euerin Cream) 1 appl TP BID [facility] Stop: 05/05/18 16:59 Last Admin: 03/07/18 11:58 Dose: Not Given Mupirocin (Bactroban Oint) 1 appl NS BID [facility] Stop: 03/12/18 09:01 Nitroglycerin (Nitrostat) 0.4 mg SL Q5MIN PRN PRN Reason: Chest Pain Stop: 05/04/18 21:50 Ondansetron HCl (Zofran) 4 mg IV Q8H PRN PRN Reason: Nausea / Vomiting Stop: 05/04/18 21:50 [facility]: 05/05/18 07:29 Last Admin: 03/07/18 06:44 Dose: 40 mg Propranolol HCl (Inderal) 20 mg PO BID [facility] Stop: 05/05/18 16:59 Last Admin: 03/07/18 11:52 Dose: 20 mg Quetiapine Fumarate (Seroquel) 12.5 mg PO HS [facility]; Protocol Stop: 05/05/18 20:59 Rifaximin (Xifaxan) 600 mg PO BID [facility] Stop: 05/05/18 16:59 Last Admin: 03/07/18 09:20 Dose: 600 mg - Procedures Procedures: Procedures Procedure Code Date INJECT/INFUSE NEC 99.29 01/12/10 INSERTION OF INFUSION DEV INTO SUP VENA CAVA, PERC APPROACH [id number] 11/28/17 INSERTION OF INFUSION DEVICE INTO R UP ARM, PERC APPROACH [id number] 11/28/17 Assessment/Plan - Problem List Patient Problems: All Active Problems ALTERED MENTAL STATUS (Acute) - Assessment Assessment: 72 YO FEMALE WITH CIRRHOSIS AND HEP ENCEPHALOPATHY HAS ELEVATED LFTS IMAGING SUGGEST DILATED CBD AT 1.1 CM 1.MRCP 2.FOLLOW LFTS 3.CONT LACTULOSE AND XIFAXAN 4.WILL NEED OUTPATIENT HEPATOLOGY
[2018-03-08 00:41] LABS: URINE SOURCE MIDSTREAM
[2018-03-08 00:47] LABS: URINE BILIRUBIN NEGATIVE (NEGATIVE); URINE BLOOD MODERATE (NEGATIVE); URINE GLUCOSE (UA) >=1000 mg/dL (NEGATIVE); URINE KETONE NEGATIVE (NEGATIVE); URINE LEUKOCYTE ESTERASE TRACE (NEGATIVE); URINE MICROSCOPIC INDICATED? YES; URINE NITRATE POSITIVE (NEGATIVE); URINE PROTEIN 100 mg/dL (NEGATIVE)
[2018-03-08 00:56] LABS: URINE CLARITY HAZY (CLEAR); URINE COLOR YELLOW
[2018-03-08 01:03] LABS: URINE BACTERIA MODERATE /hpf (NONE SEEN); URINE EPITHELIAL CELLS MODERATE /lpf (FEW); URINE WBC 25-50 /hpf (0-5)
[2018-03-08] MEDS: INSULIN ASPART SLIDING SCALE 100 UNITS/ML UNIT SUBQ SCH ×4 (06:57→21:09)
[2018-03-08] MEDS: Pantoprazole 40 mg EC Tab PO SCH ×2 (06:57→16:54)
[2018-03-08] MEDS: Lactulose 10 Gm/15 mL 30mL UDC PO SCH ×3 (09:00→21:09)
[2018-03-08] MEDS: Insulin Detemir 100 units/mL 10mL Vial SUBQ SCH ×2 (09:00→16:55)
[2018-03-08] MEDS: Eucerin Cream 16 oz Jar TP SCH ×2 (11:12→16:54)
--- NOTE | 2018-03-08 12:34 | Internal Medicine Prog Note ---
Internal Medicine Subjective - Subjective Patient seen and examined:: with staff, chart reviewed Patient is:: awake, verbal, interactive, in bed, talking, denies any new complaints, agitated, confused Patient Complaints of:: unable to sleep, weight gain Per staff patient has:: no adverse event, no episodes of fall, poor oral intake , agitated, noncompliant, refusing care Internal Medicine Objective - Results Result Diagrams: 03/07/18 07:20 03/07/18 07:20 Recent Labs: Laboratory Last Values WBC 4.1 Th/cmm (4.8-10.8) L 03/07/18 07:20 RBC 3.77 Mil/cmm (3.80-5.20) L 03/07/18 07:20 Hgb 11.0 gm/dL (12-16) L 03/07/18 07:20 Hct 32.8 % (41.0-60) L 03/07/18 07:20 MCV 87.1 fl (81-100) 03/07/18 07:20 MCH 29.3 pg (27.0-31.0) 03/07/18 07:20 MCHC Differential 33.6 pg (28.0-36.0) 03/07/18 07:20 RDW 14.6 % (11.5-20.0) 03/07/18 07:20 Plt Count 114 Th/cmm (150-400) L 03/07/18 07:20 MPV 8.8 fl 03/07/18 07:20 Neutrophils % 60.5 % (40.0-80.0) 03/07/18 07:20 Lymphocytes % 21.4 % (20.0-50.0) 03/07/18 07:20 Monocytes % 10.0 % (2.0-10.0) 03/07/18 07:20 Eosinophils % 7.4 % (0.0-5.0) H 03/07/18 07:20 Basophils % 0.7 % (0.0-2.0) 03/07/18 07:20 PT 12.1 SECONDS (9.5-11.5) H 03/05/18 19:50 INR 1.17 (0.5-1.4) 03/05/18 19:50 PTT (Actin FS) 28.3 SECONDS (26.0-38.0) 03/05/18 19:50 Sodium 131 mEq/L (136-145) L 03/07/18 07:20 Potassium 3.8 mEq/L (3.5-5.1) 03/07/18 07:20 Chloride 102 mEq/L (98-107) 03/07/18 07:20 Carbon Dioxide 22.6 mEq/L (21.0-31.0) 03/07/18 07:20 Anion Gap 10.2 (7.0-16.0) 03/07/18 07:20 BUN 11 mg/dL (7-25) 03/07/18 07:20 Creatinine 0.8 mg/dL (0.6-1.2) 03/07/18 07:20 Est GFR ( Amer) TNP 03/07/18 07:20 Est GFR (Non-Af Amer) TNP 03/07/18 07:20 BUN/Creatinine Ratio 13.8 03/07/18 07:20 Glucose 262 mg/dL (70-105) H 03/07/18 07:20 POC Glucose 208 MG/DL (70 - 105) H 03/08/18 11:29 Calcium 8.8 mg/dL (8.6-10.3) 03/07/18 07:20 Total Bilirubin 3.1 mg/dL (0.3-1.0) H 03/07/18 07:20 AST 31 U/L (13-39) 03/07/18 07:20 ALT 10 U/L (7-52) 03/07/18 07:20 Alkaline Phosphatase 83 U/L (34-104) 03/07/18 07:20 Ammonia 124 umol/L (16-53) H 03/07/18 07:20 Troponin I 0.01 ng/mL (0.01-0.05) 03/05/18 19:50 B-Natriuretic Peptide 125.0 pg/mL (5.0-100.0) H 03/07/18 07:20 Total Protein 5.9 gm/dL (6.0-8.3) L 03/07/18 07:20 Albumin 2.4 gm/dL (3.7-5.3) L 03/07/18 07:20 Globulin 3.5 gm/dL 03/07/18 07:20 Albumin/Globulin Ratio 0.7 (1.0-1.8) L 03/07/18 07:20 TSH 1.85 uIU/ml (0.34-5.60) 03/07/18 22:38 Urine Source MIDSTREAM 03/07/18 23:00 Urine Color YELLOW 03/07/18 23:00 Urine Clarity HAZY (CLEAR) 03/07/18 23:00 Urine pH 6.0 (4.6 - 8.0) 03/07/18 23:00 Ur Specific [place] >= 1.030 (1.005-1.030) 03/07/18 23:00 Urine Protein 100 mg/dL (NEGATIVE) H 03/07/18 23:00 Urine Glucose (UA) >=1000 mg/dL (NEGATIVE) H 03/07/18 23:00 Urine Ketones NEGATIVE mg/dL (NEGATIVE) 03/07/18 23:00 Urine Blood MODERATE (NEGATIVE) H 03/07/18 23:00 Urine Nitrate POSITIVE (NEGATIVE) H 03/07/18 23:00 Urine Bilirubin NEGATIVE (NEGATIVE) 03/07/18 23:00 Urine Urobilinogen 1.0 E.U./dL (0.2 - 1.0) 03/07/18 23:00 Ur Leukocyte Esterase TRACE (NEGATIVE) H 03/07/18 23:00 Urine RBC 2-5 /hpf (0-5) 03/07/18 23:00 Urine WBC 25-50 /hpf (0-5) H 03/07/18 23:00 Ur Epithelial Cells MODERATE /lpf (FEW) 03/07/18 23:00 Urine Bacteria MODERATE /hpf (NONE SEEN) H 03/07/18 23:00 - Physical Exam Vitals and I&O: Vital Signs Temp 97.2 F 03/08/18 12:00 Pulse 65 03/08/18 12:00 Resp 19 03/08/18 12:00 BP 150/59 03/08/18 12:00 Pulse Ox 97 03/08/18 12:00 Intake & Output 03/07/18 03/08/18 03/08/18 18:59 06:59 18:59 Intake Total 800 440 Balance 800 440 Weight (lbs) 102.512 kg 102.512 kg Intake: Oral 800 440 Other: # Voids 4 2 # Bowel Movements 0 0 Weight Source Estimated Bedscale Active Medications: Current Medications Acetaminophen (Tylenol) 650 mg PO Q4H PRN PRN Reason: Pain Or Fever above 101 Stop: 05/04/18 21:50 Albuterol Sulfate (Albuterol 2.5mg/3ml Neb Ud) 2.5 mg HHN Q2HRT PRN PRN Reason: Shortness of Breath or Wheeze Stop: 05/04/18 21:50 Ceftriaxone Sodium 1 gm/ (Sodium Chloride) 50 mls @ 100 mls/hr IV Q24HR [facility] Stop: 05/07/18 11:59 Insulin Aspart (Novolog Insulin Sliding Scale) 0 units SUBQ ACHS [facility]; Protocol Stop: 05/05/18 07:29 Last Admin: 03/08/18 11:53 Dose: Not Given Insulin Detemir (Levemir Insulin) 14 units SUBQ BID [facility]; Protocol Stop: 05/05/18 08:59 Last Admin: 03/08/18 09:00 Dose: Not Given Ipratropium [place] (Atrovent Neb 0.5mg/2.5ml) 0.5 mg HHN Q2HRT PRN PRN Reason: Shortness of Breath or Wheeze Stop: 05/04/18 21:50 Lactulose (Cephulac) 30 gm PO TID [facility] Stop: 05/05/18 08:59 Last Admin: 03/08/18 09:00 Dose: Not Given Lisinopril (Zestril) 20 mg PO BID [facility] Stop: 05/05/18 08:59 Last Admin: 03/08/18 09:00 Dose: Not Given Multi-Ingredient Cream (Euerin Cream) 1 appl TP BID [facility] Stop: 05/05/18 16:59 Last Admin: 03/08/18 11:12 Dose: 1 appl Mupirocin (Bactroban Oint) 1 appl NS BID [facility] Stop: 03/12/18 09:01 Last Admin: 03/08/18 09:34 Dose: 1 appl Nitroglycerin (Nitrostat) 0.4 mg SL Q5MIN PRN PRN Reason: Chest Pain Stop: 05/04/18 21:50 Ondansetron HCl (Zofran) 4 mg IV Q8H PRN PRN Reason: Nausea / Vomiting Stop: 05/04/18 21:50 Pantoprazole Sodium (Protonix) 40 mg PO BIDAC [facility] Stop: 05/05/18 07:29 Last Admin: 03/08/18 06:57 Dose: 40 mg Propranolol HCl (Inderal) 20 mg PO BID [facility] Stop: 05/05/18 16:59 Last Admin: 03/08/18 09:06 Dose: Not Given Quetiapine Fumarate (Seroquel) 12.5 mg PO HS [facility]; Protocol Stop: 05/05/18 20:59 Rifaximin (Xifaxan) 600 mg PO BID [facility] Stop: 05/05/18 16:59 Last Admin: 03/08/18 09:13 Dose: Not Given General: weak, obese, appears younger HEENT: NC/AT, PERRLA, EOMI Neck: Supple, No JVD, No thyromegaly Lungs: congested, rales Cardiovascular: RRR, Normal S1, Normal S2, without murmur Abdomen: soft, globular, non-distended, positive bowel sound Extremities: excoriation Neurological: no change, disorganized - Procedures Procedures: Procedures Procedure Code Date INJECT/INFUSE NEC 99.29 01/12/10 INSERTION OF INFUSION DEV INTO SUP VENA CAVA, PERC APPROACH [id number] 11/28/17 INSERTION OF INFUSION DEVICE INTO R UP ARM, PERC APPROACH [id number] 11/28/17 Internal Medicine Assmt/Plan - Assessment Assessment: ASSESSMENT : uti Elevated ammonia with encephalopathy, possible cirrhosis from steatohepatitis, history of gallstone, hyponatremia, diabetes out of control, elevated bilirubin, protein-calorie malnutrition, hypertension, coronary artery disease, congestive heart failure. multiple rib fractures - Plan Plan: PLAN: We will continue the patient on gentle IV hydration. Discontinue diuretics for now. Continue lactulose. We will refer the patient to Psychiatry as well as GI. We will admit the patient for further management. ye rn will need snf placement for mrcp today Nutritional Asmnt/Malnutr-PDOC - Dietary Evaluation Malnutrition Findings (Please click <Entered> for more info): Nutritional Asmnt/Malnutrition Start: 03/06/18 13: 58 Text: Status: Complete Freq: Protocol: Document 03/06/18 13:58 [email or web address] (Rec: 03/06/18 14:06 [email or web address]) Nutritional Asmnt/Malnutrition Patient General Information Nutritional Screening High Risk Consult Diagnosis hepatic encephalopathy, confusion Pertinent Medical Hx/Surgical Hx HTN, CHF, liver problems, possible dementia Subjective Information Consult recieved for cody Jamison . Elevated glucose level of 473 noted. Pt was asleep at time of visit. PO intake is 100% per RN. Current Diet Order/ Nutrition Support low sodium 2gm Pertinent Medications novolog, levemir, lactulose, zofran, protonix, seroquel, nacl 0.9% Pertinent Labs 03/05 glucose 473, Na 130, Cl 96, POC 285, alb 2.8 Nutritional Hx/Data Height 1.52 m Height (Calculated Centimeters) 152.4 Current Weight (lbs) 102.512 kg Weight (Calculated Kilograms) 102.5 Weight (Calculated Grams) 117160.9 [place] Body Weight 100 Body Mass Index (BMI) 44.1 Weight Status Morbidly Obese GI Symptoms GI Symptoms None Last BM not indicated Difficult in: None Food Allergies No Skin Integrity/Comment: scar to right and left legs cdoy 12 Current %PO Good (75-100%) Estimated Nutritional Goals BEE in Kcals: Adj wt of IBW Calories/Kcals/Kg 25-30 Kcals Calculated 3269-8261 Protein: Adj wt of IBW Protein g/k Protein Calculated 59 Fluid: ml 8741-4537 (1ml/kcal) Nutritional Problem 1. Problem Problem altered nutrition related labs Etiology hyperglycemia and fluid/ electrolyte imbalance Signs/Symptoms: glucose 473, POC 285, Na 130, Cl 96 Malnutrition Alert Is there a minimum of two criteria No selected? Query Text:Check all the applicable criteria. A minimum of two criteria are recommended for diagnosis of either severe or non-severe malnutrition. Malnutrition Related to Morbid Obesity Malnutrition related to morbid obesity No Intervention/Recommendation Comments 1. Continue with low sodium 2gm diet as ordered, recommend adding CCHO 60gm diet due to elevated glucose levels. RN notified. 2. MD to adjust insulin regimen for optimal glycemic control 3. Monitor PO intake, wt, labs and skin integrity 4. F/U as high risk in 2-3 days Expected Outcomes/Goals Expected Outcomes/Goals 1. PO intake to meet at least 75% of nutritional needs. 2. Wt stability, skin to remain intact, labs to approach WNL. Reviewed by Pamela Williamson RD
[2018-03-08] MEDS: cefTRIAXone 1 GM in Sodium Chloride 0.9% 50 ML IV SCH (14:14)
--- NOTE | 2018-03-08 14:51 | Diagnostic Imaging Report ---
Magnetic Resonance Cholepancreatography (MRCP) HISTORY: Dilated common bile duct, pain Multiple MRI sequences including 3-D high-resolution thin/thick slab, SPGR were utilized. Exam is compromised by patient motion artifact. The exam provide further delineation the common bile duct. This measures 6.8 mm in diameter. There is irregularity in the contour of the duct. This may be accentuated by patient motion. Heterogeneity noted within the lumen. Small intraluminal filling defects cannot be excluded. There is partial visualization of the pancreatic duct which appears normal. No intrahepatic biliary dilatation. The gallbladder is not seen consistent with patient's surgical history. There is an approximate 2.2 cm defect within the anterior abdominal wall associated with nondilated bowel. No focal hepatic parenchymal lesions are seen. The spleen appears somewhat enlarged. Suboptimal delineation of the margins of the pancreas. IMPRESSION: 1. Limited exam due to patient motion 2. Common bile duct equals 6.8 mm in diameter. This is within normal limits status post cholecystectomy. Mild irregularity and heterogeneous changes within the lumen of the common bile duct. This may be related to patient motion. Small intraluminal filling defects cannot be definitely excluded. 3. Ventral hernia associated with nondilated bowel.
[2018-03-09] MEDS: Pantoprazole 40 mg EC Tab PO SCH (07:05)
[2018-03-09] MEDS: INSULIN ASPART SLIDING SCALE 100 UNITS/ML UNIT SUBQ SCH ×2 (08:00→11:31)
[2018-03-09 08:01] LABS: % BASOPHILS 1.2 % (0.0-2.0); % EOSINOPHILS 6.6 % (0.0-5.0); % LYMPHOCYTES 17.6 % (20.0-50.0); % NEUTROPHILS 65.6 % (40.0-80.0); BASOPHILE ABSOLUTE 0.1 Th/cumm (0-0.2); EOSINOPHILE ABSOLUTE 0.3 Th/cmm (0.1-0.4); HEMOGLOBIN 12.3 gm/dL (12-16); LYMPHOCYTE ABSOLUTE 0.8 Th/cmm (1.5-3.0); MEAN CELL VOLUME 86.7 fl (81-100); MEAN CORPUSCULAR HEMOGLOBIN 29.5 pg (27.0-31.0); MEAN PLATELET VOLUME 9.3 fl; MONOCYTE ABSOLUTE 0.4 Th/cmm (0.3-1.0); NEUTROPHILE ABSOLUTE 3.2 Th/cmm (1.8-8.0); PLATELET COUNT 102 Th/cmm (150-400); RED BLOOD COUNT 4.16 Mil/cmm (3.80-5.20); RED CELL DISTRIBUTION WIDTH 14.9 % (11.5-20.0); WHITE BLOOD COUNT 4.8 Th/cmm (4.8-10.8)
[2018-03-09] MEDS: Insulin Detemir 100 units/mL 10mL Vial SUBQ SCH (08:02)
[2018-03-09] MEDS: Eucerin Cream 16 oz Jar TP SCH (08:06)
[2018-03-09] MEDS: Lactulose 10 Gm/15 mL 30mL UDC PO SCH ×2 (08:07→14:13)
[2018-03-09 08:18] LABS: ALB/GLOB RATIO 0.7 (1.0-1.8); ALBUMIN 2.6 gm/dL (3.7-5.3); ALKALINE PHOSPHATASE 92 U/L (34-104); BILIRUBIN,DIRECT 0.68 mg/dL (0.0-0.2); BILIRUBIN,TOTAL 3.2 mg/dL (0.3-1.0); BUN - UREA NITROGEN 11 mg/dL (7-25); CALCIUM SERUM 8.5 mg/dL (8.6-10.3); CHLORIDE 102 mEq/L (98-107); CREATININE - SERUM 0.7 mg/dL (0.6-1.2); GLUCOSE 227 mg/dL (70-105); SGOT 32 U/L (13-39); SGPT/ALT 12 U/L (7-52); SODIUM SERUM 134 mEq/L (136-145); TOTAL PROTEIN,SERUM 6.4 gm/dL (6.0-8.3)
[2018-03-09] MEDS: cefTRIAXone 1 GM in Sodium Chloride 0.9% 50 ML IV SCH (11:00)
--- NOTE | 2018-03-09 12:31 | Discharge Summary ---
DATE OF DISCHARGE: 03/09/2018 CHIEF COMPLAINT: Change in mental status. FINAL DIAGNOSES: 1. Hepatic encephalopathy with elevated ammonia. 2. Cirrhosis, secondary to nonalcoholic steatohepatitis. 3. History of gallstone. 4. Hyponatremia. 5. Diabetes, out of control. 6. Elevated bilirubin. 7. Protein-calorie malnutrition. 8. Hypertension. 9. Coronary artery disease. 10. Congestive heart failure. 11. Urinary tract infection. HISTORY: This is a 72-year-old [place] female with a history of hypertension, CHF, liver problems, vascular dementia, admitted apparently from home, and living in a hotel room nearby. The patient is noted out to be confused. The patient is admitted for further management. PHYSICAL EXAMINATION: VITAL SIGNS: Blood pressure 136/61, respirations 18, pulse 65, temperature 98.0. GENERAL: Elderly female, moderately obese. NECK: Supple. No mass. LUNGS: Equal breath sounds. A few rhonchi. HEART: Regular rate and rhythm. Systolic ejection murmur. ABDOMEN: Soft, globular. EXTREMITIES: Positive. NEUROLOGIC: Limited. HOSPITAL COURSE: The patient is admitted to medical floor, continued on oxygen and bronchodilator treatment, and started on IV antibiotic and lactulose. The patient was referred to Dr. Crane for GI and Dr. Mina for Psychiatry. The patient is started on Seroquel. Case was also discussed with the medical secretary receptionist ____ insurance who does not feel the patient qualifies for a correction facility. The patient is to be discharged to home with social work therapist and home health and a close followup with her primary care doctor. The patient does follow up with a liver specialist at [facility]. CONDITION ON DISCHARGE: Fair. DISCHARGE INSTRUCTIONS: The patient is to continue current regimen. A prescription is written for antibiotic as well as rifaximin and lactulose. The patient is to be referred to the closest ER if her condition worsens. JOB# [id number]
--- NOTE | 2018-03-09 12:34 | GI Progress Note ---
Subjective - Review of Systems Subjective: NO EVENTS Objective - Results Result Diagrams: 03/09/18 07:45 03/09/18 07:45 Recent Labs: Laboratory Last Values WBC 4.8 Th/cmm (4.8-10.8) 03/09/18 07:45 RBC 4.16 Mil/cmm (3.80-5.20) 03/09/18 07:45 Hgb 12.3 gm/dL (12-16) 03/09/18 07:45 Hct 36.0 % (41.0-60) L 03/09/18 07:45 MCV 86.7 fl (81-100) 03/09/18 07:45 MCH 29.5 pg (27.0-31.0) 03/09/18 07:45 MCHC Differential 34.0 pg (28.0-36.0) 03/09/18 07:45 RDW 14.9 % (11.5-20.0) 03/09/18 07:45 Plt Count 102 Th/cmm (150-400) L 03/09/18 07:45 MPV 9.3 fl 03/09/18 07:45 Neutrophils % 65.6 % (40.0-80.0) 03/09/18 07:45 Lymphocytes % 17.6 % (20.0-50.0) L 03/09/18 07:45 Monocytes % 9.0 % (2.0-10.0) 03/09/18 07:45 Eosinophils % 6.6 % (0.0-5.0) H 03/09/18 07:45 Basophils % 1.2 % (0.0-2.0) 03/09/18 07:45 PT 12.1 SECONDS (9.5-11.5) H 03/05/18 19:50 INR 1.17 (0.5-1.4) 03/05/18 19:50 PTT (Actin FS) 28.3 SECONDS (26.0-38.0) 03/05/18 19:50 Sodium 134 mEq/L (136-145) L 03/09/18 07:45 Potassium 4.0 mEq/L (3.5-5.1) 03/09/18 07:45 Chloride 102 mEq/L (98-107) 03/09/18 07:45 Carbon Dioxide 25.0 mEq/L (21.0-31.0) 03/09/18 07:45 Anion Gap 11.0 (7.0-16.0) 03/09/18 07:45 BUN 11 mg/dL (7-25) 03/09/18 07:45 Creatinine 0.7 mg/dL (0.6-1.2) 03/09/18 07:45 Est GFR ( Amer) TNP 03/09/18 07:45 Est GFR (Non-Af Amer) TNP 03/09/18 07:45 BUN/Creatinine Ratio 15.7 03/09/18 07:45 Glucose 227 mg/dL (70-105) H 03/09/18 07:45 POC Glucose 313 MG/DL (70 - 105) H 03/09/18 11:24 Calcium 8.5 mg/dL (8.6-10.3) L 03/09/18 07:45 Total Bilirubin 3.2 mg/dL (0.3-1.0) H 03/09/18 07:45 Direct Bilirubin 0.68 mg/dL (0.0-0.2) H 03/09/18 07:45 AST 32 U/L (13-39) 03/09/18 07:45 ALT 12 U/L (7-52) 03/09/18 07:45 Alkaline Phosphatase 92 U/L (34-104) 03/09/18 07:45 Ammonia 124 umol/L (16-53) H 03/07/18 07:20 Troponin I 0.01 ng/mL (0.01-0.05) 03/05/18 19:50 B-Natriuretic Peptide 125.0 pg/mL (5.0-100.0) H 03/07/18 07:20 Total Protein 6.4 gm/dL (6.0-8.3) 03/09/18 07:45 Albumin 2.6 gm/dL (3.7-5.3) L 03/09/18 07:45 Globulin 3.8 gm/dL 03/09/18 07:45 Albumin/Globulin Ratio 0.7 (1.0-1.8) L 03/09/18 07:45 TSH 1.85 uIU/ml (0.34-5.60) 03/07/18 22:38 Urine Source MIDSTREAM 03/07/18 23:00 Urine Color YELLOW 03/07/18 23:00 Urine Clarity HAZY (CLEAR) 03/07/18 23:00 Urine pH 6.0 (4.6 - 8.0) 03/07/18 23:00 Ur Specific [place] >= 1.030 (1.005-1.030) 03/07/18 23:00 Urine Protein 100 mg/dL (NEGATIVE) H 03/07/18 23:00 Urine Glucose (UA) >=1000 mg/dL (NEGATIVE) H 03/07/18 23:00 Urine Ketones NEGATIVE mg/dL (NEGATIVE) 03/07/18 23:00 Urine Blood MODERATE (NEGATIVE) H 03/07/18 23:00 Urine Nitrate POSITIVE (NEGATIVE) H 03/07/18 23:00 Urine Bilirubin NEGATIVE (NEGATIVE) 03/07/18 23:00 Urine Urobilinogen 1.0 E.U./dL (0.2 - 1.0) 03/07/18 23:00 Ur Leukocyte Esterase TRACE (NEGATIVE) H 03/07/18 23:00 Urine RBC 2-5 /hpf (0-5) 03/07/18 23:00 Urine WBC 25-50 /hpf (0-5) H 03/07/18 23:00 Ur Epithelial Cells MODERATE /lpf (FEW) 03/07/18 23:00 Urine Bacteria MODERATE /hpf (NONE SEEN) H 03/07/18 23:00 - Physical Exam Vitals and I&O: Vital Signs Temp 97.3 F 03/09/18 12:00 Pulse 59 03/09/18 12:00 Resp 18 03/09/18 12:00 BP 137/68 03/09/18 12:00 Pulse Ox 98 03/09/18 12:00 Intake & Output 03/08/18 03/09/18 03/09/18 18:59 06:59 18:59 Intake Total 50 1000 Balance 50 1000 Weight (lbs) 102.512 kg Intake: Intake, IV Amount 50 cefTRIAXone 1 gm In 50 Sodium Chloride 0.9% 50 ml @ 100 mls/hr IV Q24HR [facility] Rx#:[id number] Oral 1000 Other: # Voids 2 # Bowel Movements 2 Stool Characteristics Soft Weight Source Bedscale Active Medications: Current Medications Acetaminophen (Tylenol) 650 mg PO Q4H PRN PRN Reason: Pain Or Fever above 101 Stop: 05/04/18 21:50 Albuterol Sulfate (Albuterol 2.5mg/3ml Neb Ud) 2.5 mg HHN Q2HRT PRN PRN Reason: Shortness of Breath or Wheeze Stop: 05/04/18 21:50 Insulin Aspart (Novolog Insulin Sliding Scale) 0 units SUBQ ACHS [facility]; Protocol Stop: 05/05/18 07:29 Last Admin: 03/09/18 11:31 Dose: 8 units Insulin Detemir (Levemir Insulin) 14 units SUBQ BID [facility]; Protocol Stop: 05/05/18 08:59 Last Admin: 03/09/18 08:02 Dose: 14 unit Ipratropium [place] (Atrovent Neb 0.5mg/2.5ml) 0.5 mg HHN Q2HRT PRN PRN Reason: Shortness of Breath or Wheeze Stop: 05/04/18 21:50 Lactulose (Cephulac) 30 gm PO TID [facility] Stop: 05/05/18 08:59 Last Admin: 03/09/18 08:07 Dose: 30 gm Lisinopril (Zestril) 20 mg PO BID [facility] Stop: 05/05/18 08:59 Last Admin: 03/09/18 08:11 Dose: 20 mg Multi-Ingredient Cream (Euerin Cream) 1 appl TP BID [facility] Stop: 05/05/18 16:59 Last Admin: 03/09/18 08:06 Dose: 1 appl Mupirocin (Bactroban Oint) 1 appl NS BID [facility] Stop: 03/12/18 09:01 Last Admin: 03/09/18 08:06 Dose: 1 appl Nitroglycerin (Nitrostat) 0.4 mg SL Q5MIN PRN PRN Reason: Chest Pain Stop: 05/04/18 21:50 Ondansetron HCl (Zofran) 4 mg IV Q8H PRN PRN Reason: Nausea / Vomiting Stop: 05/04/18 21:50 Pantoprazole Sodium (Protonix) 40 mg PO BIDAC [facility] Stop: 05/05/18 07:29 Last Admin: 03/09/18 07:05 Dose: 40 mg Propranolol HCl (Inderal) 20 mg PO BID [facility] Stop: 05/05/18 16:59 Last Admin: 03/09/18 08:09 Dose: 20 mg Quetiapine Fumarate (Seroquel) 12.5 mg PO HS [facility]; Protocol Stop: 05/05/18 20:59 Rifaximin (Xifaxan) 600 mg PO BID [facility] Stop: 05/05/18 16:59 Last Admin: 03/09/18 10:36 Dose: 600 mg - Procedures Procedures: Procedures Procedure Code Date INJECT/INFUSE NEC 99.29 01/12/10 INSERTION OF INFUSION DEV INTO SUP VENA CAVA, PERC APPROACH 14OE06X 11/28/17 INSERTION OF INFUSION DEVICE INTO R UP ARM, PERC APPROACH 4KV988A 11/28/17 Assessment/Plan - Problem List Patient Problems: All Active Problems ALTERED MENTAL STATUS (Acute) - Assessment Assessment: 72 YO FEMALE WITH CIRRHOSIS AND HEP ENCEPHALOPATHY HAS ELEVATED LFTS IMAGING SUGGEST DILATED CBD AT 1.1 CM MRCP SHOWED NO CBD STONES 1.FOLLOW LFTS 2.CONT LACTULOSE AND XIFAXAN 3.WILL NEED OUTPATIENT HEPATOLOGY
== END 2018-03-09 15:55 | disposition home or self-care (01) | DRG 441 ==
LOC: ER 19:00 → MSI 21:25
PROVIDERS: ADMIT Internal Medicine; ATTEND Internal Medicine
DX: K75.81 Nonalcoholic steatohepatitis (NASH) (principal); K72.00 Acute and subacute hepatic failure without coma; E87.1 Hypo-osmolality and hyponatremia; E44.0 Moderate protein-calorie malnutrition; Z68.41 Body mass index [BMI] 40.0-44.9, adult; N39.0 Urinary tract infection, site not specified; E11.65 Type 2 diabetes mellitus with hyperglycemia; K74.60 Unspecified cirrhosis of liver; I25.10 Atherosclerotic heart disease of native coronary artery without angina pectoris; I50.9 Heart failure, unspecified; I11.0 Hypertensive heart disease with heart failure; F41.9 Anxiety disorder, unspecified; F01.50 Vascular dementia, unspecified severity, without behavioral disturbance, psychotic disturbance, mood disturbance, and anxiety
CPT/HCPCS: 36415-UA; 70450-TC; 71250-TC; 76700-TC; 80053-TC; 81001-TC; 82140-TC; 82248-TC; 82948-90; 83036-90; 83880-TC; 84443-TC; 84484-TC; 85025-TC; 85610-TC; 86592-TC; 87086-90; 93005; 94760; 96374; J0696; J1815; J7030; X3904; Z7610; Z7610-TC

== ENCOUNTER 2018-06-10 02:59 | Inpatient (IN) | payer MEDICARE, MEDICAID ==
[2018-06-10] MEDS ORDERED: Sodium Chloride 0.9% 1,000 ML IV ONE ×2 (03:23→03:29)
[2018-06-10] MEDS ORDERED: INSULIN HUMAN REGULAR 100 UNITS/ML UNIT SUBQ ONE (03:38)
--- NOTE | 2018-06-10 03:38 | ED Physician Chart ---
ED Chief Complaint/HPI - Patient Information Date Seen:: 06/10/18 Time Seen:: 03:33 Chief Complaint:: ams History of Present Illness:: 72 yr old female with ams and hyperglycemia in the 400 range living at home in a hotel Allergies:: Allergies Allergy/AdvReac Type Severity Reaction Status Date / Time No Known Allergies Allergy Verified 11/28/17 06:20 Vitals:: Vital Signs - 8 hr 06/10/18 03:00 Temp 96.7 F HR 72 RR 19 BP 167/86 O2 Sat % 99 ED Past Medical History - Past Medical History Past Medical History: DM, Other (obesity ) Family Medical History - Family Member Mother History Unknown: Yes ED Physical Exam - Physical Examination General/Constitutional: Awake, Well-developed, well-nourished Other Gen/Cons comments:: obese heavy set Head: Atraumatic Eyes: Lids, conjuctiva normal Skin: Nl inspection ENMT: External ears, nose nl Neck: Full ROM w/o pain ED Labs/Radiology/EKG Results - Lab Results Results: Laboratory Tests 06/10/18 03:15 POC Glucose 345 H ED Assessment - Assessment General Assessment: hyperglycemia ams r/o dka ED Septic Shock - . Is Septic Shock (SBP<90, OR Lactate>4 mmol\L) present?: No - <6hrs of presentation: Vital Signs: Vital Signs - 8 hr 06/10/18 03:00 Temp 96.7 F HR 72 RR 19 BP 167/86 O2 Sat % 99 ED Reassessment (Disposition) - Reassessment Reassessment:: hyperglycemia r/o dka
[2018-06-10 03:47] LABS: HEMATOCRIT 40.3 % (41.0-60); HEMOGLOBIN 13.6 gm/dL (12-16); MEAN CELL VOLUME 84.2 fl (81-100); MEAN CORPUSCULAR HEMOGLOBIN 28.5 pg (27.0-31.0); MEAN CORPUSCULAR HGB CONC 33.8 pg (28.0-36.0); MEAN PLATELET VOLUME 9.4 fl; PLATELET COUNT 97 Th/cmm (150-400); RED BLOOD COUNT 4.78 Mil/cmm (3.80-5.20); WHITE BLOOD COUNT 6.5 Th/cmm (4.8-10.8)
[2018-06-10 04:02] LABS: ALB/GLOB RATIO 0.7 (1.0-1.8); ALBUMIN 3.2 gm/dL (3.7-5.3); ALKALINE PHOSPHATASE 149 U/L (34-104); ANION GAP 14.8 (7.0-16.0); BILIRUBIN,TOTAL 5.4 mg/dL (0.3-1.0); BUN - UREA NITROGEN 16 mg/dL (7-25); CALCIUM SERUM 9.7 mg/dL (8.6-10.3); CARBON DIOXIDE 27.1 mEq/L (21.0-31.0); CHLORIDE 93 mEq/L (98-107); GLUCOSE 389 mg/dL (70-105); POTASSIUM SERUM 4.9 mEq/L (3.5-5.1); SGOT 37 U/L (13-39); SGPT/ALT 19 U/L (7-52); SODIUM SERUM 130 mEq/L (136-145); TOTAL PROTEIN,SERUM 7.6 gm/dL (6.0-8.3)
[2018-06-10 04:03] LABS: ALB/GLOB RATIO 0.8 (1.0-1.8); ALBUMIN 3.2 gm/dL (3.7-5.3); BILIRUBIN,DIRECT 0.97 mg/dL (0.0-0.2); BILIRUBIN,TOTAL 5.4 mg/dL (0.3-1.0); TOTAL PROTEIN,SERUM 7.2 gm/dL (6.0-8.3)
[2018-06-10 04:04] LABS: CHOLESTEROL 262 mg/dL (<200); HDL -HIGH DENSITY LIPOPROTEIN 72 mg/dL (23-92); TRIGLYCERIDES 104 mg/dL (<150)
[2018-06-10 04:09] LABS: URINE SOURCE FOLEY PORT
[2018-06-10 04:11] LABS: URINE BILIRUBIN NEGATIVE (NEGATIVE); URINE BLOOD MODERATE (NEGATIVE); URINE GLUCOSE (UA) >=1000 mg/dL (NEGATIVE); URINE KETONE NEGATIVE (NEGATIVE); URINE LEUKOCYTE ESTERASE NEGATIVE (NEGATIVE); URINE MICROSCOPIC INDICATED? YES; URINE NITRATE NEGATIVE (NEGATIVE); URINE PROTEIN 100 mg/dL (NEGATIVE)
[2018-06-10 04:32] LABS: pH 7.437 (7.35-7.45)
[2018-06-10 04:33] LABS: ALLEN TEST positive; PaCO2 36.1 mmHg (35.0-45.0); sO2c 96.2 % (92.0-100.0)
[2018-06-10 04:49] LABS: URINE COLOR YELLOW
[2018-06-10 04:50] LABS: URINE CLARITY HAZY (CLEAR)
[2018-06-10 04:51] LABS: URINE BACTERIA FEW /hpf (NONE SEEN); URINE EPITHELIAL CELLS FEW /lpf (FEW)
[2018-06-10] MEDS ORDERED: INSULIN HUMAN REGULAR 100 UNITS/ML UNIT ONE (04:53)
[2018-06-10] MEDS ORDERED: Lactulose 10 Gm/15 mL 30mL UDC PO STA (05:01)
[2018-06-10] MEDS ORDERED: Lactulose 10 Gm/15 mL 30mL UDC ONE (05:04)
[2018-06-10 05:30] LABS: BAND NEUTROPHILE 0 % (0-10); MONOCYTE 6 % (2-10); NEUTROPHILS 76 % (40-80)
[2018-06-10 05:31] LABS: BASOPHIL 0 % (0-3); EOSINOPHIL 2 % (0-5)
[2018-06-10 05:32] LABS: LYMPHOCYTE 16 % (20-50)
[2018-06-10] MEDS ORDERED: Piperacillin Sodium/Tazobact 3.375 gm Vial IV ONE (05:54)
[2018-06-10] MEDS ORDERED: Sodium Chloride 0.9% 1,000 ML IV SCH (07:17)
[2018-06-10] MEDS: Lactulose 10 Gm/15 mL 30mL UDC PO SCH ×4 (09:09→23:37)
[2018-06-10] MEDS ORDERED: GLUCAGON HCl 1 MG KIT IM PRN (09:37)
[2018-06-10] MEDS ORDERED: Dextrose 50% 50 mL Abboject IVP PRN (09:37)
[2018-06-10] MEDS ORDERED: PROPRANOLOL HCL 20 MG PO SCH (09:45)
[2018-06-10] MEDS ORDERED: Non-Formulary Item 1 EA (Rifaximin [Xifaxan] 550 MG) PO SCH (09:45)
--- NOTE | 2018-06-10 09:49 | History and Physical ---
History of Present Illness - HPI Chief Complaint: Altered mental status HPI: Patient was brought to ER due to altered mental status, no more information was available at this moment. Vital Signs: Last Vital Signs Temp 97.2 F 06/10/18 08:55 Pulse 79 06/10/18 08:55 Resp 13 06/10/18 08:55 BP 165/75 06/10/18 08:55 Pulse Ox 95 06/10/18 08:55 Past Medical History Cardiovascular: Report: CAD, HTN Pulmonary: Report: No Pertinent Hx CDS SALES ADVISOR: Report: No Pertinent Hx GI: Report: Other (Cirrhosis) Psych: Report: No Pertinent Hx Musculoskeletal: Report: Weakness Rheumatologic: Report: No pertinent Hx Infectious Disease: Report: No Pertinent Hx Renal/: Report: No Pertinent Hx Endocrine: Report: Diabetes Dermatology: Report: No Pertinent Hx - Past Surgical History Past Surgical History: No pertinent Hx Family Medical History - Family Member Mother History Unknown: Yes Social History Smoke: No Alcohol: None Drugs: None, Other (Apparently he lives with rasheeda in a hotel.) Lives: With Family Domestic Violence: Negative - Medications Home Medications: Home Medication Medication Instructions Recorded Type Propranolol HCl [Inderal*] 20 mg PO DAILY 08/11/14 History Furosemide 20 mg PO DAILY 02/03/16 History Insulin Aspart, Recombinant 20 unit SQ TID 10/05/16 History [NovoLOG] Lisinopril [Zestril*] 20 mg PO DAILY 11/28/17 History Pantoprazole Sodium 40 mg PO DAILY 06/10/18 History Rifaximin [Xifaxan] 550 mg PO BID 06/10/18 History Sitagliptin [Januvia] 50 mg PO DAILY 06/10/18 History Spironolactone 25 mg PO DAILY 06/10/18 History - Allergies Allergies/Adverse Reactions: Allergies Allergy/AdvReac Type Severity Reaction Status Date / Time No Known Allergies Allergy Verified 11/28/17 06:20 Review of Systems - Review of Systems Constitutional: Report: No Significant Eyes: Report: No Significant ENT: Report: No Significant Respiratory: Report: No Significant Cardiovascular: Report: No Significant Gastrointestinal: Report: No Significant Genitourinary: Report: No Significant Musculoskeletal: Report: No Significant Skin: Report: No Significant Neurological: Report: Weakness, Confusion Physical Exam - Physical Exam HEENT: Report: Ears Nose Throat within normal limits Neck: Report: Within normal limits Cardiovascular Systems: Report: Regular, Rate and Rhythm Respiratory: Report: Breath Sounds are within normal limits Abdomen: Report: Non-tender to palpation Back: Report: Inspection of back is within normal limits. Extremities: Report: Non-tender to palpation. Skin: Report: Color of skin is within normal limits Neuro/Psych: Report: Other (Patient is confused, ) - Lab Results All Lab Results last 24 hours: Laboratory Results - last 24 hr 06/10/18 06/10/18 06/10/18 03:15 03:21 03:30 WBC 6.5 RBC 4.78 Hgb 13.6 Hct 40.3 L MCV 84.2 MCH 28.5 MCHC Differential 33.8 RDW 15.0 Plt Count 97 L MPV 9.4 Add Manual Diff YES Band Neutrophils % 0 Neutrophils (Manual) 76 Lymphocytes 16 L Monocytes 6 Eosinophils 2 Basophils 0 Specimen Source arterial Sample Site left radial pH 7.437 pCO2 36.1 pO2 80.0 HCO3 23.8 Base Excess 0.1 O2 Saturation 96.2 [place] Test positive Vent Rate n/a Inspired O2 21 Tidal Volume n/a PEEP n/a Pressure (ins/psv/peep) n/a Critical Value [place] Sodium Potassium Chloride Carbon Dioxide Anion Gap BUN Creatinine Est GFR ( Amer) Est GFR (Non-Af Amer) BUN/Creatinine Ratio Glucose POC Glucose 345 H Whole Bld Lactic Acid Calcium Total Bilirubin Direct Bilirubin AST ALT Alkaline Phosphatase Ammonia Troponin I Total Protein Albumin Globulin Albumin/Globulin Ratio Triglycerides Cholesterol LDL Cholesterol Direct HDL Cholesterol Urine Source Urine Color Urine Clarity Urine pH Ur Specific [place] Urine Protein Urine Glucose (UA) Urine Ketones Urine Blood Urine Nitrate Urine Bilirubin Urine Urobilinogen Ur Leukocyte Esterase Urine RBC Urine WBC Ur Epithelial Cells Urine Bacteria Serum Ketones 06/10/18 06/10/18 06/10/18 03:30 03:30 03:30 WBC RBC Hgb Hct MCV MCH MCHC Differential RDW Plt Count MPV Add Manual Diff Band Neutrophils % Neutrophils (Manual) Lymphocytes Monocytes Eosinophils Basophils Specimen Source Sample Site pH pCO2 pO2 HCO3 Base Excess O2 Saturation [place] Test Vent Rate Inspired O2 Tidal Volume PEEP Pressure (ins/psv/peep) Critical Value Sodium 130 L Potassium 4.9 Chloride 93 L Carbon Dioxide 27.1 Anion Gap 14.8 BUN 16 Creatinine 1.0 Est GFR ( Amer) TNP Est GFR (Non-Af Amer) TNP BUN/Creatinine Ratio 16.0 Glucose 389 H POC Glucose Whole Bld Lactic Acid 1.97 Calcium 9.7 Total Bilirubin 5.4 H Direct Bilirubin AST 37 ALT 19 Alkaline Phosphatase 149 H Ammonia Troponin I Total Protein 7.6 Albumin 3.2 L Globulin 4.4 Albumin/Globulin Ratio 0.7 L Triglycerides 104 Cholesterol 262 H LDL Cholesterol Direct 164 HDL Cholesterol 72 Urine Source Urine Color Urine Clarity Urine pH Ur Specific [place] Urine Protein Urine Glucose (UA) Urine Ketones Urine Blood Urine Nitrate Urine Bilirubin Urine Urobilinogen Ur Leukocyte Esterase Urine RBC Urine WBC Ur Epithelial Cells Urine Bacteria Serum Ketones 06/10/18 06/10/18 06/10/18 03:30 03:30 03:30 WBC RBC Hgb Hct MCV MCH MCHC Differential RDW Plt Count MPV Add Manual Diff Band Neutrophils % Neutrophils (Manual) Lymphocytes Monocytes Eosinophils Basophils Specimen Source Sample Site pH pCO2 pO2 HCO3 Base Excess O2 Saturation [place] Test Vent Rate Inspired O2 Tidal Volume PEEP Pressure (ins/psv/peep) Critical Value Sodium Potassium Chloride Carbon Dioxide Anion Gap BUN Creatinine Est GFR ( Amer) Est GFR (Non-Af Amer) BUN/Creatinine Ratio Glucose POC Glucose Whole Bld Lactic Acid Calcium Total Bilirubin 5.4 H Direct Bilirubin 0.97 H AST 37 ALT 20 Alkaline Phosphatase 151 H Ammonia 222 H Troponin I 0.01 Total Protein 7.2 Albumin 3.2 L Globulin 4.0 Albumin/Globulin Ratio 0.8 L Triglycerides Cholesterol LDL Cholesterol Direct HDL Cholesterol Urine Source Urine Color Urine Clarity Urine pH Ur Specific [place] Urine Protein Urine Glucose (UA) Urine Ketones Urine Blood Urine Nitrate Urine Bilirubin Urine Urobilinogen Ur Leukocyte Esterase Urine RBC Urine WBC Ur Epithelial Cells Urine Bacteria Serum Ketones 06/10/18 06/10/18 06/10/18 03:30 04:00 04:47 WBC RBC Hgb Hct MCV MCH MCHC Differential RDW Plt Count MPV Add Manual Diff Band Neutrophils % Neutrophils (Manual) Lymphocytes Monocytes Eosinophils Basophils Specimen Source Sample Site pH pCO2 pO2 HCO3 Base Excess O2 Saturation [place] Test Vent Rate Inspired O2 Tidal Volume PEEP Pressure (ins/psv/peep) Critical Value Sodium Potassium Chloride Carbon Dioxide Anion Gap BUN Creatinine Est GFR ( Amer) Est GFR (Non-Af Amer) BUN/Creatinine Ratio Glucose POC Glucose 346 H Whole Bld Lactic Acid Calcium Total Bilirubin Direct Bilirubin AST ALT Alkaline Phosphatase Ammonia Troponin I Total Protein Albumin Globulin Albumin/Globulin Ratio Triglycerides Cholesterol LDL Cholesterol Direct HDL Cholesterol Urine Source [place] Urine Color YELLOW Urine Clarity HAZY Urine pH 7.0 Ur Specific [place] 1.020 Urine Protein 100 H Urine Glucose (UA) >=1000 H Urine Ketones NEGATIVE Urine Blood MODERATE H Urine Nitrate NEGATIVE Urine Bilirubin NEGATIVE Urine Urobilinogen 1.0 Ur Leukocyte Esterase NEGATIVE Urine RBC 5-10 H Urine WBC 2-5 Ur Epithelial Cells FEW Urine Bacteria FEW Serum Ketones NEGATIVE 06/10/18 05:45 WBC RBC Hgb Hct MCV MCH MCHC Differential RDW Plt Count MPV Add Manual Diff Band Neutrophils % Neutrophils (Manual) Lymphocytes Monocytes Eosinophils Basophils Specimen Source Sample Site pH pCO2 pO2 HCO3 Base Excess O2 Saturation [place] Test Vent Rate Inspired O2 Tidal Volume PEEP Pressure (ins/psv/peep) Critical Value Sodium Potassium Chloride Carbon Dioxide Anion Gap BUN Creatinine Est GFR ( Amer) Est GFR (Non-Af Amer) BUN/Creatinine Ratio Glucose POC Glucose 329 H Whole Bld Lactic Acid Calcium Total Bilirubin Direct Bilirubin AST ALT Alkaline Phosphatase Ammonia Troponin I Total Protein Albumin Globulin Albumin/Globulin Ratio Triglycerides Cholesterol LDL Cholesterol Direct HDL Cholesterol Urine Source Urine Color Urine Clarity Urine pH Ur Specific [place] Urine Protein Urine Glucose (UA) Urine Ketones Urine Blood Urine Nitrate Urine Bilirubin Urine Urobilinogen Ur Leukocyte Esterase Urine RBC Urine WBC Ur Epithelial Cells Urine Bacteria Serum Ketones - Assessment Assessment: Patient is somnolent, confused, not oriented, ammonia level 225, Na low, BS high. DX: Hepatic encephalopathy, Cirrhosis, Uncontrolled DM, HTN, obesity. - Plan Plan: Patient is in IV NS, Lactulose, continue with some home meds, NPO except meds, Insulin sliding scale. Consult with GI requested. Will continue to monitor.
[2018-06-10 10:46] LABS: INR 1.06 (0.5-1.4)
[2018-06-10 11:04] VITALS: BP 201/107
[2018-06-10] MEDS ORDERED: Pneumococcal Vaccine 0.5 mL Vial IM ONE (11:55)
[2018-06-10] MEDS: INSULIN LISPRO SLIDING SCALE 100 UNITS/ML UNIT SUBQ SCH ×2 (13:35→17:33)
[2018-06-10] MEDS: Sodium Chloride 0.9% 1,000 ML IV SCH ×2 (13:35→23:38)
--- NOTE | 2018-06-10 23:26 | Consultation ---
DATE OF CONSULTATION: 06/10/2018 INPATIENT GI CONSULTATION CONSULTING PHYSICIAN: Dr. Gary Davalos. REASON FOR CONSULTATION: Hepatic encephalopathy. HISTORY OF PRESENT ILLNESS: The patient is a 72-year-old female with history of liver cirrhosis, decompensated by hepatic encephalopathy in the past, hypertension, coronary artery disease, admitted to the hospital again with altered mental status. The history is obtained from the chart and the nursing staff as the patient is unable to give a history at this time. Apparently, she was staying at the hotel and called 911 as she was feeling altered at that moment. She was brought in to the ER and had continued to be altered without answering questions coherently. Laboratory evaluation revealed ammonia of 222 and thus the patient has been admitted for suspected hepatic encephalopathy. There is no evidence of any GI bleeding going on. PAST MEDICAL HISTORY: Liver cirrhosis, coronary artery disease, hypertension. PAST SURGICAL HISTORY: Unknown. FAMILY HISTORY: Noncontributory. SOCIAL HISTORY: The patient is unable to give a history of alcoholism or illicit drug use. ALLERGIES: There are no known drug allergies. REVIEW OF SYSTEMS: Not possible given the patient is unable to participate in the interview. CURRENT MEDICATIONS: Include IV fluid, Lasix, glucagon, insulin, lactulose, lisinopril, rifaximin. PHYSICAL EXAMINATION: VITAL SIGNS: The blood pressure is 165/75, pulse 79 beats per minute, temperature 97.2, oxygenation 95%. GENERAL: The patient is lying on her back. She is alert and oriented x 0, no apparent distress. HEAD, EYES, EARS, NOSE AND THROAT: Normocephalic, atraumatic appearing head. Pupils are equal and reactive. Extraocular muscles are intact. There is scleral icterus. There are dry mucous membranes. NECK: Supple. No JVD or thyromegaly. CHEST: Clear to auscultation bilaterally. CARDIOVASCULAR: S1, S2 are present, regular rate and rhythm. ABDOMEN: Morbidly obese, soft, nontender to palpation. There is no obvious guarding or rebound. There is fluid distention. EXTREMITIES: 1+ pitting edema bilaterally. Pulses are not present. SKIN: There is jaundice. LABORATORY DATA: White blood cell count 6.5, hemoglobin is 13.6, platelet count is 97. Sodium is 130, BUN 16, and creatinine 1.0, total bilirubin is 5.4, AST 37, ALT 20, ammonia level 222. IMAGING DATA: No imaging has been done yet. IMPRESSION: This is a 72-year-old female with history of cirrhosis, coronary artery disease, and hypertension, admitted to the hospital with altered mental status. 1. Liver cirrhosis, decompensated by hepatic encephalopathy. 2. Altered mental status. 3. Coronary artery disease. 4. Hypertension. 5. Type 2 diabetes. DISCUSSION: Given that her ammonia level is high and she carries a diagnosis of liver cirrhosis, certainly hepatic encephalopathy is high on the differential for altered mental status. The patient will need to be treated with lactulose and rifaximin likely via an NG tube to help bring down this ammonia level. We will also get an abdominal ultrasound given that her bilirubin is elevated, although labs from February also show an elevation there, which means this is probably from chronic liver disease rather than biliary obstruction. RECOMMENDATIONS: 1. Agree with lactulose and rifaximin for hepatic encephalopathy via NG tube if the patient is unable to do this on her own. 2. Abdominal ultrasound. 3. Send an INR level to calculate the MELD score. 4. N.p.o. for the time being. 5. Continue to trend the LFTs. 6. Management of the patient's diabetes and high blood sugar as per primary. Thank you for allowing me to participate in her care. Please call with any questions. JOB# [id number]
[2018-06-11] MEDS ORDERED: Lactulose 10 Gm/15 mL 30mL UDC ONE (04:10)
[2018-06-11] MEDS: Lactulose 10 Gm/15 mL 30mL UDC PO SCH ×4 (05:02→23:39)
[2018-06-11 05:22] LABS: % BASOPHILS 0.1 % (0.0-2.0); % EOSINOPHILS 2.9 % (0.0-5.0); % LYMPHOCYTES 13.1 % (20.0-50.0); % MONOCYTES 7.7 % (2.0-10.0); % NEUTROPHILS 76.2 % (40.0-80.0); EOSINOPHILE ABSOLUTE 0.2 Th/cmm (0.1-0.4); HEMOGLOBIN 12.4 gm/dL (12-16); MEAN CELL VOLUME 83.5 fl (81-100); MEAN CORPUSCULAR HEMOGLOBIN 28.7 pg (27.0-31.0); MEAN CORPUSCULAR HGB CONC 34.3 pg (28.0-36.0); MEAN PLATELET VOLUME 9.2 fl; MONOCYTE ABSOLUTE 0.6 Th/cmm (0.3-1.0); NEUTROPHILE ABSOLUTE 6.1 Th/cmm (1.8-8.0); PLATELET COUNT 106 Th/cmm (150-400); RED BLOOD COUNT 4.31 Mil/cmm (3.80-5.20); RED CELL DISTRIBUTION WIDTH 14.8 % (11.5-20.0); WHITE BLOOD COUNT 7.9 Th/cmm (4.8-10.8)
[2018-06-11 05:42] LABS: ALB/GLOB RATIO 0.7 (1.0-1.8); ALBUMIN 2.5 gm/dL (3.7-5.3); ALKALINE PHOSPHATASE 87 U/L (34-104); BUN - UREA NITROGEN 17 mg/dL (7-25); CALCIUM SERUM 8.7 mg/dL (8.6-10.3); CARBON DIOXIDE 22.4 mEq/L (21.0-31.0); CHLORIDE 105 mEq/L (98-107); GLUCOSE 274 mg/dL (70-105); POTASSIUM SERUM 3.4 mEq/L (3.5-5.1); SGOT 40 U/L (13-39); SGPT/ALT 16 U/L (7-52); SODIUM SERUM 138 mEq/L (136-145); TOTAL PROTEIN,SERUM 5.9 gm/dL (6.0-8.3)
[2018-06-11] MEDS: INSULIN LISPRO SLIDING SCALE 100 UNITS/ML UNIT SUBQ SCH ×4 (06:29→17:10)
--- NOTE | 2018-06-11 10:48 | Diagnostic Imaging Report ---
CHEST X-RAY: AP view INDICATION: NG tube placement COMPARISON: 12/01/2017 FINDINGS: NG tube is seen with tip in the stomach. Bilateral interstitial infiltrates are noted. Cardiomegaly is noted with atherosclerosis. IMPRESSION: NG tube with tip in the stomach. Bilateral interstitial infiltrates and possible mild congestion. Cardiomegaly.
--- NOTE | 2018-06-11 11:03 | Diagnostic Imaging Report ---
Ultrasound abdomen HISTORY: Biliary obstruction, ascites COMPARISON: Ultrasound abdomen on [address] abdomen and pelvis on 11/29/2017. Study was also compared to MRCP performed on 03/08/2018 Technique: Sonography of the abdomen was performed in multiple planes. FINDINGS: Exam is severely limited due to bowel gas and body habitus and patient difficulty cooperating. There is poor visualization of the liver. Accurate liver size was not able to be obtained. Gallstones are noted. The gallbladder wall measures 3 mm. The common bile measures 6 mm. Evaluation pancreas is limited due to bowel gas. Assessment of the kidneys was limited. No hydronephrosis. The spleen measures 13.8 cm. Givens catheter is seen within underdistended urinary bladder limiting its evaluation. IMPRESSION: Severely limited exam due to patient difficulty cooperating and body habitus and bowel gas. Note patient does appear to have a gallbladder. Gallstones are noted. Borderline prominent gallbladder wall is noted measuring 3 mm. The common bile duct does not appear dilated and measures up to 6 mm. if necessary repeat MRCP or ERCP may be obtained. No significant ascites identified Mild splenomegaly. Echogenic liver which may be due to fatty infiltration.
--- NOTE | 2018-06-11 11:22 | General Progress Note ---
Subjective - Review of Systems Service Date: 06/11/18 Subjective: I want to see my Objective - Results Result Diagrams: 06/11/18 05:00 06/11/18 05:00 Recent Labs: Laboratory Last Values WBC 7.9 Th/cmm (4.8-10.8) 06/11/18 05:00 RBC 4.31 Mil/cmm (3.80-5.20) 06/11/18 05:00 Hgb 12.4 gm/dL (12-16) 06/11/18 05:00 Hct 36.0 % (41.0-60) L 06/11/18 05:00 MCV 83.5 fl (81-100) 06/11/18 05:00 MCH 28.7 pg (27.0-31.0) 06/11/18 05:00 MCHC Differential 34.3 pg (28.0-36.0) 06/11/18 05:00 RDW 14.8 % (11.5-20.0) 06/11/18 05:00 Plt Count 106 Th/cmm (150-400) L 06/11/18 05:00 MPV 9.2 fl 06/11/18 05:00 Add Manual Diff YES 06/10/18 03:30 Neutrophils % 76.2 % (40.0-80.0) 06/11/18 05:00 Band Neutrophils % 0 % (0-10) 06/10/18 03:30 Lymphocytes % 13.1 % (20.0-50.0) L 06/11/18 05:00 Monocytes % 7.7 % (2.0-10.0) 06/11/18 05:00 Eosinophils % 2.9 % (0.0-5.0) 06/11/18 05:00 Basophils % 0.1 % (0.0-2.0) 06/11/18 05:00 Neutrophils (Manual) 76 % (40-80) 06/10/18 03:30 Lymphocytes 16 % (20-50) L 06/10/18 03:30 Monocytes 6 % (2-10) 06/10/18 03:30 Eosinophils 2 % (0-5) 06/10/18 03:30 Basophils 0 % (0-3) 06/10/18 03:30 PT 11.0 SECONDS (9.5-11.5) 06/10/18 05:45 INR 1.06 (0.5-1.4) 06/10/18 05:45 Specimen Source arterial 06/10/18 03:21 Sample Site left radial 06/10/18 03:21 pH 7.437 (7.35-7.45) 06/10/18 03:21 pCO2 36.1 mmHg (35.0-45.0) 06/10/18 03:21 pO2 80.0 mmHg (80.0-100.0) 06/10/18 03:21 HCO3 23.8 mEq/L (20.0-26.0) 06/10/18 03:21 Base Excess 0.1 mEq/L (-3.0-3.0) 06/10/18 03:21 O2 Saturation 96.2 % (92.0-100.0) 06/10/18 03:21 Jean Claude Test positive 06/10/18 03:21 Vent Rate n/a 06/10/18 03:21 Inspired O2 21 06/10/18 03:21 Tidal Volume n/a 06/10/18 03:21 PEEP n/a 06/10/18 03:21 Pressure (ins/psv/peep) n/a 06/10/18 03:21 Critical Value abroedel 06/10/18 03:21 Sodium 138 mEq/L (136-145) 06/11/18 05:00 Potassium 3.4 mEq/L (3.5-5.1) L 06/11/18 05:00 Chloride 105 mEq/L (98-107) 06/11/18 05:00 Carbon Dioxide 22.4 mEq/L (21.0-31.0) 06/11/18 05:00 Anion Gap 14.0 (7.0-16.0) 06/11/18 05:00 BUN 17 mg/dL (7-25) 06/11/18 05:00 Creatinine 1.0 mg/dL (0.6-1.2) 06/11/18 05:00 Est GFR ( Amer) TNP 06/11/18 05:00 Est GFR (Non-Af Amer) TNP 06/11/18 05:00 BUN/Creatinine Ratio 17.0 06/11/18 05:00 Glucose 274 mg/dL (70-105) H 06/11/18 05:00 POC Glucose 272 MG/DL (70 - 105) H 06/11/18 06:22 Whole Bld Lactic Acid 1.97 mmol/L (0.60-1.99) 06/10/18 03:30 Calcium 8.7 mg/dL (8.6-10.3) 06/11/18 05:00 Total Bilirubin 6.0 mg/dL (0.3-1.0) H 06/11/18 05:00 Direct Bilirubin 0.97 mg/dL (0.0-0.2) H 06/10/18 03:30 AST 40 U/L (13-39) H 06/11/18 05:00 ALT 16 U/L (7-52) 06/11/18 05:00 Alkaline Phosphatase 87 U/L (34-104) 06/11/18 05:00 Ammonia 72 umol/L (16-53) H 06/11/18 05:00 Troponin I 0.01 ng/mL (0.01-0.05) 06/10/18 03:30 Total Protein 5.9 gm/dL (6.0-8.3) L 06/11/18 05:00 Albumin 2.5 gm/dL (3.7-5.3) L 06/11/18 05:00 Globulin 3.4 gm/dL 06/11/18 05:00 Albumin/Globulin Ratio 0.7 (1.0-1.8) L 06/11/18 05:00 Triglycerides 104 mg/dL (<150) 06/10/18 03:30 Cholesterol 262 mg/dL (<200) H 06/10/18 03:30 LDL Cholesterol Direct 164 mg/dL (75-193) 06/10/18 03:30 HDL Cholesterol 72 mg/dL (23-92) 06/10/18 03:30 Urine Source [place] 06/10/18 04:00 Urine Color YELLOW 06/10/18 04:00 Urine Clarity HAZY (CLEAR) 06/10/18 04:00 Urine pH 7.0 (4.6 - 8.0) 06/10/18 04:00 Ur Specific [place] 1.020 (1.005-1.030) 06/10/18 04:00 Urine Protein 100 mg/dL (NEGATIVE) H 06/10/18 04:00 Urine Glucose (UA) >=1000 mg/dL (NEGATIVE) H 06/10/18 04:00 Urine Ketones NEGATIVE mg/dL (NEGATIVE) 06/10/18 04:00 Urine Blood MODERATE (NEGATIVE) H 06/10/18 04:00 Urine Nitrate NEGATIVE (NEGATIVE) 06/10/18 04:00 Urine Bilirubin NEGATIVE (NEGATIVE) 06/10/18 04:00 Urine Urobilinogen 1.0 E.U./dL (0.2 - 1.0) 06/10/18 04:00 Ur Leukocyte Esterase NEGATIVE (NEGATIVE) 06/10/18 04:00 Urine RBC 5-10 /hpf (0-5) H 06/10/18 04:00 Urine WBC 2-5 /hpf (0-5) 06/10/18 04:00 Ur Epithelial Cells FEW /lpf (FEW) 06/10/18 04:00 Urine Bacteria FEW /hpf (NONE SEEN) 06/10/18 04:00 Serum Ketones NEGATIVE (NEGATIVE) 06/10/18 03:30 - Physical Exam Vitals and I&O: Vital Signs Temp 98.3 F 06/11/18 09:15 Pulse 91 06/11/18 10:00 Resp 17 06/11/18 10:00 BP 142/54 06/11/18 10:00 Pulse Ox 98 06/11/18 10:00 Intake & Output 06/10/18 06/11/18 06/11/18 18:59 06:59 18:59 Intake Total 613.75 460 Output Total 800 200 Balance -186.25 260 Weight (lbs) 103.555 kg 101.605 kg Intake: Intake, IV Amount 393.75 360 Sodium Chloride 0.9% 1, 393.75 360 000 ml @ 75 mls/hr IV . [id number] [facility] Rx#:[id number] Oral 0 100 Other 220 Output: Urine 600 200 Stool 200 Other: # Bowel Movements 2 2 Stool Characteristics Liquid Liquid Liquid Brown Brown Brown Weight Source Bedscale Bedscale Active Medications: Current Medications Dextrose (D50w) 50 ml IVP PRN PRN PRN Reason: Blood Glucose less than 70 Stop: 08/09/18 09:36 Dextrose (Glutose 40%) 18.75 gm PO PRN PRN PRN Reason: Blood Glucose less than 70 Stop: 08/09/18 09:36 Furosemide (Lasix) 20 mg PO DAILY [facility] Stop: 08/09/18 09:44 Last Admin: 06/11/18 08:19 Dose: 20 mg Glucagon (Glucagen) 1 mg IM PRN PRN PRN Reason: Blood Glucose less than 70 Stop: 08/09/18 09:36 Sodium Chloride (Nacl 0.9%) 1,000 mls @ 75 mls/hr IV .[id number] [facility] Stop: 08/09/18 09:33 Last Admin: 06/10/18 23:38 Dose: 75 mls/hr Insulin Human Lispro (Humalog Insulin Sliding Scale) 0 units SUBQ Q6HR [facility]; Protocol Stop: 08/09/18 11:59 Last Admin: 06/11/18 06:29 Dose: 6 units Lactulose (Cephulac) 20 gm PO Q6HR [facility] Stop: 08/09/18 09:59 Last Admin: 06/11/18 05:02 Dose: 20 gm Lisinopril (Zestril) 20 mg PO DAILY [facility] Stop: 08/10/18 08:59 Last Admin: 06/11/18 08:19 Dose: 20 mg Rifaximin (Xifaxan) 600 mg PO BID [facility] Stop: 08/09/18 16:59 Last Admin: 06/11/18 08:19 Dose: 600 mg General: Alert, Cooperative, Other (Confused not oriented) HEENT: Atraumatic, Other (No teeth) Neck: Supple Cardiovascular: Regular rate Lungs: Clear to auscultation Abdomen: Bowel sounds, Tender Extremities: Other (no edema) Neurological: Other (No ambulatory at this moment) Skin: Other (Warm and dry) Psych/Mental Status: Other (Confused, not oriented. ) - Procedures Procedures: Procedures Procedure Code Date INJECT/INFUSE NEC 99.29 01/12/10 INSERTION OF INFUSION DEV INTO SUP VENA CAVA, PERC APPROACH [id number] 11/28/17 INSERTION OF INFUSION DEVICE INTO R UP ARM, PERC APPROACH [id number] 11/28/17 Assessment/Plan - Assessment Assessment: Patient is awake, alert, confused, not oriented, ammonia level decreased to 75, Na normal, BS improving. DX: Hepatic encephalopathy, Cirrhosis, Uncontrolled DM , HTN, obesity. Will continue to monitor - Plan Plan: Patient is in IV NS, Lactulose, continue with some home meds, diabetic diet, insulin sliding scale. Follow by GI. Will continue to monitor.
[2018-06-11] MEDS ORDERED: KCL 20mEq/100mL Premix 20 MEQ/100 ML PIGGYBACK IV ONE (11:24)
--- NOTE | 2018-06-11 11:55 | GI Progress Note ---
Subjective - Review of Systems Service Date: 06/11/18 Subjective: More awake today, A/Ox4 Objective - Results Result Diagrams: 06/11/18 05:00 06/11/18 05:00 Recent Labs: Laboratory Last Values WBC 7.9 Th/cmm (4.8-10.8) 06/11/18 05:00 RBC 4.31 Mil/cmm (3.80-5.20) 06/11/18 05:00 Hgb 12.4 gm/dL (12-16) 06/11/18 05:00 Hct 36.0 % (41.0-60) L 06/11/18 05:00 MCV 83.5 fl (81-100) 06/11/18 05:00 MCH 28.7 pg (27.0-31.0) 06/11/18 05:00 MCHC Differential 34.3 pg (28.0-36.0) 06/11/18 05:00 RDW 14.8 % (11.5-20.0) 06/11/18 05:00 Plt Count 106 Th/cmm (150-400) L 06/11/18 05:00 MPV 9.2 fl 06/11/18 05:00 Add Manual Diff YES 06/10/18 03:30 Neutrophils % 76.2 % (40.0-80.0) 06/11/18 05:00 Band Neutrophils % 0 % (0-10) 06/10/18 03:30 Lymphocytes % 13.1 % (20.0-50.0) L 06/11/18 05:00 Monocytes % 7.7 % (2.0-10.0) 06/11/18 05:00 Eosinophils % 2.9 % (0.0-5.0) 06/11/18 05:00 Basophils % 0.1 % (0.0-2.0) 06/11/18 05:00 Neutrophils (Manual) 76 % (40-80) 06/10/18 03:30 Lymphocytes 16 % (20-50) L 06/10/18 03:30 Monocytes 6 % (2-10) 06/10/18 03:30 Eosinophils 2 % (0-5) 06/10/18 03:30 Basophils 0 % (0-3) 06/10/18 03:30 PT 11.0 SECONDS (9.5-11.5) 06/10/18 05:45 INR 1.06 (0.5-1.4) 06/10/18 05:45 Specimen Source arterial 06/10/18 03:21 Sample Site left radial 06/10/18 03:21 pH 7.437 (7.35-7.45) 06/10/18 03:21 pCO2 36.1 mmHg (35.0-45.0) 06/10/18 03:21 pO2 80.0 mmHg (80.0-100.0) 06/10/18 03:21 HCO3 23.8 mEq/L (20.0-26.0) 06/10/18 03:21 Base Excess 0.1 mEq/L (-3.0-3.0) 06/10/18 03:21 O2 Saturation 96.2 % (92.0-100.0) 06/10/18 03:21 Jean Claude Test positive 06/10/18 03:21 Vent Rate n/a 06/10/18 03:21 Inspired O2 21 06/10/18 03:21 Tidal Volume n/a 06/10/18 03:21 PEEP n/a 06/10/18 03:21 Pressure (ins/psv/peep) n/a 06/10/18 03:21 Critical Value abroedel 06/10/18 03:21 Sodium 138 mEq/L (136-145) 06/11/18 05:00 Potassium 3.4 mEq/L (3.5-5.1) L 06/11/18 05:00 Chloride 105 mEq/L (98-107) 06/11/18 05:00 Carbon Dioxide 22.4 mEq/L (21.0-31.0) 06/11/18 05:00 Anion Gap 14.0 (7.0-16.0) 06/11/18 05:00 BUN 17 mg/dL (7-25) 06/11/18 05:00 Creatinine 1.0 mg/dL (0.6-1.2) 06/11/18 05:00 Est GFR ( Amer) TNP 06/11/18 05:00 Est GFR (Non-Af Amer) TNP 06/11/18 05:00 BUN/Creatinine Ratio 17.0 06/11/18 05:00 Glucose 274 mg/dL (70-105) H 06/11/18 05:00 POC Glucose 245 MG/DL (70 - 105) H 06/11/18 11:36 Whole Bld Lactic Acid 1.97 mmol/L (0.60-1.99) 06/10/18 03:30 Calcium 8.7 mg/dL (8.6-10.3) 06/11/18 05:00 Total Bilirubin 6.0 mg/dL (0.3-1.0) H 06/11/18 05:00 Direct Bilirubin 0.97 mg/dL (0.0-0.2) H 06/10/18 03:30 AST 40 U/L (13-39) H 06/11/18 05:00 ALT 16 U/L (7-52) 06/11/18 05:00 Alkaline Phosphatase 87 U/L (34-104) 06/11/18 05:00 Ammonia 72 umol/L (16-53) H 06/11/18 05:00 Troponin I 0.01 ng/mL (0.01-0.05) 06/10/18 03:30 Total Protein 5.9 gm/dL (6.0-8.3) L 06/11/18 05:00 Albumin 2.5 gm/dL (3.7-5.3) L 06/11/18 05:00 Globulin 3.4 gm/dL 06/11/18 05:00 Albumin/Globulin Ratio 0.7 (1.0-1.8) L 06/11/18 05:00 Triglycerides 104 mg/dL (<150) 06/10/18 03:30 Cholesterol 262 mg/dL (<200) H 06/10/18 03:30 LDL Cholesterol Direct 164 mg/dL (75-193) 06/10/18 03:30 HDL Cholesterol 72 mg/dL (23-92) 06/10/18 03:30 Urine Source [place] 06/10/18 04:00 Urine Color YELLOW 06/10/18 04:00 Urine Clarity HAZY (CLEAR) 06/10/18 04:00 Urine pH 7.0 (4.6 - 8.0) 06/10/18 04:00 Ur Specific [place] 1.020 (1.005-1.030) 06/10/18 04:00 Urine Protein 100 mg/dL (NEGATIVE) H 06/10/18 04:00 Urine Glucose (UA) >=1000 mg/dL (NEGATIVE) H 06/10/18 04:00 Urine Ketones NEGATIVE mg/dL (NEGATIVE) 06/10/18 04:00 Urine Blood MODERATE (NEGATIVE) H 06/10/18 04:00 Urine Nitrate NEGATIVE (NEGATIVE) 06/10/18 04:00 Urine Bilirubin NEGATIVE (NEGATIVE) 06/10/18 04:00 Urine Urobilinogen 1.0 E.U./dL (0.2 - 1.0) 06/10/18 04:00 Ur Leukocyte Esterase NEGATIVE (NEGATIVE) 06/10/18 04:00 Urine RBC 5-10 /hpf (0-5) H 06/10/18 04:00 Urine WBC 2-5 /hpf (0-5) 06/10/18 04:00 Ur Epithelial Cells FEW /lpf (FEW) 06/10/18 04:00 Urine Bacteria FEW /hpf (NONE SEEN) 06/10/18 04:00 Serum Ketones NEGATIVE (NEGATIVE) 06/10/18 03:30 - Physical Exam Vitals and I&O: Vital Signs Temp 98.2 F 06/11/18 11:00 Pulse 86 06/11/18 11:00 Resp 16 06/11/18 11:00 BP 139/58 06/11/18 11:00 Pulse Ox 97 06/11/18 11:00 Intake & Output 06/10/18 06/11/18 06/11/18 18:59 06:59 18:59 Intake Total 613.75 460 Output Total 800 200 Balance -186.25 260 Weight (lbs) 103.555 kg 101.605 kg Intake: Intake, IV Amount 393.75 360 Sodium Chloride 0.9% 1, 393.75 360 000 ml @ 75 mls/hr IV . [id number] [facility] Rx#:[id number] Oral 0 100 Other 220 Output: Urine 600 200 Stool 200 Other: # Bowel Movements 2 2 Stool Characteristics Liquid Liquid Liquid Brown Brown Brown Weight Source Bedscale Bedscale Active Medications: Current Medications Acetaminophen (Tylenol) 650 mg PO Q6H PRN PRN Reason: Pain (Mild) Stop: 08/10/18 11:25 Dextrose (D50w) 50 ml IVP PRN PRN PRN Reason: Blood Glucose less than 70 Stop: 08/09/18 09:36 Dextrose (Glutose 40%) 18.75 gm PO PRN PRN PRN Reason: Blood Glucose less than 70 Stop: 08/09/18 09:36 Furosemide (Lasix) 20 mg PO BID [facility] Stop: 08/10/18 16:59 Glucagon (Glucagen) 1 mg IM PRN PRN PRN Reason: Blood Glucose less than 70 Stop: 08/09/18 09:36 Sodium Chloride (Nacl 0.9%) 1,000 mls @ 75 mls/hr IV .[id number] [facility] Stop: 08/09/18 09:33 Last Admin: 06/10/18 23:38 Dose: 75 mls/hr Potassium Chloride (Potassium Chloride) 20 meq in 100 mls @ 50 mls/hr IV X1 [facility] Stop: 06/11/18 13:23 Last Admin: 06/11/18 11:42 Dose: 50 mls/hr Insulin Human Lispro (Humalog Insulin Sliding Scale) 0 units SUBQ Q6HR [facility]; Protocol Stop: 08/09/18 11:59 Last Admin: 06/11/18 11:42 Dose: 4 units Lactulose (Cephulac) 20 gm PO Q6HR [facility] Stop: 08/09/18 09:59 Last Admin: 06/11/18 11:42 Dose: 20 gm Lisinopril (Zestril) 20 mg PO DAILY [facility] Stop: 08/10/18 08:59 Last Admin: 06/11/18 08:19 Dose: 20 mg Rifaximin (Xifaxan) 600 mg PO BID [facility] Stop: 08/09/18 16:59 Last Admin: 06/11/18 08:19 Dose: 600 mg General: Alert, Cooperative, Other (Confused not oriented) HEENT: Atraumatic, Other (No teeth) Neck: Supple Cardiovascular: Regular rate Lungs: Clear to auscultation Abdomen: Bowel sounds, Tender, Hepatomegaly, Distended, Obese, no Splenomegaly, no Mass, no Guarding Extremities: Other (no edema) Neurological: Other (No ambulatory at this moment) Skin: Other (Warm and dry) Psych/Mental Status: Other (Confused, not oriented. ) - Procedures Procedures: Procedures Procedure Code Date INJECT/INFUSE NEC 99.29 01/12/10 INSERTION OF INFUSION DEV INTO SUP VENA CAVA, PERC APPROACH [id number] 11/28/17 INSERTION OF INFUSION DEVICE INTO R UP ARM, PERC APPROACH [id number] 11/28/17 Assessment/Plan - Assessment Assessment: # Cirrhosis # hepatic encephalopathy # Diabetes # Obesity Pt has responded to lactulose and rifaximin, much more awake. US shows no hepatoma and only small ascites Plan: - US due in 6 months - cont lactulose on dc, aim for 2-3 BMs per day - low sodium diet - outpt hepatology follow up - diabetes as per primary
[2018-06-11] MEDS: Sodium Chloride 0.9% 1,000 ML IV SCH (15:05)
[2018-06-12] MEDS: Sodium Chloride 0.9% 1,000 ML IV SCH (01:34)
[2018-06-12 05:19] LABS: % BASOPHILS 0.1 % (0.0-2.0); % EOSINOPHILS 4.3 % (0.0-5.0); % LYMPHOCYTES 17.1 % (20.0-50.0); % MONOCYTES 9.8 % (2.0-10.0); % NEUTROPHILS 68.7 % (40.0-80.0); EOSINOPHILE ABSOLUTE 0.3 Th/cmm (0.1-0.4); HEMATOCRIT 35.7 % (41.0-60); HEMOGLOBIN 11.8 gm/dL (12-16); LYMPHOCYTE ABSOLUTE 1.1 Th/cmm (1.5-3.0); MEAN CELL VOLUME 85.8 fl (81-100); MEAN CORPUSCULAR HEMOGLOBIN 28.4 pg (27.0-31.0); MEAN CORPUSCULAR HGB CONC 33.1 pg (28.0-36.0); MONOCYTE ABSOLUTE 0.6 Th/cmm (0.3-1.0); NEUTROPHILE ABSOLUTE 4.2 Th/cmm (1.8-8.0); PLATELET COUNT 99 Th/cmm (150-400); RED BLOOD COUNT 4.16 Mil/cmm (3.80-5.20); RED CELL DISTRIBUTION WIDTH 15.1 % (11.5-20.0); WHITE BLOOD COUNT 6.2 Th/cmm (4.8-10.8)
[2018-06-12 05:43] LABS: ALB/GLOB RATIO 0.7 (1.0-1.8); ALBUMIN 2.5 gm/dL (3.7-5.3); ALKALINE PHOSPHATASE 82 U/L (34-104); ANION GAP 12.2 (7.0-16.0); BILIRUBIN,TOTAL 4.4 mg/dL (0.3-1.0); BUN - UREA NITROGEN 19 mg/dL (7-25); CALCIUM SERUM 8.5 mg/dL (8.6-10.3); CARBON DIOXIDE 22.6 mEq/L (21.0-31.0); CHLORIDE 107 mEq/L (98-107); CREATININE - SERUM 0.9 mg/dL (0.6-1.2); GLUCOSE 401 mg/dL (70-105); POTASSIUM SERUM 3.8 mEq/L (3.5-5.1); SGOT 43 U/L (13-39); SGPT/ALT 16 U/L (7-52); SODIUM SERUM 138 mEq/L (136-145); TOTAL PROTEIN,SERUM 5.9 gm/dL (6.0-8.3)
[2018-06-12] MEDS: Lactulose 10 Gm/15 mL 30mL UDC PO SCH ×3 (05:58→18:10)
[2018-06-12] MEDS: INSULIN LISPRO SLIDING SCALE 100 UNITS/ML UNIT SUBQ SCH ×5 (07:54→22:44)
--- NOTE | 2018-06-12 08:59 | General Progress Note ---
Subjective - Review of Systems Service Date: 06/12/18 Subjective: I fell better Objective - Results Result Diagrams: 06/12/18 05:05 06/12/18 05:05 Recent Labs: Laboratory Last Values WBC 6.2 Th/cmm (4.8-10.8) 06/12/18 05:05 RBC 4.16 Mil/cmm (3.80-5.20) 06/12/18 05:05 Hgb 11.8 gm/dL (12-16) L 06/12/18 05:05 Hct 35.7 % (41.0-60) L 06/12/18 05:05 MCV 85.8 fl (81-100) 06/12/18 05:05 MCH 28.4 pg (27.0-31.0) 06/12/18 05:05 MCHC Differential 33.1 pg (28.0-36.0) 06/12/18 05:05 RDW 15.1 % (11.5-20.0) 06/12/18 05:05 Plt Count 99 Th/cmm (150-400) L 06/12/18 05:05 MPV 9.0 fl 06/12/18 05:05 Add Manual Diff YES 06/10/18 03:30 Neutrophils % 68.7 % (40.0-80.0) 06/12/18 05:05 Band Neutrophils % 0 % (0-10) 06/10/18 03:30 Lymphocytes % 17.1 % (20.0-50.0) L 06/12/18 05:05 Monocytes % 9.8 % (2.0-10.0) 06/12/18 05:05 Eosinophils % 4.3 % (0.0-5.0) 06/12/18 05:05 Basophils % 0.1 % (0.0-2.0) 06/12/18 05:05 Neutrophils (Manual) 76 % (40-80) 06/10/18 03:30 Lymphocytes 16 % (20-50) L 06/10/18 03:30 Monocytes 6 % (2-10) 06/10/18 03:30 Eosinophils 2 % (0-5) 06/10/18 03:30 Basophils 0 % (0-3) 06/10/18 03:30 PT 11.0 SECONDS (9.5-11.5) 06/10/18 05:45 INR 1.06 (0.5-1.4) 06/10/18 05:45 Specimen Source arterial 06/10/18 03:21 Sample Site left radial 06/10/18 03:21 pH 7.437 (7.35-7.45) 06/10/18 03:21 pCO2 36.1 mmHg (35.0-45.0) 06/10/18 03:21 pO2 80.0 mmHg (80.0-100.0) 06/10/18 03:21 HCO3 23.8 mEq/L (20.0-26.0) 06/10/18 03:21 Base Excess 0.1 mEq/L (-3.0-3.0) 06/10/18 03:21 O2 Saturation 96.2 % (92.0-100.0) 06/10/18 03:21 Jean Claude Test positive 06/10/18 03:21 Vent Rate n/a 06/10/18 03:21 Inspired O2 21 06/10/18 03:21 Tidal Volume n/a 06/10/18 03:21 PEEP n/a 06/10/18 03:21 Pressure (ins/psv/peep) n/a 06/10/18 03:21 Critical Value abroedel 06/10/18 03:21 Sodium 138 mEq/L (136-145) 06/12/18 05:05 Potassium 3.8 mEq/L (3.5-5.1) 06/12/18 05:05 Chloride 107 mEq/L (98-107) 06/12/18 05:05 Carbon Dioxide 22.6 mEq/L (21.0-31.0) 06/12/18 05:05 Anion Gap 12.2 (7.0-16.0) 06/12/18 05:05 BUN 19 mg/dL (7-25) 06/12/18 05:05 Creatinine 0.9 mg/dL (0.6-1.2) 06/12/18 05:05 Est GFR ( Amer) TNP 06/12/18 05:05 Est GFR (Non-Af Amer) TNP 06/12/18 05:05 BUN/Creatinine Ratio 21.1 06/12/18 05:05 Glucose 401 mg/dL (70-105) H 06/12/18 05:05 POC Glucose 362 MG/DL (70 - 105) H 06/12/18 07:50 Whole Bld Lactic Acid 1.97 mmol/L (0.60-1.99) 06/10/18 03:30 Calcium 8.5 mg/dL (8.6-10.3) L 06/12/18 05:05 Total Bilirubin 4.4 mg/dL (0.3-1.0) H 06/12/18 05:05 Direct Bilirubin 0.97 mg/dL (0.0-0.2) H 06/10/18 03:30 AST 43 U/L (13-39) H 06/12/18 05:05 ALT 16 U/L (7-52) 06/12/18 05:05 Alkaline Phosphatase 82 U/L (34-104) 06/12/18 05:05 Ammonia 64 umol/L (16-53) H 06/12/18 05:05 Troponin I 0.01 ng/mL (0.01-0.05) 06/10/18 03:30 Total Protein 5.9 gm/dL (6.0-8.3) L 06/12/18 05:05 Albumin 2.5 gm/dL (3.7-5.3) L 06/12/18 05:05 Globulin 3.4 gm/dL 06/12/18 05:05 Albumin/Globulin Ratio 0.7 (1.0-1.8) L 06/12/18 05:05 Triglycerides 104 mg/dL (<150) 06/10/18 03:30 Cholesterol 262 mg/dL (<200) H 06/10/18 03:30 LDL Cholesterol Direct 164 mg/dL (75-193) 06/10/18 03:30 HDL Cholesterol 72 mg/dL (23-92) 06/10/18 03:30 Urine Source [place] 06/10/18 04:00 Urine Color YELLOW 06/10/18 04:00 Urine Clarity HAZY (CLEAR) 06/10/18 04:00 Urine pH 7.0 (4.6 - 8.0) 06/10/18 04:00 Ur Specific [place] 1.020 (1.005-1.030) 06/10/18 04:00 Urine Protein 100 mg/dL (NEGATIVE) H 06/10/18 04:00 Urine Glucose (UA) >=1000 mg/dL (NEGATIVE) H 06/10/18 04:00 Urine Ketones NEGATIVE mg/dL (NEGATIVE) 06/10/18 04:00 Urine Blood MODERATE (NEGATIVE) H 06/10/18 04:00 Urine Nitrate NEGATIVE (NEGATIVE) 06/10/18 04:00 Urine Bilirubin NEGATIVE (NEGATIVE) 06/10/18 04:00 Urine Urobilinogen 1.0 E.U./dL (0.2 - 1.0) 06/10/18 04:00 Ur Leukocyte Esterase NEGATIVE (NEGATIVE) 06/10/18 04:00 Urine RBC 5-10 /hpf (0-5) H 06/10/18 04:00 Urine WBC 2-5 /hpf (0-5) 06/10/18 04:00 Ur Epithelial Cells FEW /lpf (FEW) 06/10/18 04:00 Urine Bacteria FEW /hpf (NONE SEEN) 06/10/18 04:00 Serum Ketones NEGATIVE (NEGATIVE) 06/10/18 03:30 - Physical Exam Vitals and I&O: Vital Signs Temp 98.1 F 06/12/18 07:45 Pulse 99 06/12/18 07:45 Resp 18 06/12/18 07:45 BP 152/69 06/12/18 07:45 Pulse Ox 95 06/12/18 07:45 Intake & Output 06/11/18 06/12/18 06/12/18 18:59 06:59 18:59 Intake Total 1897.5 1121.25 Output Total 350 701 Balance 1547.5 420.25 Weight (lbs) 96.887 kg 102.058 kg Intake: Intake, IV Amount 1347.5 871.25 KCL 20mEq/100mL Premix 20 100 meq In 100 ml @ 50 mls/ hr IV X1 [facility] Rx#: [id number] Sodium Chloride 0.9% 1, 1247.5 871.25 000 ml @ 75 mls/hr IV . [id number] [facility] Rx#:[id number] Oral 550 250 Output: Urine 350 700 Stool 1 Other: # Bowel Movements 4 Stool Characteristics Liquid Liquid Brown Brown Weight Source Bedscale Bedscale Active Medications: Current Medications Acetaminophen (Tylenol) 650 mg PO Q6H PRN PRN Reason: Pain (Mild) Stop: 08/10/18 11:25 Last Admin: 06/11/18 17:09 Dose: 650 mg Dextrose (D50w) 50 ml IVP PRN PRN PRN Reason: Blood Glucose less than 70 Stop: 08/09/18 09:36 Dextrose (Glutose 40%) 18.75 gm PO PRN PRN PRN Reason: Blood Glucose less than 70 Stop: 08/09/18 09:36 Furosemide (Lasix) 20 mg PO BID [facility] Stop: 08/10/18 16:59 Last Admin: 06/11/18 17:09 Dose: 20 mg Glucagon (Glucagen) 1 mg IM PRN PRN PRN Reason: Blood Glucose less than 70 Stop: 08/09/18 09:36 Sodium Chloride (Nacl 0.9%) 1,000 mls @ 75 mls/hr IV .[id number] [facility] Stop: 08/09/18 09:33 Last Infusion: 06/12/18 06:00 Dose: 75 mls/hr Insulin Human Lispro (Humalog Insulin Sliding Scale) 0 units SUBQ Q6HR [facility]; Protocol Stop: 08/09/18 11:59 Last Admin: 06/12/18 07:54 Dose: 8 units Lactulose (Cephulac) 20 gm PO Q6HR [facility] Stop: 08/09/18 09:59 Last Admin: 06/12/18 05:58 Dose: 20 gm Lisinopril (Zestril) 20 mg PO DAILY [facility] Stop: 08/10/18 08:59 Last Admin: 06/11/18 08:19 Dose: 20 mg Mupirocin (Bactroban Oint) 1 appl NS BID [facility] Stop: 06/16/18 17:01 Rifaximin (Xifaxan) 600 mg PO BID [facility] Stop: 08/09/18 16:59 Last Admin: 06/11/18 17:10 Dose: 600 mg General: Alert, Cooperative, Other (Confused not oriented) HEENT: Atraumatic, Other (No teeth) Neck: Supple Cardiovascular: Regular rate Lungs: Clear to auscultation Abdomen: Bowel sounds, Tender Extremities: Other (no edema) Neurological: Other (No ambulatory at this moment) Skin: Other (Warm and dry) Psych/Mental Status: Other (Confused, not oriented. ) - Procedures Procedures: Procedures Procedure Code Date INJECT/INFUSE NEC 99.29 01/12/10 INSERTION OF INFUSION DEV INTO SUP VENA CAVA, PERC APPROACH [id number] 11/28/17 INSERTION OF INFUSION DEVICE INTO R UP ARM, PERC APPROACH [id number] 11/28/17 Assessment/Plan - Assessment Assessment: Patient is awake, alert, confused, not oriented, ammonia level decreased to 75, Na normal, BS improving. DX: Hepatic encephalopathy, Cirrhosis, Uncontrolled DM , HTN, obesity. Will continue to monitor - Plan Plan: Patient is in IV NS, Lactulose, continue with some home meds, diabetic diet, insulin sliding scale. Follow by GI. Will continue to monitor.
--- NOTE | 2018-06-12 20:12 | GI Progress Note ---
Subjective - Review of Systems Service Date: 06/12/18 Events since last encounter: No events Subjective: Responsive Oriented to self and place Objective - Results Result Diagrams: 06/12/18 05:05 06/12/18 05:05 Recent Labs: Laboratory Last Values WBC 6.2 Th/cmm (4.8-10.8) 06/12/18 05:05 RBC 4.16 Mil/cmm (3.80-5.20) 06/12/18 05:05 Hgb 11.8 gm/dL (12-16) L 06/12/18 05:05 Hct 35.7 % (41.0-60) L 06/12/18 05:05 MCV 85.8 fl (81-100) 06/12/18 05:05 MCH 28.4 pg (27.0-31.0) 06/12/18 05:05 MCHC Differential 33.1 pg (28.0-36.0) 06/12/18 05:05 RDW 15.1 % (11.5-20.0) 06/12/18 05:05 Plt Count 99 Th/cmm (150-400) L 06/12/18 05:05 MPV 9.0 fl 06/12/18 05:05 Add Manual Diff YES 06/10/18 03:30 Neutrophils % 68.7 % (40.0-80.0) 06/12/18 05:05 Band Neutrophils % 0 % (0-10) 06/10/18 03:30 Lymphocytes % 17.1 % (20.0-50.0) L 06/12/18 05:05 Monocytes % 9.8 % (2.0-10.0) 06/12/18 05:05 Eosinophils % 4.3 % (0.0-5.0) 06/12/18 05:05 Basophils % 0.1 % (0.0-2.0) 06/12/18 05:05 Neutrophils (Manual) 76 % (40-80) 06/10/18 03:30 Lymphocytes 16 % (20-50) L 06/10/18 03:30 Monocytes 6 % (2-10) 06/10/18 03:30 Eosinophils 2 % (0-5) 06/10/18 03:30 Basophils 0 % (0-3) 06/10/18 03:30 PT 11.0 SECONDS (9.5-11.5) 06/10/18 05:45 INR 1.06 (0.5-1.4) 06/10/18 05:45 Specimen Source arterial 06/10/18 03:21 Sample Site left radial 06/10/18 03:21 pH 7.437 (7.35-7.45) 06/10/18 03:21 pCO2 36.1 mmHg (35.0-45.0) 06/10/18 03:21 pO2 80.0 mmHg (80.0-100.0) 06/10/18 03:21 HCO3 23.8 mEq/L (20.0-26.0) 06/10/18 03:21 Base Excess 0.1 mEq/L (-3.0-3.0) 06/10/18 03:21 O2 Saturation 96.2 % (92.0-100.0) 06/10/18 03:21 Jean Claude Test positive 06/10/18 03:21 Vent Rate n/a 06/10/18 03:21 Inspired O2 21 06/10/18 03:21 Tidal Volume n/a 06/10/18 03:21 PEEP n/a 06/10/18 03:21 Pressure (ins/psv/peep) n/a 06/10/18 03:21 Critical Value abroedel 06/10/18 03:21 Sodium 138 mEq/L (136-145) 06/12/18 05:05 Potassium 3.8 mEq/L (3.5-5.1) 06/12/18 05:05 Chloride 107 mEq/L (98-107) 06/12/18 05:05 Carbon Dioxide 22.6 mEq/L (21.0-31.0) 06/12/18 05:05 Anion Gap 12.2 (7.0-16.0) 06/12/18 05:05 BUN 19 mg/dL (7-25) 06/12/18 05:05 Creatinine 0.9 mg/dL (0.6-1.2) 06/12/18 05:05 Est GFR ( Amer) TNP 06/12/18 05:05 Est GFR (Non-Af Amer) TNP 06/12/18 05:05 BUN/Creatinine Ratio 21.1 06/12/18 05:05 Glucose 401 mg/dL (70-105) H 06/12/18 05:05 POC Glucose 349 MG/DL (70 - 105) H 06/12/18 17:20 Whole Bld Lactic Acid 1.97 mmol/L (0.60-1.99) 06/10/18 03:30 Calcium 8.5 mg/dL (8.6-10.3) L 06/12/18 05:05 Total Bilirubin 4.4 mg/dL (0.3-1.0) H 06/12/18 05:05 Direct Bilirubin 0.97 mg/dL (0.0-0.2) H 06/10/18 03:30 AST 43 U/L (13-39) H 06/12/18 05:05 ALT 16 U/L (7-52) 06/12/18 05:05 Alkaline Phosphatase 82 U/L (34-104) 06/12/18 05:05 Ammonia 64 umol/L (16-53) H 06/12/18 05:05 Troponin I 0.01 ng/mL (0.01-0.05) 06/10/18 03:30 Total Protein 5.9 gm/dL (6.0-8.3) L 06/12/18 05:05 Albumin 2.5 gm/dL (3.7-5.3) L 06/12/18 05:05 Globulin 3.4 gm/dL 06/12/18 05:05 Albumin/Globulin Ratio 0.7 (1.0-1.8) L 06/12/18 05:05 Triglycerides 104 mg/dL (<150) 06/10/18 03:30 Cholesterol 262 mg/dL (<200) H 06/10/18 03:30 LDL Cholesterol Direct 164 mg/dL (75-193) 06/10/18 03:30 HDL Cholesterol 72 mg/dL (23-92) 06/10/18 03:30 Urine Source [place] 06/10/18 04:00 Urine Color YELLOW 06/10/18 04:00 Urine Clarity HAZY (CLEAR) 06/10/18 04:00 Urine pH 7.0 (4.6 - 8.0) 06/10/18 04:00 Ur Specific [place] 1.020 (1.005-1.030) 06/10/18 04:00 Urine Protein 100 mg/dL (NEGATIVE) H 06/10/18 04:00 Urine Glucose (UA) >=1000 mg/dL (NEGATIVE) H 06/10/18 04:00 Urine Ketones NEGATIVE mg/dL (NEGATIVE) 06/10/18 04:00 Urine Blood MODERATE (NEGATIVE) H 06/10/18 04:00 Urine Nitrate NEGATIVE (NEGATIVE) 06/10/18 04:00 Urine Bilirubin NEGATIVE (NEGATIVE) 06/10/18 04:00 Urine Urobilinogen 1.0 E.U./dL (0.2 - 1.0) 06/10/18 04:00 Ur Leukocyte Esterase NEGATIVE (NEGATIVE) 06/10/18 04:00 Urine RBC 5-10 /hpf (0-5) H 06/10/18 04:00 Urine WBC 2-5 /hpf (0-5) 06/10/18 04:00 Ur Epithelial Cells FEW /lpf (FEW) 06/10/18 04:00 Urine Bacteria FEW /hpf (NONE SEEN) 06/10/18 04:00 Serum Ketones NEGATIVE (NEGATIVE) 06/10/18 03:30 - Physical Exam Vitals and I&O: Vital Signs Temp 97.4 F 06/12/18 20:00 Pulse 94 06/12/18 20:00 Resp 19 06/12/18 20:00 BP 158/62 06/12/18 20:00 Pulse Ox 99 06/12/18 20:00 Intake & Output 06/12/18 06/12/18 06/13/18 06:59 18:59 06:59 Intake Total 1121.25 100 Output Total 701 Balance 420.25 100 Weight (lbs) 102.058 kg 102.058 kg Intake: Intake, IV Amount 871.25 Sodium Chloride 0.9% 1, 871.25 000 ml @ 75 mls/hr IV . [id number] [facility] Rx#:[id number] Oral 250 100 Output: Urine 700 Stool 1 Other: Stool Characteristics Liquid Brown Weight Source Bedscale Bedscale Active Medications: Current Medications Acetaminophen (Tylenol) 650 mg PO Q6H PRN PRN Reason: Pain (Mild) Stop: 08/10/18 11:25 Last Admin: 06/11/18 17:09 Dose: 650 mg Dextrose (D50w) 50 ml IVP PRN PRN PRN Reason: Blood Glucose less than 70 Stop: 08/09/18 09:36 Dextrose (Glutose 40%) 18.75 gm PO PRN PRN PRN Reason: Blood Glucose less than 70 Stop: 08/09/18 09:36 Furosemide (Lasix) 20 mg PO BID [facility] Stop: 08/10/18 16:59 Last Admin: 06/12/18 18:10 Dose: 20 mg Glucagon (Glucagen) 1 mg IM PRN PRN PRN Reason: Blood Glucose less than 70 Stop: 08/09/18 09:36 Sodium Chloride (Nacl 0.9%) 1,000 mls @ 75 mls/hr IV .[id number] [facility] Stop: 08/09/18 09:33 Last Infusion: 06/12/18 06:00 Dose: 75 mls/hr Insulin Human Lispro (Humalog Insulin Sliding Scale) 0 units SUBQ Q6HR [facility]; Protocol Stop: 08/09/18 11:59 Last Admin: 06/12/18 18:11 Dose: 8 units Lactulose (Cephulac) 20 gm PO Q6HR [facility] Stop: 08/09/18 09:59 Last Admin: 06/12/18 18:10 Dose: 20 gm Lisinopril (Zestril) 20 mg PO DAILY [facility] Stop: 08/10/18 08:59 Last Admin: 06/12/18 09:54 Dose: 20 mg Mupirocin (Bactroban Oint) 1 appl NS BID [facility] Stop: 06/16/18 17:01 Last Admin: 06/12/18 18:18 Dose: 1 appl Rifaximin (Xifaxan) 600 mg PO BID [facility] Stop: 08/09/18 16:59 Last Admin: 06/12/18 09:52 Dose: 600 mg General: Alert, Cooperative, No acute distress, Other (Oriented to self and place) HEENT: Atraumatic, Other (No teeth) Neck: Supple Cardiovascular: Regular rate Lungs: Clear to auscultation Abdomen: Bowel sounds, Soft, no Tender Extremities: Other (no edema) Neurological: Other (No ambulatory at this moment) Skin: Other (Warm and dry) Psych/Mental Status: Other (Confused, not oriented. ) - Procedures Procedures: Procedures Procedure Code Date INJECT/INFUSE NEC 99.29 01/12/10 INSERTION OF INFUSION DEV INTO SUP VENA CAVA, PERC APPROACH 03PW46P 11/28/17 INSERTION OF INFUSION DEVICE INTO R UP ARM, PERC APPROACH [id number] 11/28/17 Assessment/Plan - Assessment Assessment: # Cirrhosis # hepatic encephalopathy # Diabetes # Obesity - Plan Plan: # Cirrhosis Pt has responded to lactulose and rifaximin, much more awake. US shows no hepatoma and only small ascites US and AFP due in 6 months # hepatic encephalopathy Pt has responded to lactulose and rifaximin, much more awake. - cont lactulose on dc, aim for 2-3 BMs per day - low sodium diet - outpt hepatology follow up # Diabetes # Obesity Plan: - -
[2018-06-13] MEDS: Lactulose 10 Gm/15 mL 30mL UDC PO SCH ×4 (01:25→17:19)
[2018-06-13] MEDS: INSULIN LISPRO SLIDING SCALE 100 UNITS/ML UNIT SUBQ SCH ×6 (05:34→21:16)
[2018-06-13 07:02] LABS: % BASOPHILS 1.5 % (0.0-2.0); % EOSINOPHILS 6.2 % (0.0-5.0); % LYMPHOCYTES 15.9 % (20.0-50.0); % MONOCYTES 9.9 % (2.0-10.0); % NEUTROPHILS 66.5 % (40.0-80.0); BASOPHILE ABSOLUTE 0.1 Th/cumm (0-0.2); EOSINOPHILE ABSOLUTE 0.4 Th/cmm (0.1-0.4); HEMATOCRIT 34.8 % (41.0-60); HEMOGLOBIN 11.9 gm/dL (12-16); MEAN CELL VOLUME 84.7 fl (81-100); MEAN CORPUSCULAR HEMOGLOBIN 28.9 pg (27.0-31.0); MEAN CORPUSCULAR HGB CONC 34.1 pg (28.0-36.0); MEAN PLATELET VOLUME 9.2 fl; MONOCYTE ABSOLUTE 0.7 Th/cmm (0.3-1.0); NEUTROPHILE ABSOLUTE 4.4 Th/cmm (1.8-8.0); PLATELET COUNT 106 Th/cmm (150-400); RED BLOOD COUNT 4.11 Mil/cmm (3.80-5.20); RED CELL DISTRIBUTION WIDTH 14.9 % (11.5-20.0); WHITE BLOOD COUNT 6.6 Th/cmm (4.8-10.8)
[2018-06-13 07:20] LABS: ALB/GLOB RATIO 0.7 (1.0-1.8); ALBUMIN 2.6 gm/dL (3.7-5.3); ALKALINE PHOSPHATASE 79 U/L (34-104); ANION GAP 11.8 (7.0-16.0); BILIRUBIN,TOTAL 4.2 mg/dL (0.3-1.0); BUN - UREA NITROGEN 19 mg/dL (7-25); CALCIUM SERUM 8.7 mg/dL (8.6-10.3); CARBON DIOXIDE 23.7 mEq/L (21.0-31.0); CHLORIDE 104 mEq/L (98-107); CREATININE - SERUM 0.8 mg/dL (0.6-1.2); GLUCOSE 332 mg/dL (70-105); POTASSIUM SERUM 3.5 mEq/L (3.5-5.1); SGOT 42 U/L (13-39); SGPT/ALT 16 U/L (7-52); SODIUM SERUM 136 mEq/L (136-145); TOTAL PROTEIN,SERUM 6.1 gm/dL (6.0-8.3)
--- NOTE | 2018-06-13 08:47 | General Progress Note ---
Subjective - Review of Systems Service Date: 06/13/18 Subjective: I fell better Objective - Results Result Diagrams: 06/13/18 06:10 06/13/18 06:10 Recent Labs: Laboratory Last Values WBC 6.6 Th/cmm (4.8-10.8) 06/13/18 06:10 RBC 4.11 Mil/cmm (3.80-5.20) 06/13/18 06:10 Hgb 11.9 gm/dL (12-16) L 06/13/18 06:10 Hct 34.8 % (41.0-60) L 06/13/18 06:10 MCV 84.7 fl (81-100) 06/13/18 06:10 MCH 28.9 pg (27.0-31.0) 06/13/18 06:10 MCHC Differential 34.1 pg (28.0-36.0) 06/13/18 06:10 RDW 14.9 % (11.5-20.0) 06/13/18 06:10 Plt Count 106 Th/cmm (150-400) L 06/13/18 06:10 MPV 9.2 fl 06/13/18 06:10 Add Manual Diff YES 06/10/18 03:30 Neutrophils % 66.5 % (40.0-80.0) 06/13/18 06:10 Band Neutrophils % 0 % (0-10) 06/10/18 03:30 Lymphocytes % 15.9 % (20.0-50.0) L 06/13/18 06:10 Monocytes % 9.9 % (2.0-10.0) 06/13/18 06:10 Eosinophils % 6.2 % (0.0-5.0) H 06/13/18 06:10 Basophils % 1.5 % (0.0-2.0) 06/13/18 06:10 Neutrophils (Manual) 76 % (40-80) 06/10/18 03:30 Lymphocytes 16 % (20-50) L 06/10/18 03:30 Monocytes 6 % (2-10) 06/10/18 03:30 Eosinophils 2 % (0-5) 06/10/18 03:30 Basophils 0 % (0-3) 06/10/18 03:30 PT 11.0 SECONDS (9.5-11.5) 06/10/18 05:45 INR 1.06 (0.5-1.4) 06/10/18 05:45 Specimen Source arterial 06/10/18 03:21 Sample Site left radial 06/10/18 03:21 pH 7.437 (7.35-7.45) 06/10/18 03:21 pCO2 36.1 mmHg (35.0-45.0) 06/10/18 03:21 pO2 80.0 mmHg (80.0-100.0) 06/10/18 03:21 HCO3 23.8 mEq/L (20.0-26.0) 06/10/18 03:21 Base Excess 0.1 mEq/L (-3.0-3.0) 06/10/18 03:21 O2 Saturation 96.2 % (92.0-100.0) 06/10/18 03:21 Jean [place] Test positive 06/10/18 03:21 Vent Rate n/a 06/10/18 03:21 Inspired O2 21 06/10/18 03:21 Tidal Volume n/a 06/10/18 03:21 PEEP n/a 06/10/18 03:21 Pressure (ins/psv/peep) n/a 06/10/18 03:21 Critical Value abroedel 06/10/18 03:21 Sodium 136 mEq/L (136-145) 06/13/18 06:10 Potassium 3.5 mEq/L (3.5-5.1) 06/13/18 06:10 Chloride 104 mEq/L (98-107) 06/13/18 06:10 Carbon Dioxide 23.7 mEq/L (21.0-31.0) 06/13/18 06:10 Anion Gap 11.8 (7.0-16.0) 06/13/18 06:10 BUN 19 mg/dL (7-25) 06/13/18 06:10 Creatinine 0.8 mg/dL (0.6-1.2) 06/13/18 06:10 Est GFR ( Amer) TNP 06/13/18 06:10 Est GFR (Non-Af Amer) TNP 06/13/18 06:10 BUN/Creatinine Ratio 23.8 06/13/18 06:10 Glucose 332 mg/dL (70-105) H 06/13/18 06:10 POC Glucose 264 MG/DL (70 - 105) H 06/13/18 07:51 Whole Bld Lactic Acid 1.97 mmol/L (0.60-1.99) 06/10/18 03:30 Calcium 8.7 mg/dL (8.6-10.3) 06/13/18 06:10 Total Bilirubin 4.2 mg/dL (0.3-1.0) H 06/13/18 06:10 Direct Bilirubin 0.97 mg/dL (0.0-0.2) H 06/10/18 03:30 AST 42 U/L (13-39) H 06/13/18 06:10 ALT 16 U/L (7-52) 06/13/18 06:10 Alkaline Phosphatase 79 U/L (34-104) 06/13/18 06:10 Ammonia 63 umol/L (16-53) H 06/13/18 06:10 Troponin I 0.01 ng/mL (0.01-0.05) 06/10/18 03:30 Total Protein 6.1 gm/dL (6.0-8.3) 06/13/18 06:10 Albumin 2.6 gm/dL (3.7-5.3) L 06/13/18 06:10 Globulin 3.5 gm/dL 06/13/18 06:10 Albumin/Globulin Ratio 0.7 (1.0-1.8) L 06/13/18 06:10 Triglycerides 104 mg/dL (<150) 06/10/18 03:30 Cholesterol 262 mg/dL (<200) H 06/10/18 03:30 LDL Cholesterol Direct 164 mg/dL (75-193) 06/10/18 03:30 HDL Cholesterol 72 mg/dL (23-92) 06/10/18 03:30 Urine Source [place] 06/10/18 04:00 Urine Color YELLOW 06/10/18 04:00 Urine Clarity HAZY (CLEAR) 06/10/18 04:00 Urine pH 7.0 (4.6 - 8.0) 06/10/18 04:00 Ur Specific [place] 1.020 (1.005-1.030) 06/10/18 04:00 Urine Protein 100 mg/dL (NEGATIVE) H 06/10/18 04:00 Urine Glucose (UA) >=1000 mg/dL (NEGATIVE) H 06/10/18 04:00 Urine Ketones NEGATIVE mg/dL (NEGATIVE) 06/10/18 04:00 Urine Blood MODERATE (NEGATIVE) H 06/10/18 04:00 Urine Nitrate NEGATIVE (NEGATIVE) 06/10/18 04:00 Urine Bilirubin NEGATIVE (NEGATIVE) 06/10/18 04:00 Urine Urobilinogen 1.0 E.U./dL (0.2 - 1.0) 06/10/18 04:00 Ur Leukocyte Esterase NEGATIVE (NEGATIVE) 06/10/18 04:00 Urine RBC 5-10 /hpf (0-5) H 06/10/18 04:00 Urine WBC 2-5 /hpf (0-5) 06/10/18 04:00 Ur Epithelial Cells FEW /lpf (FEW) 06/10/18 04:00 Urine Bacteria FEW /hpf (NONE SEEN) 06/10/18 04:00 Serum Ketones NEGATIVE (NEGATIVE) 06/10/18 03:30 - Physical Exam Vitals and I&O: Vital Signs Temp 97.5 F 06/13/18 08:00 Pulse 96 06/13/18 08:00 Resp 19 06/13/18 08:00 BP 154/54 06/13/18 08:00 Pulse Ox 94 06/13/18 08:00 Intake & Output 06/12/18 06/13/18 06/13/18 18:59 06:59 18:59 Intake Total 100 767.5 Output Total 351 Balance 100 416.5 Weight (lbs) 102.058 kg 90.718 kg Intake: Intake, IV Amount 667.5 Sodium Chloride 0.9% 1, 667.5 000 ml @ 75 mls/hr IV . [id number] [facility] Rx#:[id number] Oral 100 100 Output: Urine 350 Stool 1 Other: Weight Source Bedscale Estimated Active Medications: Current Medications Acetaminophen (Tylenol) 650 mg PO Q6H PRN PRN Reason: Pain (Mild) Stop: 08/10/18 11:25 Last Admin: 06/11/18 17:09 Dose: 650 mg Dextrose (D50w) 50 ml IVP PRN PRN PRN Reason: Blood Glucose less than 70 Stop: 08/09/18 09:36 Dextrose (Glutose 40%) 18.75 gm PO PRN PRN PRN Reason: Blood Glucose less than 70 Stop: 08/09/18 09:36 Furosemide (Lasix) 20 mg PO BID [facility] Stop: 08/10/18 16:59 Last Admin: 06/12/18 18:10 Dose: 20 mg Glucagon (Glucagen) 1 mg IM PRN PRN PRN Reason: Blood Glucose less than 70 Stop: 08/09/18 09:36 Sodium Chloride (Nacl 0.9%) 1,000 mls @ 75 mls/hr IV .[id number] [facility] Stop: 08/09/18 09:33 Last Infusion: 06/12/18 19:00 Dose: Infused Insulin Human Lispro (Humalog Insulin Sliding Scale) 0 units SUBQ Q4HR [facility]; Protocol Stop: 08/11/18 22:44 Last Admin: 06/13/18 07:59 Dose: 6 units Lactulose (Cephulac) 20 gm PO Q6HR [facility] Stop: 08/09/18 09:59 Last Admin: 06/13/18 05:48 Dose: 20 gm Lisinopril (Zestril) 20 mg PO DAILY [facility] Stop: 08/10/18 08:59 Last Admin: 06/12/18 09:54 Dose: 20 mg Mupirocin (Bactroban Oint) 1 appl NS BID [facility] Stop: 06/16/18 17:01 Last Admin: 06/12/18 18:18 Dose: 1 appl Rifaximin (Xifaxan) 600 mg PO BID [facility] Stop: 08/09/18 16:59 Last Admin: 06/12/18 21:12 Dose: 600 mg General: Alert, Cooperative, Other (Less Confused) HEENT: Atraumatic, Other (No teeth) Neck: Supple Cardiovascular: Regular rate Lungs: Clear to auscultation Abdomen: Bowel sounds, Tender Extremities: Other (no edema) Neurological: Other (No ambulatory at this moment) Skin: Other (Warm and dry) Psych/Mental Status: Other (Confused, not oriented. ) - Procedures Procedures: Procedures Procedure Code Date INJECT/INFUSE NEC 99.29 01/12/10 INSERTION OF INFUSION DEV INTO SUP VENA CAVA, PERC APPROACH [id number] 11/28/17 INSERTION OF INFUSION DEVICE INTO R UP ARM, PERC APPROACH [id number] 11/28/17 Assessment/Plan - Assessment Assessment: Patient is awake, alert, less confused, oriented, ammonia level decreased to 75 , Na normal, BS improving. DX: Hepatic encephalopathy, Cirrhosis, Uncontrolled DM, HTN, obesity. Will continue to monitor - Plan Plan: Patient is in IV NS, Lactulose, continue with some home meds, diabetic diet, insulin sliding scale. Follow by GI. Patient will be DC to an SNF. Will continue to monitor. Nutritional Asmnt/Malnutr-PDOC - Dietary Evaluation Malnutrition Findings (Please click <Entered> for more info): Nutritional Asmnt/Malnutrition Start: 06/12/18 16: 19 Text: Status: Complete Freq: Protocol: Document 06/12/18 16:19 LCHENG (Rec: 06/12/18 16:35 [email or web address]) Nutritional Asmnt/Malnutrition Patient General Information Nutritional Screening High Risk Consult Diagnosis hepatic encephalopathy Pertinent Medical Hx/Surgical Hx DM, obesity Subjective Information Pt seen busy with nurse. Per nurse note pt is confused. Consult received for blod sugar > 180. Per EMR, PO intake 50%. Current Diet Order/ Nutrition Support CCHO, chopped Pertinent Medications lasix, humalog, nacl 0.9% Pertinent Labs 5/6 Gluocse 401, POC 277-362 Nutritional Hx/Data Height 1.63 m Height (Calculated Centimeters) 162.6 Current Weight (lbs) 102.058 kg Weight (Calculated Kilograms) 102.1 Weight (Calculated Grams) 481861.3 Myra Body Weight 120 Body Mass Index (BMI) 38.6 Weight Status Obese GI Symptoms GI Symptoms None Last BM 5/5 x 4 Difficult in: None Skin Integrity/Comment: bruise to right arm, discolaration to abdomen and bilateral lower extremities Current %PO Good (75-100%) Estimated Nutritional Goals BEE in Kcals: Adj wt of IBW Calories/Kcals/Kg 25-30 Kcals Calculated [id number] Protein: Adj wt of IBW Protein g/k-1.2 Protein Calculated 66-79 Fluid: ml 1650-1980ml (1ml/kcal) Nutritional Problem 1. Problem Problem altered nutrition related labs Etiology hyperglycemia Signs/Symptoms: glucose 274-401 Malnutrition Alert Is there a minimum of two criteria No selected? Query Text:Check all the applicable criteria. A minimum of two criteria are recommended for diagnosis of either severe or non-severe malnutrition. Malnutrition Related to Morbid Obesity Malnutrition related to morbid obesity No Intervention/Recommendation Comments 1. Continue with [facility] 60gm chopped diet as ordered. MD to adjust insulin regimen for optimal glycemic control. Will provide diabetic education to family and pt when appropriate. 2. Monitor PO intake, wt, labs and skin integrity 3. F/U as high risk in 2-3 days Expected Outcomes/Goals Expected Outcomes/Goals 1. PO intake to meet at least 75% of nutritional needs. 2. Wt stability, skin to remain intact, labs to approach WNL.
--- NOTE | 2018-06-13 19:56 | GI Progress Note ---
Subjective - Review of Systems Service Date: 06/13/18 Events since last encounter: More awake and responsive but is still confused Subjective: Responsive Oriented to self and place Objective - Results Result Diagrams: 06/13/18 06:10 06/13/18 06:10 Recent Labs: Laboratory Last Values WBC 6.6 Th/cmm (4.8-10.8) 06/13/18 06:10 RBC 4.11 Mil/cmm (3.80-5.20) 06/13/18 06:10 Hgb 11.9 gm/dL (12-16) L 06/13/18 06:10 Hct 34.8 % (41.0-60) L 06/13/18 06:10 MCV 84.7 fl (81-100) 06/13/18 06:10 MCH 28.9 pg (27.0-31.0) 06/13/18 06:10 MCHC Differential 34.1 pg (28.0-36.0) 06/13/18 06:10 RDW 14.9 % (11.5-20.0) 06/13/18 06:10 Plt Count 106 Th/cmm (150-400) L 06/13/18 06:10 MPV 9.2 fl 06/13/18 06:10 Add Manual Diff YES 06/10/18 03:30 Neutrophils % 66.5 % (40.0-80.0) 06/13/18 06:10 Band Neutrophils % 0 % (0-10) 06/10/18 03:30 Lymphocytes % 15.9 % (20.0-50.0) L 06/13/18 06:10 Monocytes % 9.9 % (2.0-10.0) 06/13/18 06:10 Eosinophils % 6.2 % (0.0-5.0) H 06/13/18 06:10 Basophils % 1.5 % (0.0-2.0) 06/13/18 06:10 Neutrophils (Manual) 76 % (40-80) 06/10/18 03:30 Lymphocytes 16 % (20-50) L 06/10/18 03:30 Monocytes 6 % (2-10) 06/10/18 03:30 Eosinophils 2 % (0-5) 06/10/18 03:30 Basophils 0 % (0-3) 06/10/18 03:30 PT 11.0 SECONDS (9.5-11.5) 06/10/18 05:45 INR 1.06 (0.5-1.4) 06/10/18 05:45 Specimen Source arterial 06/10/18 03:21 Sample Site left radial 06/10/18 03:21 pH 7.437 (7.35-7.45) 06/10/18 03:21 pCO2 36.1 mmHg (35.0-45.0) 06/10/18 03:21 pO2 80.0 mmHg (80.0-100.0) 06/10/18 03:21 HCO3 23.8 mEq/L (20.0-26.0) 06/10/18 03:21 Base Excess 0.1 mEq/L (-3.0-3.0) 06/10/18 03:21 O2 Saturation 96.2 % (92.0-100.0) 06/10/18 03:21 [place] Test positive 06/10/18 03:21 Vent Rate n/a 06/10/18 03:21 Inspired O2 21 06/10/18 03:21 Tidal Volume n/a 06/10/18 03:21 PEEP n/a 06/10/18 03:21 Pressure (ins/psv/peep) n/a 06/10/18 03:21 Critical Value abroedel 06/10/18 03:21 Sodium 136 mEq/L (136-145) 06/13/18 06:10 Potassium 3.5 mEq/L (3.5-5.1) 06/13/18 06:10 Chloride 104 mEq/L (98-107) 06/13/18 06:10 Carbon Dioxide 23.7 mEq/L (21.0-31.0) 06/13/18 06:10 Anion Gap 11.8 (7.0-16.0) 06/13/18 06:10 BUN 19 mg/dL (7-25) 06/13/18 06:10 Creatinine 0.8 mg/dL (0.6-1.2) 06/13/18 06:10 Est GFR ( Amer) TNP 06/13/18 06:10 Est GFR (Non-Af Amer) TNP 06/13/18 06:10 BUN/Creatinine Ratio 23.8 06/13/18 06:10 Glucose 332 mg/dL (70-105) H 06/13/18 06:10 POC Glucose 337 MG/DL (70 - 105) H 06/13/18 16:22 Whole Bld Lactic Acid 1.97 mmol/L (0.60-1.99) 06/10/18 03:30 Calcium 8.7 mg/dL (8.6-10.3) 06/13/18 06:10 Total Bilirubin 4.2 mg/dL (0.3-1.0) H 06/13/18 06:10 Direct Bilirubin 0.97 mg/dL (0.0-0.2) H 06/10/18 03:30 AST 42 U/L (13-39) H 06/13/18 06:10 ALT 16 U/L (7-52) 06/13/18 06:10 Alkaline Phosphatase 79 U/L (34-104) 06/13/18 06:10 Ammonia 63 umol/L (16-53) H 06/13/18 06:10 Troponin I 0.01 ng/mL (0.01-0.05) 06/10/18 03:30 Total Protein 6.1 gm/dL (6.0-8.3) 06/13/18 06:10 Albumin 2.6 gm/dL (3.7-5.3) L 06/13/18 06:10 Globulin 3.5 gm/dL 06/13/18 06:10 Albumin/Globulin Ratio 0.7 (1.0-1.8) L 06/13/18 06:10 Triglycerides 104 mg/dL (<150) 06/10/18 03:30 Cholesterol 262 mg/dL (<200) H 06/10/18 03:30 LDL Cholesterol Direct 164 mg/dL (75-193) 06/10/18 03:30 HDL Cholesterol 72 mg/dL (23-92) 06/10/18 03:30 Urine Source [place] 06/10/18 04:00 Urine Color YELLOW 06/10/18 04:00 Urine Clarity HAZY (CLEAR) 06/10/18 04:00 Urine pH 7.0 (4.6 - 8.0) 06/10/18 04:00 Ur Specific [place] 1.020 (1.005-1.030) 06/10/18 04:00 Urine Protein 100 mg/dL (NEGATIVE) H 06/10/18 04:00 Urine Glucose (UA) >=1000 mg/dL (NEGATIVE) H 06/10/18 04:00 Urine Ketones NEGATIVE mg/dL (NEGATIVE) 06/10/18 04:00 Urine Blood MODERATE (NEGATIVE) H 06/10/18 04:00 Urine Nitrate NEGATIVE (NEGATIVE) 06/10/18 04:00 Urine Bilirubin NEGATIVE (NEGATIVE) 06/10/18 04:00 Urine Urobilinogen 1.0 E.U./dL (0.2 - 1.0) 06/10/18 04:00 Ur Leukocyte Esterase NEGATIVE (NEGATIVE) 06/10/18 04:00 Urine RBC 5-10 /hpf (0-5) H 06/10/18 04:00 Urine WBC 2-5 /hpf (0-5) 06/10/18 04:00 Ur Epithelial Cells FEW /lpf (FEW) 06/10/18 04:00 Urine Bacteria FEW /hpf (NONE SEEN) 06/10/18 04:00 Serum Ketones NEGATIVE (NEGATIVE) 06/10/18 03:30 - Physical Exam Vitals and I&O: Vital Signs Temp 97 F 06/13/18 17:00 Pulse 89 06/13/18 17:00 Resp 18 06/13/18 17:00 BP 150/64 06/13/18 17:00 Pulse Ox 96 06/13/18 16:00 Intake & Output 06/13/18 06/13/18 06/14/18 06:59 18:59 06:59 Intake Total 767.5 200 Output Total 351 500 Balance 416.5 -300 Weight (lbs) 90.718 kg 92.986 kg Intake: Intake, IV Amount 667.5 Sodium Chloride 0.9% 1, 667.5 000 ml @ 75 mls/hr IV . [id number] [facility] Rx#:[id number] Oral 100 200 Output: Urine 350 500 Stool 1 Other: # Bowel Movements 2 Stool Characteristics Brown Weight Source Estimated Bedscale Active Medications: Current Medications Acetaminophen (Tylenol) 650 mg PO Q6H PRN PRN Reason: Pain (Mild) Stop: 08/10/18 11:25 Last Admin: 06/11/18 17:09 Dose: 650 mg Dextrose (D50w) 50 ml IVP PRN PRN PRN Reason: Blood Glucose less than 70 Stop: 08/09/18 09:36 Dextrose (Glutose 40%) 18.75 gm PO PRN PRN PRN Reason: Blood Glucose less than 70 Stop: 08/09/18 09:36 Furosemide (Lasix) 20 mg PO BID [facility] Stop: 08/10/18 16:59 Last Admin: 06/13/18 17:19 Dose: Not Given Glucagon (Glucagen) 1 mg IM PRN PRN PRN Reason: Blood Glucose less than 70 Stop: 08/09/18 09:36 Haloperidol (Haldol) 0.5 mg PO Q6HR PRN; Protocol PRN Reason: Agitation Stop: 08/13/18 00:00 Sodium Chloride (Nacl 0.9%) 1,000 mls @ 75 mls/hr IV .[id number] [facility] Stop: 08/09/18 09:33 Last Infusion: 06/12/18 19:00 Dose: Infused Insulin Human Lispro (Humalog Insulin Sliding Scale) 0 units SUBQ Q4HR [facility]; Protocol Stop: 08/11/18 22:44 Last Admin: 06/13/18 16:52 Dose: 8 units Lactulose (Cephulac) 20 gm PO Q6HR [facility] Stop: 08/09/18 09:59 Last Admin: 06/13/18 17:19 Dose: Not Given Lisinopril (Zestril) 20 mg PO DAILY [facility] Stop: 08/10/18 08:59 Mupirocin (Bactroban Oint) 1 appl NS BID [facility] Stop: 06/16/18 17:01 Last Admin: 06/13/18 17:18 Dose: 1 appl Rifaximin (Xifaxan) 600 mg PO BID [facility] Stop: 08/09/18 16:59 Last Admin: 06/13/18 17:19 Dose: Not Given General: Alert, Cooperative, Other (Less Confused) HEENT: Atraumatic, Other (No teeth) Neck: Supple Cardiovascular: Regular rate Lungs: Clear to auscultation Abdomen: Bowel sounds, Tender Extremities: Other (no edema) Neurological: Other (No ambulatory at this moment) Skin: Other (Warm and dry) Psych/Mental Status: Other (Confused, oriented to self and place ) - Procedures Procedures: Procedures Procedure Code Date INJECT/INFUSE NEC 99.29 01/12/10 INSERTION OF INFUSION DEV INTO SUP VENA CAVA, PERC APPROACH [id number] 11/28/17 INSERTION OF INFUSION DEVICE INTO R UP ARM, PERC APPROACH [id number] 11/28/17 Assessment/Plan - Assessment Assessment: # Cirrhosis # hepatic encephalopathy # Diabetes # Obesity - Plan Plan: # Cirrhosis Pt has responded to lactulose and rifaximin, much more awake. US shows no hepatoma and only small ascites US and AFP due in 6 months # hepatic encephalopathy Pt has responded to lactulose and rifaximin, much more awake. - cont lactulose on dc, aim for 2-3 BMs per day - low sodium diet - outpt hepatology follow up # Diabetes # Obesity
--- NOTE | 2018-06-13 21:46 | Consultation ---
DATE OF CONSULTATION: 06/13/2018 PSYCHIATRIC CONSULTATION REQUESTING PHYSICIAN: Gary Davalos M.D. REASON FOR CONSULTATION: Altered level of consciousness. HISTORY OF PRESENT ILLNESS: This is a 72-year-old woman living with her family. Information obtained by directly interviewing the patient as well as reviewing the admission papers. The patient is reported to have been admitted for altered level of consciousness and a Psychiatric consultation is called to address the issue. The patient is spoken to and chart is reviewed and staff was spoken to. The patient has been seen by me in 2017 and has been diagnosed to have mood disorder and psychosis. The patient is eluding to getting into treatment in [place] by a psychiatrist and the patient is not able to give the information. The patient is stating that she was taking in a blue pill that has been of some help, but has not been taking the medication for a while. Sleep and appetite at the time of the hospitalization are reported to be fair. The patient is noted to be agitated and then trying to pull the IV lines out. PAST PSYCHIATRIC HISTORY: The patient denies any prior psychiatric hospitalizations. SUBSTANCE ABUSE HISTORY: None. PHYSICAL OR SEXUAL ABUSE HISTORY: None. MENTAL STATUS EXAMINATION: The patient is moderately obese, superficially cooperative. Eye contact is noted to be poor. Attention span and concentration are noted to be very poor. The patient is going on a tangent. The patient is talking about blue pills and is also talking about since her parents , she has been feeling acutely depressed. The patient at this time is noted to be having difficult time to stay on task and give any information. The patient has paranoia. The patient is displaying the mood swings at times and attention span and concentration are noted to be poor. Her mental status is noted to be waxing and waning and the patient is not able to focus on a given topic. DIAGNOSTIC IMPRESSION: AXIS I: Psychotic disorder, not otherwise specified. PLAN: To use the haloperidol 0.5 mg q.6 p.r.n. and continue the patient with a close monitoring. Thank you, Dr. Davalos for allowing me to participate in the care of the patient. [facility]# [id number]
[2018-06-14] MEDS: INSULIN LISPRO SLIDING SCALE 100 UNITS/ML UNIT SUBQ SCH ×6 (00:57→20:10)
[2018-06-14] MEDS: Lactulose 10 Gm/15 mL 30mL UDC PO SCH ×4 (00:57→17:14)
[2018-06-14 07:20] LABS: % BASOPHILS 0.9 % (0.0-2.0); % EOSINOPHILS 7.8 % (0.0-5.0); % LYMPHOCYTES 16.6 % (20.0-50.0); % MONOCYTES 9.5 % (2.0-10.0); % NEUTROPHILS 65.2 % (40.0-80.0); BASOPHILE ABSOLUTE 0.1 Th/cumm (0-0.2); EOSINOPHILE ABSOLUTE 0.5 Th/cmm (0.1-0.4); HEMATOCRIT 36.1 % (41.0-60); HEMOGLOBIN 12.2 gm/dL (12-16); MEAN CORPUSCULAR HGB CONC 33.7 pg (28.0-36.0); MEAN PLATELET VOLUME 9.3 fl; MONOCYTE ABSOLUTE 0.6 Th/cmm (0.3-1.0); NEUTROPHILE ABSOLUTE 3.9 Th/cmm (1.8-8.0); PLATELET COUNT 107 Th/cmm (150-400); RED CELL DISTRIBUTION WIDTH 15.1 % (11.5-20.0); WHITE BLOOD COUNT 6.1 Th/cmm (4.8-10.8)
[2018-06-14 07:34] LABS: ALB/GLOB RATIO 0.8 (1.0-1.8); ALBUMIN 2.7 gm/dL (3.7-5.3); ALKALINE PHOSPHATASE 75 U/L (34-104); ANION GAP 12.7 (7.0-16.0); BILIRUBIN,TOTAL 3.9 mg/dL (0.3-1.0); BUN - UREA NITROGEN 21 mg/dL (7-25); CALCIUM SERUM 9.1 mg/dL (8.6-10.3); CARBON DIOXIDE 25.3 mEq/L (21.0-31.0); CHLORIDE 105 mEq/L (98-107); CREATININE - SERUM 0.8 mg/dL (0.6-1.2); GLUCOSE 267 mg/dL (70-105); SGOT 58 U/L (13-39); SGPT/ALT 16 U/L (7-52); SODIUM SERUM 139 mEq/L (136-145)
--- NOTE | 2018-06-14 09:40 | General Progress Note ---
Subjective - Review of Systems Service Date: 06/14/18 Subjective: I have cough Objective - Results Result Diagrams: 06/14/18 06:00 06/14/18 06:00 Recent Labs: Laboratory Last Values WBC 6.1 Th/cmm (4.8-10.8) 06/14/18 06:00 RBC 4.20 Mil/cmm (3.80-5.20) 06/14/18 06:00 Hgb 12.2 gm/dL (12-16) 06/14/18 06:00 Hct 36.1 % (41.0-60) L 06/14/18 06:00 MCV 86.0 fl (81-100) 06/14/18 06:00 MCH 29.0 pg (27.0-31.0) 06/14/18 06:00 MCHC Differential 33.7 pg (28.0-36.0) 06/14/18 06:00 RDW 15.1 % (11.5-20.0) 06/14/18 06:00 Plt Count 107 Th/cmm (150-400) L 06/14/18 06:00 MPV 9.3 fl 06/14/18 06:00 Add Manual Diff YES 06/10/18 03:30 Neutrophils % 65.2 % (40.0-80.0) 06/14/18 06:00 Band Neutrophils % 0 % (0-10) 06/10/18 03:30 Lymphocytes % 16.6 % (20.0-50.0) L 06/14/18 06:00 Monocytes % 9.5 % (2.0-10.0) 06/14/18 06:00 Eosinophils % 7.8 % (0.0-5.0) H 06/14/18 06:00 Basophils % 0.9 % (0.0-2.0) 06/14/18 06:00 Neutrophils (Manual) 76 % (40-80) 06/10/18 03:30 Lymphocytes 16 % (20-50) L 06/10/18 03:30 Monocytes 6 % (2-10) 06/10/18 03:30 Eosinophils 2 % (0-5) 06/10/18 03:30 Basophils 0 % (0-3) 06/10/18 03:30 PT 11.0 SECONDS (9.5-11.5) 06/10/18 05:45 INR 1.06 (0.5-1.4) 06/10/18 05:45 Specimen Source arterial 06/10/18 03:21 Sample Site left radial 06/10/18 03:21 pH 7.437 (7.35-7.45) 06/10/18 03:21 pCO2 36.1 mmHg (35.0-45.0) 06/10/18 03:21 pO2 80.0 mmHg (80.0-100.0) 06/10/18 03:21 HCO3 23.8 mEq/L (20.0-26.0) 06/10/18 03:21 Base Excess 0.1 mEq/L (-3.0-3.0) 06/10/18 03:21 O2 Saturation 96.2 % (92.0-100.0) 06/10/18 03:21 Jean Claude Test positive 06/10/18 03:21 Vent Rate n/a 06/10/18 03:21 Inspired O2 21 06/10/18 03:21 Tidal Volume n/a 06/10/18 03:21 PEEP n/a 06/10/18 03:21 Pressure (ins/psv/peep) n/a 06/10/18 03:21 Critical Value abroedel 06/10/18 03:21 Sodium 139 mEq/L (136-145) 06/14/18 06:00 Potassium 4.0 mEq/L (3.5-5.1) 06/14/18 06:00 Chloride 105 mEq/L (98-107) 06/14/18 06:00 Carbon Dioxide 25.3 mEq/L (21.0-31.0) 06/14/18 06:00 Anion Gap 12.7 (7.0-16.0) 06/14/18 06:00 BUN 21 mg/dL (7-25) 06/14/18 06:00 Creatinine 0.8 mg/dL (0.6-1.2) 06/14/18 06:00 Est GFR ( Amer) TNP 06/14/18 06:00 Est GFR (Non-Af Amer) TNP 06/14/18 06:00 BUN/Creatinine Ratio 26.3 06/14/18 06:00 Glucose 267 mg/dL (70-105) H 06/14/18 06:00 POC Glucose 296 MG/DL (70 - 105) H 06/14/18 04:16 Whole Bld Lactic Acid 1.97 mmol/L (0.60-1.99) 06/10/18 03:30 Calcium 9.1 mg/dL (8.6-10.3) 06/14/18 06:00 Total Bilirubin 3.9 mg/dL (0.3-1.0) H 06/14/18 06:00 Direct Bilirubin 0.97 mg/dL (0.0-0.2) H 06/10/18 03:30 AST 58 U/L (13-39) H 06/14/18 06:00 ALT 16 U/L (7-52) 06/14/18 06:00 Alkaline Phosphatase 75 U/L (34-104) 06/14/18 06:00 Ammonia 76 umol/L (16-53) H 06/14/18 06:00 Troponin I 0.01 ng/mL (0.01-0.05) 06/10/18 03:30 Total Protein 6.0 gm/dL (6.0-8.3) 06/14/18 06:00 Albumin 2.7 gm/dL (3.7-5.3) L 06/14/18 06:00 Globulin 3.3 gm/dL 06/14/18 06:00 Albumin/Globulin Ratio 0.8 (1.0-1.8) L 06/14/18 06:00 Triglycerides 104 mg/dL (<150) 06/10/18 03:30 Cholesterol 262 mg/dL (<200) H 06/10/18 03:30 LDL Cholesterol Direct 164 mg/dL (75-193) 06/10/18 03:30 HDL Cholesterol 72 mg/dL (23-92) 06/10/18 03:30 Urine Source [place] 06/10/18 04:00 Urine Color YELLOW 06/10/18 04:00 Urine Clarity HAZY (CLEAR) 06/10/18 04:00 Urine pH 7.0 (4.6 - 8.0) 06/10/18 04:00 Ur Specific [place] 1.020 (1.005-1.030) 06/10/18 04:00 Urine Protein 100 mg/dL (NEGATIVE) H 06/10/18 04:00 Urine Glucose (UA) >=1000 mg/dL (NEGATIVE) H 06/10/18 04:00 Urine Ketones NEGATIVE mg/dL (NEGATIVE) 06/10/18 04:00 Urine Blood MODERATE (NEGATIVE) H 06/10/18 04:00 Urine Nitrate NEGATIVE (NEGATIVE) 06/10/18 04:00 Urine Bilirubin NEGATIVE (NEGATIVE) 06/10/18 04:00 Urine Urobilinogen 1.0 E.U./dL (0.2 - 1.0) 06/10/18 04:00 Ur Leukocyte Esterase NEGATIVE (NEGATIVE) 06/10/18 04:00 Urine RBC 5-10 /hpf (0-5) H 06/10/18 04:00 Urine WBC 2-5 /hpf (0-5) 06/10/18 04:00 Ur Epithelial Cells FEW /lpf (FEW) 06/10/18 04:00 Urine Bacteria FEW /hpf (NONE SEEN) 06/10/18 04:00 Serum Ketones NEGATIVE (NEGATIVE) 06/10/18 03:30 - Physical Exam Vitals and I&O: Vital Signs Temp 98.1 F 06/14/18 08:00 Pulse 90 06/14/18 08:00 Resp 20 06/14/18 08:00 BP 144/70 06/14/18 08:21 Pulse Ox 99 06/14/18 08:00 Intake & Output 06/13/18 06/14/18 06/14/18 18:59 06:59 18:59 Intake Total 200 100 Output Total 500 450 Balance -300 -350 Weight (lbs) 92.986 kg 92.986 kg Intake: Oral 200 100 Output: Urine 500 450 Other: # Bowel Movements 2 Stool Characteristics Brown Brown Weight Source Bedscale Bedscale Active Medications: Current Medications Acetaminophen (Tylenol) 650 mg PO Q6H PRN PRN Reason: Pain (Mild) Stop: 08/10/18 11:25 Last Admin: 06/11/18 17:09 Dose: 650 mg Dextrose (D50w) 50 ml IVP PRN PRN PRN Reason: Blood Glucose less than 70 Stop: 08/09/18 09:36 Dextrose (Glutose 40%) 18.75 gm PO PRN PRN PRN Reason: Blood Glucose less than 70 Stop: 08/09/18 09:36 Furosemide (Lasix) 20 mg PO BID [facility] Stop: 08/10/18 16:59 Last Admin: 06/14/18 08:21 Dose: 20 mg Glucagon (Glucagen) 1 mg IM PRN PRN PRN Reason: Blood Glucose less than 70 Stop: 08/09/18 09:36 Haloperidol (Haldol) 0.5 mg PO Q6HR PRN; Protocol PRN Reason: Agitation Stop: 08/13/18 00:00 Sodium Chloride (Nacl 0.9%) 1,000 mls @ 75 mls/hr IV .[id number] [facility] Stop: 08/09/18 09:33 Last Infusion: 06/12/18 19:00 Dose: Infused Insulin Human Lispro (Humalog Insulin Sliding Scale) 0 units SUBQ Q4HR [facility]; Protocol Stop: 08/11/18 22:44 Last Admin: 06/14/18 08:32 Dose: 4 units Lactulose (Cephulac) 20 gm PO Q6HR [facility] Stop: 08/09/18 09:59 Last Admin: 06/14/18 05:03 Dose: 20 gm Lisinopril (Zestril) 20 mg PO DAILY [facility] Stop: 08/10/18 08:59 Mupirocin (Bactroban Oint) 1 appl NS BID [facility] Stop: 06/16/18 17:01 Last Admin: 06/13/18 17:18 Dose: 1 appl Rifaximin (Xifaxan) 600 mg PO BID [facility] Stop: 08/09/18 16:59 Last Admin: 06/14/18 08:21 Dose: 600 mg General: Alert, Cooperative, Other (Confused) HEENT: Atraumatic, Other (No teeth) Neck: Supple Cardiovascular: Regular rate Lungs: Other (Rude respiration) Abdomen: Bowel sounds, Tender Extremities: Other (no edema) Neurological: Other (No ambulatory at this moment) Skin: Other (Warm and dry) Psych/Mental Status: Other (Confused, oriented to self and place ) - Procedures Procedures: Procedures Procedure Code Date INJECT/INFUSE NEC 99.29 01/12/10 INSERTION OF INFUSION DEV INTO SUP VENA CAVA, PERC APPROACH 99KW99N 11/28/17 INSERTION OF INFUSION DEVICE INTO R UP ARM, PERC APPROACH [id number] 11/28/17 Assessment/Plan - Assessment Assessment: Patient is awake, alert, confused, oriented, ammonia level decreased to 75, Na normal, BS improving. DX: Hepatic encephalopathy, Cirrhosis, Uncontrolled DM, HTN, obesity. Will continue to monitor - Plan Plan: Patient is in IV NS, Lactulose, continue with some home meds, diabetic diet, insulin sliding scale. Follow by GI and Psyque. Patient will be DC to an SNF. Will continue to monitor. Nutritional Asmnt/Malnutr-PDOC - Dietary Evaluation Malnutrition Findings (Please click <Entered> for more info): Nutritional Asmnt/Malnutrition Start: 06/12/18 16: 19 Text: Status: Complete Freq: Protocol: Document 06/12/18 16:19 LCHENG (Rec: 06/12/18 16:35 [email or web address]) Nutritional Asmnt/Malnutrition Patient General Information Nutritional Screening High Risk Consult Diagnosis hepatic encephalopathy Pertinent Medical Hx/Surgical Hx DM, obesity Subjective Information Pt seen busy with nurse. Per nurse note pt is confused. Consult received for blod sugar > 180. Per EMR, PO intake 50%. Current Diet Order/ Nutrition Support CCHO, chopped Pertinent Medications lasix, humalog, nacl 0.9% Pertinent Labs 5/6 Gluocse 401, POC 277-362 Nutritional Hx/Data Height 1.63 m Height (Calculated Centimeters) 162.6 Current Weight (lbs) 102.058 kg Weight (Calculated Kilograms) 102.1 Weight (Calculated Grams) 914863.3 [place] Body Weight 120 Body Mass Index (BMI) 38.6 Weight Status Obese GI Symptoms GI Symptoms None Last BM 5/5 x 4 Difficult in: None Skin Integrity/Comment: bruise to right arm, discolaration to abdomen and bilateral lower extremities Current %PO Good (75-100%) Estimated Nutritional Goals BEE in Kcals: Adj wt of IBW Calories/Kcals/Kg 25-30 Kcals Calculated 7133-1155 Protein: Adj wt of IBW Protein g/k-1.2 Protein Calculated 66-79 Fluid: ml 1650-1980ml (1ml/kcal) Nutritional Problem 1. Problem Problem altered nutrition related labs Etiology hyperglycemia Signs/Symptoms: glucose 274-401 Malnutrition Alert Is there a minimum of two criteria No selected? Query Text:Check all the applicable criteria. A minimum of two criteria are recommended for diagnosis of either severe or non-severe malnutrition. Malnutrition Related to Morbid Obesity Malnutrition related to morbid obesity No Intervention/Recommendation Comments 1. Continue with CCHO 60gm chopped diet as ordered. MD to adjust insulin regimen for optimal glycemic control. Will provide diabetic education to family and pt when appropriate. 2. Monitor PO intake, wt, labs and skin integrity 3. F/U as high risk in 2-3 days Expected Outcomes/Goals Expected Outcomes/Goals 1. PO intake to meet at least 75% of nutritional needs. 2. Wt stability, skin to remain intact, labs to approach WNL.
--- NOTE | 2018-06-14 10:01 | GI Progress Note ---
Subjective - Review of Systems Service Date: 06/14/18 Events since last encounter: No events Subjective: Responsive Oriented to self and place Objective - Results Result Diagrams: 06/14/18 06:00 06/14/18 06:00 Recent Labs: Laboratory Last Values WBC 6.1 Th/cmm (4.8-10.8) 06/14/18 06:00 RBC 4.20 Mil/cmm (3.80-5.20) 06/14/18 06:00 Hgb 12.2 gm/dL (12-16) 06/14/18 06:00 Hct 36.1 % (41.0-60) L 06/14/18 06:00 MCV 86.0 fl (81-100) 06/14/18 06:00 MCH 29.0 pg (27.0-31.0) 06/14/18 06:00 MCHC Differential 33.7 pg (28.0-36.0) 06/14/18 06:00 RDW 15.1 % (11.5-20.0) 06/14/18 06:00 Plt Count 107 Th/cmm (150-400) L 06/14/18 06:00 MPV 9.3 fl 06/14/18 06:00 Add Manual Diff YES 06/10/18 03:30 Neutrophils % 65.2 % (40.0-80.0) 06/14/18 06:00 Band Neutrophils % 0 % (0-10) 06/10/18 03:30 Lymphocytes % 16.6 % (20.0-50.0) L 06/14/18 06:00 Monocytes % 9.5 % (2.0-10.0) 06/14/18 06:00 Eosinophils % 7.8 % (0.0-5.0) H 06/14/18 06:00 Basophils % 0.9 % (0.0-2.0) 06/14/18 06:00 Neutrophils (Manual) 76 % (40-80) 06/10/18 03:30 Lymphocytes 16 % (20-50) L 06/10/18 03:30 Monocytes 6 % (2-10) 06/10/18 03:30 Eosinophils 2 % (0-5) 06/10/18 03:30 Basophils 0 % (0-3) 06/10/18 03:30 PT 11.0 SECONDS (9.5-11.5) 06/10/18 05:45 INR 1.06 (0.5-1.4) 06/10/18 05:45 Specimen Source arterial 06/10/18 03:21 Sample Site left radial 06/10/18 03:21 pH 7.437 (7.35-7.45) 06/10/18 03:21 pCO2 36.1 mmHg (35.0-45.0) 06/10/18 03:21 pO2 80.0 mmHg (80.0-100.0) 06/10/18 03:21 HCO3 23.8 mEq/L (20.0-26.0) 06/10/18 03:21 Base Excess 0.1 mEq/L (-3.0-3.0) 06/10/18 03:21 O2 Saturation 96.2 % (92.0-100.0) 06/10/18 03:21 Jean Claude Test positive 06/10/18 03:21 Vent Rate n/a 06/10/18 03:21 Inspired O2 21 06/10/18 03:21 Tidal Volume n/a 06/10/18 03:21 PEEP n/a 06/10/18 03:21 Pressure (ins/psv/peep) n/a 06/10/18 03:21 Critical Value abroedel 06/10/18 03:21 Sodium 139 mEq/L (136-145) 06/14/18 06:00 Potassium 4.0 mEq/L (3.5-5.1) 06/14/18 06:00 Chloride 105 mEq/L (98-107) 06/14/18 06:00 Carbon Dioxide 25.3 mEq/L (21.0-31.0) 06/14/18 06:00 Anion Gap 12.7 (7.0-16.0) 06/14/18 06:00 BUN 21 mg/dL (7-25) 06/14/18 06:00 Creatinine 0.8 mg/dL (0.6-1.2) 06/14/18 06:00 Est GFR ( Amer) TNP 06/14/18 06:00 Est GFR (Non-Af Amer) TNP 06/14/18 06:00 BUN/Creatinine Ratio 26.3 06/14/18 06:00 Glucose 267 mg/dL (70-105) H 06/14/18 06:00 POC Glucose 296 MG/DL (70 - 105) H 06/14/18 04:16 Whole Bld Lactic Acid 1.97 mmol/L (0.60-1.99) 06/10/18 03:30 Calcium 9.1 mg/dL (8.6-10.3) 06/14/18 06:00 Total Bilirubin 3.9 mg/dL (0.3-1.0) H 06/14/18 06:00 Direct Bilirubin 0.97 mg/dL (0.0-0.2) H 06/10/18 03:30 AST 58 U/L (13-39) H 06/14/18 06:00 ALT 16 U/L (7-52) 06/14/18 06:00 Alkaline Phosphatase 75 U/L (34-104) 06/14/18 06:00 Ammonia 76 umol/L (16-53) H 06/14/18 06:00 Troponin I 0.01 ng/mL (0.01-0.05) 06/10/18 03:30 Total Protein 6.0 gm/dL (6.0-8.3) 06/14/18 06:00 Albumin 2.7 gm/dL (3.7-5.3) L 06/14/18 06:00 Globulin 3.3 gm/dL 06/14/18 06:00 Albumin/Globulin Ratio 0.8 (1.0-1.8) L 06/14/18 06:00 Triglycerides 104 mg/dL (<150) 06/10/18 03:30 Cholesterol 262 mg/dL (<200) H 06/10/18 03:30 LDL Cholesterol Direct 164 mg/dL (75-193) 06/10/18 03:30 HDL Cholesterol 72 mg/dL (23-92) 06/10/18 03:30 Urine Source [place] 06/10/18 04:00 Urine Color YELLOW 06/10/18 04:00 Urine Clarity HAZY (CLEAR) 06/10/18 04:00 Urine pH 7.0 (4.6 - 8.0) 06/10/18 04:00 Ur Specific [place] 1.020 (1.005-1.030) 06/10/18 04:00 Urine Protein 100 mg/dL (NEGATIVE) H 06/10/18 04:00 Urine Glucose (UA) >=1000 mg/dL (NEGATIVE) H 06/10/18 04:00 Urine Ketones NEGATIVE mg/dL (NEGATIVE) 06/10/18 04:00 Urine Blood MODERATE (NEGATIVE) H 06/10/18 04:00 Urine Nitrate NEGATIVE (NEGATIVE) 06/10/18 04:00 Urine Bilirubin NEGATIVE (NEGATIVE) 06/10/18 04:00 Urine Urobilinogen 1.0 E.U./dL (0.2 - 1.0) 06/10/18 04:00 Ur Leukocyte Esterase NEGATIVE (NEGATIVE) 06/10/18 04:00 Urine RBC 5-10 /hpf (0-5) H 06/10/18 04:00 Urine WBC 2-5 /hpf (0-5) 06/10/18 04:00 Ur Epithelial Cells FEW /lpf (FEW) 06/10/18 04:00 Urine Bacteria FEW /hpf (NONE SEEN) 06/10/18 04:00 Serum Ketones NEGATIVE (NEGATIVE) 06/10/18 03:30 - Physical Exam Vitals and I&O: Vital Signs Temp 98.1 F 06/14/18 08:00 Pulse 90 06/14/18 08:00 Resp 20 06/14/18 08:00 BP 144/70 06/14/18 08:21 Pulse Ox 99 06/14/18 08:00 Intake & Output 06/13/18 06/14/18 06/14/18 18:59 06:59 18:59 Intake Total 200 100 Output Total 500 450 Balance -300 -350 Weight (lbs) 92.986 kg 92.986 kg Intake: Oral 200 100 Output: Urine 500 450 Other: # Bowel Movements 2 Stool Characteristics Brown Brown Weight Source Bedscale Bedscale Active Medications: Current Medications Acetaminophen (Tylenol) 650 mg PO Q6H PRN PRN Reason: Pain (Mild) Stop: 08/10/18 11:25 Last Admin: 06/11/18 17:09 Dose: 650 mg Dextrose (D50w) 50 ml IVP PRN PRN PRN Reason: Blood Glucose less than 70 Stop: 08/09/18 09:36 Dextrose (Glutose 40%) 18.75 gm PO PRN PRN PRN Reason: Blood Glucose less than 70 Stop: 08/09/18 09:36 Furosemide (Lasix) 20 mg PO BID [facility] Stop: 08/10/18 16:59 Last Admin: 06/14/18 08:21 Dose: 20 mg Glucagon (Glucagen) 1 mg IM PRN PRN PRN Reason: Blood Glucose less than 70 Stop: 08/09/18 09:36 Haloperidol (Haldol) 0.5 mg PO Q6HR PRN; Protocol PRN Reason: Agitation Stop: 08/13/18 00:00 Sodium Chloride (Nacl 0.9%) 1,000 mls @ 75 mls/hr IV .[id number] [facility] Stop: 08/09/18 09:33 Last Infusion: 06/12/18 19:00 Dose: Infused Insulin Human Lispro (Humalog Insulin Sliding Scale) 0 units SUBQ Q4HR [facility]; Protocol Stop: 08/11/18 22:44 Last Admin: 06/14/18 08:32 Dose: 4 units Lactulose (Cephulac) 20 gm PO Q6HR [facility] Stop: 08/09/18 09:59 Last Admin: 06/14/18 05:03 Dose: 20 gm Lisinopril (Zestril) 20 mg PO DAILY [facility] Stop: 08/10/18 08:59 Mupirocin (Bactroban Oint) 1 appl NS BID [facility] Stop: 06/16/18 17:01 Last Admin: 06/13/18 17:18 Dose: 1 appl Rifaximin (Xifaxan) 600 mg PO BID [facility] Stop: 08/09/18 16:59 Last Admin: 06/14/18 08:21 Dose: 600 mg General: Alert, Cooperative, Other (Confused) HEENT: Atraumatic, Other (No teeth, jaundiced) Neck: Supple Cardiovascular: Regular rate, Normal S1, Normal S2 Lungs: Clear to auscultation, Other (Rude respiration) Abdomen: Bowel sounds, no Tender Extremities: Other (no edema) Neurological: Other (No ambulatory at this moment) Skin: Other (Warm and dry) Psych/Mental Status: Other (Confused, oriented to self and place ) - Procedures Procedures: Procedures Procedure Code Date INJECT/INFUSE NEC 99.29 01/12/10 INSERTION OF INFUSION DEV INTO SUP VENA CAVA, PERC APPROACH [id number] 11/28/17 INSERTION OF INFUSION DEVICE INTO R UP ARM, PERC APPROACH [id number] 11/28/17 Assessment/Plan - Assessment Assessment: # Cirrhosis # Hepatic Encephalopathy # Diabetes # Obesity - Plan Plan: # Cirrhosis Pt has responded to lactulose and rifaximin, much more awake. US shows no hepatoma and only small ascites US and AFP due in 6 months # hepatic encephalopathy Pt has responded to lactulose and rifaximin, much more awake. - cont lactulose on dc, aim for 2-3 BMs per day - low sodium diet - outpt hepatology follow up # Diabetes # Obesity
--- NOTE | 2018-06-14 11:25 | Diagnostic Imaging Report ---
Portable chest x-ray HISTORY: Shortness of breath Compared to prior exam of June 10, 2018, the heart remains enlarged. No focal pulmonary processes are seen. Question minimal left pleural effusion. IMPRESSION: 1. Persistent cardiomegaly 2. No definite focal pulmonary parenchymal processes 3. Question minimal left pleural effusion
[2018-06-15] MEDS: Lactulose 10 Gm/15 mL 30mL UDC PO SCH ×3 (00:32→13:00)
[2018-06-15] MEDS: INSULIN LISPRO SLIDING SCALE 100 UNITS/ML UNIT SUBQ SCH ×4 (00:33→12:03)
[2018-06-15] MEDS: Sodium Chloride 0.9% 1,000 ML IV SCH (00:38)
[2018-06-15 06:58] LABS: % BASOPHILS 0.8 % (0.0-2.0); % EOSINOPHILS 5.6 % (0.0-5.0); % LYMPHOCYTES 12.1 % (20.0-50.0); % MONOCYTES 12.2 % (2.0-10.0); % NEUTROPHILS 69.3 % (40.0-80.0); BASOPHILE ABSOLUTE 0.1 Th/cumm (0-0.2); EOSINOPHILE ABSOLUTE 0.4 Th/cmm (0.1-0.4); HEMOGLOBIN 12.3 gm/dL (12-16); LYMPHOCYTE ABSOLUTE 0.9 Th/cmm (1.5-3.0); MEAN CORPUSCULAR HEMOGLOBIN 29.2 pg (27.0-31.0); MEAN PLATELET VOLUME 10.1 fl; MONOCYTE ABSOLUTE 0.9 Th/cmm (0.3-1.0); NEUTROPHILE ABSOLUTE 5.1 Th/cmm (1.8-8.0); PLATELET COUNT 85 Th/cmm (150-400); RED BLOOD COUNT 4.19 Mil/cmm (3.80-5.20); RED CELL DISTRIBUTION WIDTH 15.1 % (11.5-20.0)
[2018-06-15 07:06] LABS: WHITE BLOOD COUNT 7.4 Th/cmm (4.8-10.8)
[2018-06-15 07:12] LABS: ALB/GLOB RATIO 0.7 (1.0-1.8); ALBUMIN 2.6 gm/dL (3.7-5.3); ALKALINE PHOSPHATASE 78 U/L (34-104); ANION GAP 13.2 (7.0-16.0); BILIRUBIN,TOTAL 4.3 mg/dL (0.3-1.0); BUN - UREA NITROGEN 16 mg/dL (7-25); CALCIUM SERUM 8.7 mg/dL (8.6-10.3); CARBON DIOXIDE 25.3 mEq/L (21.0-31.0); CHLORIDE 104 mEq/L (98-107); CREATININE - SERUM 0.8 mg/dL (0.6-1.2); GLUCOSE 274 mg/dL (70-105); POTASSIUM SERUM 3.5 mEq/L (3.5-5.1); SGOT 40 U/L (13-39); SGPT/ALT 17 U/L (7-52); SODIUM SERUM 139 mEq/L (136-145); TOTAL PROTEIN,SERUM 6.1 gm/dL (6.0-8.3)
--- NOTE | 2018-06-15 08:50 | Discharge Summary ---
General Discharge Summary - Discharge Summary Date of Admission: 06/10/18 Admitting Diagnosis: Hepatic encephalopaty, Cirrhosis, Uncontrolled DM, HTN, Obesity Discharge Date: 06/15/18 Discharge Diagnosis: Hepatic encephalopaty, Cirrhosis, Uncontrolled DM, HTN, Obesity Laboratory Findings: Laboratory Results - last 24 hr 06/13/18 06/13/18 06/14/18 05:49 22:03 08:27 WBC RBC Hgb Hct MCV MCH MCHC Differential RDW Plt Count MPV Neutrophils % Lymphocytes % Monocytes % Eosinophils % Basophils % Sodium Potassium Chloride Carbon Dioxide Anion Gap BUN Creatinine Est GFR ( Amer) Est GFR (Non-Af Amer) BUN/Creatinine Ratio Glucose POC Glucose 290 H 391 H 211 H Calcium Total Bilirubin AST ALT Alkaline Phosphatase Ammonia Total Protein Albumin Globulin Albumin/Globulin Ratio 06/14/18 06/14/18 06/15/18 11:56 20:02 05:09 WBC RBC Hgb Hct MCV MCH MCHC Differential RDW Plt Count MPV Neutrophils % Lymphocytes % Monocytes % Eosinophils % Basophils % Sodium Potassium Chloride Carbon Dioxide Anion Gap BUN Creatinine Est GFR ( Amer) Est GFR (Non-Af Amer) BUN/Creatinine Ratio Glucose POC Glucose 273 H 313 H 247 H Calcium Total Bilirubin AST ALT Alkaline Phosphatase Ammonia Total Protein Albumin Globulin Albumin/Globulin Ratio 06/15/18 06/15/18 06/15/18 05:50 05:50 05:50 WBC 7.4 D RBC 4.19 Hgb 12.3 Hct 36.0 L MCV 86.0 MCH 29.2 MCHC Differential 34.0 RDW 15.1 Plt Count 85 L MPV 10.1 Neutrophils % 69.3 Lymphocytes % 12.1 L Monocytes % 12.2 H Eosinophils % 5.6 H Basophils % 0.8 Sodium 139 Potassium 3.5 Chloride 104 Carbon Dioxide 25.3 Anion Gap 13.2 BUN 16 Creatinine 0.8 Est GFR ( Amer) TNP Est GFR (Non-Af Amer) TNP BUN/Creatinine Ratio 20.0 Glucose 274 H POC Glucose Calcium 8.7 Total Bilirubin 4.3 H AST 40 H ALT 17 Alkaline Phosphatase 78 Ammonia 72 H Total Protein 6.1 Albumin 2.6 L Globulin 3.5 Albumin/Globulin Ratio 0.7 L 06/15/18 08:06 WBC RBC Hgb Hct MCV MCH MCHC Differential RDW Plt Count MPV Neutrophils % Lymphocytes % Monocytes % Eosinophils % Basophils % Sodium Potassium Chloride Carbon Dioxide Anion Gap BUN Creatinine Est GFR ( Amer) Est GFR (Non-Af Amer) BUN/Creatinine Ratio Glucose POC Glucose 275 H Calcium Total Bilirubin AST ALT Alkaline Phosphatase Ammonia Total Protein Albumin Globulin Albumin/Globulin Ratio Hospital Course: Patient responded to treatment, ammonia level became normal, she became conscious. Treatment: She was started in IV NS, Lactulose, Insulin slidin scale, and continue with home meds. She was follow by GI. Condition at Discharge: Stable Disposition: Discharge/Transfered to SNF Home Medications: Home Medication Medication Instructions Recorded Type Furosemide 20 mg PO DAILY 02/03/16 History Lisinopril [Zestril*] 20 mg PO DAILY 11/28/17 History Acetaminophen [Tylenol] 650 mg PO Q6H PRN tab 06/15/18 Rx Dextrose Oral Gel [Glutose 40%] 18.75 gm PO PRN PRN tube 06/15/18 Rx GLUCAGON HCl [Glucagen] 1 mg IM PRN PRN kit 06/15/18 Rx Insulin Glargine [Lantus Insulin] 15 units SUBQ DAILY vial 06/15/18 Rx Insulin Lispro Sliding Scale See Protocol SUBQ Q4HR unit 06/15/18 Rx [humaLOG INSULIN SLIDING SCALE] Lactulose [Cephulac] 20 gm PO Q6HR udc 06/15/18 Rx Mupirocin Oint [Mupirocin*] 1 appl NS BID appl 06/15/18 Rx Rifaximin [Xifaxan] 600 mg PO BID tab 06/15/18 Rx Inpatient Medications: Current Medications Acetaminophen (Tylenol) 650 mg PO Q6H PRN PRN Reason: Pain (Mild) Stop: 08/10/18 11:25 Last Admin: 06/11/18 17:09 Dose: 650 mg Dextrose (D50w) 50 ml IVP PRN PRN PRN Reason: Blood Glucose less than 70 Stop: 08/09/18 09:36 Dextrose (Glutose 40%) 18.75 gm PO PRN PRN PRN Reason: Blood Glucose less than 70 Stop: 08/09/18 09:36 Furosemide (Lasix) 20 mg PO BID [facility] Stop: 08/10/18 16:59 Last Admin: 06/14/18 17:13 Dose: 20 mg Glucagon (Glucagen) 1 mg IM PRN PRN PRN Reason: Blood Glucose less than 70 Stop: 08/09/18 09:36 Haloperidol (Haldol) 0.5 mg PO Q6HR PRN; Protocol PRN Reason: Agitation Stop: 08/13/18 00:00 Insulin Glargine (Lantus Insulin) 15 units SUBQ DAILY [facility] Stop: 08/14/18 08:59 Insulin Human Lispro (Humalog Insulin Sliding Scale) 0 units SUBQ Q4HR [facility]ON[facility]; Protocol Stop: 08/11/18 22:44 Last Admin: 06/15/18 05:32 Dose: 4 units Lactulose (Cephulac) 20 gm PO Q6HR [facility]ON[facility] Stop: 08/09/18 09:59 Last Admin: 06/15/18 06:01 Dose: Not Given Lisinopril (Zestril) 20 mg PO DAILY [facility] Stop: 08/10/18 08:59 Last Admin: 06/14/18 10:59 Dose: 20 mg Mupirocin (Bactroban Oint) 1 appl NS BID [facility] Stop: 06/16/18 17:01 Last Admin: 06/14/18 17:14 Dose: 1 appl Rifaximin (Xifaxan) 600 mg PO BID [facility] Stop: 08/09/18 16:59 Last Admin: 06/14/18 16:37 Dose: 600 mg Activity: As Tolerated Discharge Diet: Other (Diabetic and Liver diet) Consults and Follow-Up: [facility] [Other] Gary Davalos [Primary Care Provider] - Consulting Speciality: Other (PCP) Instructions: Hepatic Encephalopathy
[2018-06-15] MEDS ORDERED: Insulin Glargine 100 units/ml 10ml Vial SUBQ SCH (09:00)
--- NOTE | 2018-06-15 10:25 | GI Progress Note ---
Subjective - Review of Systems Service Date: 06/15/18 Events since last encounter: No events Subjective: Confused Responsive Oriented to self and place Objective - Results Result Diagrams: 06/15/18 05:50 06/15/18 05:50 Recent Labs: Laboratory Last Values WBC 7.4 Th/cmm (4.8-10.8) D 06/15/18 05:50 RBC 4.19 Mil/cmm (3.80-5.20) 06/15/18 05:50 Hgb 12.3 gm/dL (12-16) 06/15/18 05:50 Hct 36.0 % (41.0-60) L 06/15/18 05:50 MCV 86.0 fl (81-100) 06/15/18 05:50 MCH 29.2 pg (27.0-31.0) 06/15/18 05:50 MCHC Differential 34.0 pg (28.0-36.0) 06/15/18 05:50 RDW 15.1 % (11.5-20.0) 06/15/18 05:50 Plt Count 85 Th/cmm (150-400) L 06/15/18 05:50 MPV 10.1 fl 06/15/18 05:50 Add Manual Diff YES 06/10/18 03:30 Neutrophils % 69.3 % (40.0-80.0) 06/15/18 05:50 Band Neutrophils % 0 % (0-10) 06/10/18 03:30 Lymphocytes % 12.1 % (20.0-50.0) L 06/15/18 05:50 Monocytes % 12.2 % (2.0-10.0) H 06/15/18 05:50 Eosinophils % 5.6 % (0.0-5.0) H 06/15/18 05:50 Basophils % 0.8 % (0.0-2.0) 06/15/18 05:50 Neutrophils (Manual) 76 % (40-80) 06/10/18 03:30 Lymphocytes 16 % (20-50) L 06/10/18 03:30 Monocytes 6 % (2-10) 06/10/18 03:30 Eosinophils 2 % (0-5) 06/10/18 03:30 Basophils 0 % (0-3) 06/10/18 03:30 PT 11.0 SECONDS (9.5-11.5) 06/10/18 05:45 INR 1.06 (0.5-1.4) 06/10/18 05:45 Specimen Source arterial 06/10/18 03:21 Sample Site left radial 06/10/18 03:21 pH 7.437 (7.35-7.45) 06/10/18 03:21 pCO2 36.1 mmHg (35.0-45.0) 06/10/18 03:21 pO2 80.0 mmHg (80.0-100.0) 06/10/18 03:21 HCO3 23.8 mEq/L (20.0-26.0) 06/10/18 03:21 Base Excess 0.1 mEq/L (-3.0-3.0) 06/10/18 03:21 O2 Saturation 96.2 % (92.0-100.0) 06/10/18 03:21 Jean Claude Test positive 06/10/18 03:21 Vent Rate n/a 06/10/18 03:21 Inspired O2 21 06/10/18 03:21 Tidal Volume n/a 06/10/18 03:21 PEEP n/a 06/10/18 03:21 Pressure (ins/psv/peep) n/a 06/10/18 03:21 Critical Value abroedel 06/10/18 03:21 Sodium 139 mEq/L (136-145) 06/15/18 05:50 Potassium 3.5 mEq/L (3.5-5.1) 06/15/18 05:50 Chloride 104 mEq/L (98-107) 06/15/18 05:50 Carbon Dioxide 25.3 mEq/L (21.0-31.0) 06/15/18 05:50 Anion Gap 13.2 (7.0-16.0) 06/15/18 05:50 BUN 16 mg/dL (7-25) 06/15/18 05:50 Creatinine 0.8 mg/dL (0.6-1.2) 06/15/18 05:50 Est GFR ( Amer) TNP 06/15/18 05:50 Est GFR (Non-Af Amer) TNP 06/15/18 05:50 BUN/Creatinine Ratio 20.0 06/15/18 05:50 Glucose 274 mg/dL (70-105) H 06/15/18 05:50 POC Glucose 275 MG/DL (70 - 105) H 06/15/18 08:06 Whole Bld Lactic Acid 1.97 mmol/L (0.60-1.99) 06/10/18 03:30 Calcium 8.7 mg/dL (8.6-10.3) 06/15/18 05:50 Total Bilirubin 4.3 mg/dL (0.3-1.0) H 06/15/18 05:50 Direct Bilirubin 0.97 mg/dL (0.0-0.2) H 06/10/18 03:30 AST 40 U/L (13-39) H 06/15/18 05:50 ALT 17 U/L (7-52) 06/15/18 05:50 Alkaline Phosphatase 78 U/L (34-104) 06/15/18 05:50 Ammonia 72 umol/L (16-53) H 06/15/18 05:50 Troponin I 0.01 ng/mL (0.01-0.05) 06/10/18 03:30 Total Protein 6.1 gm/dL (6.0-8.3) 06/15/18 05:50 Albumin 2.6 gm/dL (3.7-5.3) L 06/15/18 05:50 Globulin 3.5 gm/dL 06/15/18 05:50 Albumin/Globulin Ratio 0.7 (1.0-1.8) L 06/15/18 05:50 Triglycerides 104 mg/dL (<150) 06/10/18 03:30 Cholesterol 262 mg/dL (<200) H 06/10/18 03:30 LDL Cholesterol Direct 164 mg/dL (75-193) 06/10/18 03:30 HDL Cholesterol 72 mg/dL (23-92) 06/10/18 03:30 Urine Source [place] 06/10/18 04:00 Urine Color YELLOW 06/10/18 04:00 Urine Clarity HAZY (CLEAR) 06/10/18 04:00 Urine pH 7.0 (4.6 - 8.0) 06/10/18 04:00 Ur Specific [place] 1.020 (1.005-1.030) 06/10/18 04:00 Urine Protein 100 mg/dL (NEGATIVE) H 06/10/18 04:00 Urine Glucose (UA) >=1000 mg/dL (NEGATIVE) H 06/10/18 04:00 Urine Ketones NEGATIVE mg/dL (NEGATIVE) 06/10/18 04:00 Urine Blood MODERATE (NEGATIVE) H 06/10/18 04:00 Urine Nitrate NEGATIVE (NEGATIVE) 06/10/18 04:00 Urine Bilirubin NEGATIVE (NEGATIVE) 06/10/18 04:00 Urine Urobilinogen 1.0 E.U./dL (0.2 - 1.0) 06/10/18 04:00 Ur Leukocyte Esterase NEGATIVE (NEGATIVE) 06/10/18 04:00 Urine RBC 5-10 /hpf (0-5) H 06/10/18 04:00 Urine WBC 2-5 /hpf (0-5) 06/10/18 04:00 Ur Epithelial Cells FEW /lpf (FEW) 06/10/18 04:00 Urine Bacteria FEW /hpf (NONE SEEN) 06/10/18 04:00 Serum Ketones NEGATIVE (NEGATIVE) 06/10/18 03:30 - Physical Exam Vitals and I&O: Vital Signs Temp 97.9 F 06/15/18 08:00 Pulse 108 06/15/18 08:00 Resp 18 06/15/18 08:00 BP 168/78 06/15/18 08:43 Pulse Ox 95 06/15/18 08:00 Intake & Output 06/14/18 06/15/18 06/15/18 18:59 06:59 18:59 Output Total 850 Balance -850 Weight (lbs) 92.986 kg 92.986 kg Output: Urine 850 Other: # Bowel Movements 0 Stool Characteristics Brown Brown Weight Source Bedscale Bedscale Active Medications: Current Medications Acetaminophen (Tylenol) 650 mg PO Q6H PRN PRN Reason: Pain (Mild) Stop: 08/10/18 11:25 Last Admin: 06/11/18 17:09 Dose: 650 mg Dextrose (D50w) 50 ml IVP PRN PRN PRN Reason: Blood Glucose less than 70 Stop: 08/09/18 09:36 Dextrose (Glutose 40%) 18.75 gm PO PRN PRN PRN Reason: Blood Glucose less than 70 Stop: 08/09/18 09:36 Furosemide (Lasix) 20 mg PO BID [place] Stop: 08/10/18 16:59 Last Admin: 06/15/18 08:43 Dose: 20 mg Glucagon (Glucagen) 1 mg IM PRN PRN PRN Reason: Blood Glucose less than 70 Stop: 08/09/18 09:36 Haloperidol (Haldol) 0.5 mg PO Q6HR PRN; Protocol PRN Reason: Agitation Stop: 08/13/18 00:00 Insulin Glargine (Lantus Insulin) 15 units SUBQ DAILY [facility] Stop: 08/14/18 08:59 Insulin Human Lispro (Humalog Insulin Sliding Scale) 0 units SUBQ Q4HR [facility]; Protocol Stop: 08/11/18 22:44 Last Admin: 06/15/18 08:44 Dose: 6 units Lactulose (Cephulac) 20 gm PO Q6HR [facility] Stop: 08/09/18 09:59 Last Admin: 06/15/18 06:01 Dose: Not Given Lisinopril (Zestril) 20 mg PO DAILY [facility] Stop: 08/10/18 08:59 Last Admin: 06/14/18 10:59 Dose: 20 mg Mupirocin (Bactroban Oint) 1 appl NS BID [facility] Stop: 06/16/18 17:01 Last Admin: 06/15/18 08:44 Dose: 1 appl Rifaximin (Xifaxan) 600 mg PO BID [facility] Stop: 08/09/18 16:59 Last Admin: 06/15/18 08:43 Dose: 600 mg General: Alert, Cooperative, No acute distress, Other (Confused) HEENT: Atraumatic, Other (No teeth, jaundiced) Neck: Supple Cardiovascular: Regular rate, Normal S1, Normal S2 Lungs: Clear to auscultation, Other (Rude respiration) Abdomen: Bowel sounds, no Tender Extremities: Other (no edema) Neurological: Other (No ambulatory at this moment) Skin: Other (Warm and dry) Psych/Mental Status: Other (Confused, oriented to self and place ) - Procedures Procedures: Procedures Procedure Code Date INJECT/INFUSE NEC 99.29 01/12/10 INSERTION OF INFUSION DEV INTO SUP VENA CAVA, PERC APPROACH [id number] 11/28/17 INSERTION OF INFUSION DEVICE INTO R UP ARM, PERC APPROACH [id number] 11/28/17 Assessment/Plan - Assessment Assessment: # Cirrhosis # Hepatic Encephalopathy # Diabetes # Obesity - Plan Plan: # Cirrhosis Pt has responded to lactulose and rifaximin, much more awake. US shows no hepatoma and only small ascites US and AFP due in 6 months # hepatic encephalopathy Confused again Pt has responded to lactulose and rifaximin. cont lactulose on dc, aim for 2-3 BMs per day low sodium diet - outpt hepatology follow up Avoid animal protein diet # Diabetes # Obesity
== END 2018-06-15 18:14 | DRG 441 ==
LOC: ER 02:59 → ICU 07:30 → MSI 06-11 20:50
PROVIDERS: ADMIT General Practice; ATTEND General Practice
DX: K72.90 Hepatic failure, unspecified without coma (principal); G93.41 Metabolic encephalopathy; E11.00 Type 2 diabetes mellitus with hyperosmolarity without nonketotic hyperglycemic-hyperosmolar coma (NKHHC); E11.65 Type 2 diabetes mellitus with hyperglycemia; I10 Essential (primary) hypertension; I25.10 Atherosclerotic heart disease of native coronary artery without angina pectoris; K74.60 Unspecified cirrhosis of liver; E66.9 Obesity, unspecified; F29 Unspecified psychosis not due to a substance or known physiological condition; Z68.35 Body mass index [BMI] 35.0-35.9, adult; Z79.4 Long term (current) use of insulin
CPT/HCPCS: 36415-UA; 36600-90; 71045-TC; 76700-TC; 80053-TC; 80061-TC; 80076-TC; 81001-TC; 82010-TC; 82140-TC; 82803-TC; 82948-90; 83036-90; 83605; 84484-TC; 85007-TC; 85025-TC; 85610-TC; 87086-90; 93005; 97530; J1815; J2543; J3480; J7030; X3401; X3904; Z7610